=== PATIENT | female | born 1970 | race Caucasian/White ===

== ENCOUNTER 2019-12-24 12:27 | Emergency (ER) | payer MEDICARE, OTHER ==
[~2019-12-24] VITALS: Ht 157.5 cm; Wt 99.8 kg
--- OUTSIDE RECORDS SUMMARY | ~2019-12-24 | XMS | Encounter Summary ---
Demographics + + + | Address | [address] | | | [place] [address] | + + + | Home Phone | | + + + | Preferred Language | Unknown | + + + | Marital Status | | + + + | Evangelical Affiliation | 1013 | + + + | Race | Unknown | + + + | Ethnic Group | Unknown | + + + Author + + + | Author | [facility] | | | and [place] | + + + | Organization | [facility] | | | and [place] | + + + | Address | Unknown | + + + | Phone | Unavailable | + + + Support + + + + + | Name | Relationship | Address | Phone | + + + + + | Iwona L Head | ECON | [place], | | | | | [place] [address] | | + + + + + | Mahogany Navarro [place] | ECON | [address] | | | | | [place] [address] | | + + + + + Care Team Providers + +------+ + | Care Files Supervisor Name | Role | Phone | + +------+ + PCP | Unavailable | + +------+ + Encounter Details +--------+ + + + + | Date | Type | Department | Care Team | Description | +--------+ + + + + | 03/22/ | Abstract | [facility] | Larry Sandoval [place], | | | 2011 | | Conversion Location | MD [address] | | | | | [address] | [place] | | | | | [place], [place] | [address] | | | | | [address] | | | | | | [phone] | | | +--------+ + + + + Social History + +-------+ +--------+------+ | Tobacco Use | Types | Packs/Day | Years | Date | | | | | Used | | + +-------+ +--------+------+ | Never Assessed | | | | | + +-------+ +--------+------+ + + + | Sex Assigned at | Date Recorded | | | | + + + | Not on file | | + + + documented as of this encounter Plan of Treatment +--------+---------+ + + + | Date | Type | Specialty | Care Team | Description | +--------+---------+ + + + | 01/09/ | Office | Internal Medicine | Stef, | | | 2019 | Visit | | MD Quynh | | | | | | [facility] [address] | | | | | | [place] [address] | | | | | | [phone] | | | | | | | | +--------+---------+ + + + documented as of this encounter Visit Diagnoses Not on filedocumented in this encounter"
--- OUTSIDE RECORDS SUMMARY | ~2019-12-24 | XMS | Encounter Summary ---
Demographics + + + | Address | [address] | | | [place] [address] | + + + | Home Phone | | + + + | Preferred Language | Unknown | + + + | Marital Status | | + + + | Yazidi Affiliation | 1013 | + + + | Race | Unknown | + + + | Ethnic Group | Unknown | + + + Author + + + | Author | [facility] | | | and [place] | + + + | Organization | [facility] | | | and [place] | + + + | Address | Unknown | + + + | Phone | Unavailable | + + + Support + + + + + | Name | Relationship | Address | Phone | + + + + + | Iwona L Head | ECON | [place], | | | | | [place] [address] | | + + + + + | Mahogany Navarro [place] | ECON | [address] | | | | | [place] [address] | | + + + + + Care Team Providers + +------+ + | Care Papier Mache Molder Name | Role | Phone | + +------+ + | Quynh Finch | PCP | | | MD | | | + +------+ + Reason for Visit + +--------+ + | Reason | Onset | Comments | | | Date | | + +--------+ + | Results, Imaging | 09/29/ | | | | 2018 | | + +--------+ + Encounter Details +--------+ + + + + | Date | Type | Department | Care Team | Description | +--------+ + + + + | 09/29/ | Telephone | [facility] | Stef, | Results, Imaging | | 2018 | | MEDICINE [address] | MD Quynh | | | | | [place], | [address] [facility] | | | | | [place] [address] | [place] [address] | | | | | [phone] | [phone] | | | | | | | | +--------+ + + + + Social History + + + +--------+------+ | Tobacco Use | Types | Packs/Day | Years | Date | | | | | Used | | + + + +--------+------+ | Current Every Day | Cigarettes | 1.5 | 34 | | | Smoker | | | | | + + + +--------+------+ + +---+---+---+ | Smokeless Tobacco: | | | | | Never Used | | | | + +---+---+---+ + + +---------+ + | Alcohol Use | Drinks/Week | oz/Week | Comments | + + +---------+ + | Yes | | | | + + +---------+ + + + + | Sex Assigned at | Date Recorded | | | | + + + | Not on file | | + + + documented as of this encounter Miscellaneous Notes Telephone Encounter - Vera Solis LPN - 09/29/2018 4:09 PM PDTPatient notified of enoc hand with comments. Follow up appt scheduled on 10/07/18 to discuss in more detailElectr onically signed by Vera Solis LPN at 09/29/2018 4:10 PM PDTTelephone Encounter - Radha Solis LPN - 09/29/2018 4:09 PM PDT----- Message from Quynh Finch MD sent at 09/27/2018 19:54 PDT ----- U/S shows no alarming features. 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 We can discuss this more at next visit. elephone Encounter - Vera Solis LPN - 09/29/2018 4:08 PM PDT--- -- Message from Quynh Finch MD sent at 09/27/2018 19:54 PDT ----- U/S shows no alarming features. 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 We can discuss this more at next visit. 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
--- OUTSIDE RECORDS SUMMARY | ~2019-12-24 | XMS | Encounter Summary ---
Demographics + + + | Address | [address] | | | [place] [address] | + + + | Home Phone | | + + + | Preferred Language | Unknown | + + + | Marital Status | | + + + | Orthodoxy Affiliation | 1013 | + + + | Race | Unknown | + + + | Ethnic Group | Unknown | + + + Author + + + | Author | [facility] | | | and [place] | + + + | Organization | [facility] | | | and [place] | + + + | Address | Unknown | + + + | Phone | Unavailable | + + + Support + + + + + | Name | Relationship | Address | Phone | + + + + + | Iwona L Head | ECON | [place], | | | | | [place] [address] | | + + + + + | aMhogany Navarro [place] | ECON | [address] | | | | | [place] [address] | | + + + + + Care Team Providers + +------+ + | Care Outboard Motorboat Rigger Name | Role | Phone | + +------+ + | Quynh Finch | PCP | | | MD | | | + +------+ + Reason for Visit + +--------+ + | Reason | Onset | Comments | | | Date | | + +--------+ + | Medication Question | 02/01/ | | | | 2018 | | + +--------+ + Encounter Details +--------+ + + + + | Date | Type | Department | Care Team | Description | +--------+ + + + + | 02/01/ | Telephone | [facility] | Stef, | Medication Question | | 2018 | | MEDICINE [address] | MD Quynh | | | | | [place], | [address] [facility] [place] | | | | | [place] [address] | [place] [address] | | | | | [phone] | [phone] | | | | | | | [...] Telephone Encounter - Vera Solis LPN - 02/02/2019 2:13 PM PDTPharmacist Ant soto of MD approval for one time early refill, patient instructed to call our office before any increase in medication. Patient understands and accepts. elephone Encounter - Quynh Finch MD - 1:56 PM PDTOK to refill early this time, in the context of moving stress. Electron ically signed by Quynh Finch MD at 02/02/2019 1:56 PM PDTTelephone Encoungely r - Vera Solis LPN - 02/02/2019 10:16 AM PDTVerified with patient, states is in the proc ess of moving to town and had a couple of days with increased anxiety and needed to take eliana e additional doses. Please advise 10 :21 AM PDTTelephone Encounter - Quynh Finch MD - 02/02/2019 8:00 AM PDTPle ase check w/ pt what is going on. If needs more meds for anxiety, more xanax is not the answ er. We can try buspirone, hydroxyzine, or other agents. elephone Vera Finnegan LPN - 11/2018 4:56 PM PDTReceived [facility] patient was raphael goodman for refill,was told unable to refill until 02/05/19, received #30 on 01/06/19. Daughter then shows up at the pharmacy demanding they refill and it is due now. Directions say 1 tab shelly y as needed, daughter states she takes as needed for anxiety. Please confirm rx then will co ntact the pharmacy and or patient for instructions documented in this encounter Plan of Treatment +--------+---------+ + + + | Date | Type | Specialty | Care Team | Description | +--------+---------+ + + + | 01/09/ | Office | Internal Medicine | Stef, | | | 2019 | Visit | | MD Quynh | | | | | | [facility] [address] [facility] | | | | | | [place] [address] | | | | | | [phone] | | | | | | | [...]
--- OUTSIDE RECORDS SUMMARY | ~2019-12-24 | XMS | Encounter Summary ---
Demographics + + + | Address | [address] | | | [place] [address] | + + + | Home Phone | | + + + | Preferred Language | Unknown | + + + | Marital Status | | + + + | Oriental Orthodox Affiliation | 1013 | + + + | Race | Unknown | + + + | Ethnic Group | Unknown | + + + Author + + + | Author | [facility] | | | and [place] | + + + | Organization | [facility] | | | and [place] | + + + | Address | Unknown | + + + | Phone | Unavailable | + + + Support + + + + + | Name | Relationship | Address | Phone | + + + + + | Iwona L Head | ECON | [place], | | | | | [place] [address] | | + + + + + | Mahogany Farnsworth | ECON | [address] | | | | | [place] [address] | | + + + + + Care Team Providers + +------+ + | Care Hr Internship Name | Role | Phone | + +------+ + | Jason Pink | PCP | | | MD | | | + +------+ + Encounter Details +--------+ + + + + | Date | Type | Department | Care Team | Description | +--------+ + + + + | 10/27/ | Hospital | [facility] | Wali Vivar, | | | 2012 | Encounter | [facility] EM[facility] | [address] | | | | | CENTER [address] | [place] | | | | | [place] | [address] | | | | | [address] | | | | | | [phone] | | | +--------+ + + + [...] + + documented as of this encounter Medications at Time of Discharge + + + +---------+ + + | Medication | Sig | Dispensed | Refills | Start | End Date | | | | | | Date | | + + + +---------+ + + | promethazine | Take 1 tablet by | | 0 | 03/12/20 | | | (PHENERGAN) 25 mg | mouth every 4 to 6 | | | 12 | | | tablet | hours as needed | | | | | + + + +---------+ + + | acyclovir | Take 400 mg by mouth | | 0 | 03/12/20 | | | (ZOVIRAX) 400 MG | 3 times daily. | | | 12 | 7 | | tablet | | | | | | + + + +---------+ + + | | one tablet by mouth | | 0 | 03/22/20 | | | amoxicillin-clavulan | two times daily | | | 12 | 6 | | ate (AUGMENTIN) | | | | | | | 875-125 mg per | | | | | | | tablet | | | | | | + + + +---------+ + + | benztropine | Take 1 mg by mouth | | 0 | 03/22/20 | | | (COGENTIN) 1 mg | Daily. | | | 12 | 7 | | tablet | | | | | | + + + +---------+ + + | diclofenac | Take as directed | | 0 | 03/12/20 | | | (CATAFLAM) 50 MG | | | | 12 | 9 | | tablet | | | | | | + + + +---------+ + + | diphenhydrAMINE | Take 25 mg by mouth | | 0 | 03/12/20 | | | (BENADRYL ALLERGY) | every 6 hours as | | | 12 | 9 | | 25 MG capsule | needed. | | | | | + + + +---------+ + + | DiphenhydrAMINE | TABS; Take as | | 0 | 03/12/20 | | | HCl (DIPHENHIST PO) | directed | | | 12 | 7 | + + + +---------+ + + | DULoxetine | Take 60 mg by mouth | | 0 | 01/01/20 | | | (CYMBALTA) 60 MG | Daily. | | | 12 | 7 | | capsule | | | | | | + + + +---------+ + + | gabapentin | two daily | | 0 | 03/22/20 | | | (NEURONTIN) 300 mg | | | | 12 | 5 | | capsule | | | | | | + + + +---------+ + + | insulin NPH | 30 units below the | | 0 | 01/01/20 | | | (HUMULIN N) 100 | skin twice daily | | | 12 | 9 | | units/mL injection | | | | | | + + + +---------+ + + | insulin regular | 30 units inject | | 0 | 01/01/20 | | | (HUMULIN R) 100 | below the skin | | | 12 | 9 | | units/mL injection | before meals | | | | | + + + +---------+ + + | levothyroxine | Take 125 mcg by | | 0 | 01/01/20 | | | (SYNTHROID) 125 mcg | mouth Daily. | | | 12 | 5 | | tablet | | | | | | + + + +---------+ + + | methocarbamol | Take 500 mg by mouth | | 0 | 03/12/20 | | | (ROBAXIN) 500 mg | 3 times daily as | | | 12 | 7 | | tablet | needed. | | | | | + + + +---------+ + + | omeprazole | Take 20 mg by mouth | | 0 | 01/01/20 | | | (PRILOSEC) 20 mg | Daily. | | | 12 | 7 | | capsule | | | | | | + + + +---------+ + + | polyethylene | to be taken day | | 0 | 01/01/20 | | | glycol-electrolytes | prior to procedure, | | | 12 | 5 | | (NULYTELY WITH | drink 8 ounces every | | | | | | FLAVOR PACKS) 420 G | 10-20 minutes until | | | | | | solution | gone | | | | | + + + +---------+ + + | pramipexole | Take 1 mg by mouth | | 0 | 03/12/20 | | | (MIRAPEX) 1 MG | nightly. | | | 12 | 7 | | tablet | | | | | | + + + +---------+ + + | pravastatin | Take 20 mg by mouth | | 0 | 01/01/20 | | | (PRAVACHOL) 20 mg | Daily. | | | 12 | 8 | | tablet | | | | | | + + + +---------+ + + | rizatriptan | Take 1 tablet by | | 0 | 03/12/20 | | | (MAXALT) 10 mg | mouth, repeat in 2 | | | 12 | 7 | | tablet | hours if needed. | | | | | | | Maximum of 3 tablets | | | | | | | in 24 hours. | | | | | + + + +---------+ + + | traZODone | 1.5 tablet by mouth | | 0 | 01/01/20 | | | (DESYREL) 100 mg | at bedtime | | | 12 | 5 | | tablet | | | | | | + + + +---------+ + + documented as of this encounter ED Notes Wali Vivar MD - 10/27/2012 3:27 [place] [address] Patient Name: MARZENA CLINE Provider: Unit #: [id number] Location: : 1970 DATE: 10/27/2012 HISTORY OF PRESENT ILLNESS: This is a 42-year-old woman who presents here by ambulance from [facility]. She was discharged this morning at 6 a.m. for [facility] after a long stay there where she required a number of surgeries for a necrotizi ng soft tissue infection in the right leg. This included VRE and MRSA. She had been transfe rred here and was supposed to be getting oxycodone which she has been receiving in the hosp ital. She has also received fentanyl in the hospital , but her discharge medications were o xycodone. There had been a long duration between doses and the folks at the retirement y they did not have enough oxycodone to give her until her medications arrived, so sent her to the emergency department. She is not complaining of any fevers or worsening drainage or appearance of the leg. She is complaining of severe pain, 10/10. She has a history of diab etes and this recent necrotizing soft tissue infection of the leg. ALLERGIES 1. CODEINE. 2. SULFA. 3. HYDROCODONE. 4. MORPHINE. HOME MEDICATIONS 1. Acetaminophen. 2. Abilify. 3. Bacitracin. 4. Bisacodyl. 5. Calcium. 6. Cymbalta. 7. Neurontin. 8. Hydroxyzine. 9. Synthroid. 10. Lopressor. 11. Multivitamin. 12. Omeprazole. 13. Oxycodone 5-25 mg oral every 3 hours. 14. Pravachol. 15. Seroquel. 16. Senna. REVIEW OF SYSTEMS: Complete review of systems negative except as detailed in the HPI above. PHYSICAL EXAMINATION VITAL SIGNS: Blood pressure 134/69, heart rate 79, respirations 18. She is 94% on room air. GENERAL: She appears to be in no distress. HEENT: Pupils are equal and reactive to light and accommodation, extraocular movements are intact. Oral mucosa moist. NECK: Supple, nontender. CARDIAC: Normal S1, S2. LUNGS: Sounds are clear to auscultation bilaterally. ABDOMEN: Soft, nontender, nondistended. Normal bowel sounds. NEUROLOGIC: Cranial nerves 2 through 12 intact, able move all extremities with normal sensa tion and motor. SKIN: The patient has a clean, dry and intact wound in the right groin. She also has a harv est site for skin grafting over the right anterior thigh. There is a dressing in place that is not to be removed. The edges of the wound appear normal. There is a graft site to the r ight lateral calf that looks clean, dry and intact. There is no evidence of erythema or isc hemia to the graft. It looks healthy, no signs of infection. Capillary refill in both feet is normal, as is sensation. ASSESSMENT AND PLAN THIS IS A 42-YEAR-OLD WITH DIAGNOSIS OF RIGHT LEG PAIN POSTOPERATIVE. She was given 20 mg of oxycodone in the ER. She will be discharged back to the retirement . They receive her medications at 4 a.m. that they can administer to her and she can contin ue care there. She should return if any new concerning symptoms. DICTATED BY: Wali Vivar M.D. Emergency Medicine JOB #: [id number] EXT JOB #:[id number] <<Signature on File>> Wali Vivar MD0 10/30/12 1800 < documented in this encounter Plan of Treatment +--------+---------+ + + + | Date | Type | Specialty | Care Team | Description | +--------+---------+ + + + | 01/09/ | Office | Internal Medicine | Stef, | | | 2019 | Visit | | MD Quynh | | | | | | [address] | | | | | | [place] [address] | | | | | | [phone] | | | | | | | | +--------+---------+ + + + documented as of this encounter Visit Diagnoses Not on filedocumented in this encounter"
--- OUTSIDE RECORDS SUMMARY | ~2019-12-24 | XMS | Encounter Summary ---
Demographics + + + | Address | [address] | | | [place] [address] | + + + | Home Phone | | + + + | Preferred Language | Unknown | + + + | Marital Status | | + + + | Zoroastrianism Affiliation | 1013 | + + + | Race | Unknown | + + + | Ethnic Group | Unknown | + + + Author + + + | Author | [facility] | | | and [place] | + + + | Organization | [facility] | | | and [place] | + + + | Address | Unknown | + + + | Phone | Unavailable | + + + Support + + + + + | Name | Relationship | Address | Phone | + + + + + | Iwona L Head | ECON | [place], | | | | | [place] [address] | | + + + + + | Mahogany Navarro [place] | ECON | [address] | | | | | [place] [address] | | + + + + + Care Team Providers + +------+ + | Care Vascular Neurologist Name | Role | Phone | + +------+ + PCP | Unavailable | + +------+ + Encounter Details +--------+ + + + + | Date | Type | Department | Care Team | Description | +--------+ + + + + | 07/18/ | Hospital | [facility] | Driss Gaviria, | | | 2010 - | Encounter | MED CTR MED ONC | MD [address] | | | | | [address] | [place] | | | 07/20/ | | [place] [address] | [address] | | | 2010 | | [phone] | | | +--------+ + + + [...] Quynh | | | | | | [address] | | | | | | [place] [address] | | | | | | [phone] | | | | | | | | +--------+---------+ + + + documented as of this encounter Visit Diagnoses Not on filedocumented in this encounter"
--- OUTSIDE RECORDS SUMMARY | ~2019-12-24 | XMS | Encounter Summary ---
Demographics + + + | Address | [address] | | | [place] [address] | + + + | Home Phone | | + + + | Preferred Language | Unknown | + + + | Marital Status | | + + + | Caodaism Affiliation | 1013 | + + + | Race | Unknown | + + + | Ethnic Group | Unknown | + + + Author + + + | Author | [facility] | | | and [place] | + + + | Organization | [facility] | | | and [place] | + + + | Address | Unknown | + + + | Phone | Unavailable | + + + Support + + + + + | Name | Relationship | Address | Phone | + + + + + | Iwona L Head | ECON | [place], | | | | | [place] [address] | | + + + + + | Mahogany Farnsworth | ECON | [address] | | | | | [place] [address] | | + + + + + Care Team Providers + +------+ + | Care Certified Real Estate Appraiser Name | Role | Phone | + +------+ + | Quynh Finch | PCP | | | MD | | | + +------+ + Reason for Visit + + + | Reason | Comments | + + + | Medication Refill | | + + + Encounter Details +--------+--------+ + + + | Date | Type | Department | Care Team | Description | +--------+--------+ + + + | 04/24/ | Refill | [facility] | Stef, | Medication Refill | | 2017 | | MEDICINE [address] | MD Quynh | | | | | [place], | [address] [facility] | | | | | [place] [address] | [place] [address] | | | | | [phone] | [phone] | | | | | | | | +--------+--------+ + + + Social History + + [...] Quynh | | | | | | [address] [place] [address] | | | | | | [place] [address] | | | | | | [phone] | | | | | | | [...]
--- OUTSIDE RECORDS SUMMARY | ~2019-12-24 | XMS | Encounter Summary ---
Demographics + + + | Address | [address] | | | [place] [address] | + + + | Home Phone | | + + + | Preferred Language | Unknown | + + + | Marital Status | | + + + | Adventist Affiliation | 1013 | + + + | Race | Unknown | + + + | Ethnic Group | Unknown | + + + Author + + + | Author | [facility] | | | and [place] | + + + | Organization | [facility] | | | and [place] | + + + | Address | Unknown | + + + | Phone | Unavailable | + + + Support + + + + + | Name | Relationship | Address | Phone | + + + + + | Iwona L Head | ECON | [place], | | | | | [place] [address] | | + + + + + | Mahogany Navarro [place] | ECON | [address] | | | | | [place] [address] | | + + + + + Care Team Providers + +------+ + | Care Boiler Erector Name | Role | Phone | + +------+ + | Quynh Finch | PCP | | | MD | | | + +------+ + Reason for Visit + + + | Reason | Comments | + + + | Urinary Pain | | + + + | Hematuria | | + + + | Flank Pain | bilateral | + + + Encounter Details +--------+ + + + + | Date | Type | Department | Care Team | Description | +--------+ + + + + | 02/03/ | Emergency | [facility] | Dimitri De La Vega | Urinary tract | | 2019 | | [facility] | [facility] [address] | infection with | | | | CENTER [address] | [address] [place] | hematuria, site | | | | [place] | [place] [address] | unspecified (Primary | | | | [address] | [phone] | Dx); Flank pain | | | | [phone] | | | +--------+ + + + [...] + + documented as of this encounter Last Filed Vital Signs + + + + + | Vital Sign | Reading | Time Taken | Comments | + + + + + | Blood Pressure | 148/94 | 02/03/2019 8:44 PM | | | | | PDT | | + + + + + | Pulse | 76 | 02/03/2019 9:42 PM | | | | | PDT | | + + + + + | Temperature | 37 C (98.6 F) | 02/03/2019 8:44 PM | | | | | PDT | | + + + + + | Respiratory Rate | 18 | 02/03/2019 8:44 PM | | | | | PDT | | + + + + + | Oxygen Saturation | 96% | 02/03/2019 9:42 PM | | | | | PDT | | + + + + + | Inhaled Oxygen | - | - | | | Concentration | | | | + + + + + | Weight | 93 kg (205 lb) | 02/03/2019 8:44 PM | | | | | PDT | | + + + + + | Height | 157.5 cm (5' 2") | 02/03/2019 8:44 PM | | | | | PDT | | + + + + + | Body Mass Index | 37.49 | 02/03/2019 8:44 PM | | | | | PDT | | + + + + + documented in this encounter Discharge Instructions AttachmentsThe following attachments cannot be sent through Care Everywhere.Urinary Tract I nfections in Women (Persian)documented in this encounter Medications at Time of Discharge + + + +---------+ + + | Medication | Sig | Dispensed | Refills | Start | End Date | | | | | | Date | | + + + +---------+ + + | acetaminophen | Take 325 mg by mouth | | 0 | | | | (TYLENOL) 325 mg | every 4 hours as | | | | | | tablet | needed. | | | | | + + + +---------+ + + | ARIPiprazole | TAKE ONE TABLET BY | 30 | 5 | 01/27/20 | | | (ABILIFY) 5 mg | MOUTH AT BEDTIME | tablet | | 19 | | | tablet | | | | | | + + + +---------+ + + | atorvaSTATin | Take 1 tablet by | 90 | 1 | 01/14/20 | | | (LIPITOR) 40 mg | mouth nightly. | tablet | | 19 | | | tabletIndications: | | | | | | | Hypercholesterolemia | | | | | | + + + +---------+ + + | DULoxetine | TAKE ONE CAPSULE BY | 30 | 4 | 01/21/20 | | | (CYMBALTA) [address] | MOUTH ONE TIME DAILY | capsule | | 19 | | | capsule | | | | | | + + + +---------+ + + | ondansetron | Take 1 tablet by | | 0 | | | | (ZOFRAN) 4 mg TABS | mouth Daily as | | | | | | tablet (ED prepack) | needed. | | | | | + + + +---------+ + + | promethazine | Take 1 tablet by | | 0 | 03/12/20 | | | (PHENERGAN) 25 mg | mouth every 4 to 6 | | | 12 | | | tablet | hours as needed | | | | | + + + +---------+ + + | UNABLE TO | Alcohol swabs | 1 Box | 5 | 10/08/19 | | | FINDIndications: | | | | 19 | | | Uncontrolled type 2 | | | | | | | diabetes mellitus | | | | | | | with hyperglycemia | | | | | | | (HCC) | | | | | | + + + +---------+ + + | UNABLE TO | True Metrix Lancets. | 100 | 5 | 07/21/19 | | | FINDIndications: | Testing 3x/day. | each | | 19 | | | Type 2 diabetes | | | | | | | mellitus without | | | | | | | complication, with | | | | | | | long-term current | | | | | | | use of insulin (HCC) | | | | | | + + + +---------+ + + | ALPRAZolam (XANAX) | Take 1 tablet by | 30 | 3 | 01/07/20 | | | 0.5 mg | mouth Daily as | tablet | | 19 | 9 | | tabletIndications: | needed for Anxiety. | | | | | | Anxiety | | | | | | + + + +---------+ + + | amitriptyline | TAKE ONE TABLET BY | 30 | 1 | 01/21/20 | | | (ELAVIL) 25 mg | MOUTH AT BEDTIME | tablet | | 19 | 9 | | tablet | | | | | | + + + +---------+ + + | cephalexin | Take 1 capsule by | 14 | 0 | 02/04/20 | | | (KEFLEX) 500 mg | mouth 2 times daily | capsule | | 19 | 9 | | capsule | for 7 days. | | | | | + + + +---------+ + + | | TAKE ONE TABLET BY | 60 | 3 | 10/29/19 | | | diphenoxylate-atropi | MOUTH TWICE DAILY | tablet | | 19 | 9 | | ne (LOMOTIL) | | | | | | | 2.5-0.025 mg per | | | | | | | tablet | | | | | | + + + +---------+ + + | estradiol | Take 1 tablet by | 30 | 5 | 06/04/20 | | | (ESTRACE) 1 mg | mouth Daily. | tablet | | 17 | 0 | | tabletIndications: | | | | | | | Menopausal symptom | | | | | | + + + +---------+ + + | gabapentin | TAKE ONE CAPSULE BY | 120 | 5 | 01/18/20 | | | (NEURONTIN) 300 mg | MOUTH FOUR TIMES | capsule | | 19 | 0 | | capsule | DAILY | | | | | + + + +---------+ + + | insulin glargine | Inject 60 Units | 36 mL | 3 | 10/08/19 | | | (FRANCOISE SMITH) | under the skin | | | 19 | 0 | | 100 units/mL | nightly for 90 days. | | | | | | injection | Increase dose by 3 | | | | | | (pen)Indications: | units every week | | | | | | Uncontrolled type 2 | until fasting blood | | | | | | diabetes mellitus | sugars are between | | | | | | with hyperglycemia | 80-150. | | | | | | ([facility]) | | | | | | + + + +---------+ + + | Insulin Pen Needle | For insulin pen. | 100 | 5 | 07/21/19 | | | (PEN NEEDLES) 32G X | | each | | 19 | 0 | | 6 MM | | | | | | | MISCIndications: | | | | | | | Type 2 diabetes | | | | | | | mellitus without | | | | | | | complication, with | | | | | | | long-term current | | | | | | | use of insulin ([facility]) | | | | | | + + + +---------+ + + | Lactobacillus | Take 1 tablet by | | 0 | | | | (ACIDOPHILUS PO) | mouth Daily. | | | | 0 | + + + +---------+ + + | levothyroxine | TAKE ONE TABLET BY | 30 | 3 | 12/07/19 | | | (SYNTHROID) 150 mcg | MOUTH AT BEDTIME | tablet | | 19 | 9 | | tablet | | | | | | + + + +---------+ + + | omeprazole | Take 1 capsule by | 90 | 3 | 11/25/19 | | | (PRILOSEC) 20 mg | mouth every morning | capsule | | 19 | 0 | | capsule | (before breakfast). | | | | | + + + +---------+ + + | pramipexole | TAKE TWO TABLETS BY | 60 | 0 | 02/01/20 | | | (MIRAPEX) 1.5 MG | MOUTH DAILY AT | tablet | | 19 | 9 | | tablet | BEDTIME | | | | | + + + +---------+ + + | QUEtiapine | TAKE ONE TABLET BY | 30 | 0 | 02/01/20 | | | (SEROQUEL) 25 mg | MOUTH AT BEDTIME | tablet | | 19 | 9 | | tablet | | | | | | + + + +---------+ + + | UNABLE TO | True Metrix Testing | 100 | 5 | 07/21/19 | | | FINDIndications: | Strips. Testing | each | | 19 | 0 | | Type 2 diabetes | 3x/day. | | | | | | mellitus without | | | | | | | complication, with | | | | | | | long-term current | | | | | | | use of insulin (HCC) | | | | | | + + + +---------+ + + documented as of this encounter ED Notes Dimitri De La Vega DO - 03/06/2019 11:09 PM PDTFormatting of this note might be differ ent from the original. [facility] Marzena Pate [facility] [[email or web address] Emergency Department Encounter Note [address] [place] [address] PCP:Quynh Finch MD [phone] History ED Triage Notes, ED Triage Notes Stephanie Evans RN 02/03/2019 20:49 Two episodes of hematuria since 1800. Pt complains of bilateral flank pain, burning with ur ination and hx of UTIs. Denies fever, chills or nausea CC: Urinary Pain; Hematuria; and Flank Pain (bilateral) HPI: Marzena Duong is a 48 y.o. female who presents to the ED for evaluation of hemat uria and flank pain. Patient reports she has dysuria as well and a history of UTIs. Today both flanks are hurting and she has had 2 episodes of hematuria. No nausea, vomiting or donovan rrhea. PMH: Past Medical History: Diagnosis Date Anxiety Arthritis Asthma Cancer (HCC) Depression Depressive disorder Diabetes mellitus (HCC) Diabetic peripheral neuropathy (HCC) Drop foot gait Dysuria Encounter for blood transfusion Epidermal inclusion cyst Fibromyalgia GERD (gastroesophageal reflux disease) Hemangioma High blood pressure Hyperlipidemia Hypertension Hypothyroid Impaired mobility Knee pain Low back pain Moderate vulvar dysplasia Necrotizing fasciitis (HCC) Neuropathy of right foot Onychauxis Opiate dependence, continuous (HCC) Pain in right lower leg Paralysis of lower limb (HCC) Serum cholesterol elevated Thyroid disease Vaginal candidosis Vulvitis Weight loss Xanthelasma of eyelid PSH: Past Surgical History: Procedure Laterality Date CHOLECYSTECTOMY COLONOSCOPY Excision of Perianal Lesion 03/29/2014 Dr. 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 ALPRAZolam (XANAX) 0.5 mg tablet Take 1 tablet by mouth Daily as needed for Anxiety. amitriptyline (ELAVIL) 25 mg tablet TAKE ONE TABLET BY MOUTH AT BEDTIME ARIPiprazole (ABILIFY) 5 mg tablet TAKE ONE TABLET BY MOUTH AT BEDTIME atorvaSTATin (LIPITOR) 40 mg tablet Take 1 tablet by mouth nightly. diphenoxylate-atropine (LOMOTIL) 2.5-0.025 mg per tablet TAKE ONE TABLET BY MOUTH TWICE DAILY DULoxetine (CYMBALTA) [address] capsule TAKE ONE CAPSULE BY MOUTH ONE TIME DAILY estradiol (ESTRACE) 1 mg tablet Take 1 tablet by mouth Daily. gabapentin (NEURONTIN) 300 mg capsule TAKE ONE CAPSULE BY MOUTH FOUR TIMES DAILY insulin glargine (BASAGLAR KWIKPEN) 100 units/mL injection (pen) Inject 60 Units under the skin nightly for 90 days. Increase dose by 3 units every week until fasting blood sugars are between 80-150. Insulin Pen Needle (PEN NEEDLES) 32G X 6 MM MISC For insulin pen. Lactobacillus (ACIDOPHILUS PO) Take 1 tablet by mouth Daily. levothyroxine (SYNTHROID) 150 mcg tablet TAKE ONE TABLET BY MOUTH AT BEDTIME omeprazole (PRILOSEC) 20 mg capsule Take 1 capsule by mouth every morning (before break fast). ondansetron (ZOFRAN) 4 mg TABS tablet (ED prepack) Take 1 tablet by mouth Daily as need ed. promethazine (PHENERGAN) 25 mg tablet Take 1 tablet by mouth every 4 to 6 hours as need ed UNABLE TO FIND Alcohol swabs UNABLE TO FIND True Metrix Testing Strips. Testing 3x/day. UNABLE TO FIND True Metrix Lancets. Testing 3x/day. Allergies: She is allergic to hydrocodone; morphine; sulfa antibiotics; adhesive & tape; mi lk-related compounds; and codeine.. Social History: She reports that she has been smoking cigarettes. She has a 51.00 pack-ye ar smoking history. She has never used smokeless tobacco. She reports that she drinks alcoho l. She reports that she does not use drugs.. Review of Systems Constitutional: Negative for chills and fever. HENT: Negative for congestion. Eyes: Negative for visual disturbance. Respiratory: Negative for shortness of breath. Cardiovascular: Negative for chest pain and leg swelling. Gastrointestinal: Negative for abdominal pain, diarrhea, nausea and vomiting. Genitourinary: Positive for dysuria, flank pain and hematuria. Musculoskeletal: Negative for arthralgias and myalgias. Skin: Negative for rash. Neurological: Negative for weakness. Psychiatric/Behavioral: Negative for behavioral problems. Physical Exam Vital Signs: Temp: 37 C (98.6 F) Pulse: 89 Resp: 18 BP: (!) 148/94 SpO2: 95 % Physical Exam Constitutional: She is oriented to person, place, and time. She appears well-developed and well-nourished. No distress. HENT: Head: Normocephalic and atraumatic. Nose: Nose normal. Eyes: Pupils are equal, round, and reactive to light. EOM are normal. Neck: Normal range of motion. Neck supple. Cardiovascular: Normal rate, regular rhythm and intact distal pulses. No murmur heard. Pulmonary/Chest: Effort normal and breath sounds normal. No respiratory distress. Abdominal: Soft. She exhibits no distension. There is no tenderness. There is CVA tendernes s. There is no rebound and no guarding. Musculoskeletal: Normal range of motion. She exhibits no edema or deformity. Neurological: She is alert and oriented to person, place, and time. No cranial nerve defici t. Skin: Skin is warm and dry. No rash noted. Psychiatric: She has a normal mood and affect. Her behavior is normal. Nursing note and vitals reviewed. ED Course and Medical Decision Making Marzena Duong presented to the Emergency Department for evaluation, and she was triag ed to room ED09. I reviewed the nursing notes, and she was evaluated by me. IMPRESSION 1. Urinary tract infection with hematuria, site unspecified 2. Flank pain Medical Decision Making as of Mar 06 2309u Feb 03, [id number] Leukocyte esterase, UA: (!) Large 2122 WBC UA: (!) 50-100 212 BACTERIA UA: (!) 1+ Patient's urinalysis is consistent with UTI and likely associated with pyelonephritis. Uri ne culture was sent and patient was started on Keflex. She was discharged in stable conditi on will follow-up with her primary care as needed. Coding Dimitri De La Vega DO 03/06/19 2313 ietrich, Autumn Romero RN - 02/03/2019 8:46 PM PDTTwo episodes of hematuria since 1800. Pt complains of bila teral flank pain, burning with urination and hx of UTIs. Denies fever, chills or nauseaElect ronically signed by Stephanie Evans RN at 02/03/2019 8:49 PM PDTdocumented in this encou nter Plan of Treatment +--------+---------+ + + + | Date | Type | Specialty | Care Team | Description | +--------+---------+ + + + | 01/09/ | Office | Internal Medicine | Stef, | | | 2019 | Visit | | MD Quynh | | | | | | [address] [place] | | | | | | [place] [address] | | | | | | [phone] | | | | | | | | +--------+---------+ + + + documented as of this encounter Procedures + +--------+ + + + | Procedure Name | Priori | Date/Time | Associated Diagnosis | Comments | | | ty | | | | + +--------+ + + + | URINALYSIS WITH | Routin | 02/03/2019 | | Results for this | | MICROSCOPIC WITH | e | 8:53 PM | | procedure are in the | | CULTURE IF INDICATED | | PDT | | results section. | + +--------+ + + + | CULTURE, URINE | Routin | 02/03/2019 | | Results for this | | | e | 8:53 PM | | procedure are in the | | | | PDT | | results section. | + +--------+ + + + documented in this encounter Results Culture, Urine (02/03/2019 8:53 PM PDT) + + + + + + | Component | Value | Ref Range | Performed | Pathologist | | | | | At | Signature | + + + + + + | Culture | >100,000 CFU/ml | | [facility] | | | | Escherichia coli | | [facility] | | | | | | [facility] | | | | | | [facility] - | | | | | | LABORATORY | | + + + + + + + + | Specimen | + + | Urine - Urine | | specimen obtained by | | clean catch | | procedure (specimen) | + + + + +--------+ + | Organism | Antibiotic | Method | Susceptibility | + + +--------+ + | Escherichia coli | Cefazolin | | 16 ug/mL: | | | | | Intermediate | + + +--------+ + | Escherichia coli | Cefoxitin | | <=4 ug/mL: | | | | | Sensitive | + + +--------+ + | Escherichia coli | Ceftazidime | | <=1 ug/mL: | | | | | Sensitive | + + +--------+ + | Escherichia coli | Ceftriaxone | | <=1 ug/mL: | | | | | Sensitive | + + +--------+ + | Escherichia coli | Ciprofloxacin | | <=0.25 ug/mL: | | | | | Sensitive | + + +--------+ + | Escherichia coli | Ertapenem | | <=0.5 ug/mL: | | | | | Sensitive | + + +--------+ + | Escherichia coli | Gentamicin | | <=1 ug/mL: | | | | | Sensitive | + + +--------+ + | Escherichia coli | Meropenem | | <=0.25 ug/mL: | | | | | Sensitive | + + +--------+ + | Escherichia coli | Nitrofurantoin | | 32 ug/mL: | | | | | Sensitive | + + +--------+ + | Escherichia coli | Piperacillin + | | 64 ug/mL: | | | Tazobactam | | Intermediate | + + +--------+ + | Escherichia coli | Tobramycin | | <=1 ug/mL: | | | | | Sensitive | + + +--------+ + | Escherichia coli | Trimethoprim + | | <=20 ug/mL: | | | Sulfamethoxazole | | Sensitive | + + +--------+ + + + + + + | Performing | Address | City/State/Zipcode | Phone Number | | Organization | | | | + + + + + | [facility] | [address] | [place] | [phone] | | [facility] | | [address] | | | - LABORATORY | | | | + + + + + Urinalysis with Microscopic with Culture if Indicated (02/03/2019 8:53 PM PDT) + + + + + + | Component | Value | Ref Range | Performed | Pathologist | | | | | At | Signature | + + + + + + | Color, | Straw | Light Yellow, | [facility] | | | Urine | | Yellow, Straw | [facility] | | | | | | [facility] | | | | | | C[facility] - | | | | | | LABORATORY | | + + + + + + | Clarity | Golden (A) | Clear | [facility] | | | | | | [facility] | | | | | | [facility] | | | | | | C[facility] - | | | | | | LABORATORY | | + + + + + + | pH, Urine | 6.0 | 5.0 - 8.0 | [facility] | | | | | | [facility] | | | | | | MEDICAL | | | | | | C[facility] - | | | | | | LABORATORY | | + + + + + + | Specific | 1.022 | 1.001 - 1.030 | [facility] | | | [place], | | | [facility] | | | Urine | | | MEDICAL | | | | | | CENTER - | | | | | | LABORATORY | | + + + + + + | Protein, | Negative | Negative | [facility] | | | Urine | | | [facility] | | | | | | [facility] | | | | | | C[facility] - | | | | | | LABORATORY | | + + + + + + | Blood, | Large (A) | Negative | [facility] | | | Urine | | | [facility] | | | | | | [facility] | | | | | | CENTER - | | | | | | LABORATORY | | + + + + + + | Glucose, | >=500 mg/dL (A) | Negative | [facility] | | | Urine | | | [facility] | | | | | | MEDICAL | | | | | | CENTER - | | | | | | LABORATORY | | + + + + + + | Ketones, | Negative | Negative | [facility] | | | Urine | | | [facility] | | | | | | [facility] | | | | | | CENTER - | | | | | | LABORATORY | | + + + + + + | Bilirubin, | Negative | Negative | [facility] | | | Urine | | | [facility] | | | | | | MEDICAL | | | | | | CENTER - | | | | | | LABORATORY | | + + + + + + | Nitrite, | Negative | Negative | [facility] | | | Urine | | | [facility] | | | | | | MED[facility] | | | | | | CENTER - | | | | | | LABORATORY | | + + + + + + | Leukocyte | Large (A) | Negative | [facility] | | | Esterase, | | | [facility] | | | Urine | | | MEDICAL | | | | | | CENTER - | | | | | | LABORATORY | | + + + + + + | Urobilinoge | Negative | 0.2 mg/dL, 1.0 | [facility] | | | n, Urine | | mg/dL, Negative | [facility] | | | | | | MEDICAL | | | | | | CENTER - | | | | | | LABORATORY | | + + + + + + | White Blood | 50-100 (A) | 0 - 2 /HPF | [facility] | | | Cells, | | | [facility] | | | Urine | | | MEDICAL | | | | | | CENTER - | | | | | | LABORATORY | | + + + + + + | Red Blood | >100 (A) | 0 - 2 /HPF | [facility] | | | Cells, | | | [facility] | | | Urine | | | MEDICAL | | | | | | CENTER - | | | | | | LABORATORY | | + + + + + + | Squamous | 0-2 | 0 - 2 /LPF | [facility] | | | Epithelial | | | [facility] | | | Cells, | | | MEDICAL | | | Urine | | | CENTER - | | | | | | LABORATORY | | + + + + + + | Bacteria, | 1+ (A) | Negative /HPF | [facility] | | | Urine | | | [facility] | | | | | | MEDICAL | | | | | | CENTER - | | | | | | LABORATORY | | + + + + + + | Mucus, | Present (A) | Negative /LPF | [facility] | | | Urine | | | [facility] | | | | | | MEDICAL | | | | | | CENTER - | | | | | | LABORATORY | | + + + + + + | Urine | Urine Culture Set Up | | [facility] | | | Comment | | | [facility] | | | | | | MEDICAL | | | | | | CENTER - | | | | | | LABORATORY | | + + + + + + + + | Specimen | + + | Urine - Urine | | specimen obtained by | | clean catch | | procedure (specimen) | + + + + + + + | Performing | Address | City/State/Zipcode | Phone Number | | Organization | | | | + + + + + | [facility] | [address] | [place], [place] | [phone] | | [facility] | | [address] | | | - LABORATORY | | | | + + + + + documented in this encounter Visit Diagnoses + + | Diagnosis | + + | Urinary tract infection with hematuria, site unspecified - Primary | + + | Flank pain Abdominal pain, unspecified site | + + documented in this encounter Administered Medications + +--------+ +--------+------+------+ | Medication Order | MAR | Action | Dose | Rate | Site | | | Action | Date | | | | + +--------+ +--------+------+------+ | cephalexin (KEFLEX) capsule 500 | Given | 02/04/20 | 500 mg | | | | mg 500 mg, Oral, ONCE, Charity | | 19 9:40 | | | | | 02/03/19 at 2130, For 1 dose, | | PM PDT | | | | | Indications: NON-PURULENT SKIN | | | | | | | AND SOFT TISSUE INFECTION | | | | | | + +--------+ +--------+------+------+ +---+---+ | | | +---+---+ documented in this encounter Additional Health Concerns + + + + + | Infection | Onset Date | Last Indicated | Resolved Time | + + + + + | 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
--- OUTSIDE RECORDS SUMMARY | ~2019-12-24 | XMS | Encounter Summary ---
Demographics + + + | Address | [address] | | | [place] [address] | + + + | Home Phone | | + + + | Preferred Language | Unknown | + + + | Marital Status | | + + + | Buddhism Affiliation | 1013 | + + + | Race | Unknown | + + + | Ethnic Group | Unknown | + + + Author + + + | Author | [facility] | | | and [place] | + + + | Organization | [facility] | | | and [place] | + + + | Address | Unknown | + + + | Phone | Unavailable | + + + Support + + + + + | Name | Relationship | Address | Phone | + + + + + | Iwona L Head | ECON | [place], | | | | | [place] [address] | | + + + + + | Mahogany Navarro [place] | ECON | [address] | | | | | [place] [address] | | + + + + + Care Team Providers + +------+ + | Care Manager Special Events Name | Role | Phone | + +------+ + PCP | Unavailable | + +------+ + Encounter Details +--------+ + + + + | Date | Type | Department | Care Team | Description | +--------+ + + + + | 10/31/ | Hospital | [facility] | [place], | | | 2005 | Encounter | MED CTR XRAY [address] | | | | | [place] | [place], [place] | | | | | [place] [address] | [address] | | | | | [phone] | | | +--------+ + + + [...] | | | | | [place] [address] | | | | | | [phone] | | | | | | | | +--------+---------+ + + + documented as of this encounter Visit Diagnoses Not on filedocumented in this encounter"
--- OUTSIDE RECORDS SUMMARY | ~2019-12-24 | XMS | Encounter Summary ---
Demographics + + + | Address | [address] | | | [place] [address] | + + + | Home Phone | | + + + | Preferred Language | Unknown | + + + | Marital Status | | + + + | Roman Catholic Affiliation | 1013 | + + + | Race | Unknown | + + + | Ethnic Group | Unknown | + + + Author + + + | Author | [facility] | | | and [place] | + + + | Organization | [facility] | | | and [place] | + + + | Address | Unknown | + + + | Phone | Unavailable | + + + Support + + + + + | Name | Relationship | Address | Phone | + + + + + | Iwona L Head | ECON | [place], | | | | | [place] [address] | | + + + + + | Mahogany Navarro [place] | ECON | [address] | | | | | [place] [address] | | + + + + + Care Team Providers + +------+ + | Care Packer Fuser Name | Role | Phone | + +------+ + PCP | Unavailable | + +------+ + Encounter Details +--------+ + + + + | Date | Type | Department | Care Team | Description | +--------+ + + + + | 09/25/ | Hospital | [facility] | [place], | | | 2005 | Encounter | MED CTR LABORATORY | MD [address] | | | | | [address] [place] | [place], [place] | | | | | [place], [place] | [address] | | | | | [address] | | | | | | [phone] | | | +--------+ + + + [...] | | | | | [place] [address] | | | | | | [phone] | | | | | | | | +--------+---------+ + + + documented as of this encounter Visit Diagnoses Not on filedocumented in this encounter"
--- OUTSIDE RECORDS SUMMARY | ~2019-12-24 | XMS | Encounter Summary ---
Demographics + + + | Address | [address] | | | [place] [address] | + + + | Home Phone | | + + + | Preferred Language | Unknown | + + + | Marital Status | | + + + | Taoism Affiliation | 1013 | + + + | Race | Unknown | + + + | Ethnic Group | Unknown | + + + Author + + + | Author | [facility] | | | and [place] | + + + | Organization | [facility] | | [...] [place], | | | | | [place] [address] | | + + + + + | Mahogany Farnsworth | ECON | [address] | | | | | [place] [address] | | + + + + + Care Team Providers + +------+ + | Care Finisher Machine Name | Role | Phone | + [...] Description | +--------+--------+ + + + | 07/20/ | Refill | [facility] | Stef, | Medication Refill | | 2019 | | MEDICINE [address] | MD Quynh | | | | | [place], | [address] [facility] | | | | | [place] [address] | [place] [address] | | | | | [phone] | [phone] | | | | | | | [...] Telephone Encounter - Vera Solis LPN - 07/20/2018 3:43 PM PSTLast appt: 07/15/18 No upcoming appt docume nted in this encounter Plan of Treatment +--------+---------+ + + + | Date | Type | Specialty | Care Team | Description | +--------+---------+ + + + | 01/09/ | Office | Internal Medicine | Stef, | | | 2019 | Visit | | MD Quynh | | | | | | [address] | | | | | | [place] [address] | | | | | | [phone] | | | | | | | [...]
--- OUTSIDE RECORDS SUMMARY | ~2019-12-24 | XMS | Encounter Summary ---
Demographics + + + | Address | [address] | | | [place] [address] | + + + | Home Phone | | + + + | Preferred Language | Unknown | + + + | Marital Status | | + + + | Judaism Affiliation | 1013 | + + + | Race | Unknown | + + + | Ethnic Group | Unknown | + + + Author + + + | Author | [facility] | | | and [place] | + + + | Organization | [facility] | | [...] [place], | | | | | [place] [address] | | + + + + + | Mahogany Farnsworth | ECON | [address] | | | | | [place] [address] | | + + + + + Care Team Providers + +------+ + | Care Roller Repairer Name | Role | Phone | + +------+ + | Jason Pink | PCP | | | MD | | | + +------+ + Encounter Details +--------+ + + + + | Date | Type | Department | Care Team | Description | +--------+ + + + + | 11/03/ | Hospital | [facility] | Jason Pink | | | 2012 | Encounter | MED CTR OP INFUSION | MD Jeronimo | | | | | [address] | [address] [place] [address] | | | | | [place] | [place], | | | | | [address] | [place] [address] | | | | | [phone] | [phone] | | | | | | | [...] [place] | | | | | | [place] [address] | | | | | | [phone] | | | | | | | | +--------+---------+ + + + documented as of this encounter Procedures + +--------+ + + + | Procedure Name | Priori | Date/Time | Associated Diagnosis | Comments | | | ty | | | | + +--------+ + + + | XR CHEST PA OR AP | Routin | 11/04/2012 | | Results for this | | | e | 8:36 AM | | procedure are in the | | | | PDT | | results section. | + +--------+ + + + | XR CHEST PA OR AP | Routin | 11/04/2012 | | Results for this | | | e | 8:34 AM | | procedure are in the | | | | PDT | | results section. | + +--------+ + + + documented in this encounter Results XR Chest PA or AP (11/04/2012 8:36 AM PDT) + + | Specimen | + + | | + + + + + | Narrative | Performed At | + + + | [facility] | [place] | | Department [address] | [facility] | | [ rep [address]] [ rep [facility] | | [facility]] Signed | - IMAGING | | | | | Patient Name: MITRA CLINE Physician: | | | EVER : 1970 Age: 42 Sex: F Unit #: [id number] | | | Exam Date: 11/03/12 Location: INF.3W | | | Report #: [id number] Page: | | | %(RAD)RES..mtdd.print.filter("pg") of %(RAD) | | | RES..mtdd.print.filter("tpg") | | | | | | Accession Number: [id number] | | | [id number] CHEST X-RAY CLINICAL HISTORY: | | | PICC LINE PLACEMENT. COMPARISON: Chest x-ray dated | | | 11/03/2012 at 1831 hours. FINDINGS: AP view of the | | | chest was obtained. A right PICC line is present with tip | | | at the junction between the SVC and right atrium. Bilateral lungs | | | are clear with no evidence for right pneumothorax. Heart is at the | | | upper limits of normal in size. Mediastinum is normal. There are no | | | acute osseous abnormalities. IMPRESSION: 1. RIGHT | | | PICC LINE WITH TIP IN THE JUNCTION BETWEEN THE SVC AND RIGHT ATRIUM. | | | Dictated Date/Time: 11/04/2012 08:36 Transcribed | | | Date/Time: 11/04/2012 09:01 [employer]: | | | <<Signature on File>> | | | John | | | MD Vivek11/04/12 1433 <Electronically signed by John Doyle MD> | | | John oDyle MD 11/04/12 0836 [employer]: Felisa | | | Gbjxdufdrjlks10/09/13 0901 Jason Pink MD | | | | | + + + + + + + + | Performing | Address | City/State/Zipcode | Phone Number | | Organization | | | | + + + + + | [facility] | [address] | [place] | [phone] | | [facility] | | [address] | | | - IMAGING | | | | + + + + + XR Chest PA or AP (11/04/2012 8:34 AM PDT) + + | Specimen | + + | | + + + + + | Narrative | Performed At | + + + | [facility] | [place] | | Department [address] [facility] [place] | [facility] | | [ rep [address]] [ rep [facility] | | st zip] Signed | - IMAGING | | | | | Patient Name: MITRA CLINE Physician: | | | SHELLEYI. : 1970 Age: 42 Sex: F Unit #: [id number] | | | Exam Date: 11/03/12 Location: INF.3W | | | Report #: [id number] Page: | | | %(RAD)RES..mtdd.print.filter("pg") of %(RAD) | | | RES..mtdd.print.filter("tpg") | | | | | | Accession Number: [id number] | | | [id number] CHEST X-RAY CLINICAL HISTORY: | | | PICC LINE PLACEMENT. COMPARISON: Numerous previous | | | chest x-rays, most recently 05/05/2006. FINDINGS: AP | | | view of the chest was obtained. A right PICC line is | | | observed with tip in the right atrium. Bilateral lungs are clear. | | | Heart is at the upper limits of normal in size. Mediastinum is | | | normal. There are no acute osseous abnormalities. | | | IMPRESSION: 1. RIGHT PICC LINE WITH TIP IN THE RIGHT ATRIUM. | | | Dictated Date/Time: 11/04/2012 08:34 Transcribed | | | Date/Time: 11/04/2012 08:59 Performing Arts Technicians: | | | <<Signature on File>> | | | John | | | MD Vivek11/04/12 1433 <Electronically signed by John Doyle MD> | | | John Doyle MD 11/04/12 0834 [employer]forming Arts Technicians: Prepmaticreynaldo | | | Itpnidfogjisz14/09/13 0859 Jason Pink MD | | | | | + + + + + + + + | Performing | Address | City/State/Zipcode | Phone Number | | Organization | | | | + + + + + | [facility] | [address] | [place] | [phone] | | [facility] | | [address] | | | - IMAGING | | | | + + + + + documented in this encounter Visit Diagnoses Not on filedocumented in this encounter
--- OUTSIDE RECORDS SUMMARY | ~2019-12-24 | XMS | Encounter Summary ---
Demographics + + + | Address | [address] | | | [place] [address] | + + + | Home Phone | | + + + | Preferred Language | Unknown | + + + | Marital Status | | + + + | Church Affiliation | 1013 | + + + | Race | Unknown | + + + | Ethnic Group | Unknown | + + + Author + + + | Author | [facility] | | | and [place] | + + + | Organization | [facility] | | | and [place] | + + + | Address | Unknown | + + + | Phone | Unavailable | + + + Support + + + + + | Name | Relationship | Address | Phone | + + + + + | Iwona L Head | ECON | [place], | | | | | [place] [address] | | + + + + + | Mahogany Farnsworth | ECON | [address] | | | | | [place] [address] | | + + + + + Care Team Providers + +------+ + | Care Animal Nutrition Teacher Name | Role | Phone | + [...] Description | +--------+--------+ + + + | 01/15/ | Refill | [facility] | Stef, | Medication Refill | | 2018 | | MEDICINE [address] | MD Quynh | | | | | [place], | [address] [facility] | | | | | [place] [address] | [place] [address] | | | | | [phone] | [phone] | | | | | | | [...] Quynh | | | | | | [address] [place] [address] | | | | | | [place] [address] | | | | | | [phone] | | | | | | | [...]
--- OUTSIDE RECORDS SUMMARY | ~2019-12-24 | XMS | Encounter Summary ---
Demographics + + + | Address | [address] | | | [place] [address] | + + + | Home Phone | | + + + | Preferred Language | Unknown | + + + | Marital Status | | + + + | Restorationism Affiliation | 1013 | + + + | Race | Unknown | + + + | Ethnic Group | Unknown | + + + Author + + + | Author | [facility] | | | and [place] | + + + | Organization | [facility] | | | and [place] | + + + | Address | Unknown | + + + | Phone | Unavailable | + + + Support + + + + + | Name | Relationship | Address | Phone | + + + + + | Iwona L Head | ECON | [place], | | | | | [place] [address] | | + + + + + | Mahogany Navarro [place] | ECON | [address] | | | | | [place] [address] | | + + + + + Care Team Providers + +------+ + | Care Training And Development Head Name | Role | Phone | + +------+ + PCP | Unavailable | + +------+ + Encounter Details +--------+ + + + + | Date | Type | Department | Care Team | Description | +--------+ + + + + | 05/30/ | Hospital | [facility] | Nigel Lopez | | | 2009 | Encounter | MED CTR MP INTRA OP | DO [address] | | | | | [address] | [facility] | | | | | [place], [place] | [place] [address] | | | | | [address] | [phone] | | | | | [phone] | | | +--------+ + + + [...] | | | | | [address] [facility] | | | | | | [place] [address] | | | | | | [phone] | | | | | | | | +--------+---------+ + + + documented as of this encounter Visit Diagnoses Not on filedocumented in this encounter"
--- OUTSIDE RECORDS SUMMARY | ~2019-12-24 | XMS | Encounter Summary ---
Demographics + + + | Address | [address] | | | [place] [address] | + + + | Home Phone | | + + + | Preferred Language | Unknown | + + + | Marital Status | | + + + | Christianity Affiliation | 1013 | + + + | Race | Unknown | + + + | Ethnic Group | Unknown | + + + Author + + + | Author | [facility] | | | and [place] [...] [place], | | | | | [place] [address] | | + + + + + | Mahogany Navarro Ansley | ECON | [address] | | | | | [place] [address] | | + + + + + Care Team Providers + +------+ + | Care College [employer] Department Head Name | Role | Phone | + +------+ + | Quynh Finch | PCP | | | MD | | | + +------+ + Reason for Visit + +--------+ + | Reason | Onset | Comments | | | Date | | + +--------+ + | Medication Refill | 06/13/ | | | | 2018 | | + +--------+ + Encounter Details +--------+--------+ + + + | Date | Type | Department | Care Team | Description | +--------+--------+ + + + | 06/13/ | Refill | [facility] | Stef, | Medication Refill | | 2018 | | MEDICINE [address] | MD Quynh | | | | | [place], | [address] [facility] | | | | | [place] [address] | [place] [address] | | | | | [phone] | [phone] | | | | | | | [...] Telephone Encounter - Vera Solis LPN - 06/13/2019 5:08 PM PSTRx pended for MD approval Last appt: 01/06/19 No upcoming appt scheduled documented in this encounter Plan of Treatment +--------+---------+ + + + | Date | Type | Specialty | Care Team | Description | +--------+---------+ + + + | 01/09/ | Office | Internal Medicine | Stef, | | | 2019 | Visit | | MD Quynh | | | | | | [address] | | | | | | [place] [address] | | | | | | [phone] | | | | | | | [...]
--- OUTSIDE RECORDS SUMMARY | ~2019-12-24 | XMS | Encounter Summary ---
Demographics + + + | Address | [address] | | | [place] [address] | + + + | Home Phone | | + + + | Preferred Language | Unknown | + + + | Marital Status | | + + + | Taoism Affiliation | 1013 | + + + | Race | Unknown | + + + | Ethnic Group | Unknown | + + + Author + + + | Author | [facility] | | | and [place] | + + + | Organization | [facility] | | | [...] [place], | | | | | [place] [address] | | + + + + + | Mahogany Navarro [place] | ECON | [address] | | | | | [place] [address] | | + + + + + Care Team Providers + +------+ + | Care Medical Certification Specialist Name | Role | Phone | + +------+ + PCP | Unavailable | + +------+ + Encounter Details +--------+ + + + + | Date | Type | Department | Care Team | Description | +--------+ + + + + | 03/03/ | Hospital | [facility] | Larry Sandoval, | | | 2006 - | Encounter | MED CTR DIETARY | MD [address] | | | | | [address] [place] | [place], [place] | | | 04/02/ | | [place] [address] | [address] | | | 2005 | | [phone] | | | +--------+ + + + [...] | | | | | [place] [address] | | | | | | [phone] | | | | | | | | +--------+---------+ + + + documented as of this encounter Visit Diagnoses Not on filedocumented in this encounter"
--- OUTSIDE RECORDS SUMMARY | ~2019-12-24 | XMS | Encounter Summary ---
Demographics + + + | Address | [address] | | | [place] [address] | + + + | Home Phone | | + + + | Preferred Language | Unknown | + + + | Marital Status | | + + + | Druze Affiliation | 1013 | + + + | Race | Unknown | + + + | Ethnic Group | Unknown | + + + Author + + + | Author | [facility] | | | and [place] | + + + | Organization | [facility] | | | and [place] | + + + | Address | Unknown | + + + | Phone | Unavailable | + + + Support + + + + + | Name | Relationship | Address | Phone | + + + + + | Iwona L Head | ECON | [place], | | | | | [place] [address] | | + + + + + | Mahogany Farnsworth | ECON | [address] | | | | | [place] [address] | | + + + + + Care Team Providers + +------+ + | Care Fibrous Wallboard Inspector Name | Role | Phone | + [...] Description | +--------+--------+ + + + | 07/21/ | Refill | [facility] | Stef, | Medication Refill | | 2019 | | MEDICINE [address] | MD Quynh | | | | | [place], | [address] [facility] | | | | | [place] [address] | [place] [address] | | | | | [phone] | [phone] | | | | | | | [...] Telephone Encounter - Vera Solis LPN - 07/21/2018 12:57 PM PSTLast appt: 07/15/18 Next appt: 07/29/18 docu mented in this encounter Plan of Treatment +--------+---------+ + + + | Date | Type | Specialty | Care Team | Description | +--------+---------+ + + + | 01/09/ | Office | Internal Medicine | Stef, | | | 2019 | Visit | | MD Quynh | | | | | | [address] | | | | | | [place] [address] | | | | | | [phone] | | | | | | | [...]
--- OUTSIDE RECORDS SUMMARY | ~2019-12-24 | XMS | Encounter Summary ---
Demographics + + + | Address | [address] | | | [place] [address] | + + + | Home Phone | | + + + | Preferred Language | Unknown | + + + | Marital Status | | + + + | Confucianism Affiliation | 1013 | + + + | Race | Unknown | + + + | Ethnic Group | Unknown | + + + Author + + + | Author | [facility] | | | and [place] | + + + | Organization | [facility] | | [...] [place], | | | | | [place] [address] | | + + + + + | Mahogany Farnsworth | ECON | [address] | | | | | [place] [address] | | + + + + + Care Team Providers + +------+ + | Care Corporation Secretary Name | Role | Phone | + [...] Description | +--------+--------+ + + + | 06/20/ | Refill | [facility] | Stef, | Medication Refill | | 2017 | | MEDICINE [address] | MD Quynh | | | | | [place], | [address] [facility] | | | | | [place] [address] | [place] [address] | | | | | [phone] | [phone] | | | | | | | [...] Quynh | | | | | | [address] [place] [address] | | | | | | [place] [address] | | | | | | [phone] | | | | | | | [...]
--- OUTSIDE RECORDS SUMMARY | ~2019-12-24 | XMS | Encounter Summary ---
Demographics + + + | Address | [address] | | | [place] [address] | + + + | Home Phone | | + + + | Preferred Language | Unknown | + + + | Marital Status | | + + + | Religion Affiliation | 1013 | + + + | Race | Unknown | + + + | Ethnic Group | Unknown | + + + Author + + + | Author | [facility] | | | and [place] | + + + | Organization | [facility] | | | and [place] | + + + | Address | Unknown | + + + | Phone | Unavailable | + + + Support + + + + + | Name | Relationship | Address | Phone | + + + + + | Iwona L Head | ECON | [place], | | | | | [place] [address] | | + + + + + | Mahogany Farnsworth | ECON | [address] | | | | | [place] [address] | | + + + + + Care Team Providers + +------+ + | Care Valet Attendant Name | Role | Phone | + [...] Description | +--------+--------+ + + + | 08/24/ | Refill | [facility] | Stef, | Medication Refill | | 2019 | | MEDICINE [address] | MD Quynh | | | | | [place], | [address] [facility] | | | | | [place] [address] | [place] [address] | | | | | [phone] | | | | | | | [...] | | | | | | [address] [place] [address] | | | | | | [place] [address] | | | | | | [phone] | | | | | | | [...]
--- OUTSIDE RECORDS SUMMARY | ~2019-12-24 | XMS | Encounter Summary ---
Demographics + + + | Address | [address] | | | [place] [address] | + + + | Home Phone | | + + + | Preferred Language | Unknown | + + + | Marital Status | | + + + | Yazidism Affiliation | 1013 | + + + | Race | Unknown | + + + | Ethnic Group | Unknown | + + + Author + + + | Author | [facility] | | | and [place] | + + + | Organization | [facility] | | | and [place] | + + + | Address | Unknown | + + + | Phone | Unavailable | + + + Support + + + + + | Name | Relationship | Address | Phone | + + + + + | Iwona L Head | ECON | [place], | | | | | [place] [address] | | + + + + + | Mahogany Farnsworth | ECON | [address] | | | | | [place] [address] | | + + + + + Care Team Providers + +------+ + | Care Pan Devulcanizer Name | Role | Phone | + +------+ + | Quynh Finch | PCP | | | MD | | | + +------+ + Reason for Visit + + + | Reason | Comments | + + + | Pain Management | | + + + | Rash | tired cortisone | + + + | Headache | | + + + Encounter Details +--------+---------+ + + + | Date | Type | Department | Care Team | Description | +--------+---------+ + + + | 04/09/ | Office | [facility] | Stef, | Chronic bilateral | | 2017 | Visit | MEDICINE [address] | MD Quynh | low back pain | | | | [place], | [address] [place] | without sciatica; | | | | [place] [address] | [place] [address] | Chronic pain | | | | [phone] | [phone] | syndrome | | | | | | | +--------+---------+ + + + Social History + + [...] + + + | Blood Pressure | 136/76 | 04/09/2017 11:00 AM | | | | | PDT | | + + + + + | Pulse | 93 | 04/09/2017 11:00 AM | | | | | PDT | | + + + + + | Temperature | 36.1 C (97 F) | 04/09/2017 11:00 AM | | | | | PDT | | + + + + + | Respiratory Rate | 16 | 04/09/2017 11:00 AM | | | | | PDT | | + + + + + | Oxygen Saturation | 94% | 04/09/2017 11:00 AM | | | | | PDT | | + + + + + | Inhaled Oxygen | - | - | | | Concentration | | | | + + + + + | Weight | - | - | | + + + + + | Height | - | - | | + + + + + | Body Mass Index | - | - | | + + + + + documented in this encounter Progress Notes Quynh Finch MD - 04/09/2017 10:30 AM PDTFormatting of this note might be d ifferent from the original. CHIEF COMPLAINT Chief Complaint Patient presents with Pain Management Rash tired cortisone Headache HPI Marzena Duong is a 46 y.o. y/o female who presents today for medication refills. She takes oxycodone as below for chronic low back pain and right lower extremity pain, cough wh ich is a sequela from surgeries that were quite expensive and her right lower extremity a fe w years ago for neck by the fasciitis. She is wheelchair bound. She states current regimen works fine and she is not ready to reduce the dose. Denies any significant side effects. No requests for early refills. Drug screen done at last visit is compatible with the prescr iption I have been giving her. REVIEW OF SYSTEMS See HPI for further details. Review of systems otherwise negative. PAST MEDICAL HISTORY Past Medical History: Diagnosis Date Anxiety Arthritis Asthma Cancer (HCC) Depression Diabetic peripheral neuropathy (HCC) Drop foot gait Encounter for blood transfusion Epidermal inclusion cyst GERD (gastroesophageal reflux disease) Hemangioma Hyperlipidemia Hypertension Moderate vulvar dysplasia Onychauxis Paralysis of lower limb (HCC) Thyroid disease Vulvitis Xanthelasma of eyelid FAMILY HISTORY Family History Problem Relation Age of Onset Cancer Father Heart disease Father Hearing loss Father High blood pressure Father High cholesterol Father COPD Mother Arthritis Mother Asthma Mother Miscarriages / stillbirths Mother Depression Daughter Substance abuse Daughter Depression Sister Mental illness Sister Miscarriages / stillbirths Sister Substance abuse Sister Diabetes Brother Substance abuse Brother Miscarriages / stillbirths Sister Substance abuse Sister Miscarriages / stillbirths Daughter SOCIAL HISTORY Social History Social History Marital status: Spouse name: N/A Number of children: N/A Years of education: N/A Social History Main Topics Smoking status: Current Every Day Smoker Packs/day: 1.50 Years: 34.00 Types: Cigarettes Smokeless tobacco: Never Used Alcohol use Yes Drug use: No Sexual activity: Not Currently Partners: Male control/ protection: None Other Topics Concern None Social History Narrative None SURGICAL HISTORY Past Surgical History: Procedure Laterality Date CHOLECYSTECTOMY COLONOSCOPY Excision of Perianal Lesion 03/29/2014 Dr. Lopez FRACTURE SURGERY HYSTERECTOMY TONSILLECTOMY CURRENT MEDICATIONS Current Outpatient Prescriptions Medication Sig Dispense Refill acetaminophen (TYLENOL) 325 mg tablet Take 325 mg by mouth every 4 hours as needed. ALPRAZolam (XANAX) 0.5 mg tablet Take 0.5 mg by mouth Daily as needed for Anxiety. ARIPiprazole (ABILIFY) 5 mg tablet Take 1 tablet by mouth Daily. diclofenac (CATAFLAM) 50 MG tablet Take as directed diphenhydrAMINE (BENADRYL ALLERGY) 25 MG capsule Take 25 mg by mouth every 6 hours as n eeded. diphenoxylate-atropine (LOMOTIL) 2.5-0.025 mg per tablet Take 1 tablet by mouth Daily. DULoxetine (CYMBALTA) 60 MG capsule Take 60 mg by mouth Daily. gabapentin (NEURONTIN) 100 mg capsule Take 100 mg by mouth 2 times daily. insulin NPH (HUMULIN N) 100 units/mL injection 30 units below the skin twice daily insulin regular (HUMULIN R) 100 units/mL injection 30 units inject below the skin befor e meals Lactobacillus (ACIDOPHILUS PO) Take 1 tablet by mouth Daily. levothyroxine (SYNTHROID, LEVOTHROID) 150 mcg tablet Take 150 mcg by mouth nightly. omeprazole (PRILOSEC) 20 mg capsule TAKE ONE CAPSULE AT BEDTIME 30 capsule 5 ondansetron (ZOFRAN) 4 mg TABS tablet (ED prepack) Take 1 tablet by mouth Daily as need ed. oxyCODONE (OXYCONTIN) 80 mg ER abuse-deterrent tablet Take 1 tablet by mouth 2 times da charmaine. 60 tablet 0 oxyCODONE-acetaminophen (PERCOCET) 10-325 mg per tablet Take 1 tablet by mouth every 6 hours as needed. 120 tablet 0 pramipexole (MIRAPEX) 1.5 MG tablet Take 1 tablet by mouth Daily. pravastatin (PRAVACHOL) 20 mg tablet Take 20 mg by mouth Daily. promethazine (PHENERGAN) 25 mg tablet Take 1 tablet by mouth every 4 to 6 hours as need ed QUEtiapine (SEROQUEL) 25 mg tablet Take 25 mg by mouth nightly. No current facility-administered medications for this visit. ALLERGIES Allergies Allergen Reactions Hydrocodone Hives Hives and decreased respirations Morphine Other (See Comments) Light-headed, very emotional (cries constantly) Sulfa Antibiotics Rash and Other (See Comments) Severe respiratory distress, huge water blisters, rash Adhesive & Tape Other reaction(s): Rash Milk-Related Compounds Other reaction(s): Rash Codeine Rash Rash, slows breathing PHYSICAL EXAM VITAL SIGNS: BP 136/76 | Pulse 93 | Temp 36.1 C (97 F) (Temporal) | Resp 16 | SpO2 94% Constitutional: Well developed, Well nourished, No acute distress, Pleasant female. HENT: Normocephalic, Atraumatic, Bilateral external ears normal, Oropharynx with no erythma , No oral exudates, Nose normal. Eyes: PERRLA, EOMI, Conjunctiva normal, No discharge. Neck: Normal range of motion, No tenderness, Supple. Lymphatic: No lymphadenopathy noted. Cardiovascular: Regular rate & rhythm, No murmurs, No rubs, No gallops. No lower extremitie s edema. Thorax & Lungs: Normal breath sounds, No respiratory distress, No wheezing, No rubs. Abdomen: Bowel sounds normal, Soft, No tenderness, No masses, No HSM, no masses. Skin: Warm, Dry, No erythema, No rash. Musculoskeletal: Good range of motion in all major joints. No tenderness to palpation or ma marissa deformities noted. Neurologic: Alert & oriented x 3, Normal motor function, Normal sensory function, No focal deficits noted. CN II-XII intact. Psychiatric: Affect normal, Judgment normal, Mood normal. ASSESSMENT & PLAN 1. Chronic bilateral low back pain without sciatica - oxyCODONE (OXYCONTIN) 80 mg ER abuse-deterrent tablet; Take 1 tablet by mouth 2 times aysha ly. Dispense: 60 tablet; Refill: 0 - oxyCODONE-acetaminophen (PERCOCET) 10-325 mg per tablet; Take 1 tablet by mouth every 6 h ours as needed. Dispense: 120 tablet; Refill: 0 2. Chronic pain syndrome - oxyCODONE (OXYCONTIN) 80 mg ER abuse-deterrent tablet; Take 1 tablet by mouth 2 times aysha ly. Dispense: 60 tablet; Refill: 0 - oxyCODONE-acetaminophen (PERCOCET) 10-325 mg per tablet; Take 1 tablet by mouth every 6 h ours as needed. Dispense: 120 tablet; Refill: 0 FOLLOW-UP Return in about 1 month (around 05/10/2017). Note: Parts of this documentwere created using [employer] speech recognition software. As a r esult, there may be unintended word spelling errors. Every attempt was made to correct the dictation. documente brittany in this encounter Plan of Treatment +--------+---------+ + + + | Date | Type | Specialty | Care Team | Description | +--------+---------+ + + + | 01/09/ | Office | Internal Medicine | Stef, | | | 2019 | Visit | | MD Quynh | | | | | | [address] [place] | | | | | | [place] [address] | | | | | | [phone] | | | | | | | | +--------+---------+ + + + documented as of this encounter Visit Diagnoses + + | Diagnosis | + + | Chronic bilateral low back pain without sciatica | + + | Chronic pain syndrome | + + documented in this encounter Additional Health Concerns + + + + + | Infection | Onset Date | Last Indicated | Resolved Time | + + + + + | 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
--- OUTSIDE RECORDS SUMMARY | ~2019-12-24 | XMS | Encounter Summary ---
Demographics + + + | Address | [address] | | | [place] [address] | + + + | Home Phone | | + + + | Preferred Language | Unknown | + + + | Marital Status | | + + + | Presybeterian Affiliation | 1013 | + + + | Race | Unknown | + + + | Ethnic Group | Unknown | + + + Author + + + | Author | [facility] | | | and [place] | + + + | Organization | [facility] | | | and [place] | + + + | Address | Unknown | + + + | Phone | Unavailable | + + + Support + + + + + | Name | Relationship | Address | Phone | + + + + + | Iwona L Head | ECON | [place], | | | | | [place] [address] | | + + + + + | Mahogany Farnsworth | ECON | [address] | | | | | [place] [address] | | + + + + + Care Team Providers + +------+ + | Care Supervisor Cd Area Name | Role | Phone | + [...] Description | +--------+--------+ + + + | 12/05/ | Refill | [facility] | Stef, | Medication Refill | | 2019 | | MEDICINE [address] | MD Quynh | | | | | [place], | [address] [facility] | | | | | [place] [address] | [place] [address] | | | | | [phone] | [phone] | | | | | | | [...] Quynh | | | | | | [address] [place] [address] | | | | | | [place] [address] | | | | | | [phone] | | | | | | | [...]
--- OUTSIDE RECORDS SUMMARY | ~2019-12-24 | XMS | Encounter Summary ---
Demographics + + + | Address | [address] | | | [place] [address] | + + + | Home Phone | | + + + | Preferred Language | Unknown | + + + | Marital Status | | + + + | Latter-Day Affiliation | 1013 | + + + | Race | Unknown | + + + | Ethnic Group | Unknown | + + + Author + + + | Author | [facility] | | | and [place] | + + + | Organization | [facility] | | | [...] [place], | | | | | [place] [address] | | + + + + + | Mahogany Farnsworth | ECON | [address] | | | | | [place] [address] | | + + + + + Care Team Providers + +------+ + | Care Waste Duster Name | Role | Phone | + [...] Description | +--------+--------+ + + + | 03/28/ | Refill | [facility] | Stef, | Medication Refill | | 2019 | | MEDICINE [address] | MD Quynh | | | | | [place], | [address] [facility] [place] | | | | | [place] [address] | [place] [address] | | | | | [phone] | [phone] | | | | | | | [...] Quynh | | | | | | [address] [place] [address] | | | | | | [place] [address] | | | | | | [phone] | | | | | | | [...]
--- OUTSIDE RECORDS SUMMARY | ~2019-12-24 | XMS | Encounter Summary ---
Demographics + + + | Address | [address] | | | [place] [address] | + + + | Home Phone | | + + + | Preferred Language | Unknown | + + + | Marital Status | | + + + | Scientology Affiliation | 1013 | + + + | Race | Unknown | + + + | Ethnic Group | Unknown | + + + Author + + + | Author | [facility] | | | and [place] | + + + | Organization | [facility] | | | and [place] | + + + | Address | Unknown | + + + | Phone | Unavailable | + + + Support + + + + + | Name | Relationship | Address | Phone | + + + + + | Iwona L Head | ECON | [place], | | | | | [place] [address] | | + + + + + | Mahogany Navarro [place] | ECON | [address] | | | | | [place] [address] | | + + + + + Care Team Providers + +------+ + | Care Moving Consultant Name | Role | Phone | + +------+ + | Quynh Finch | PCP | | | MD | | | + +------+ + Reason for Visit + +--------+ + | Reason | Onset | Comments | | | Date | | + +--------+ + | Medication Refill | 12/13/ | | | | 2018 | | + +--------+ + Encounter Details +--------+--------+ + + + | Date | Type | Department | Care Team | Description | +--------+--------+ + + + | 12/13/ | Refill | [facility] | Stef, | Medication Refill | | 2018 | | MEDICINE [address] | MD Quynh | | | | | [place], | [address] [facility] | | | | | [place] [address] | [place] [address] | | | | | [phone] | [phone] | | | | | | | [...] this encounter Miscellaneous Notes Telephone Encounter - Venu Oropeza - 12/14/2018 9:29 AM PDTPatient's caregiver Nathaly Reed in to scrap picker prescription with [place] DL elephone Encounter - Natalya Decker - 12/14/2018 8:53 AM PDTPatient notified of prescription ready for scrap picker with photo ID. Talisha Duong (daughter) will be picking upElectronically signed by Natalya Decekr at 8:54 AM PDTTelephone Encounter - Gaviota Winkler LPN - 12/14/2018 8:30 AM PDTRout ed to front desk elep kassandra Encounter - Vera Solis LPN - 12/13/2018 4:01 PM PDTOn-call MD Patient states just ran out of Xanax, checked with [facility]'s pharmacy states last refill wa s in 2017 for #90 tabs with instructions 1 tab TID PRN. Patient states taking 1 tab daily as needed. Rx pended for MD approval Please advise elephone Encounter - Felecia Peters - 12/13/2018 2:34 PM PDTPatient is calling in would like to know if she can get a new script for Xanax has not taking it for awhile but stated she is needin g it. Please Advise documented in this encounte r Plan of Treatment +--------+---------+ + + + | Date | Type | Specialty | Care Team | Description | +--------+---------+ + + + | 01/09/ | Office | Internal Medicine | Stef, | | | 2019 | Visit | | MD Quynh | | | | | | [address] [facility] | | | | | | [place] [address] | | | | | | [phone] | | | | | | | [...]
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
--- OUTSIDE RECORDS SUMMARY | ~2019-12-24 | XMS | Encounter Summary ---
Demographics + + + | Address | [address] | | | [place] [address] | + + + | Home Phone | | + + + | Preferred Language | Unknown | + + + | Marital Status | | + + + | Hoahaoism Affiliation | 1013 | + + + | Race | Unknown | + + + | Ethnic Group | Unknown | + + + Author + + + | Author | [facility] | | | and [place] | + + + | Organization | [facility] | [...] [place], | | | | | [place] [address] | | + + + + + | Mahogany Navarro [place] | ECON | [address] | | | | | [place] [address] | | + + + + + Care Team Providers + +------+ + | Care It Generalist Name | Role | Phone | + +------+ + | Quynh Finch | PCP | | | MD | | | + +------+ + Reason for Visit + +--------+ + | Reason | Onset | Comments | | | Date | | + +--------+ + | Medication Refill | 03/01/ | | | | 2018 | | + +--------+ + Encounter Details +--------+--------+ + + + | Date | Type | Department | Care Team | Description | +--------+--------+ + + + | 03/01/ | Refill | [facility] | Stef, | Medication Refill | | 2018 | | MEDICINE [address] | MD Quynh | | | | | [place], | [address] [facility] | | | | | [place] [address] | [place] [address] | | | | | [phone] | [phone] | | | | | | | [...] this encounter Miscellaneous Notes Telephone Encounter - Uma Chapin RN - 03/01/2019 9:11 AM PDTReceived refill request from patient's pharmacy for Mirapex. Last refill 01/31/19 #60 R=0 Medication refilled do cumented in this encounter Plan of Treatment +--------+---------+ + + + | Date | Type | Specialty | Care Team | Description | +--------+---------+ + + + | 01/09/ | Office | Internal Medicine | Stef, | | | 2019 | Visit | | MD Quynh | | | | | | [facility] [address] | | | | | | [place] [address] | | | | | | [phone] | | | | | | | [...]
--- OUTSIDE RECORDS SUMMARY | ~2019-12-24 | XMS | Encounter Summary ---
Demographics + + + | Address | [address] | | | [place] [address] | + + + | Home Phone | | + + + | Preferred Language | Unknown | + + + | Marital Status | | + + + | Methodist Affiliation | 1013 | + + + | Race | Unknown | + + + | Ethnic Group | Unknown | + + + Author + + + | Author | [facility] | | | and [place] | + + + | Organization | [facility] | | | [...] [place], | | | | | [place] [address] | | + + + + + | Mahogany Farnsworth | ECON | [address] | | | | | [place] [address] | | + + + + + Care Team Providers + +------+ + | Care Hardwood Floor Layer Name | Role | Phone | + +------+ + | Chris Finch | PCP | | | MD | | | + +------+ + Reason for Visit + + + | Reason | Comments | + + + | Medication Follow-up | | + + + | Other | Diabetic foot exam, Eye exam, A1C, Tdap, Papsmear, FLU SHOT, | | | Microalbumin screening, Wellness visit. | + + + | Medication Refill | OXYCODONE | + + + Encounter Details +--------+---------+ + + + | Date | Type | Department | Care Team | Description | +--------+---------+ + + + | 07/15/ | Office | [facility] | Stef, | Type 2 diabetes | | 2019 | Visit | MEDICINE [address] | MD Chris | mellitus without | | | | [address] [place], | [address] [facility] | complication, with | | | | [place] [address] | [facility] [place] [address] | long-term current | | | | [phone] | [phone] | use of insulin (HCC) | | | | | | (Primary Dx); | | | | | | Hypercholesterolemia | | | | | | ; Acquired | | | | | | hypothyroidism; | | | | | | Thyroid nodule; | | | | | | Tobacco use | | | | | | disorder; Chronic | | | | | | pain syndrome; Needs | | | | | | flu shot | +--------+---------+ + + + Social History [...] + + + | Blood Pressure | 140/90 | 07/15/2018 9:27 AM | | | | | PST | | + + + + + | Pulse | 95 | 07/15/2018 9:27 AM | | | | | PST | | + + + + + | Temperature | 36.7 C (98.1 F) | 07/15/2018 9:27 AM | | | | | PST | | + + + + + | Respiratory Rate | 16 | 07/15/2018 9:27 AM | | | | | PST | | + + + + + | Oxygen Saturation | 94% | 07/15/2018 9:27 AM | | | | | PST | | + + + + + | Inhaled Oxygen | - | - | | | Concentration | | | | + + + + + | Weight | - | - | | + + + + + | Height | 157.5 cm (5' 2") | 07/15/2018 9:27 AM | | | | | PST | | + + + + + | Body Mass Index | - | - | | + + + + + documented in this encounter Progress Notes Chris Finch MD - 07/15/2018 9:15 AM PSTFormatting of this note might be d ifferent from the original. CHIEF COMPLAINT Chief Complaint Patient presents with Medication Follow-up Other Diabetic foot exam, Eye exam, A1C, Tdap, Papsmear, FLU SHOT, Microalbumin screening, Well ness visit. Medication Refill OXYCODONE [facility] Marzena Duong is a 48 y.o. y/o female who presents today for several issues: Has type II diabetes and hasn't been on insulin or other medications for a number of months . She doesn't know her blood sugars are. Also has history of hyperlipidemia, would like to have her lipids checked. She has been taking her levothyroxine but hasn't had TSH checked in the long time. Continues to smoke and is not ready to quit. Complains of chronic pain used to be on chronic narcotic pain medications but she is not ta hussain them anymore. She still taking the Cymbalta, amitriptyline, and gabapentin. She state s this is not sufficiently controlling her symptoms, she lives with pain over [address] out [address] of the time. She also gives a history of thyroid nodules and a sensation of fullness in her lower neck. Would like to have this tested. She is interested in a flu shot today. REVIEW OF SYSTEMS See HPI for further [...] candidosis Vulvitis Weight loss Xanthelasma of eyelid FAMILY HISTORY Family History Problem Relation Age of Onset Heart disease Father Hearing loss Father High blood pressure Father High cholesterol Father Alcohol abuse Father Mental illness Father Prostate cancer Father Stroke Father COPD Mother Arthritis Mother Asthma Mother Miscarriages / stillbirths Mother Allergies Mother Breast cancer Mother Lupus Mother Depression Daughter Substance abuse Daughter Depression [...] for Anxiety. amitriptyline (ELAVIL) 25 mg tablet Take 1 tablet by mouth nightly for 3 days. 30 table t 3 ARIPiprazole (ABILIFY) 5 mg tablet TAKE ONE TABLET BY MOUTH AT BEDTIME 30 tablet 1 diclofenac (CATAFLAM) 50 MG tablet Take as directed diphenhydrAMINE (BENADRYL ALLERGY) 25 MG capsule Take 25 mg by mouth every 6 hours as n eeded. diphenoxylate-atropine (LOMOTIL) 2.5-0.025 mg per tablet Take one tablet by mouth twice daily 60 tablet 4 DULoxetine (CYMBALTA) [address] capsule TAKE ONE CAPSULE BY MOUTH ONE TIME DAILY 30 caps ule 1 estradiol (ESTRACE) 1 mg tablet Take 1 tablet by mouth Daily. 30 tablet 5 gabapentin (NEURONTIN) 300 mg capsule TAKE ONE CAPSULE BY MOUTH FOUR TIMES DAILY 120 ca psule 0 Lactobacillus (ACIDOPHILUS PO) Take 1 tablet by mouth Daily. levothyroxine (SYNTHROID) 150 mcg tablet Take one tablet by mouth at bedtime 30 tablet 0 omeprazole (PRILOSEC) 20 mg capsule TAKE ONE CAPSULE BY MOUTH AT BEDTIME 30 capsule 0 ondansetron (ZOFRAN) 4 mg TABS tablet (ED prepack) Take 1 tablet by mouth Daily as need ed. pramipexole (MIRAPEX) 1.5 MG tablet TAKE TWO TABLETS BY MOUTH DAILY AT BEDTIME 60 tabl et 1 pravastatin (PRAVACHOL) 20 mg tablet Take one tablet by mouth one time daily 30 tablet 10 promethazine (PHENERGAN) 25 mg tablet Take 1 tablet by mouth every 4 to 6 hours as need ed QUEtiapine (SEROQUEL) 25 mg tablet TAKE ONE TABLET BY MOUTH AT BEDTIME 30 tablet 0 No current facility-administered medications for this visit. ALLERGIES Allergies Allergen Reactions Hydrocodone Hives Hives and decreased respirations Morphine Other (See Comments) Light-headed, very emotional (cries constantly) Sulfa Antibiotics Rash and Other (See Comments) Severe respiratory distress, huge water blisters, rash Adhesive & Tape Other reaction(s): Rash Milk-Related Compounds Other reaction(s): Rash Codeine Rash Rash, slows breathing PHYSICAL EXAM VITAL SIGNS: BP 140/90 | Pulse 95 | Temp 36.7 C (98.1 F) (Temporal) | Resp 16 | Ht 1.575 m (5' 2") | LMP (LMP Unknown) | SpO2 94% | ? No | BMI 36.21 kg/m Constitutional: Well developed, Well nourished, No acute distress, Pleasant female. HENT: Normocephalic, Atraumatic, Bilateral external ears normal, Oropharynx with no erythma , No oral exudates, Nose normal. Eyes: PERRLA, EOMI, Conjunctiva normal, No discharge. Neck: Normal range of motion, No tenderness, Supple. ? Thyromegaly, no obvious thyroid nod ules palpated. Lymphatic: No lymphadenopathy noted. Cardiovascular: Regular rate & rhythm, No murmurs, No rubs, No gallops. No lower extremitie s edema. Thorax & Lungs: Normal breath sounds, No respiratory distress, No wheezing, No rubs. Skin: Warm, Dry, No erythema, No rash. Musculoskeletal: In wheelchair. Neurologic: Alert & oriented x 3. Psychiatric: Affect normal, Judgment normal, Mood normal. ASSESSMENT & PLAN 1. Type 2 diabetes mellitus without complication, with long-term current use of insulin (HC C) - CBC with Differential; Future - Comprehensive Metabolic Panel; Future - Hemoglobin A1C; Future - Microalbumin, Urine, Random; Future 2. Hypercholesterolemia - Lipid Panel; Future 3. Acquired hypothyroidism - TSH; Future - US Head Neck Soft Tissue; Future 4. Thyroid nodule - US Head Neck Soft Tissue; Future 5. Tobacco use disorder - Counseled on quitting, she is in contemplation. 6. Chronic pain syndrome - Increase amitriptyline (ELAVIL) 25 mg tablet; Take 1 tablet by mouth nightly for 3 days. Dispense: 30 tablet; Refill: 3 7. Needs flu shot - Influenza *PF 3 yr or >, Quadrivalent PSKT or Vial FOLLOW-UP Return in about 2 weeks (around 07/29/2018). Note: Parts of this documentwere created using [employer] speech recognition software. As a r esult, there may be unintended word spelling errors. Every attempt was made to correct the dictation. documente d in this encounter Miscellaneous Notes Addendum Note - Chris Finch MD - 07/15/2018 9:15 AM PST Addended by: CHRIS QUINTEROS on: 07/21/2018 16:01 Modules accepted: Orders ddendu vivi Palma - Chris Finch MD - 07/15/2018 9:15 AM PST Addended by: CHRIS FOY on: 07/21/2018 15:49 Modules accepted: Orders docuthaddeus langley in this encounter Plan of Treatment +--------+---------+ + + + | Date | Type | Specialty | Care Team | Description | +--------+---------+ + + + | 01/09/ | Office | Internal Medicine | Stef, | | | 2019 | Visit | | MD Chris | | | | | | [address] [place] | | | | | | [place] [address] | | | | | | [phone] | | | | | | | | +--------+---------+ + + + documented as of this encounter Results Head Neck Soft Tissue (09/21/2018 10:08 AM PDT) + + | Specimen | + + | | + + + + + | Narrative | Performed At | + + + | EXAM:US HEAD NECK SOFT TISSUE dated 09/21/2018 9:56 AM. | [facility] | | HISTORY:Thyroid enlargement.. Hypothyroidism. Comparison: None. | | | TECHNIQUE: Ultrasound imaging of the thyroid was performed. | | | FINDINGS: Right: 3.7 x 1.4 x 1.1 cm. No mass or significant | | | hypervascularity. The gland is heterogeneous. Left: 3.1 x 1.5 x | | | 1.1 cm. No mass or significant hypervascularity. The gland is | | | diffusely heterogeneous. Isthmus: 2 mm and unremarkable. | | | IMPRESSION - Heterogeneous thyroid tissue suggestive of prior | | | thyroiditis. Dictated and Signed by: Nigel Beck MD | | | Electronically signed: 09/21/2018 2:40 PM | | + + + + + | Procedure Note | + + | Zain, Rad Results In - 09/21/2018 2:43 PM PDT EXAM:US HEAD NECK SOFT TISSUE dated | | 09/21/2018 9:56 AM.HISTORY:Thyroid enlargement.. Hypothyroidism.Comparison: | | None.TECHNIQUE: Ultrasound imaging of the thyroid was performed.FINDINGS:Right: 3.7 x | | 1.4 x 1.1 cm. No mass or significant hypervascularity. The glandis heterogeneous.Left: | | 3.1 x 1.5 x 1.1 cm. No mass or significant hypervascularity. The glandis diffusely | | heterogeneous.Isthmus: 2 mm and unremarkable. IMPRESSION -Heterogeneous thyroid tissue | | suggestive of prior thyroiditis.Dictated and Signed by: Nigel Beck MD | | Electronically signed: 09/21/2018 2:40 PM | |FINDINGS: | | | |Right: 3.7 x 1.4 x 1.1 cm. No mass or significant hypervascularity. The gland | |is heterogeneous. | | | |Left: 3.1 x 1.5 x 1.1 cm. No mass or significant hypervascularity. The gland | |is diffusely heterogeneous. | | | |Isthmus: 2 mm and unremarkable. | | | |IMPRESSION - | | | |Heterogeneous thyroid tissue suggestive of prior thyroiditis. | | | |Dictated and Signed by: Nigel Beck MD | | Electronically signed: 09/21/2018 2:40 PM | + + + +---------+ + + | Performing | Address | City/State/Zipcode | Phone Number | | Organization | | | | + +---------+ + + | [facility] | | | | + +---------+ + + Microalbumin, Urine, Random (07/29/2018 1:19 PM PST) + +---------+ + + + | Component | Value | Ref Range | Performed | Pathologist | | | | | At | Signature | + +---------+ + + + | Microalbumi | 4.7 (H) | <1.8 mg/dL | [facility] | | | n, Urine, | | | [facility] | | | Random | | | MEDICAL | | | | | | CENTER - | | | | | | LABORATORY | | + +---------+ + + + + + | Specimen | + + | Urine | + + + + + + + | Performing | Address | City/State/Zipcode | Phone Number | | Organization | | | | + + + + + | [facility] | [address] | [place] | [phone] | | [facility] | | [address] | | | - LABORATORY | | | | + + + + + Lipid Panel (07/21/2018 9:07 AM PST) + + + + + + | Component | Value | Ref Range | Performed | Pathologist | | | | | At | Signature | + + + + + + | Triglycerid | 431 (H) | 35 - 160 mg/dL | [facility] | | | es | | | [facility] | | | | | | MEDICAL | | | | | | CENTER - | | | | | | LABORATORY | | + + + + + + | Cholesterol | 234 (H) | 150 - 200 mg/dL | [facility] | | | | | | [facility] | | | | | | MEDICAL | | | | | | CENTER - | | | | | | LABORATORY | | + + + + + + | HDL | 34Comment: New HDL | 28 - 83 mg/dL | [facility] | | | | Reference Range as of | | [facility] | | | | March 08, 2015 | | MEDICAL | | | | Values may be 10-20% | | CENTER - | | | | lower with new, | | LABORATORY | | | | standardized method. | | | | + + + + + + | Chol/HDL | 6.9 | | [facility] | | | Ratio | | | [facility] | | | | | | MEDICAL | | | | | | CENTER - | | | | | | LABORATORY | | + + + + + + | LDL, | Comment: LDL unable to | <=130 mg/dL | [facility] | | | Calculated | calculate due to high | | [facility] | | | | triglyceride value | | MEDICAL | | | | | | CENTER - | | | | | | LABORATORY | | + + + + + + + + | Specimen | + + | Blood | + + + + + + + | Performing | Address | City/State/Zipcode | Phone Number | | Organization | | | | + + + + + | [facility] | [address] | [place] | [phone] | | [facility] | | [address] | | | - LABORATORY | | | | + + + + + TSH (07/21/2018 9:07 AM PST) + + + + + + | Component | Value | Ref Range | Performed | Pathologist | | | | | At | Signature | + + + + + + | TSH | 3.85Comment: This is a | 0.45 - 5.33 | [facility] | | | | third generation TSH | uIU/mL | [facility] | | | | test. | | MEDICAL | | | | | | CENTER - | | | | | | LABORATORY | | + + + + + + + + | Specimen | + + | Blood | + + + + + + + | Performing | Address | City/State/Zipcode | Phone Number | | Organization | | | | + + + + + | [facility] | [address] | [place] | [phone] | | [facility] | | [address] | | | - LABORATORY | | | | + + + + + Hemoglobin A1C (07/21/2018 9:07 AM PST) + + + + + + | Component | Value | Ref Range | Performed | Pathologist | | | | | At | Signature | + + + + + + | Hemoglobin | 13.6 (H) | 4.3 - 6.0 % | [facility] | | | A1c | | | [facility] | | | | | | MEDICAL | | | | | | CENTER - | | | | | | LABORATORY | | + + + + + + | Estimated | 344 | mg/dL | [facility] | | | Average | | | [facility] | | | Glucose | | | MEDICAL | | | | | | CENTER - | | | | | | LABORATORY | | + + + + + + + + | Specimen | + + | Blood | + + + + + + + | Performing | Address | City/State/Zipcode | Phone Number | | Organization | | | | + + + + + | [facility] | [address] | [place] | [phone] | | [facility] | | [address] | | | - LABORATORY | | | | + + + + + Comprehensive Metabolic Panel (07/21/2018 9:07 AM PST) + + + + + + | Component | Value | Ref Range | Performed | Pathologist | | | | | At | Signature | + + + + + + | Na | 134 (L) | 136 - 149 | [facility] | | | | | mmol/L | [facility] | | | | | | MEDICAL | | | | | | CENTER - | | | | | | LABORATORY | | + + + + + + | K | 3.6 | 3.5 - 5.1 | [facility] | | | | | mmol/L | [facility] | | | | | | MEDICAL | | | | | | CENTER - | | | | | | LABORATORY | | + + + + + + | Cl | 98 | 98 - 109 mmol/L | [facility] | | | | | | [facility] | | | | | | MEDICAL | | | | | | CENTER - | | | | | | LABORATORY | | + + + + + + | CO2 | 26 | 24 - 31 mmol/L | [facility] | | | | | | [facility] | | | | | | MEDICAL | | | | | | CENTER - | | | | | | LABORATORY | | + + + + + + | Anion Gap | 10 | 3 - 16 mmol/L | [facility] | | | | | | [facility] | | | | | | MEDICAL | | | | | | CENTER - | | | | | | LABORATORY | | + + + + + + | Glucose | 304 (H) | 70 - 109 mg/dL | [facility] | | | | | | [facility] | | | | | | MEDICAL | | | | | | CENTER - | | | | | | LABORATORY | | + + + + + + | BUN | 6 (L) | 7 - 18 mg/dL | [facility] | | | | | | [facility] | | | | | | MEDICAL | | | | | | CENTER - | | | | | | LABORATORY | | + + + + + + | Creatinine | 0.49 (L) | 0.60 - 1.30 | [facility] | | | | | mg/dL | [facility] | | | | | | MEDICAL | | | | | | CENTER - | | | | | | LABORATORY | | + + + + + + | eGFR if not | >60Comment: GLOMERULAR | >=60 | [facility] | | | | FILTRATION | mL/min/1.73m2 | [facility] | | | NIUEAN | RATE,ESTIMATED | | MEDICAL | | | | mL/min/1.55i5Httj than | | CENTER - | | | | 60 Chronic kidney | | LABORATORY | | | | disease,if found over a | | | | | | 3-month period.Less than | | | | | | 15 Kidney failureFor | | | | | | | | | | | | Americans,multiply the | | | | | | calculated GFR by 1.21. | | | | | | | | | | + + + + + + | Calcium | 8.4 | 8.3 - 10.5 | [facility] | | | | | mg/dL | [facility] | | | | | | MEDICAL | | | | | | CENTER - | | | | | | LABORATORY | | + + + + + + | Albumin | 3.5 | 3.2 - 5.0 g/dL | [facility] | | | | | | [facility] | | | | | | MEDICAL | | | | | | CENTER - | | | | | | LABORATORY | | + + + + + + | Bilirubin | 1.4 | 0.1 - 1.5 mg/dL | [facility] | | | Total | | | [facility] | | | | | | MEDICAL | | | | | | CENTER - | | | | | | LABORATORY | | + + + + + + | Total | 6.6 | 6.0 - 7.8 g/dL | [facility] | | | Protein | | | [facility] | | | | | | MEDICAL | | | | | | CENTER - | | | | | | LABORATORY | | + + + + + + | AST | 31 | 10 - 42 U/L | [facility] | | | | | | [facility] | | | | | | MEDICAL | | | | | | CENTER - | | | | | | LABORATORY | | + + + + + + | ALT | 22 | 6 - 45 U/L | [facility] | | | | | | [facility] | | | | | | MEDICAL | | | | | | CENTER - | | | | | | LABORATORY | | + + + + + + | Alkaline | 92 | 40 - 110 U/L | [facility] | | | Phosphatase | | | [facility] | | | | | | MEDICAL | | | | | | CENTER - | | | | | | LABORATORY | | + + + + + + | Globulin | 3.1 | 2.1 - 3.8 g/dL | [facility] | | | | | | [facility] | | | | | | MEDICAL | | | | | | CENTER - | | | | | | LABORATORY | | + + + + + + | Albumin/Mayra | 1.1 | 0.8 - 2.0 | [facility] | | | bulin Ratio | | | [facility] | | | | | | MEDICAL | | | | | | CENTER - | | | | | | LABORATORY | | + + + + + + | BUN/Creatin | 12.2 | | [facility] | | | ine Ratio | | | [facility] | | | | | | MEDICAL | | | | | | CENTER - | | | | | | LABORATORY | | + + + + + + + + | Specimen | + + | Blood | + + + + + + + | Performing | Address | City/State/Zipcode | Phone Number | | Organization | | | | + + + + + | [facility] | [address] | [place] | [phone] | | [facility] | | [address] | | | - LABORATORY | | | | + + + + + CBC with Differential (07/21/2018 9:07 AM PST) + + + + + + | Component | Value | Ref Range | Performed | Pathologist | | | | | At | Signature | + + + + + + | WBC | 8.6 | 4.0 - 11.0 K/uL | [facility] | | | | | | [facility] | | | | | | MEDICAL | | | | | | CENTER - | | | | | | LABORATORY | | + + + + + + | RBC | 5.72 (H) | 3.70 - 5.20 | [facility] | | | | | M/uL | [facility] | | | | | | MEDICAL | | | | | | CENTER - | | | | | | LABORATORY | | + + + + + + | Hemoglobin | 16.6 (H) | 11.5 - 16.0 | [facility] | | | | | g/dL | [facility] | | | | | | MEDICAL | | | | | | CENTER - | | | | | | LABORATORY | | + + + + + + | Hematocrit | 50.1 (H) | 34.0 - 47.0 % | [facility] | | | | | | [facility] | | | | | | MEDICAL | | | | | | CENTER - | | | | | | LABORATORY | | + + + + + + | MCV | 87.6 | 83.0 - 101.0 fL | [facility] | | | | | | [facility] | | | | | | MEDICAL | | | | | | CENTER - | | | | | | LABORATORY | | + + + + + + | MCH | 29.0 | 28.0 - 35.0 pg | [facility] | | | | | | [facility] | | | | | | MEDICAL | | | | | | CENTER - | | | | | | LABORATORY | | + + + + + + | MCHC | 33.1 | 32.0 - 36.0 | [facility] | | | | | g/dL | [facility] | | | | | | MEDICAL | | | | | | CENTER - | | | | | | LABORATORY | | + + + + + + | RDW-CV | 13.6 | <15.0 % | [facility] | | | | | | [facility] | | | | | | MEDICAL | | | | | | CENTER - | | | | | | LABORATORY | | + + + + + + | RDW-SD | 43.6 | 35.1 - 46.3 fL | [facility] | | | | | | [facility] | | | | | | MEDICAL | | | | | | CENTER - | | | | | | LABORATORY | | + + + + + + | Platelet | 178 | 140 - 440 K/uL | [facility] | | | Count | | | [facility] | | | | | | MEDICAL | | | | | | CENTER - | | | | | | LABORATORY | | + + + + + + | MPV | 10.7 | 6.5 - 12.4 fL | [facility] | | | | | | [facility] | | | | | | MEDICAL | | | | | | CENTER - | | | | | | LABORATORY | | + + + + + + | % | 52.0 | 45.0 - 82.0 % | [facility] | | | Neutrophils | | | [facility] | | | | | | MEDICAL | | | | | | CENTER - | | | | | | LABORATORY | | + + + + + + | % | 39.1 | 20.0 - 45.0 % | [facility] | | | Lymphocytes | | | [facility] | | | | | | MEDICAL | | | | | | CENTER - | | | | | | LABORATORY | | + + + + + + | % Monocytes | 5.1 | 4.0 - 12.0 % | [facility] | | | | | | [facility] | | | | | | MEDICAL | | | | | | CENTER - | | | | | | LABORATORY | | + + + + + + | % | 3.0 | 0.0 - 5.0 % | [facility] | | | Eosinophils | | | [facility] | | | | | | MEDICAL | | | | | | CENTER - | | | | | | LABORATORY | | + + + + + + | % Basophils | 0.6 | 0.0 - 1.0 % | [facility] | | | | | | [facility] | | | | | | MEDICAL | | | | | | CENTER - | | | | | | LABORATORY | | + + + + + + | % Immature | 0.2 | 0.0 - 0.4 % | [facility] | | | Granulocyte | | | [facility] | | | s | | | MEDICAL | | | | | | CENTER - | | | | | | LABORATORY | | + + + + + + | Absolute | 4.45 | 1.80 - 8.50 | [facility] | | | Neutrophils | | K/uL | [facility] | | | | | | MEDICAL | | | | | | CENTER - | | | | | | LABORATORY | | + + + + + + | Absolute | 3.35 (H) | 0.60 - 3.20 | [facility] | | | Lymphocytes | | K/uL | [facility] | | | | | | MEDICAL | | | | | | CENTER - | | | | | | LABORATORY | | + + + + + + | Absolute | 0.44 | 0.00 - 1.00 | [facility] | | | Monocytes | | K/uL | [facility] | | | | | | MEDICAL | | | | | | CENTER - | | | | | | LABORATORY | | + + + + + + | Absolute | 0.26 | 0.00 - 0.40 | [facility] | | | Eosinophils | | K/uL | [facility] | | | | | | MEDICAL | | | | | | CENTER - | | | | | | LABORATORY | | + + + + + + | Absolute | 0.05 | 0.00 - 0.10 | [facility] | | | Basophils | | K/uL | [facility] | | | | | | MEDICAL | | | | | | CENTER - | | | | | | LABORATORY | | + + + + + + | Absolute | 0.02 | 0.00 - 0.03 | [facility] | | | Immature | | K/uL | [facility] | | | Granulocyte | | | MEDICAL | | | s | | | CENTER - | | | | | | LABORATORY | | + + + + + + | % nRBC | 0 | 0 - 2 per 100 | [facility] | | | | | WBC's | [facility] | | | | | | MEDICAL | | | | | | CENTER - | | | | | | LABORATORY | | + + + + + + | Absolute | 0.00 | 0.00 - 0.01 | [facility] | | | nRBC | | K/uL | [facility] | | | | | | MEDICAL | | | | | | CENTER - | | | | | | LABORATORY | | + + + + + + + + | Specimen | + + | Blood | + + + + + + + | Performing | Address | City/State/Zipcode | Phone Number | | Organization | | | | + + + + + | [facility] | [address] | [place] | [phone] | | [facility] | | [address] | | | - LABORATORY | | | | + + + + + documented in this encounter Visit Diagnoses + + | Diagnosis | + + | Type 2 diabetes mellitus without complication, with long-term current use of insulin | | (HCC) - Primary | + + | Hypercholesterolemia Pure hypercholesterolemia | + + | Acquired hypothyroidism Unspecified hypothyroidism | + + | Thyroid nodule Nontoxic uninodular goiter | + + | Tobacco use disorder | + + | Chronic pain syndrome | + + | Needs flu shot Need for prophylactic vaccination and inoculation against influenza | + + documented in this encounter Additional Health Concerns + + + + + | Infection | Onset Date | Last Indicated | Resolved Time | + + + + + | 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
--- OUTSIDE RECORDS SUMMARY | ~2019-12-24 | XMS | Encounter Summary ---
Demographics + + + | Address | [address] | | | [place] [address] | + + + | Home Phone | | + + + | Preferred Language | Unknown | + + + | Marital Status | | + + + | Uatsdin Affiliation | 1013 | + + + | Race | Unknown | + + + | Ethnic Group | Unknown | + + + Author + + + | Author | [facility] | | [...] [place], | | | | | [place] [address] | | + + + + + | Mahogany Navarro [place] | ECON | [address] | | | | | [place] [address] | | + + + + + Care Team Providers + +------+ + | Care Pan Shaker Name | Role | Phone | + +------+ + PCP | Unavailable | + +------+ + Encounter Details +--------+ + + + + | Date | Type | Department | Care Team | Description | +--------+ + + + + | 06/25/ | Hospital | [facility] | Nigel Nina, | | | 2007 | Encounter | MED CTR LABORATORY | MD [address] | | | | | [address] [place] | [place], [place] | | | | | [place], [place] | [address] | | | | | [address] | | | | | | [phone] | | | +--------+ + + + [...] | | | | | [place] [address] | | | | | | [phone] | | | | | | | | +--------+---------+ + + + documented as of this encounter Visit Diagnoses Not on filedocumented in this encounter"
--- OUTSIDE RECORDS SUMMARY | ~2019-12-24 | XMS | Encounter Summary ---
Demographics + + + | Address | [address] | | | [place] [address] | + + + | Home Phone | | + + + | Preferred Language | Unknown | + + + | Marital Status | | + + + | Jainism Affiliation | 1013 | + + + | Race | Unknown | + + + | Ethnic Group | Unknown | + + + Author + + + | Author | [facility] | | | and [...] [place], | | | | | [place] [address] | | + + + + + | Mahogany Navarro [place] | ECON | [address] | | | | | [place] [address] | | + + + + + Care Team Providers + +------+ + | Care Production Lead Name | Role | Phone | + +------+ + | Quynh Finch | PCP | | | MD | | | + +------+ + Reason for Visit + +--------+ + | Reason | Onset | Comments | | | Date | | + +--------+ + | Lab Results | 07/23/ | | | | 2018 | | + +--------+ + Encounter Details +--------+ + + + + | Date | Type | Department | Care Team | Description | +--------+ + + + + | 07/23/ | Telephone | [facility] | Stef, | Lab Results | | 2018 | | MEDICINE [address] | MD uQynh | | | | | [place], | [address] [facility] | | | | | [place] [address] | [place] [address] | | | | | [phone] | [phone] | | | | | | | [...] Telephone Encounter - Vera Solis LPN - 07/29/2018 10:35 AM PSTLabs reviewed at today's office visit with MD recommendations elephone Encounter - Vera Solis LPN - 07/23/2018 5:18 PM PSTNot able to r each patient by phone, disconnected. appt scheduled for follow up on 07/29/18 elephone Encounter - Vera Solis L PN - 07/23/2018 5:18 PM PST----- Message from Quynh Finch MD sent at 019 15:51 PST ----- Labs show very uncontrolled diabetes with an A1c of 13.6. I have sent a prescription for Lantus insulin, which is a long acting insulin, for her to s tart taking 25 units at night. After one week she can start increasing Lantus dose by 3 uni ts every week, until your fasting blood sugars drop below 150 but no lower than 80, then con tinue on that dose of Lantus long-term. Return in one month with blood sugar logs. Should check your blood sugars as below: - every day in AM, fasting. - two more times during the day, choosing from these options - 15 min before a meal - 2 hr after a meal - before sleep. doyvette langley in this encounter Plan of Treatment +--------+---------+ + + + | Date | Type | Specialty | Care Team | Description | +--------+---------+ + + + | 01/09/ | Office | Internal Medicine | Stef, | | | 2019 | Visit | | MD Quynh | | | | | | [address] [place] | | | | | | [place] [address] | | | | | | [phone] | | | | | | | [...]
--- OUTSIDE RECORDS SUMMARY | ~2019-12-24 | XMS | Encounter Summary ---
Demographics + + + | Address | [address] | | | [place] [address] | + + + | Home Phone | | + + + | Preferred Language | Unknown | + + + | Marital Status | | + + + | Taoist Affiliation | 1013 | + + + | Race | Unknown | + + + | Ethnic Group | Unknown | + + + Author + + + | Author | [facility] | | | and [place] | + + + | Organization | [facility] | | [...] [place], | | | | | [place] [address] | | + + + + + | Mahogany Navarro [place] | ECON | [address] | | | | | [place] [address] | | + + + + + Care Team Providers + +------+ + | Care Administrative Assistant Data Entry Name | Role | Phone | + +------+ + PCP | Unavailable | + +------+ + Encounter Details +--------+ + + + + | Date | Type | Department | Care Team | Description | +--------+ + + + + | 02/17/ | Hospital | [facility] | Oscar Luna | | | 2011 | Encounter | MED CTR SLEEP | [place] [address] | | | | | [place] [address] | [place] | | | | | [place], [place] | [place] [address] | | | | | [address] | [phone] | | | | | [phone] | | | +--------+ + + + [...] | | | | | | [place] [address] | | | | | | [phone] | | | | | | | | +--------+---------+ + + + documented as of this encounter Visit Diagnoses Not on filedocumented in this encounter"
--- OUTSIDE RECORDS SUMMARY | ~2019-12-24 | XMS | Encounter Summary ---
Demographics + + + | Address | [address] | | | [place] [address] | + + + | Home Phone | | + + + | Preferred Language | Unknown | + + + | Marital Status | | + + + | Christian Affiliation | 1013 | + + + | Race | Unknown | + + + | Ethnic Group | Unknown | + + + Author + + + | Author | [facility] | | | and [place] | + + + | Organization | [facility] | | | and [place] | + + + | Address | Unknown | + + + | Phone | Unavailable | + + + Support + + + + + | Name | Relationship | Address | Phone | + + + + + | Iwona L Head | ECON | [place], | | | | | [place] [address] | | + + + + + | Mahogany Navarro [place] | ECON | [address] | | | | | [place] [address] | | + + + + + Care Team Providers + +------+ + | Care Water Pipe Installer Name | Role | Phone | + +------+ + PCP | Unavailable | + +------+ + Encounter Details +--------+ + + + + | Date | Type | Department | Care Team | Description | +--------+ + + + + | 12/22/ | Hospital | [facility] | KenaDamian, | | | 2005 | Encounter | MED CTR XRAY [address] | [address] | | | | | [place] | [place], [place] | | | | | [place] [address] | [address] | | | | | [phone] | | | +--------+ + + + [...] Quynh | | | | | | [facility] [address] | | | | | | [place] [address] | | | | | | [phone] | | | | | | | | +--------+---------+ + + + documented as of this encounter Visit Diagnoses Not on filedocumented in this encounter"
--- OUTSIDE RECORDS SUMMARY | ~2019-12-24 | XMS | Encounter Summary ---
Demographics + + + | Address | [address] | | | [place] [address] | + + + | Home Phone | | + + + | Preferred Language | Unknown | + + + | Marital Status | | + + + | Congregation Affiliation | 1013 | + + + | Race | Unknown | + + + | Ethnic Group | Unknown | + + + Author + + + | Author | [facility] | | | and [place] | + + + | Organization | [facility] | | | and [place] | + + + | Address | Unknown | + + + | Phone | Unavailable | + + + Support + + + + + | Name | Relationship | Address | Phone | + + + + + | Iwona L Head | ECON | [place], | | | | | [place] [address] | | + + + + + | Mahogany Farnsworth | ECON | [address] | | | | | [place] [address] | | + + + + + Care Team Providers + +------+ + | Care Welding Machine Operator Friction Name | Role | Phone | + [...] + + | Closed | Specialty | Podiatry | Diagnoses | | Klein, | | | Services | | Toenail | [place] | PAIGE Awad | | | Required | | deformity | i, | [address] | | | | | | Quynh | [address] | | | | | | , [address] | [place] | | | | | | [place] | [address] | | | | | | [place], | Phone: | | | | | | [place] | [phone] | | | | | | [address] | Fax: | | | | | | Phone: | [phone] | | | | | | [phone] | | | | | | | Fax: | | | | | | | [phone] | | +--------+ + + + + + Reason for Visit + + + | Reason | Comments | + + + | Medication | | | Management | | + + + Encounter Details +--------+---------+ + + + | Date | Type | Department | Care Team | Description | +--------+---------+ + + + | 03/12/ | Office | [facility] | Stef, | Chronic bilateral | | 2017 | Visit | MEDICINE [address] | MD Quynh | low back pain | | | | [address] [place], | [address] [place] | without sciatica | | | | [place] [address] | [place] [address] | (Primary Dx); Hot | | | | [phone] | [phone] | flash, menopausal; | | | | | | Chronic pain | | | | | | syndrome; | | | | | | Hypothyroidism due | | | | | | to Rasheed's | | | | | | thyroiditis; Toenail | | | | | | deformity | +--------+---------+ + + + Social History [...] | | | + +---+---+---+ + + | Tobacco Cessation: Ready to Quit: No | + + + + +---------+ + | Alcohol Use [...] + + + | Blood Pressure | 122/88 | 03/12/2017 8:59 AM | | | | | PDT | | + + + + + | Pulse | 113 | 03/12/2017 8:59 AM | | | | | PDT | | + + + + + | Temperature | 36.2 C (97.1 F) | 03/12/2017 8:59 AM | | | | | PDT | | + + + + + | Respiratory Rate | 16 | 03/12/2017 8:59 AM | | | | | PDT | | + + + + + | Oxygen Saturation | 95% | 03/12/2017 8:59 AM | | | | | PDT | | + + + + + | Inhaled Oxygen | - | - | | | Concentration | | | | + + + + + | Weight | 93 kg (205 lb) | 03/12/2017 8:59 AM | | | | | PDT | | + + + + + | Height | 162.6 cm (5' 4") | 03/12/2017 8:59 AM | | | | | PDT | | + + + + + | Body Mass Index | 35.19 | 03/12/2017 8:59 AM | | | | | PDT | | + + + + + documented in this encounter Progress Notes Quynh Finch MD - 03/12/2017 9:00 AM PDTFormatting of this note might be d ifferent from the original. CHIEF COMPLAINT Chief Complaint Patient presents with Medication Management HPI Marzena Duong is a 46 y.o. y/o female who presents today for several issues: She has history of chronic pain related to degenerative disc disease in her lower back and arthritis in her lower limbs which was aggravated after an episode of necrotizing fasciitis requiring mutilating surgery in her right lower extremity a few years ago. For some time claus jang has been with a local pain clinic but she couldn't afford to continue to go there because of insurance coverage issues. She is also seen a specialist in [place] last year. She is c urrently taking a combination of long and short-acting opiates with reasonable control of sy mptoms. She states she took last dose last night. Denies drowsiness confusion or falls. No alcohol or illicit drugs. No requests for early refill. She also complains of hot flashes, which have intensified over the last several weeks. She sweats a lot. She is status post hysterectomy and had one ovary left. She also takes levothyroxine for hypothyroidism and needs to have her labs checked for that . She has a toenail deformity that she wants to see Dr. Mayer for. REVIEW OF SYSTEMS See HPI for further details. Review of systems otherwise negative. PAST MEDICAL HISTORY Past Medical History: Diagnosis Date Anxiety Depression Diabetic peripheral neuropathy (HCC) Drop foot gait Epidermal inclusion cyst GERD (gastroesophageal reflux disease) Hemangioma Hyperlipidemia Hypertension Moderate vulvar dysplasia Onychauxis Paralysis of lower limb (HCC) Thyroid disease Vulvitis Xanthelasma of eyelid FAMILY HISTORY Family History Problem Relation Age of Onset Cancer Father Heart disease Father COPD Mother Arthritis Mother SOCIAL HISTORY Social History Social History Marital status: Spouse name: N/A Number of children: N/A Years of education: N/A Social History Main Topics Smoking status: Current Every Day Smoker Packs/day: 1.50 Years: 34.00 Types: Cigarettes Smokeless tobacco: Never Used Alcohol use Yes Drug use: No Sexual activity: No Other Topics Concern None Social History Narrative None SURGICAL HISTORY Past Surgical History: Procedure Laterality Date CHOLECYSTECTOMY Excision of Perianal Lesion 03/29/2014 Dr. Lopez FRACTURE SURGERY HYSTERECTOMY TONSILLECTOMY CURRENT MEDICATIONS Current Outpatient Prescriptions Medication Sig Dispense Refill ABILIFY 2 MG tablet Take 1 tablet by mouth Daily. acetaminophen (TYLENOL) 325 mg tablet Take 325 mg by mouth every 4 hours as needed. acyclovir (ZOVIRAX) 400 MG tablet Take 400 mg by mouth 3 times daily. ALPRAZolam (XANAX) 0.5 mg tablet Take 0.5 mg by mouth Daily as needed for Anxiety. diclofenac (CATAFLAM) 50 MG tablet Take as directed diphenhydrAMINE (BENADRYL ALLERGY) 25 MG capsule Take 25 mg by mouth every 6 hours as n eeded. diphenoxylate-atropine (LOMOTIL) 2.5-0.025 mg per tablet Take 1 tablet by mouth Daily. DULoxetine (CYMBALTA) 60 MG capsule Take 60 mg by mouth Daily. Fesoterodine Fumarate (TOVIAZ) 4 MG TB24 Take one 4 mg tablet orally once daily to redu ce bladder leak; if ineffective may use one 8 mg tablet daily. 14 tablet 0 gabapentin (NEURONTIN) 100 mg capsule Take 100 mg by mouth 2 times daily. hydrOXYzine (ATARAX) 50 MG tablet Take 50 mg by mouth. insulin NPH (HUMULIN N) 100 units/mL injection 30 units below the skin twice daily insulin regular (HUMULIN R) 100 units/mL injection 30 units inject below the skin befor e meals Lactobacillus (ACIDOPHILUS PO) Take 1 tablet by mouth Daily. levothyroxine (SYNTHROID, LEVOTHROID) 150 mcg tablet Take 150 mcg by mouth nightly. omeprazole (PRILOSEC) 20 mg capsule Take 20 mg by mouth Daily. oxyCODONE (OXYCONTIN) 80 mg ER abuse-deterrent tablet Take 1 tablet by mouth 2 times da charmaine. oxyCODONE-acetaminophen (PERCOCET) 10-325 mg per tablet Take 1 tablet by mouth every 4 hours as needed. pramipexole (MIRAPEX) 1 MG tablet Take 1 mg by mouth nightly. pravastatin (PRAVACHOL) 20 mg tablet Take 20 mg by mouth Daily. pregabalin (LYRICA) 150 MG capsule Take 150 mg by mouth. promethazine (PHENERGAN) 25 mg tablet Take 1 [...] slows breathing PHYSICAL EXAM VITAL SIGNS: BP 122/88 | Pulse 113 | Temp 36.2 C (97.1 F) (Temporal) | Resp 16 | Ht 1.626 m (5' 4") | Wt 93 kg (205 lb) | SpO2 95% | BMI 35.19 kg/m Constitutional: Well developed, Well nourished, No acute distress, Pleasant female. HENT: Normocephalic, Atraumatic, Bilateral external ears normal, Oropharynx with no erythma , No oral exudates, Nose normal. Cardiovascular: Regular rate & rhythm, No murmurs, No rubs, No gallops. No peripheral edema . Thorax & Lungs: Normal breath sounds, No respiratory distress, No wheezing, No rubs. Skin: Warm, Dry, No erythema, No rash. Musculoskeletal: Decreased range of motion in her lower back, in wheelchair, lack of muscle mass in the right lower leg secondary to previous surgery Neurologic: Alert & oriented x 3, Normal motor function, Normal sensory function, No focal deficits noted. CN II-XII intact. Psychiatric: Affect normal, Judgment normal, Mood normal. ASSESSMENT & PLAN 1. Hot flash, menopausal We'll do blood work as below. - FSH - Estradiol 2. Chronic pain syndrome Check drug screen. - Drugs of Abuse, 7 Drug Panel, Reflex, Urine; Future 3. Chronic bilateral low back pain without sciatica Refilled pain medication as below. Side effects discussed. - Drugs of Abuse, 7 Drug Panel, Reflex, Urine; Future - oxyCODONE (OXYCONTIN) 80 mg ER abuse-deterrent tablet; Take 1 tablet by mouth 2 times aysha ly. Dispense: 60 tablet; Refill: 0 - oxyCODONE-acetaminophen (PERCOCET) 10-325 mg per tablet; Take 1 tablet by mouth every 6 h ours as needed. Dispense: 120 tablet; Refill: 0 4. 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 - TSH 5. Toenail deformity Referral to podiatry. - [facility] - AMB Referral FOLLOW-UP Return in about 1 month (around 04/11/2017). Yonathan soto in this encounter Plan of Treatment +--------+---------+ + + + | Date | Type | Specialty | Care Team | Description | +--------+---------+ + + + | 01/09/ | Office | Internal Medicine | Stef, | | | 2019 | Visit | | MD Quynh | | | | | | [address] [place] | | | | | | [place] [address] | | | | | | [phone] | | | | | | | | +--------+---------+ + + + + + +--------+ + + | Name | Type | Priori | Associated Diagnoses | Order Schedule | | | | ty | | | + + +--------+ + + | [facility] | Outpatient | Routin | Toenail deformity | Ordered: 03/12/2017 | | Clinic Podiatry - | Referral | e | | | | AMB Referral | | | | | + + +--------+ + + documented as of this encounter Procedures + +--------+ + + + | Procedure Name | Priori | Date/Time | Associated Diagnosis | Comments | | | ty | | | | + +--------+ + + + | ESTRADIOL | Routin | 03/18/2017 | Hot flash, | Results for this | | | e | 2:21 PM | menopausal | procedure are in the | | | | PDT | | results section. | + +--------+ + + + | TSH | Routin | 03/18/2017 | Hypothyroidism due | Results for this | | | e | 2:21 PM | to Rasheed's | procedure are in the | | | | PDT | thyroiditis | results section. | + +--------+ + + + | FSH | Routin | 03/18/2017 | Hot flash, | Results for this | | | e | 2:21 PM | menopausal | procedure are in the | | | | PDT | | results section. | + +--------+ + + + documented in this encounter Results TSH (03/18/2017 2:21 PM PDT) + + + + + + | Component | Value | Ref Range | Performed | Pathologist | | | | | At | Signature | + + + + + + | TSH | 1.57Comment: All TSH | 0.34 - 5.60 | [facility] | | | | samples are screened | uIU/mL | [facility] | | | | using a 2nd Generation | | MEDICAL | | | | test, and are reflexed | | CENTER - | | | | to a 3rd Generation test | | LABORATORY | | | | if indicated. | | | | + + + + + + + + | Specimen | + + | Blood | + + + + + + + | Performing | Address | City/State/Zipcode | Phone Number | | Organization | | | | + + + + + | [facility] | [address] | [place] | [phone] | | [facility] | | [address] | | | - LABORATORY | | | | + + + + + Estradiol (03/18/2017 2:21 PM PDT) + + + + + + | Component | Value | Ref Range | Performed | Pathologist | | | | | At | Signature | + + + + + + | ESTRADIOL | 41.0Comment: Female | 0.0 - 47.0 | [facility] | | | | Reference | pg/mL | [facility] | | | | Ranges:Mid-follicular = | | MEDICAL | | | | 27-122 pg/mLMid-luteal = | | CENTER - | | | | 49-291 | | LABORATORY | | | | pg/mLPeriovulatory = | | | | | | 95-433 | | | | | | pg/mLPost-menopausal = | | | | | | <20-40 pg/mL | | | | + + + + + + + + | Specimen | + + | Blood | + + + + + + + | Performing | Address | City/State/Zipcode | Phone Number | | Organization | | | | + + + + + | [facility] | [address] | [place] | [phone] | | [facility] | | [address] | | | - LABORATORY | | | | + + + + + FSH (03/18/2017 2:21 PM PDT) + + + + + + | Component | Value | Ref Range | Performed | Pathologist | | | | | At | Signature | + + + + + + | Follicle | 21.7Comment: | mIU/mL | [facility] | | | Stimulating | MID-FOLLICULAR: | | [facility] | | | Hormone | 3.85-8.78 | | MEDICAL | | | | mIU/mLMID-CYCLE: | | CENTER - | | | | 4.54-22.51 | | LABORATORY | | | | mIU/mLMID-LUTEAL: | | | | | | 1.79-5.12 | | | | | | mIU/mLPOST-MENOPAUSAL: | | | | | | 16.74-113.59 mIU/mL | | | | + + + + + + + + | Specimen | + + | Blood | + + + + + + + | Performing | Address | City/State/Zipcode | Phone Number | | Organization | | | | + + + + + | [facility] | 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
--- OUTSIDE RECORDS SUMMARY | ~2019-12-24 | XMS | Encounter Summary ---
Demographics + + + | Address | [address] | | | [place] [address] | + + + | Home Phone | | + + + | Preferred Language | Unknown | + + + | Marital Status | | + + + | Jehovah'S Witness Affiliation | 1013 | + + + | Race | Unknown | + + + | Ethnic Group | Unknown | + + + Author + + + | Author | [facility] | | | and [place] | + + + | Organization | [facility] | | | and [place] | + + + | Address | Unknown | + + + | Phone | Unavailable | + + + Support + + + + + | Name | Relationship | Address | Phone | + + + + + | Iwona L Head | ECON | [place], | | | | | [place] [address] | | + + + + + | Mahogany Navarro [employer] | ECON | [address] | | | | | [place] [address] | | + + + + + Care Team Providers + +------+ + | Care Cardiopulmonary Technologist Name | Role | Phone | + +------+ + PCP | Unavailable | + +------+ + Encounter Details +--------+ + + + + | Date | Type | Department | Care Team | Description | +--------+ + + + + | 11/09/ | Hospital | [facility] | Carolee Mclaughlin | | | 2010 | Encounter | MED CTR EMERGENCY | MD Sima [address] | | | | | [place] [address] | [facility], | | | | | [place] | [place] [address] | | | | | [address] | [phone] | | | | | [phone] | | | +--------+ + + + [...] documented as of this encounter ED Notes Carolee Mclaughlin MD - 11/09/2010 1:39 PM PDTDATE: 11/09/2010 PRIMARY CARE: Dr. Rodriguez. CHIEF COMPLAINT: Ongoing headache, ongoing high blood sugar. HISTORY OF PRESENT ILLNESS: This is a 40-year-old female, who returns to the Emergency Dep artment. T he patient has a history of being seen here on 11/06/2010 for the above complain ts, headache and elev ated blood glucose. She indicates she has had a headache for about 1 week which she terms a migraine. She has a history of chronic headaches. She took a Maxalt this morning at about 9. She took ibuprofe n twice today. She has not been able to get any relief. She was seen here on the and treated wit h Toradol, Benadryl, and Compazine or Phenergan. She indicates that she was not better at the time of discharge. She went out to her car and "got sick." I believe she said she threw up. She indicates claus jang has had high g lucose problems since being diagnosed in June. Last night at 10 p.m. her glucose w as 47 5. This afternoon at 1 p.m. her glucose was 375. She is currently taking Lantus 50 units a.m . an d p.m. Novolog 15 units twice a day. She uses the NovoLog 4 times a day on a sliding s maxine, and 15 un its is a dose for 350 to 400. She indicates that she sees the new early childhood educator aide at [facility]. She has not seen her recently regarding the elevated gluc oses. However, it does not sound like there has been any change made in her dosing over the last 2 weeks. She is supposed to be increasing her Lantus by 5 units for every week her gl ucose is out of control. She was given some IV fluids and had lab workup on the . It wa s all pretty unremarkable. She did not have any serum ketones. She indicates she does not h ave an appointment coming up with her primary care physician which seems unus ual as it is fairly routine after being seen in the Emergency Department to be referred back there. T he patient indicates that with her headache she gets some speech difficulty and sometimes righ t arm w eakness. The patient was contacted by an RN from this facility doing our 3-day call backs when it abimael me obvious that the patient was not doing well, had ongoing headaches an d ongoing high blood sugar. S he was encouraged to return here. Apparently there was a wong sportation difficulty for her and she wa s provided taxi voucher. PAST MEDICAL HISTORY: Diabetes as above, asthma. She has had a previous cholecystectomy, h ysterectom y, depression. MEDICATIONS 1. Venlafaxine. 2. Maxalt. 3. Phenergan. 4. Pravastatin. 5. Mirapex. 6. Omeprazole. 7. Robaxin. 8. Lisinopril. 9. Levothyroxine. 10. Novolog. 11. Lantus. 12. Atarax. 13. Folate. 14. Fluconazole. 15. Ergocalciferol. 16. Benadryl. ALLERGIES: HYDROCODONE LISTED ASSOCIATED WITH "ANAPHYLAXIS" IS MORPHINE AND SULFA. REVIEW OF SYSTEMS: She indicates that her glucoses has been very difficult to control sinc e her diag nosis and she is not sure what might be driving it up persistently. PHYSICAL EXAM VITAL SIGNS: Temp 98.3, respirations 18, heart rate 86, blood pressure 158/103, O2 saturat ion 96% ro om air. GENERAL: An overweight female who is lying supine on the ED gurney. SKIN: Warm, dry, well perfused. HEAD: Normocephalic, atraumatic. Pupils equal, round, reactive to light. No nystagmus. No nuchal rig idity. She indicates her area of maximal pain, bifrontal and right occipital. NEUROLOGIC: The patient is alert, oriented, fully able to give her history. She does not h ave any cr anial nerve deficit. She is moving all extremities strongly. She does have an al l-over appearance of being somewhat psychomotor slowed. EMERGENCY DEPARTMENT COURSE: The patient had random glucose checked here. It was 270. I pino ggested th at we do a urine dip to look for ketones and she was given Inapsine 2.5 mg IM he re. Nursing staff had attempted an IV but were unsuccessful. If the Inapsine is effective, we may be able to avert that. H er glucose is actually fairly controlled at this time. Her urinalysis returned with no evidence of in fection, a small amount of ketones, positive glu cosuria and I think this is as expected. Following e Inapsine, the patient was up to the bathroom. I checked with her to see if it had been effective an d she indicated it had not . I went back to talk to her about further options for care and she had gregory ped from the Em ergency Department. We did discuss while she was here increasing her Lantus insulin to 55 u nits a.m. and p.m., continuing her NovoLog at its current sliding scale. She is on the sever e sl iding scale, according to the patient. She needs to limit sugary food, she needs to me et with the donovan lewis educator. All of this was written out for her in a discharge paper. S sabiha she left the Emergenc y Department by karina, she was called back and a message left at her home that she should return or have her discharge paperwork mailed to her. IMPRESSION 1. HEADACHE. 2. DIABETES WITH HYPERGLYCEMIA. DICTATED BY: Carolee Mclaughlin MD Emergency Medicine JOB #: [id number] EXT JOB #:[id number] <Electronicall y Signed by Carolee Mclaughlin MD> 12/20/10 1041 documented in this encounter Plan of Treatment [...] | | | | | [place] [address] | | | | | | [phone] | | | | | | | | +--------+---------+ + + + documented as of this encounter Visit Diagnoses Not on filedocumented in this encounter
--- OUTSIDE RECORDS SUMMARY | ~2019-12-24 | XMS | Encounter Summary ---
Demographics + + + | Address | [address] | | | [place] [address] | + + + | Home Phone | | + + + | Preferred Language | Unknown | + + + | Marital Status | | + + + | Church Affiliation | 1013 | + + + | Race | Unknown | + + + | Ethnic Group | Unknown | + + + Author + + + | Author | [facility] | | | and [place] | + + + | Organization | [facility] | | [...] [place], | | | | | [place] [address] | | + + + + + | Mahogany Navarro [place] | ECON | [address] | | | | | [place] [address] | | + + + + + Care Team Providers + +------+ + | Care Hot Air Furnace Installer Repairer Name | Role | Phone | + +------+ + PCP | Unavailable | + +------+ + Encounter Details +--------+ + + + + | Date | Type | Department | Care Team | Description | +--------+ + + + + | 06/28/ | Hospital | [facility] | Maryellen, | | | 2006 | Encounter | MED CTR EMERGENCY | David Romero MD [address] | | | | [place] [address] | [facility] | | | | | [place], [place] | [place] [address] | | | | | [address] | [phone] | | | | | [phone] | | | +--------+ + + + [...] Quynh | | | | | | [facility] [address] | | | | | | [place] [address] | | | | | | [phone] | | | | | | | | +--------+---------+ + + + documented as of this encounter Visit Diagnoses Not on filedocumented in this encounter"
--- OUTSIDE RECORDS SUMMARY | ~2019-12-24 | XMS | Encounter Summary ---
Demographics + + + | Address | [address] | | | [place] [address] | + + + | Home Phone | | + + + | Preferred Language | Unknown | + + + | Marital Status | | + + + | Buddhist Affiliation | 1013 | + + + | Race | Unknown | + + + | Ethnic Group | Unknown | + + + Author + + + | Author | [facility] | | | and [place] | + + + | Organization | [facility] | | | and [place] | + + + | Address | Unknown | + + + | Phone | Unavailable | + + + Support + + + + + | Name | Relationship | Address | Phone | + + + + + | Iwona L Head | ECON | [place], | | | | | [place] [address] | | + + + + + | Mahogany Navarro [place] | ECON | [address] | | | | | [place] [address] | | + + + + + Care Team Providers + +------+ + | Care Clinical Resource Director Name | Role | Phone | + +------+ + | Quynh Finch | PCP | | | MD | | | + +------+ + Reason for Visit + +--------+ + | Reason | Onset | Comments | | | Date | | + +--------+ + | Appointment | 04/11/ | | | | 2014 | | + +--------+ + Encounter Details +--------+ + + + + | Date | Type | Department | Care Team | Description | +--------+ + + + + | 04/11/ | Telephone | [facility] | Damian Escudero, | Appointment | | 2014 | | [address] | MD [address] | | | | | [place] | [place] | | | | | [address] | [id number] | | | | | [phone] | | | +--------+ + + + + Social History + + + +--------+------+ | Tobacco Use | Types | Packs/Day | Years | Date | | | | | Used | | + + + +--------+------+ | Current Every Day | Cigarettes | 0.25 | | | | Smoker | | | | | + + + +--------+------+ + +---+---+---+ | Smokeless Tobacco: | | | | | Never Used | | | | + +---+---+---+ + + +---------+ + | Alcohol Use | Drinks/Week | oz/Week | Comments | + + +---------+ + | Not Asked | | | | + + +---------+ + + + + | Sex Assigned at | Date Recorded | | | | + + + | Not on file | | + + + documented as of this encounter Miscellaneous Notes Telephone Encounter - Yumi Ch RN - 04/11/2015 9:[address] [facility] been [facility] since referred to him on 12/22/14. Kristen said th at messages were left for patient to call them back to schedule an appointment and a letter was sent as well but patient never contacted them to schedule appointment. Electronically si gned by Yumi Ch RN at 04/11/2015 9:55 AM PDTdocumented in this encounter Plan of Treatment +--------+---------+ + + + | Date | Type | Specialty | Care Team | Description | +--------+---------+ + + + | 01/09/ | Office | Internal Medicine | Stef, | | | 2019 | Visit | | MD Quynh | | | | | | [address] | | | | | | [place] [address] | | | | | | [phone] | | | | | | | [...]
--- OUTSIDE RECORDS SUMMARY | ~2019-12-24 | XMS | Encounter Summary ---
Demographics + + + | Address | [address] | | | [place] [address] | + + + | Home Phone | | + + + | Preferred Language | Unknown | + + + | Marital Status | | + + + | Mormonism Affiliation | 1013 | + + + | Race | Unknown | + + + | Ethnic Group | Unknown | + + + Author + + + | Author | [facility] | | | and [place] | + + + | Organization | [facility] | | | [...] [place], | | | | | [place] [address] | | + + + + + | Mahogany Navarro [place] | ECON | [address] | | | | | [place] [address] | | + + + + + Care Team Providers + +------+ + | Care Cyber Engineer Name | Role | Phone | + +------+ + PCP | Unavailable | + +------+ + Encounter Details +--------+ + + + + | Date | Type | Department | Care Team | Description | +--------+ + + + + | 03/31/ | Hospital | [facility] | Larry [place]oval, | | | 2006 | Encounter | MED CTR LABORATORY | MD [address] | | | | | [address] [place] | [place], [place] | | | | | [place], [place] | [address] | | | | | [address] | | | | | | [phone] | | | +--------+ + + + [...] | | | | | [place] [address] | | | | | | [phone] | | | | | | | | +--------+---------+ + + + documented as of this encounter Visit Diagnoses Not on filedocumented in this encounter"
--- OUTSIDE RECORDS SUMMARY | ~2019-12-24 | XMS | Encounter Summary ---
Demographics + + + | Address | [address] | | | [place] [address] | + + + | Home Phone | | + + + | Preferred Language | Unknown | + + + | Marital Status | | + + + | Latter Day Affiliation | 1013 | + + + | Race | Unknown | + + + | Ethnic Group | Unknown | + + + Author + + + | Author | [facility] | | | [...] [place], | | | | | [place] [address] | | + + + + + | Mahogany Navarro [place] | ECON | [address] | | | | | [place] [address] | | + + + + + Care Team Providers + +------+ + | Care Counting Machine Operator Name | Role | Phone | + +------+ + PCP | Unavailable | + +------+ + Encounter Details +--------+ + + + + | Date | Type | Department | Care Team | Description | +--------+ + + + + | 07/27/ | Hospital | [facility] | | | | 2008 | Encounter | MED CTR EMERGENCY | | | | | | CENTER [address] | | | | | | [place] | | | | | | [address] | | | | | | [phone] | | | +--------+ + + + [...] Quynh | | | | | | [facility] [address] | | | | | | [place] [address] | | | | | | [phone] | | | | | | | | +--------+---------+ + + + documented as of this encounter Visit Diagnoses Not on filedocumented in this encounter"
--- OUTSIDE RECORDS SUMMARY | ~2019-12-24 | XMS | Encounter Summary ---
Demographics + + + | Address | [address] | | | [place] [address] | + + + | Home Phone | | + + + | Preferred Language | Unknown | + + + | Marital Status | | + + + | Bahai Affiliation | 1013 | + + + | Race | Unknown | + + + | Ethnic Group | Unknown | + + + Author + + + | Author | [facility] | | | and [place] | + + + | Organization | [facility] | | | and [place] | + + + | Address | Unknown | + + + | Phone | Unavailable | + + + Support + + + + + | Name | Relationship | Address | Phone | + + + + + | Iwona L Head | ECON | [place], | | | | | [place] [address] | | + + + + + | Mahogany Navarro [place] | ECON | [address] | | | | | [place] [address] | | + + + + + Care Team Providers + +------+ + | Care Sample Paster Name | Role | Phone | + +------+ + PCP | Unavailable | + +------+ + Encounter Details +--------+ + + + + | Date | Type | Department | Care Team | Description | +--------+ + + + + | 10/14/ | Hospital | [facility] | | | | 2004 | Encounter | MED CTR LABORATORY | | | | | | [address] [place] | | | | | | [place] | | | | | | [address] | | | | | | [phone] | | | +--------+ + + + [...] Quynh | | | | | | [facility] [address] | | | | | | [place] [address] | | | | | | [phone] | | | | | | | | +--------+---------+ + + + documented as of this encounter Visit Diagnoses Not on filedocumented in this encounter"
--- OUTSIDE RECORDS SUMMARY | ~2019-12-24 | XMS | Encounter Summary ---
Demographics + + + | Address | [address] | | | [place] [address] | + + + | Home Phone | | + + + | Preferred Language | Unknown | + + + | Marital Status | | + + + | Muslim Affiliation | 1013 | + + + | Race | Unknown | + + + | Ethnic Group | Unknown | + + + Author + + + | Author | [facility] | | | and [place] | + + + | Organization | [facility] | | | [...] [place], | | | | | [place] [address] | | + + + + + | Mahogany Navarro [place] | ECON | [address] | | | | | [place] [address] | | + + + + + Care Team Providers + +------+ + | Care Nursing Admin Name | Role | Phone | + +------+ + PCP | Unavailable | + +------+ + Encounter Details +--------+ + + + + | Date | Type | Department | Care Team | Description | +--------+ + + + + | 05/07/ | Hospital | [facility] | Larry [place], | | | 2006 - | Encounter | MED CTR DIETARY | MD [address] | | | | | [address] [place] | [place], [place] | | | 06/06/ | | [place] [address] | [address] | | | 2005 | | [phone] | | | +--------+ + + + [...] | | | | | [place] [address] | | | | | | [phone] | | | | | | | | +--------+---------+ + + + documented as of this encounter Visit Diagnoses Not on filedocumented in this encounter"
--- OUTSIDE RECORDS SUMMARY | ~2019-12-24 | XMS | Encounter Summary ---
Demographics + + + | Address | [address] | | | [place] [address] | + + + | Home Phone | | + + + | Preferred Language | Unknown | + + + | Marital Status | | + + + | Congregational Affiliation | 1013 | + + + | Race | Unknown | + + + | Ethnic Group | Unknown | + + + Author + + + | Author | [facility] | | | and [place] | + + + | Organization | [facility] | | [...] [place], | | | | | [place] [address] | | + + + + + | Mahogany Farnsworth | ECON | [address] | | | | | [place] [address] | | + + + + + Care Team Providers + +------+ + | Care Mixing Machine Tender Cork Gasket Name | Role | Phone | + [...] Description | +--------+--------+ + + + | 05/23/ | Refill | [facility] | Stef, | Medication Refill | | 2017 | | MEDICINE [address] | MD Quynh | | | | | [place], | [address] [facility] | | | | | [place] [address] | [place] [address] | | | | | [phone] | [phone] | | | | | | | [...] Quynh | | | | | | [address] [place] [address] | | | | | | [place] [address] | | | | | | [phone] | | | | | | | [...]
--- OUTSIDE RECORDS SUMMARY | ~2019-12-24 | XMS | Encounter Summary ---
Demographics + + + | Address | [address] | | | [place] [address] | + + + | Home Phone | | + + + | Preferred Language | Unknown | + + + | Marital Status | | + + + | Baptist Affiliation | 1013 | + + + | Race | Unknown | + + + | Ethnic Group | Unknown | + + + Author + + + | Author | [facility] | | | and [place] | + + + | Organization | [facility] | [...] [place], | | | | | [place] [address] | | + + + + + | Mahogany Farnsworth | ECON | [address] | | | | | [place] [address] | | + + + + + Care Team Providers + +------+ + | Care Making Line Worker Name | Role | Phone | + [...] Description | +--------+--------+ + + + | 08/02/ | Refill | [facility] | Stef, | Medication Refill | | 2019 | | MEDICINE [address] | MD Quynh | | | | | [place], | [address] [facility] | | | | | [place] [address] | [place] [address] | | | | | [phone] | [phone] | | | | | | | [...] Quynh | | | | | | [address] [place] [address] | | | | | | [place] [address] | | | | | | [phone] | | | | | | | [...]
--- OUTSIDE RECORDS SUMMARY | ~2019-12-24 | XMS | Encounter Summary ---
Demographics + + + | Address | [address] | | | [place] [address] | + + + | Home Phone | | + + + | Preferred Language | Unknown | + + + | Marital Status | | + + + | Latter-Day Affiliation | 1013 | + + + | Race | Unknown | + + + | Ethnic Group | Unknown | + + + Author + + + | Author | [facility] | | | and [place] | + + + | Organization | [facility] | | | and [place] | + + + | Address | Unknown | + + + | Phone | Unavailable | + + + Support + + + + + | Name | Relationship | Address | Phone | + + + + + | Iwona L Head | ECON | [place], | | | | | [place] [address] | | + + + + + | Mahogany Navarro [place] | ECON | [address] | | | | | [place] [address] | | + + + + + Care Team Providers + +------+ + | Care Quality Control Operator Name | Role | Phone | + +------+ + PCP | Unavailable | + +------+ + Encounter Details +--------+ + + + + | Date | Type | Department | Care Team | Description | +--------+ + + + + | 06/28/ | Hospital | [facility] | [place], | | | 2006 | Encounter | MED CTR LABORATORY | MD [address] | | | | | [address] [place] | [place], [place] | | | | | [place], [place] | [address] | | | | | [address] | | | | | | [phone] | | | +--------+ + + + [...] | | | | | [place] [address] | | | | | | [phone] | | | | | | | | +--------+---------+ + + + documented as of this encounter Visit Diagnoses Not on filedocumented in this encounter"
--- OUTSIDE RECORDS SUMMARY | ~2019-12-24 | XMS | Encounter Summary ---
Demographics + + + | Address | [address] | | | [place] [address] | + + + | Home Phone | | + + + | Preferred Language | Unknown | + + + | Marital Status | | + + + | Advent Affiliation | 1013 | + + + | Race | Unknown | + + + | Ethnic Group | Unknown | + + + Author + + + | Author | [facility] | | | and [place] | + + + | Organization | [facility] | | | and [place] | + + + | Address | Unknown | + + + | Phone | Unavailable | + + + Support + + + + + | Name | Relationship | Address | Phone | + + + + + | Iwona L Head | ECON | [place], | | | | | [place] [address] | | + + + + + | Mahogany Navarro [place] | ECON | [address] | | | | | [place] [address] | | + + + + + Care Team Providers + +------+ + | Care Wrapper Off Name | Role | Phone | + +------+ + PCP | Unavailable | + +------+ + Encounter Details +--------+ + + + + | Date | Type | Department | Care Team | Description | +--------+ + + + + | 02/09/ | Hospital | [facility] | JaimeLarry, | | | 2006 | Encounter | MED CTR XRAY [address] | [address] | | | | | [place] | [place], [place] | | | | | [place] [address] | [address] | | | | | [phone] | | | +--------+ + + + [...] | | | | | [place] [address] | | | | | | [phone] | | | | | | | | +--------+---------+ + + + documented as of this encounter Visit Diagnoses Not on filedocumented in this encounter"
--- OUTSIDE RECORDS SUMMARY | ~2019-12-24 | XMS | Encounter Summary ---
Demographics + + + | Address | [address] | | | [place] [address] | + + + | Home Phone [...] + | Author | [facility] | | | and [...] [place], | | | | | [place] [address] | | + + + + + | Mahogany Navarro [place] | ECON | [address] | | | | | [place] [address] | | + + + + + Care Team Providers + +------+ + | Care Wood Model Maker Name | Role | Phone | + +------+ + PCP | Unavailable | + +------+ + Encounter Details +--------+ + + + + | Date | Type | Department | Care Team | Description | +--------+ + + + + | 11/24/ | Hospital | [facility] | | | | 2005 | Encounter | MED CTR EMERGENCY | | | | | | CENTER [address] | | | | | | [place] | | | | | | [address] | | | | | | [phone] | | | +--------+ + + + [...] Quynh | | | | | | [facility] [address] | | | | | | [place] [address] | | | | | | [phone] | | | | | | | | +--------+---------+ + + + documented as of this encounter Visit Diagnoses Not on filedocumented in this encounter"
--- OUTSIDE RECORDS SUMMARY | ~2019-12-24 | XMS | Encounter Summary ---
Demographics + + + | Address | [address] | | | [place] [address] | + + + | Home Phone | | + + + | Preferred Language | Unknown | + + + | Marital Status | | + + + | Mandaen Affiliation | 1013 | + + + | Race | Unknown | + + + | Ethnic Group | Unknown | + + + Author + + + | Author | [facility] | | | and [place] | + + + | Organization | [facility] | | | and [place] | + + + | Address | Unknown | + + + | Phone | Unavailable | + + + Support + + + + + | Name | Relationship | Address | Phone | + + + + + | Iwona L Head | ECON | [place], | | | | | [place] [address] | | + + + + + | Mahogany Navarro Hallock | ECON | [address] | | | | | [place] [address] | | + + + + + Care Team Providers + +------+ + | Care Rn Case Management Name | Role | Phone | + +------+ + PCP | Unavailable | + +------+ + Encounter Details +--------+ + + + + | Date | Type | Department | Care Team | Description | +--------+ + + + + | 06/23/ | Hospital | [facility] | Bruno Herrera MD | | | 2006 - | Encounter | MED CTR MED ONC | [address] | | | | | [address] [place] | [address] [place] | | | 06/25/ | | [place] [address] | [place] [address] | | | 2005 | | [phone] | [phone] | | | | | | | [...] | | | | | [address] [facility] | | | | | | [place] [address] | | | | | | [phone] | | | | | | | | +--------+---------+ + + + documented as of this encounter Visit Diagnoses Not on filedocumented in this encounter"
--- OUTSIDE RECORDS SUMMARY | ~2019-12-24 | XMS | Encounter Summary ---
Demographics + + + | Address | [address] | | | [place] [address] | + + + | Home Phone [...] + | Author | [facility] | | | and [place] [...] [place], | | | | | [place] [address] | | + + + + + | Mahogany Navarro [place] | ECON | [address] | | | | | [place] [address] | | + + + + + Care Team Providers + +------+ + | Care Health Advocate Name | Role | Phone | + +------+ + | Quynh Finch | PCP | | | MD | | | + +------+ + Reason for Visit + + + | Reason | Comments | + + + | Eye Pain | | + + + | Eye Redness | | + + + Encounter Details +--------+ + + + + | Date | Type | Department | Care Team | Description | +--------+ + + + + | 01/08/ | Emergency | [facility] | George Williamson, | right Ermelinda | | 2015 | | MED CTR EMERGENCY | MD [address] | (Primary Dx) | | | | CENTER [address] | [facility] | | | | | [place] | [place] [address] | | | | | [address] | [phone] | | | | | [phone] | | | +--------+ + + + [...] + + + | Blood Pressure | 158/82 | 01/09/2016 9:13 PM | | | | | PDT | | + + + + + | Pulse | 87 | 01/09/2016 9:13 PM | | | | | PDT | | + + + + + | Temperature | 37.1 C (98.7 F) | 01/09/2016 9:13 PM | | | | | PDT | | + + + + + | Respiratory Rate | 18 | 01/09/2016 9:13 PM | | | | | PDT | | + + + + + | Oxygen Saturation | 94% | 01/09/2016 9:13 PM | | | | | PDT | | + + + + + | Inhaled Oxygen | - | - | | | Concentration | | | | + + + + + | Weight | 107 kg (236 lb) | 01/09/2016 9:13 PM | | | | | PDT | | + + + + + | Height | 162.6 cm (5' 4") | 01/09/2016 9:13 PM | | | | | PDT | | + + + + + | Body Mass Index | 40.51 | 01/09/2016 9:13 PM | | | | | PDT | | + + + + + documented in this encounter Discharge Instructions Instructions George Williamson MD - 01/09/2016Warm compresses to the right eye every 4 caleb rs for the next 3 days Take the medicine as prescribed Follow-up with ophthalmology/optometry Return if worse AttachmentsThe following attachments cannot be sent through Care Everywhere.TYRESE (BELARUSIAN)do cumented in this encounter Medications at Time of [...] + + + +---------+ + + | ABILIFY 2 MG | Take 1 tablet by | | 0 | 07/26/19 | | | tablet | mouth Daily. | | | 15 | 7 | + + + +---------+ + + | acyclovir | Take 400 mg by mouth | | 0 | 03/12/20 | | | (ZOVIRAX) 400 MG | 3 times daily. | | | 12 | 7 | | tablet | | | | | | + + + +---------+ + + | ALPRAZolam (XANAX) | Take 0.5 mg by mouth | | 0 | | | | 0.5 mg tablet | Daily as needed for | | | | 9 | | | Anxiety. | | | | | + + + +---------+ + + | | Take 1 tablet by | 14 | 0 | 01/09/20 | | | amoxicillin-clavulan | mouth 2 times daily | tablet | | 16 | 6 | | ate (AUGMENTIN) | for 7 days. | | | | | | 875-125 [...] + + +---------+ + + | | Take 1 tablet by | | 0 | | 09/14/201 | | Lfqqdxb-Puhybptep-Wd | mouth Daily. | | | | 7 | | tamin D (CALCIUM 500 | | | | | | | PO) | | | | | | + [...] + + +---------+ + + | | Take 1 tablet by | | 0 | | | | diphenoxylate-atropi | mouth Daily. | | | | 8 | | ne (LOMOTIL) | | | [...] + + + +---------+ + + | Fesoterodine | Take one 4 mg tablet | 14 | 0 | 08/30/19 | | | Fumarate (TOVIAZ) 4 | orally once daily | tablet | | 15 | 7 | | MG TB24 | to reduce bladder | | | | | | | leak; if ineffective | | | | | | | may use one 8 mg | | | | | | | tablet daily. | | | | | + + + +---------+ + + | fesoterodine | Take one 4 mg tablet | 7 | 0 | 08/30/19 | | | fumarate (TOVIAZ) 8 | orally once daily | tablet | | 15 | 7 | | MG TB24 ER tablet | to reduce bladder | | | | | | | leak; if ineffective | | | | | | | may use one 8 mg | | | | | | | tablet daily. | | | | | + + + +---------+ + + | gabapentin | Take 100 mg by mouth | | 0 | | | | (NEURONTIN) 100 mg | 2 times daily. | | | | 7 | | capsule | | | | | | + + + +---------+ + + | hydrOXYzine | Take 50 mg by mouth. | | 0 | | | | (ATARAX) 50 MG | | | | | 7 | | tablet | | [...] +---------+ + + | levothyroxine | Take 150 mcg by | | 0 | | | | (SYNTHROID, | mouth nightly. | | | | 7 | | LEVOTHROID) 150 mcg | | | | | | | [...] + + + +---------+ + + | metoprolol | Take 100 mg by mouth | | 0 | | | | (LOPRESSOR) 100 MG | Daily. | | | | 7 | | tablet | | | | | | + + + +---------+ + + | omeprazole | Take 20 mg by mouth | | 0 | 01/01/20 | | | (PRILOSEC) 20 mg | Daily. | | | 12 | 7 | | capsule | | | | | | + + + +---------+ + + | oxyCODONE | Take 1 tablet by | | 0 | 08/10/19 | | | (OXYCONTIN) 80 mg ER | mouth 2 times daily. | | | 15 | 7 | | abuse-deterrent | | | | | | | tablet | | | | | | + + + +---------+ + + | | Take 1 tablet by | | 0 | | | | oxyCODONE-acetaminop | mouth every 4 hours | | | | 7 | | hen (PERCOCET) | as needed. | | | | | | 10-325 mg per tablet | | | | | | [...] + + + +---------+ + + | pregabalin | Take 150 mg by | | 0 | | | | (LYRICA) 150 MG | mouth. | | | | 7 | | capsule | | | | | | + + + +---------+ + + | QUEtiapine | Take 25 mg by mouth | | 0 | | | | (SEROQUEL) 25 mg | nightly. | | | | 8 | | tablet | | [...] + + + +---------+ + + | VITAMIN D, | Take 5 tablets by | | 0 | | | | CHOLECALCIFEROL, PO | mouth Daily. | | | | 7 | + + + +---------+ + + documented as of this encounter ED Notes George Williamson MD - 01/09/2016 9:33 PM PDTFormatting of this note might be different f rom the original. [facility] Marzena Duong Emergency Department Encounter Note [address] [place] [address] PCP:Quynh Finch MD [phone] CHIEF COMPLAINT Chief Complaint Patient presents with Eye Pain Eye Redness HPI Marzena Duong is a 45 y.o. female who presents to the emergency department with numbn ess and swelling and pain. This patient has developed right eye redness swelling and pain o lexy the past couple of days. Starting last night she was applying warm compresses. Despite that the symptoms have worsened causing her to seek medical attention. No fever. She is p roviding her own history. She does not wear contacts, she wears glasses. She has not notic ed any change in her visual acuity. No headache. No prior similar episodes. PAST MEDICAL HISTORY Past Medical History Diagnosis Date Diabetic peripheral neuropathy (HCC) Paralysis of lower limb (HCC) Moderate vulvar dysplasia Vulvitis Onychauxis Xanthelasma of eyelid Hemangioma Drop foot gait Epidermal inclusion cyst Anxiety SURGICAL HISTORY Past Surgical History Procedure Laterality Date Excision of perianal lesion 03/29/2014 Dr. Lopez CURRENT MEDICATIONS Discharge Medication List as of 01/09/2016 21:43 CONTINUE these medications which have NOT CHANGED Details ABILIFY 2 MG tablet Take 1 tablet by mouth Daily.Historical Med acetaminophen (TYLENOL) 325 mg tablet Take 325 mg by mouth every 4 hours as needed.Historic al Med acyclovir (ZOVIRAX) 400 MG tablet Take 400 mg by mouth 3 times daily. ALPRAZolam (XANAX) 0.5 mg tablet Take 0.5 mg by mouth Daily as needed for Anxiety.Historica l Med benztropine (COGENTIN) 1 mg tablet Take 1 mg by mouth Daily. Xpncoke-Fiatemleb-Bpkssux D (CALCIUM 500 PO) Take 1 tablet by mouth Daily.Historical Med diclofenac (CATAFLAM) 50 MG tablet Take as directed !! diphenhydrAMINE (BENADRYL ALLERGY) 25 MG capsule Take 25 mg by mouth every 6 hours as ne eded. !! DiphenhydrAMINE HCl (DIPHENHIST PO) TABS; Take as directed diphenoxylate-atropine (LOMOTIL) 2.5-0.025 mg per tablet Take 1 tablet by mouth Daily.Histo rical Med DULoxetine (CYMBALTA) 60 MG capsule Take 60 mg by mouth Daily. !! Fesoterodine Fumarate (TOVIAZ) 4 MG TB24 Take one 4 mg tablet orally once daily to reduc e bladder leak; if ineffective may use one 8 mg tablet daily.Disp-14 tablet, R-0, Sample !! fesoterodine fumarate (TOVIAZ) 8 MG TB24 ER tablet Take one 4 mg tablet orally once shelly y to reduce bladder leak; if ineffective may use one 8 mg tablet daily.Disp-7 tablet, R-0, S ample gabapentin (NEURONTIN) 100 mg capsule Take 100 mg by mouth 2 times daily.Historical Med hydrOXYzine (ATARAX) 50 MG tablet Take 50 mg by mouth.Historical Med insulin NPH (HUMULIN N) 100 units/mL injection 30 units below the skin twice daily insulin regular (HUMULIN R) 100 units/mL injection 30 units inject below the skin before me als Lactobacillus (ACIDOPHILUS PO) Take 1 tablet by mouth Daily.Historical Med levothyroxine (SYNTHROID, LEVOTHROID) 150 mcg tablet Take 150 mcg by mouth nightly.Historic al Med methocarbamol (ROBAXIN) 500 mg tablet Take 500 mg by mouth 3 times daily as needed. metoprolol (LOPRESSOR) 100 MG tablet Take 100 mg by mouth Daily.Historical Med omeprazole (PRILOSEC) 20 mg capsule Take 20 mg by mouth Daily. oxyCODONE (OXYCONTIN) 80 mg ER abuse-deterrent tablet Take 1 tablet by mouth 2 times daily. Historical Med oxyCODONE-acetaminophen (PERCOCET) 10-325 mg per tablet Take 1 tablet by mouth every 4 hour s as needed.Historical Med pramipexole (MIRAPEX) 1 MG tablet Take 1 mg by mouth nightly. pravastatin (PRAVACHOL) 20 mg tablet Take 20 mg by mouth Daily. pregabalin (LYRICA) 150 MG capsule Take 150 mg by mouth.Historical Med promethazine (PHENERGAN) 25 mg tablet Take 1 tablet by mouth every 4 to 6 hours as needed QUEtiapine (SEROQUEL) 25 mg tablet Take 25 mg by mouth nightly.Historical Med rizatriptan (MAXALT) 10 mg tablet Take 1 tablet by mouth, repeat in 2 hours if needed. Maxi mum of 3 tablets in 24 hours. VITAMIN D, CHOLECALCIFEROL, PO Take 5 tablets by mouth Daily.Historical Med !! - Potential duplicate medications found. Please discuss with provider. ALLERGIES Allergies Allergen Reactions Hydrocodone Hives Hives and decreased respirations Morphine Other (See Comments) Light-headed, very emotional (cries constantly) Sulfa Antibiotics Rash and Other (See Comments) Severe respiratory distress, huge water blisters, rash Adhesive & Tape Other reaction(s): Rash Milk-Related Compounds Other reaction(s): Rash Codeine Rash Rash, slows breathing FAMILY HISTORY Family History Problem Relation Age of Onset Cancer Father SOCIAL HISTORY History Social History Marital Status: Spouse Name: N/A Number of Children: N/A Years of Education: N/A Social History Main Topics Smoking status: Current Every Day Smoker -- 0.25 packs/day Types: Cigarettes Smokeless tobacco: Never Used Alcohol Use: Not on file Drug Use: Not on file Sexual Activity: Not on file Other Topics Concern None Social History Narrative REVIEW OF SYSTEMS All systems reviewed and found negative except what is in the HPI PHYSICAL EXAM VITAL SIGNS: BP 158/82 mmHg | Pulse 87 | Temp(Src) 37.1 C (98.7 F) (Oral) | Resp 18 | Ht 1.626 m (5' 4") | Wt 107.049 kg (236 lb) | BMI 40.49 kg/m2 | SpO2 94% Constitutional: Well developed, Well nourished, No acute distress, Non-toxic appearance. HENT: Normocephalic, Atraumatic, Bilateral external ears normal, Tympanic membranes normal , Mucous membranes are moist, Nasal mucosa is normal. Eyes: PERRL, EOMI, Conjunctiva normal, No discharge. Palpebral conjunctiva are pink. Righ t lower eyelid has a hordeolum present, she has erythema of the lower lid extending down ont o the skin over the maxilla. No fluctuance. Neck: Normal range of motion, No tenderness, Supple, No stridor. Respiratory: No respiratory distress, No wheezing Cardiovascular: Normal heart rate, Normal rhythm Extremities: Warm and well perfused, no edema, no joint swelling or deformity. Good ROM. Skin: Warm, Dry, erythema and induration of the right lower eyelid, no fluctuance Neurologic: Alert & oriented x 3, No focal motor or sensory deficits. Speech is clear. G ait is normal. ED COURSE & MEDICAL DECISION MAKING Pertinent Labs & Imaging studies reviewed. (See chart for details) The patient was seen and examined shortly after arriving in the emergency department. Hist ory and physical were obtained, vital signs were noted. This patient has a hordeolum. Visu al acuity was checked. Outpatient treatment is indicated. FINAL IMPRESSION 1. Hordeolum, right PLAN Follow-up Information Schedule an appointment as soon as possible for a visit with Sima Garcia Specialty: Internal Medicine Contact information: [address] [place] [id number] Discharge Medication List as of 01/09/2016 21:43 START taking these medications Details amoxicillin-clavulanate (AUGMENTIN) 875-125 mg per tablet Take 1 tablet by mouth 2 times da charmaine for 7 days.Disp-14 tablet, R-0, Print George Williamson MD 01/10/16 0628 docume nted in this encounter Miscellaneous Notes ED Triage Notes - Natalya Alejandre RN - 01/09/2016 9:12 PM PDTStates for a few days, patient has had redness, watering, and swelling of right eye. Small ulceration noted to low er eyelid document ed in this encounter Plan of Treatment +--------+---------+ [...] | | | | | [place] [address] | | | | | | [phone] | | | | | | | | +--------+---------+ + + + + +------+--------+ + + | Name | Type | Priori | Associated Diagnoses | Date/Time | | | | ty | | | + +------+--------+ + + | ED INFORMATION | OSMAR | Routin | | 01/09/2016 9:12 PM | | EXCHANGE | | e | | PDT | + +------+--------+ + + documented as of this encounter Procedures + +--------+ + + + | Procedure Name | Priori | Date/Time | Associated Diagnosis | Comments | | | ty | | | | + +--------+ + + + | ED INFORMATION | Routin | 01/09/2016 | | | | EXCHANGE | e | 9:12 PM | | | | | | PDT | | | + +--------+ + + + documented in this encounter Visit Diagnoses + + | Diagnosis | + + | Hordeolum, right - Primary | + + documented in this encounter Administered Medications + + + + +------+------+ | Medication Order | MAR | Action | Dose | Rate | Site | | | Action | Date | | | | + + + + +------+------+ | amoxicillin-clavulanate | Dispense | 01/09/20 | 1 tablet | | | | (AUGMENTIN) 875-125 mg per tablet | to Home | 16 9:50 | | | | | (ED prepack) 1 tablet 1 tablet, | | PM PDT | | | | | Oral, ONCE, Thu01/09/16 at 2145, | | | | | | | For 1 dose, Take 1 tablet by | | | | | | | mouth every 12 hours with food. | | | | | | | Dispense as homepack., | | | | | | | Indications: Hordeolum | | | | | | + + + + +------+------+ +---+---+ | | | +---+---+ + +-------+ +--------+---+---+ | ciprofloxacin (CILOXAN) 0.3% | Given | 01/09/20 | 1 drop | | | | ophthalmic solution 1 drop 1 | | 16 9:51 | | | | | drop, Right Eye, ONCE, Wed | | PM PDT | | | | | 01/09/16 at 2145, For 1 dose | | | | | | + +-------+ +--------+---+---+ +---+---+ | | | +---+---+ + +-------+ +--------+---+---+ | diclofenac (VOLTAREN) 0.1 % | Given | 01/09/20 | 1 drop | | | | ophthalmic solution 1 drop 1 | | 16 9:53 | | | | | drop, Right Eye, 4 TIMES DAILY, | | PM PDT | | | | | First dose on Thu01/09/16 at 2145 | | | | | | + +-------+ +--------+---+---+ +---+---+ | | | +---+---+ documented in [...]
--- OUTSIDE RECORDS SUMMARY | ~2019-12-24 | XMS | Encounter Summary ---
Demographics + + + | Address | [address] | | | [place] [address] | + + + | Home Phone | | + + + | Preferred Language | Unknown | + + + | Marital Status | | + + + | Methodist Affiliation | 1013 | + + + | Race | Unknown | + + + | Ethnic Group | Unknown | + + + Author + + + | Author | [facility] | | | and [place] | + + + | Organization | [facility] | | | and [place] | + + + | Address | Unknown | + + + | Phone | Unavailable | + + + Support + + + + + | Name | Relationship | Address | Phone | + + + + + | Iwona L Head | ECON | [place], | | | | | [place] [address] | | + + + + + | Mahogany Farnsworth | ECON | [address] | | | | | [place] [address] | | + + + + + Care Team Providers + +------+ + | Care Cut In Worker Name | Role | Phone | [...] Description | +--------+---------+ + + + | 01/06/ | Office | [facility] | Stef, | Anxiety (Primary Dx) | | 2019 | Visit | MEDICINE [address] | MD Quynh | | | | | [place], | [address] [facility] | | | | | [place] [address] | [place] [address] | | | | | [phone] | [phone] | | | | | | | [...] + + + | Blood Pressure | 126/74 | 01/06/2019 12:40 PM | | | | | PDT | | + + + + + | Pulse | 92 | 01/06/2019 12:40 PM | | | | | PDT | | + + + + + | Temperature | 36.6 C (97.8 F) | 01/06/2019 12:40 PM | | | | | PDT | | + + + + + | Respiratory Rate | 18 | 01/06/2019 12:40 PM | | | | | PDT | | + + + + + | Oxygen Saturation | 95% | 01/06/2019 12:40 PM | | | | | PDT | | + + + + + | Inhaled Oxygen | - | - | | | Concentration | | | | + + + + + | Weight | 93.5 kg (206 lb 2.1 | 01/06/2019 12:40 PM | | | | oz) | PDT | | + + + + + | Height | - | - | | + + + + + | Body Mass Index | 37.7 | 10/07/2018 9:31 AM | | | | | PDT | | + + + + + documented in this encounter Progress Notes Quynh Finch MD - 01/06/2019 12:45 PM PDTFormatting of this note might be d ifferent from the original. CHIEF COMPLAINT Chief Complaint Patient presents with Medication Refill HPI Marzena Duong is a 48 y.o. y/o female who presents today for several issues: Has history of anxiety and would like a refill of alprazolam which she has been using on an as-needed basis with good results. She also takes quetiapine at night as well as amitripty line at night, both low dose, and she states they were can help with her sleep. She states she does not think she could get by with discontinuing any of these medications. No grogginess or drowsiness or fatigue or falls. Denies alcohol use REVIEW OF SYSTEMS Review of Systems Constitutional: Negative. HENT: Negative. Respiratory: Negative. Cardiovascular: Negative. Musculoskeletal: Negative. Skin: Negative. Neurological: Negative. Psychiatric/Behavioral: Negative. PAST MEDICAL HISTORY Past Medical History: Diagnosis [...] / stillbirths Daughter SOCIAL HISTORY Social History Socioeconomic History Marital status: Spouse name: Not on file Number of children: Not on file Years of education: Not on file Highest education level: Not on file Tobacco Use Smoking status: Current Every Day Smoker Packs/day: 1.50 Years: 34.00 Pack years: 51.00 Types: Cigarettes Smokeless tobacco: Never Used Substance and Sexual Activity Alcohol use: Yes Drug use: No Sexual activity: Not Currently Partners: Male control/protection: None SURGICAL HISTORY Past Surgical History: Procedure Laterality Date CHOLECYSTECTOMY COLONOSCOPY Excision of Perianal Lesion 03/29/2014 Dr. Lopez FRACTURE SURGERY HYSTERECTOMY TONSILLECTOMY CURRENT MEDICATIONS Current Outpatient Medications Medication Sig Dispense Refill acetaminophen (TYLENOL) 325 mg tablet Take 325 mg by mouth every 4 hours as needed. ALPRAZolam (XANAX) 0.5 mg tablet Take 1 tablet by mouth Daily as needed for Anxiety. 30 tablet 3 amitriptyline (ELAVIL) 25 mg tablet TAKE ONE TABLET BY MOUTH AT BEDTIME 30 tablet 2 ARIPiprazole (ABILIFY) 5 mg tablet TAKE ONE TABLET BY MOUTH AT BEDTIME 30 tablet 5 atorvaSTATin (LIPITOR) 40 mg tablet Take 1 tablet by mouth nightly. 30 tablet 11 diphenoxylate-atropine (LOMOTIL) 2.5-0.025 mg per tablet TAKE ONE TABLET BY MOUTH TWICE DAILY 60 tablet 3 DULoxetine (CYMBALTA) [address] capsule TAKE ONE CAPSULE BY MOUTH ONE TIME DAILY 30 cap aliyah 5 estradiol (ESTRACE) 1 mg tablet Take 1 tablet by mouth Daily. 30 tablet 5 gabapentin (NEURONTIN) 300 mg capsule TAKE ONE CAPSULE BY MOUTH FOUR TIMES DAILY 120 ca psule 4 insulin glargine (BASAGLAR KWIKPEN) 100 units/mL injection (pen) Inject 60 Units under the skin nightly for 90 days. Increase dose by 3 units every week until fasting blood sugars are between 80-150. 36 mL 3 Insulin Pen Needle (PEN NEEDLES) 32G X 6 MM MISC For insulin pen. 100 each 5 Lactobacillus (ACIDOPHILUS PO) Take 1 tablet by mouth Daily. levothyroxine (SYNTHROID) 150 mcg tablet TAKE ONE TABLET BY MOUTH AT BEDTIME 30 tablet 3 omeprazole (PRILOSEC) 20 mg capsule Take 1 capsule by mouth every morning (before break fast). 90 capsule 3 ondansetron (ZOFRAN) 4 mg TABS tablet (ED prepack) Take 1 tablet by mouth Daily as need ed. pramipexole (MIRAPEX) 1.5 MG tablet TAKE TWO TABLETS BY MOUTH DAILY AT BEDTIME 60 table t 0 promethazine (PHENERGAN) 25 mg tablet Take 1 tablet by mouth every 4 to 6 hours as need ed QUEtiapine (SEROQUEL) 25 mg tablet TAKE ONE TABLET BY MOUTH AT BEDTIME 30 tablet 0 UNABLE TO FIND Alcohol swabs 1 Box 5 UNABLE TO FIND True Metrix Testing Strips. Testing 3x/day. 100 each 5 UNABLE TO FIND True Metrix Lancets. Testing 3x/day. 100 each 5 No current facility-administered medications for this visit. ALLERGIES Allergies Allergen Reactions Hydrocodone Hives Hives and decreased respirations Morphine Other (See Comments) Light-headed, very emotional (cries constantly) Sulfa Antibiotics Rash and Other (See Comments) Severe respiratory distress, huge water blisters, rash Adhesive & Tape Other reaction(s): Rash Milk-Related Compounds Other reaction(s): Rash Codeine Rash Rash, slows breathing PHYSICAL EXAM VITAL SIGNS: BP 126/74 | Pulse 92 | Temp 36.6 C (97.8 F) (Temporal) | Resp 18 | Wt 93.5 kg (206 lb 2.1 oz) | LMP (LMP Unknown) | SpO2 95% | BMI 37.70 kg/m Constitutional: Well developed, Well nourished, No acute distress, Pleasant female. Cardiovascular: Regular rate & rhythm, No murmurs, No rubs, No gallops. No lower extremitie s edema. Thorax & Lungs: Normal chest, No respiratory distress, No crackles, wheezing, or rubs. Skin: Warm, Dry, No erythema, No rash. Musculoskeletal: Good range of motion in all major joints. In wheelchair. Neurologic: Alert & oriented x 3, Normal motor function, Normal sensory function, No focal deficits noted. Psychiatric: Affect normal, Judgment normal, Mood normal. ASSESSMENT & PLAN 1. Anxiety - ALPRAZolam (XANAX) 0.5 mg tablet; Take 1 tablet by mouth Daily as needed for Anxiety. Patricia henriquez: 30 tablet; Refill: 3 -Side effects and potential for addiction discussed. She understands the risks per FOLLOW-UP No follow-ups on file. Note: Parts of this documentwere created using [employer] speech recognition software. As a r esult, there may be unintended word spelling errors. Every attempt was made to correct the dictation. documente d in this encounter Plan of Treatment +--------+---------+ + + + | Date | Type | Specialty | Care Team | Description | +--------+---------+ + + + | 01/09/ | Office | Internal Medicine | Stef, | | | 2019 | Visit | | MD Quynh | | | | | | [address] [place] [address] [place] | | | | | | [place] [address] | | | | | | [phone] | | | | | | | | +--------+---------+ + + + documented as of this encounter Visit Diagnoses + + | Diagnosis | + + | Anxiety - Primary Anxiety state, unspecified | + + documented in this encounter Additional Health Concerns + + + + + | Infection | Onset Date | Last Indicated | Resolved Time | + + + + + | 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
--- OUTSIDE RECORDS SUMMARY | ~2019-12-24 | XMS | Encounter Summary ---
Demographics + + + | Address | [address] | | | [place] [address] | + + + | Home Phone | | + + + | Preferred Language | Unknown | + + + | Marital Status | | + + + | Faith Affiliation | 1013 | + + + | Race | Unknown | + + + | Ethnic Group | Unknown | + + + Author + + + | Author | [facility] | | | and [place] | + + + | Organization | [facility] | | | [...] [place], | | | | | [place] [address] | | + + + + + | Mahogany Navarro [place] | ECON | [address] | | | | | [place] [address] | | + + + + + Care Team Providers + +------+ + | Care Accounting Methods Analyst Name | Role | Phone | + +------+ + PCP | Unavailable | + +------+ + Encounter Details +--------+ + + + + | Date | Type | Department | Care Team | Description | +--------+ + + + + | 11/10/ | Hospital | [facility] | Larry Sandoval, | | | 2007 | Encounter | MED CTR LABORATORY | MD [address] | | | | | [address] [place] | [place], [place] | | | | | [place], [place] | [address] | | | | | [address] | | | | | | [phone] | | | +--------+ + + + [...] | | | | | [place] [address] | | | | | | [phone] | | | | | | | | +--------+---------+ + + + documented as of this encounter Visit Diagnoses Not on filedocumented in this encounter"
--- OUTSIDE RECORDS SUMMARY | ~2019-12-24 | XMS | Encounter Summary ---
Demographics + + + | Address | [address] | | | [place] [address] | + + + | Home Phone | | + + + | Preferred Language | Unknown | + + + | Marital Status | | + + + | Congregation Affiliation | 1013 | + + + | Race | Unknown | + + + | Ethnic Group | Unknown | + + + Author + + + | Author | [facility] | | | and [place] | + + + | Organization | [facility] | | | and [place] | + + + | Address | Unknown | + + + | Phone | Unavailable | + + + Support + + + + + | Name | Relationship | Address | Phone | + + + + + | Iwona L Head | ECON | [place], | | | | | [place] [address] | | + + + + + | Mahogany Navarro [place] | ECON | [address] | | | | | [place] [address] | | + + + + + Care Team Providers + +------+ + | Care Splitting Machine Operator Helper Name | Role | Phone | + +------+ + | Quynh Finch | PCP | | | MD | | | + +------+ + Reason for Visit + +--------+ + | Reason | Onset | Comments | | | Date | | + +--------+ + | Medication Refill | 07/21/ | | | | 2018 | | + +--------+ + Encounter Details +--------+ + + + + | Date | Type | Department | Care Team | Description | +--------+ + + + + | 07/21/ | Telephone | [facility] | Stef, | Medication Refill | | 2018 | | MEDICINE [address] | MD Quynh | | | | | [place], | [address] [facility] | | | | | [place] [address] | [place] [address] | | | | | [phone] | [phone] | | | | | | | [...] Telephone Encounter - Vera Solis LPN - 09/02/2018 4:52 PM PSTrx sent to pharmacyElectr onically signed by Vera Solis LPN at 09/02/2018 4:56 PM PSTTelephone Encounter - Radha Solis LPN - 07/21/2018 9:21 AM PSTPatient presents to clinic requesting refill of True Me trix Testing Strips. This is not on medication list. Please advise how many times daily for testing. documented in t his encounter Plan of Treatment +--------+---------+ + + + | Date | Type | Specialty | Care Team | Description | +--------+---------+ + + + | 01/09/ | Office | Internal Medicine | Stef, | | | 2019 | Visit | | MD Quynh | | | | | | [facility] [address] | | | | | | [place] [address] | | | | | | [phone] | | | | | | | [...]
--- OUTSIDE RECORDS SUMMARY | ~2019-12-24 | XMS | Encounter Summary ---
Demographics + + + | Address | [address] | | | [place] [address] | + + + | Home Phone | | + + + | Preferred Language | Unknown | + + + | Marital Status | | + + + | Bahai Affiliation | 1013 | + + + | Race | Unknown | + + + | Ethnic Group | Unknown | + + + Author + + + | Author | [facility] | | | and [place] | + + + | Organization | [facility] | | [...] [place], | | | | | [place] [address] | | + + + + + | Mahogany Farnsworth | ECON | [address] | | | | | [place] [address] | | + + + + + Care Team Providers + +------+ + | Care Private Pilot Name | Role | Phone | + +------+ + | Quynh Finch | PCP | | | MD | | | + +------+ + Encounter Details +--------+ + + + + | Date | Type | Department | Care Team | Description | +--------+ + + + + | 08/18/ | Imaging | [facility] | Provider, | | | 2018 | Exam | [facility] EXTER[facility] | MD [address] | | | | | IMAGING [address] | [address] | | | | | [address] [place] | [place] [address] | | | | | [place] [address] | | | | | | [phone] | | | +--------+ + + + [...] | | | | | | [place] [address] | | | | | | [phone] | | | | | | | | +--------+---------+ + + + documented as of this encounter Procedures + +--------+ + + + | Procedure Name | Priori | Date/Time | Associated Diagnosis | Comments | | | ty | | | | + +--------+ + + + | US BREAST LIMITED | Routin | 05/13/2016 | | Results for this | | RIGHT | e | 1:50 PM | | procedure are in the | | | | PST | | results section. | + +--------+ + + + documented in this encounter Results US Breast Limited Right (05/13/2016 1:50 PM PST) + + | Specimen | + + | | + + + + + | Narrative | Performed At | + + + | External films for comparison only - no result from Jack. | [facility] | + + + + +---------+ + + | Performing | Address | City/State/Zipcode | Phone Number | | Organization | | | | + +---------+ + + | [facility] | | | | + +---------+ + + documented in this encounter Visit [...]
--- OUTSIDE RECORDS SUMMARY | ~2019-12-24 | XMS | Encounter Summary ---
Demographics + + + | Address | [address] | | | [place] [address] | + + + | Home Phone | | + + + | Preferred Language | Unknown | + + + | Marital Status | | + + + | Yarsani Affiliation | 1013 | + + + | Race | Unknown | + + + | Ethnic Group | Unknown | + + + Author + + + | Author | [facility] | | | and [place] | + + + | Organization | [facility] | | | [...] [place], | | | | | [place] [address] | | + + + + + | Mahogany Navarro [place] | ECON | [address] | | | | | [place] [address] | | + + + + + Care Team Providers + +------+ + | Care Cellophane Worker Name | Role | Phone | + +------+ + PCP | Unavailable | + +------+ + Encounter Details +--------+ + + + + | Date | Type | Department | Care Team | Description | +--------+ + + + + | 04/27/ | Hospital | [facility] | | | | 2005 | Encounter | MED CTR EMERGENCY | | | | | | CENTER [address] | | | | | | [place] | | | | | | [address] | | | | | | [phone] | | | +--------+ + + + [...] Quynh | | | | | | [facility] [address] | | | | | | [place] [address] | | | | | | [phone] | | | | | | | | +--------+---------+ + + + documented as of this encounter Visit Diagnoses Not on filedocumented in this encounter"
--- OUTSIDE RECORDS SUMMARY | ~2019-12-24 | XMS | Encounter Summary ---
Demographics + + + | Address | [address] | | | [place] [address] | + + + | Home Phone | | + + + | Preferred Language | Unknown | + + + | Marital Status | | + + + | Gnosticist Affiliation | 1013 | + + + | Race | Unknown | + + + | Ethnic Group | Unknown | + + + Author + + + | Author | [facility] | | | and [place] | + + + | Organization | [facility] | | | and [place] | + + + | Address | Unknown | + + + | Phone | Unavailable | + + + Support + + + + + | Name | Relationship | Address | Phone | + + + + + | Iwona L Head | ECON | [place], | | | | | [place] [address] | | + + + + + | Mahogany Navarro [place] | ECON | [address] | | | | | [place] [address] | | + + + + + Care Team Providers + +------+ + | Care Space Controller Name | Role | Phone | + +------+ + PCP | Unavailable | + +------+ + Encounter Details +--------+ + + + + | Date | Type | Department | Care Team | Description | +--------+ + + + + | 04/17/ | Hospital | [facility] | | | | 2006 - | Encounter | MED CTR EMERGENCY | | | | | | CENTER [address] | | | | 04/18/ | | [place] | | | | 2006 | | [address] | | | | | | [phone] | | | +--------+ + + + [...] Quynh | | | | | | [facility] [address] | | | | | | [place] [address] | | | | | | [phone] | | | | | | | | +--------+---------+ + + + documented as of this encounter Visit Diagnoses Not on filedocumented in this encounter"
--- OUTSIDE RECORDS SUMMARY | ~2019-12-24 | XMS | Encounter Summary ---
Demographics + + + | Address | [address] | | | [place] [address] | + + + | Home Phone | | + + + | Preferred Language | Unknown | + + + | Marital Status | | + + + | Methodist Affiliation | 1013 | + + + | Race | Unknown | + + + | Ethnic Group | Unknown | + + + Author + + + | Author | [facility] | | | and [place] | + + + | Organization | [facility] | | | and [place] | + + + | Address | Unknown | + + + | Phone | Unavailable | + + + Support + + + + + | Name | Relationship | Address | Phone | + + + + + | Iwona L Head | ECON | [place], | | | | | [place] [address] | | + + + + + | Mahogany Navarro [place] | ECON | [address] | | | | | [place] [address] | | + + + + + Care Team Providers + +------+ + | Care Date Night Sitter Name | Role | Phone | + +------+ + | Quynh Finch | PCP | | | MD | | | + +------+ + Reason for Visit +---------+--------+ + | Reason | Onset | Comments | | | Date | | +---------+--------+ + | Results | 07/19/ | | | | 2014 | | +---------+--------+ + Encounter Details +--------+ + + + + | Date | Type | Department | Care Team | Description | +--------+ + + + + | 07/19/ | Telephone | [facility] | Damian Escudero, | Results | | 2014 | | [address] | MD [address] | | | | | [place] | [place] | | | | | [address] | [address] | | | | | [phone] | | | +--------+ + + + + Social History + +-------+ +--------+------+ | Tobacco Use | Types | Packs/Day | Years | Date | | | | | Used | | + +-------+ +--------+------+ | Current Every Day | | | | | | Smoker | | | | | + +-------+ +--------+------+ + +---+---+---+ | Smokeless Tobacco: | [...] Telephone Encounter - Yumi Ch RN - 07/20/2014 9:18 AM PSTPrescription called [facility], they will deliver it to her. elephone Encounter - Yumi Ch RN - 07/19/2014 6:01 PM PS TPatient notified and prescription will be called to [facility] per her request. (Printed pr escription shredded). elephone Encounter - Damian Escudero MD - 07/19/2014 5:15 PM PSTPlease call Marzena toro brittany notify her that she appears to have a UTI. Please see Rx for antibiotic (Keflex). documented in this en counter Plan of Treatment +--------+---------+ + + + | Date | Type | Specialty | Care Team | Description | +--------+---------+ + + + | 01/09/ | Office | Internal Medicine | Stef, | | | 2019 | Visit | | MD Quynh | | | | | | [address] | | | | | | [place] [address] | | | | | | [phone] | | | | | | | [...]
--- OUTSIDE RECORDS SUMMARY | ~2019-12-24 | XMS | Encounter Summary ---
Demographics + + + | Address | [address] | | | [place] [address] | + + + | Home Phone [...] | Author | [facility] [...] [place], | | | | | [place] [address] | | + + + + + | Mahogany Farnsworth | ECON | [address] | | | | | [place] [address] | | + + + + + Care Team Providers + +------+ + | Care Plan Consultant Name | Role | Phone | + +------+ + | Quynh Finch | PCP | | | MD | | | + +------+ + Reason for Visit + + + | Reason | Comments | + + + | Pain Management | | + + + | Medication Refill | | + + + Encounter Details +--------+---------+ + + + | Date | Type | Department | Care Team | Description | +--------+---------+ + + + | 07/28/ | Office | [facility] | Stef, | Chronic pain | | 2018 | Visit | MEDICINE [address] | MD Quynh | syndrome; Chronic | | | | [place], | [address] [facility] | bilateral low back | | | | [place] [address] | [place] [address] | pain without | | | | [phone] | [phone] | sciatica | | | | | | | [...] + + + | Blood Pressure | 100/70 | 07/28/2017 1:13 PM | | | | | PST | | + + + + + | Pulse | 102 | 07/28/2017 1:13 PM | | | | | PST | | + + + + + | Temperature | 36.8 C (98.3 F) | 07/28/2017 1:13 PM | | | | | PST | | + + + + + | Respiratory Rate | 16 | 07/28/2017 1:13 PM | | | | | PST | | + + + + + | Oxygen Saturation | 97% | 07/28/2017 1:13 PM | | | | | PST | | + + + + + | Inhaled Oxygen | - | - | | | Concentration | | | | + + + + + | Weight | 93.4 kg (205 lb 14.6 | 07/28/2017 1:13 PM | | | | oz) | PST | | + + + + + | Height | - | - | | + + + + + | Body Mass Index | 37.66 | 05/22/2017 8:50 PM | | | | | PST | | + + + + + documented in this encounter Patient Instructions Patient Instructions Quynh Finch MD - 07/28/2017 1:23 PM PST Back Care Tips Caring for your back These are things you can do to prevent a recurrence of acute back pain and to reduce sympto ms from chronic back pain: Maintain a healthy weight. If you are overweight, losing weight will help most types of back pain. Exercise is an important part of recovery from most types of back pain. The muscles behi nd and in front of the spine support the back. This means strengthening both the back muscle s and the abdominal muscles will provide better support for your spine. Swimming and brisk walking are good overall exercises to improve your fitness level. Practice safe lifting methods (below). Practice good posture when sitting, standing and walking. Avoid prolonged sitting. This puts more stress on the lower back than standing or walking. Wear quality shoes with sufficient arch support. Foot and ankle alignment can affect osbaldo k symptoms. Women should avoid wearing high heels. Therapeutic massage can help relax the back muscles without stretching them. During the first 24 to 72 hours after an acute injury or flare-up of chronic back pain, apply an ice pack to the painful area for 20 minutes and then remove it for 20 minutes, over a period of 60 to 90 minutes, or several times a day. As a safety precaution, do not use a heating pad at bedtime. Sleeping on a heating pad can lead to skin dumont or tissue damage. You can alternate ice and heat therapies. Medications Talk to your healthcare provider before using medicines, especially if you have other medic al problems or are taking other medicines. You may use acetaminophen or ibuprofen to control pain, unless your healthcare provider prescribed other pain medicine. If you have chronic conditions like diabetes, liver or kidne y disease, stomach ulcers, or gastrointestinal bleeding, or are taking blood thinners, talk with your healthcare provider before taking any medicines. Be careful if you are given prescription pain medicines, narcotics, or medicine for musc le spasm. They can cause drowsiness, affect your coordination, reflexes, and judgment. Do no t drive or operate heavy machinery while taking these types of medicines. Take prescription pain medicine only as prescribed by your healthcare provider. Lumbar stretch Here is a simple stretching exercise that will help relax muscle spasm and keep your back m ore limber. If exercise makes your back pain worse, don t do it. Lie on your back with your knees bent and both feet on the ground. Slowly raise your left knee to your chest as you flatten your lower back against the jes or. Hold for 5 seconds. Relax and repeat the exercise with your right knee. Do 10 of these exercises for each leg. Safe lifting method Don t bend over at the waist to lift an object off the floor. Instead, bend your kne es and hips in a squat. Keep your back and head upright Hold the object close to your body, directly in front of you. Straighten your legs to lift the object. Lower the object to the floor in the reverse fashion. If you must slide something across the floor, push it. Posture tips Sitting Sit in chairs with straight backs or low-back support. Keep your knees lower than your hips , with your feet flat on the floor. When driving, sit up straight. Adjust the seat forward so you are not leaning toward the [place] wheel. A small pillow or rolled towel behind your lower back may help if you are dr iving long distances. Standing When standing for long periods, shift most of your weight to one leg at a time. Alternate l egs every few minutes. Sleeping The best way to sleep is on your side with your knees bent. Put a low pillow under your hea d to support your neck in a neutral spine position. Avoid thick pillows that bend your neck to one side. Put a pillow between your legs to further relax your lower back. If you sleep o n your back, put pillows under your knees to support your legs in a slightly flexed position . Use a firm mattress. If your mattress sags, replace it, or use a 1/2-inch plywood board un charli the mattress to add support. Follow-up care Follow up with yourhealthcare provider, or as advised. If X-rays, a CT scan or an MRI scan were taken, they will be reviewed by a radiologist. You will be notified of any new findings that may affect your care. Call 911 Seek emergency medical care if any of the following occur: Trouble breathing Confusion Very drowsy Fainting or loss of consciousness Rapid or very slow heart rate Loss of bowel or bladder control When to seek medical care Call your healthcare provider if any of the following occur: Pain becomes worse or spreads to your arms or legs Weakness or numbness in one or both arms or legs Numbness in the groin area Date Last Reviewed: 11/28/201519992790-8095 [employer]. [address] [place] [address]. All righ ts reserved. This information is not intended as a substitute for professional medical care. Always follow your healthcare professional's instructions. documented in this encounter Progress Notes Quynh Finch MD - 07/28/2017 1:00 PM PSTFormatting of this note might be d ifferent from the original. CHIEF COMPLAINT Chief Complaint Patient presents with Pain Management Medication Refill HPI Marzena Cline is a 47 y.o. y/o female who presents today for medication refill. She takes oxycodone both long and short-acting for chronic pain secondary to degenerative disc d isease in her back as well as sequela from necrotizing fasciitis with mutilating surgery in her right lower extremity. She is doing fine on this regimen. Denies falls, confusion, vaibhav sea or vomiting. No constipation. No requests for early refills. Recent urine drug screen is compatible with what she is taking. REVIEW OF SYSTEMS See HPI for further [...] tablet by mouth Daily. 30 tablet 5 diclofenac (CATAFLAM) 50 MG tablet Take as directed diphenhydrAMINE (BENADRYL ALLERGY) 25 MG capsule Take 25 mg by mouth every 6 hours as n eeded. diphenoxylate-atropine (LOMOTIL) 2.5-0.025 mg per tablet Take 1 tablet by mouth 2 times daily. 60 tablet 5 DULoxetine (CYMBALTA) [address] capsule Take 1 capsule by mouth Daily. 30 capsule 5 estradiol (ESTRACE) 1 mg tablet Take 1 tablet by mouth Daily. 30 tablet 5 gabapentin (NEURONTIN) 100 mg capsule TAKE ONE CAPSULE FOUR TIMES DAILY 120 capsule 5 insulin NPH (HUMULIN N) 100 units/mL injection 30 units below the skin twice daily insulin regular (HUMULIN R) 100 units/mL injection 30 units inject below the skin befor e meals Lactobacillus (ACIDOPHILUS PO) Take 1 tablet by mouth Daily. levothyroxine (SYNTHROID) 150 mcg tablet Take 1 tablet by mouth nightly. 30 tablet 10 omeprazole (PRILOSEC) 20 mg capsule TAKE ONE CAPSULE AT BEDTIME 30 capsule 5 ondansetron (ZOFRAN) 4 mg TABS tablet (ED prepack) Take 1 tablet by mouth Daily as need ed. oxyCODONE (OXYCONTIN) 80 mg ER abuse-deterrent tablet Take 1 tablet by mouth every 12 h ours. 60 tablet 0 oxyCODONE-acetaminophen (PERCOCET) 10-325 mg per tablet Take 1 tablet by mouth every 6 hours as needed. 120 tablet 0 pramipexole (MIRAPEX) 1.5 MG tablet Take 2 tablets by mouth nightly. 60 tablet 5 pravastatin (PRAVACHOL) 20 mg tablet Take 20 mg by mouth Daily. promethazine (PHENERGAN) 25 mg tablet Take 1 tablet by mouth every 4 to 6 hours as need ed QUEtiapine (SEROQUEL) 25 mg tablet Take 1 tablet by mouth nightly. 30 tablet 3 No current facility-administered medications for this visit. ALLERGIES Allergies Allergen Reactions Hydrocodone Hives Hives and decreased respirations Morphine Other (See Comments) Light-headed, very emotional (cries constantly) Sulfa Antibiotics Rash and Other (See Comments) Severe respiratory distress, huge water blisters, rash Adhesive & Tape Other reaction(s): Rash Milk-Related Compounds Other reaction(s): Rash Codeine Rash Rash, slows breathing PHYSICAL EXAM VITAL SIGNS: BP 100/70 | Pulse 102 | Temp 36.8 C (98.3 F) (Temporal) | Resp 16 | Wt 93.4 kg (205 lb 14.6 oz) | SpO2 97% | BMI 37.66 kg/m Constitutional: Well developed, Well nourished, No acute distress, Pleasant female. Cardiovascular: Regular rate & rhythm, No murmurs, No rubs, No gallops. No lower extremitie s edema. Thorax & Lungs: Normal breath sounds, No respiratory distress, No wheezing, No rubs. Skin: Warm, Dry, No erythema, No rash. Musculoskeletal: In wheelchair, decreased range of motion in her lower back and right lower extremity in major joints which is not new. Missing muscle mass in the distal right lower leg from surgery after necrotizing fasciitis. Neurologic: Alert & oriented x 3, chronically decreased motor strength in the distal right lower extremity due to partially excised muscle. Psychiatric: Affect normal, Judgment normal, Mood normal. Results for MARZENA CLINE ( ) as of 07/28/2017 13:24 Ref. Range 03/18/2017 14:25 Amphetamine Screen, Urine Latest Ref Range: Negative Negative Barbiturates Screen, Urine Latest Ref Range: Negative Negative Benzodiazepines, Urine, Screen Latest Ref Range: Negative Positive (A) Cannabinoids Screen, Urine Latest Ref Range: Negative Negative Cocaine Screen, Urine Latest Ref Range: Negative Negative Methadone Screen, Urine Latest Ref Range: Negative Negative Opiates Screen, Urine Latest Ref Range: Negative Positive (A) ASSESSMENT & PLAN 1. Chronic pain syndrome Refill pain medications as below. Side effects discussed. - oxyCODONE (OXYCONTIN) 80 mg ER abuse-deterrent tablet; Take 1 tablet by mouth every 12 ho urs. Dispense: 60 tablet; Refill: 0 - oxyCODONE-acetaminophen (PERCOCET) 10-325 mg per tablet; Take 1 tablet by mouth every 6 h ours as needed. Dispense: 120 tablet; Refill: 0 2. Chronic bilateral low back pain without sciatica - oxyCODONE (OXYCONTIN) 80 mg ER abuse-deterrent tablet; Take 1 tablet by mouth every 12 ho urs. Dispense: 60 tablet; Refill: 0 - oxyCODONE-acetaminophen (PERCOCET) 10-325 mg per tablet; Take 1 tablet by mouth every 6 h ours as needed. Dispense: 120 tablet; Refill: 0 FOLLOW-UP Return in about 1 month (around 08/26/2017). Note: Parts of this documentwere created using [employer] speech recognition software. As a r esult, there may be unintended word spelling errors. Every attempt was made to correct the dictation. Shelia soto in this encounter Plan of Treatment +--------+---------+ + + + | Date | Type | Specialty | Care Team | Description | +--------+---------+ + + + | 01/09/ | Office | Internal Medicine | Stef, | | | 2019 | Visit | | MD Quynh | | | | | | [address] | | | | | | [place] [address] | | | | | | [phone] | | | | | | | | +--------+---------+ + + + documented as of this encounter Visit Diagnoses + + | Diagnosis | + + | Chronic pain syndrome | + + | Chronic bilateral low back pain without sciatica | + + documented in this encounter Additional Health Concerns + + + + + | Infection | Onset Date | Last Indicated | Resolved Time | + + + + + | 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
--- OUTSIDE RECORDS SUMMARY | ~2019-12-24 | XMS | Encounter Summary ---
Demographics + + + | Address | [address] | | | [place] [address] | + + + | Home Phone | | + + + | Preferred Language | Unknown | + + + | Marital Status | | + + + | Latter Day Affiliation | 1013 | + + + | Race | Unknown | + + + | Ethnic Group | Unknown | + + + Author + + + | Author | [facility] | | | and [place] | + + + | Organization | [facility] | | [...] [place], | | | | | [place] [address] | | + + + + + | Mahogany Farnsworth | ECON | [address] | | | | | [place] [address] | | + + + + + Care Team Providers + +------+ + | Care Beading Machine Operator Name | Role | Phone | + +------+ + | Quynh Finch | PCP | | | MD | | | + +------+ + Reason for Visit + + + | Reason | Comments | + + + | Fall | | + + + | Foot Pain | | + + + | Knee Pain | | + + + Encounter Details +--------+ + + + + | Date | Type | Department | Care Team | Description | +--------+ + + + + | 05/22/ | Emergency | [facility] | Michael Noriega, | Strain of right | | 2017 | | [facility] | MD [address] | foot, initial | | | | CENTER [address] | [place] | encounter (Primary | | | | [place] | [id number] | Dx) | | | | [address] | | | | | | [phone] | | | +--------+ + + + [...] + + + | Blood Pressure | 137/77 | 05/22/2017 10:15 PM | | | | | PST | | + + + + + | Pulse | 86 | 05/22/2017 10:15 PM | | | | | PST | | + + + + + | Temperature | 36 C (96.8 F) | 05/22/2017 8:50 PM | | | | | PST | | + + + + + | Respiratory Rate | 18 | 05/22/2017 10:15 PM | | | | | PST | | + + + + + | Oxygen Saturation | 94% | 05/22/2017 10:15 PM | | | | | PST | | + + + + + | Inhaled Oxygen | - | - | | | Concentration | | | | + + + + + | Weight | 93 kg (205 lb) | 05/22/2017 8:50 PM | | | | | PST | | + + + + + | Height | 157.5 cm (5' 2") | 05/22/2017 8:50 PM | | | | | PST | | + + + + + | Body Mass Index | 37.49 | 05/22/2017 8:50 PM | | | | | PST | | + + + + + documented in this encounter Discharge Instructions AttachmentsThe following attachments cannot be sent through Care Everywhere.Og Heath (Ecuadorean)documented in this encounter Medications at Time of [...] + +---------+ + + | ARIPiprazole | Take 1 tablet by | 30 | 5 | 05/18/20 | | | (ABILIFY) 5 mg | mouth Daily. | tablet | | 17 | 8 | | tablet | | [...] +---------+ + + | DULoxetine | Take 1 capsule by | 30 | 5 | 05/18/20 | | | (CYMBALTA) [address] | mouth Daily. | capsule | | 17 | 8 | | capsule | | | | | | + + + +---------+ + + | gabapentin | TAKE ONE CAPSULE | 120 | 5 | 05/18/20 | | | (NEURONTIN) 100 mg | FOUR TIMES DAILY | capsule | | 17 | 8 | | capsule | | | | | | + + + +---------+ + + | | Take 1 tablet by | 10 | 0 | 05/22/20 | | | HYDROcodone-acetamin | mouth every 6 hours | tablet | | 17 | 7 | | ophen (NORCO) 5-325 | as needed for Pain. | | | | | | mg per tablet | | | | [...] +---------+ + + | levothyroxine | Take 1 tablet by | 30 | 10 | 05/18/20 | | | (SYNTHROID) 150 mcg | mouth nightly. | tablet | | 17 | 8 | | tablet | | | | | | + + + +---------+ + + | omeprazole | TAKE ONE CAPSULE AT | 30 | 5 | 03/18/20 | | | (PRILOSEC) 20 mg | BEDTIME | capsule | | 17 | 8 | | capsule | | | | | | + + + +---------+ + + | oxyCODONE | Take 1-2 tablets by | 15 | 0 | 05/22/20 | | | (ROXICODONE) 5 mg | mouth every 4 hours | tablet | | 17 | 7 | | tablet | as needed for Pain. | | | | | + + + +---------+ + + | | Take 1 tablet by | 120 | 0 | 05/07/20 | | | oxyCODONE-acetaminop | mouth every 6 hours | tablet | | 17 | 7 | | hen (PERCOCET) | as needed. | | | | | | 10-325 mg per | | | | | | | tabletIndications: | | | | | | | Chronic pain | | | | | | | syndrome, Chronic | | | | | | | bilateral low back | | | | | | | pain without | | | | | | | sciatica | | | | | | + + + +---------+ + + | pramipexole | Take 2 tablets by | 60 | 0 | 05/19/20 | | | (MIRAPEX) 1.5 MG | mouth Daily. | tablet | | 17 | 7 | | tablet | | [...] documented as of this encounter ED Notes Michael Noriega MD - 05/22/2017 9:35 PM PSTFormatting of this note might be different fro m the original. eMERGENCY dEPARTMENT eNCOUnter CHIEF COMPLAINT Chief Complaint Patient presents with Fall Foot Pain Knee Pain HPI Marzena Duong is a 46 y.o. female who presents with right foot pain. She states she tripped and fell. She did not hit her head or lose consciousness. She twisted her right fo ot and it's been hurting since then so she came to the ER for further evaluation. PAST MEDICAL HISTORY Past Medical History: Diagnosis Date Anxiety Arthritis Asthma Cancer (HCC) Depression Diabetic peripheral neuropathy (HCC) Drop foot gait Encounter for blood transfusion Epidermal inclusion cyst GERD (gastroesophageal reflux disease) Hemangioma Hyperlipidemia Hypertension Moderate vulvar dysplasia Onychauxis Paralysis of lower limb (HCC) Thyroid disease Vulvitis Xanthelasma of eyelid SURGICAL HISTORY Past Surgical History: Procedure Laterality Date CHOLECYSTECTOMY COLONOSCOPY Excision of Perianal Lesion 03/29/2014 Dr. Lopez FRACTURE SURGERY HYSTERECTOMY TONSILLECTOMY CURRENT MEDICATIONS Previous Medications ACETAMINOPHEN (TYLENOL) 325 MG TABLET Take 325 mg by mouth every 4 hours as needed. ALPRAZOLAM (XANAX) 0.5 MG TABLET Take 0.5 mg by mouth Daily as needed for Anxiety. ARIPIPRAZOLE (ABILIFY) 5 MG TABLET Take 1 tablet by mouth Daily. DICLOFENAC (CATAFLAM) 50 MG TABLET Take as directed DIPHENHYDRAMINE (BENADRYL ALLERGY) 25 MG CAPSULE Take 25 mg by mouth every 6 hours as n eeded. DIPHENOXYLATE-ATROPINE (LOMOTIL) 2.5-0.025 MG PER TABLET Take 1 tablet by mouth Daily. DULOXETINE (CYMBALTA) [address] CAPSULE Take 1 capsule by mouth Daily. GABAPENTIN (NEURONTIN) 100 MG CAPSULE TAKE ONE CAPSULE FOUR TIMES DAILY INSULIN NPH (HUMULIN N) 100 UNITS/ML INJECTION 30 units below the skin twice daily INSULIN REGULAR (HUMULIN R) 100 UNITS/ML INJECTION 30 units inject below the skin befor e meals LACTOBACILLUS (ACIDOPHILUS PO) Take 1 tablet by mouth Daily. LEVOTHYROXINE (SYNTHROID) 150 MCG TABLET Take 1 tablet by mouth nightly. OMEPRAZOLE (PRILOSEC) 20 MG CAPSULE TAKE ONE CAPSULE AT BEDTIME ONDANSETRON (ZOFRAN) 4 MG TABS TABLET (ED PREPACK) Take 1 tablet by mouth Daily as need ed. OXYCODONE (OXYCONTIN) 80 MG ER ABUSE-DETERRENT TABLET Take 1 tablet by mouth 2 times da charmaine. OXYCODONE-ACETAMINOPHEN (PERCOCET) 10-325 MG PER TABLET Take 1 tablet by mouth every 6 hours as needed. PRAMIPEXOLE (MIRAPEX) 1.5 MG TABLET Take 2 tablets by mouth Daily. PRAVASTATIN (PRAVACHOL) 20 MG TABLET Take 20 mg by mouth Daily. PROMETHAZINE (PHENERGAN) 25 MG TABLET Take 1 tablet by mouth every 4 to 6 hours as need ed QUETIAPINE (SEROQUEL) 25 MG TABLET Take 25 mg by mouth nightly. ALLERGIES Allergies Allergen Reactions Hydrocodone Hives Hives [...] Topics Concern None Social History Narrative None REVIEW OF SYSTEMS All systems reviewed and negative except as noted on HPI and/or limited by patient conditio n PHYSICAL EXAM VITAL SIGNS: Temp: 36 C (96.8 F) Pulse: 100 Resp: 16 SpO2: 95 % BP: 157/88 Constitutional: Well developed, Well nourished, No acute distress, Non-toxic appearance. HENT: Normocephalic, Atraumatic, Oropharynx moist, No oral exudates, Nose normal. Neck- No rmal range of motion, No tenderness, Supple, No stridor. Eyes: PERRL, EOMI, Conjunctiva normal, No discharge. Musculoskeletal: Intact distal pulses, No edema, , 1+ tenderness over the dorsal aspect of the right foot ,Integument: Warm, Dry, No erythema, No rash. EKG Not done RADIOLOGY Right foot x-ray negative for fracture ED COURSE & MEDICAL DECISION MAKING Last Set of Vital Signs: Temp: 36 C (96.8 F) Pulse: 100 Resp: 16 SpO2: 95 % BP: 157/88 Pertinent Labs, Nurses Note, & Imaging studies reviewed. (See chart for details) 46 -year-old female with a right foot contusion. X-rays are negative. She is discharged h ome to follow-up with her regular doctor and told to come back if worse. FINAL IMPRESSION Right foot strain LABS FROM THIS VISIT OR MOST RECENT ER VISIT: Results for orders placed or performed in visit on 03/18/17 Drugs of Abuse, Screen, Urine Result Value Ref Range Amphetamine Screen, Urine Negative Negative Barbiturates Screen, Urine Negative Negative Benzodiazepines, Urine, Screen Positive (A) Negative Cannabinoids Screen, Urine Negative Negative Cocaine Screen, Urine Negative Negative Methadone Screen, Urine Negative Negative Opiates Screen, Urine Positive (A) Negative Michael Noriega MD 05/22/178 Paty Rucker RN - 05/22/2017 8:49 PM PSTC/o left knee pain and right great toe pain after fall at approx 17 00 tonight. Pt states that she tripped and landed on carpet. documented in this encounter Plan of Treatment [...] | | | | | [place] [address] | | | | | | [phone] | | | | | | | | +--------+---------+ + + + documented as of this encounter Procedures + +--------+ + + + | Procedure Name | Priori | Date/Time | Associated Diagnosis | Comments | | | ty | | | | + +--------+ + + + | XR FOOT RIGHT 3 + VW | STAT | 05/22/2017 | | Results for this | | | | 9:33 PM | | procedure are in the | | | | PST | | results section. | + +--------+ + + + documented in this encounter Results XR Foot Right 3 + Vw (05/22/2017 9:33 PM PST) + + | Specimen | + + | | + + + + + | Narrative | Performed At | + + + | EXAM:XR FOOT RIGHT 3 + VW CLINICAL HISTORY: Fall. Foot pain. | [facility] | | COMPARISON: None. FINDINGS: 3 nonweightbearing views of the | | | right foot. Diffuse demineralization. No acute fracture. No | | | current dislocation. Diameter deformities. Plantar calcaneal | | | spurring. Mild Achilles insertional enthesopathy. No bone erosion | | | or destruction. The soft tissues are unremarkable. There are no | | | radiopaque foreign bodies. IMPRESSION - No acute fracture or | | | current dislocation. Dictated and Signed by: Nigel Beck MD | | | Electronically signed: 05/23/2017 11:48 AM | | + + + + + | Procedure Note | + + | Zain, Rad Results In - 05/23/2017 11:51 AM PST EXAM:XR FOOT RIGHT 3 + VW | | | | CLINICAL HISTORY: Fall. Foot pain. | | | | COMPARISON: None. | | | | FINDINGS: 3 nonweightbearing views of the right foot. | | | | Diffuse demineralization. No acute fracture. No current dislocation. Diameter | | deformities. Plantar calcaneal spurring. Mild Achilles insertional | | enthesopathy. No bone erosion or destruction. The soft tissues are | | unremarkable. There are no radiopaque foreign bodies. | | | | IMPRESSION - | | | | No acute fracture or current dislocation. | | | | Dictated and Signed by: Nigel Beck MD | | Electronically signed: 05/23/2017 11:48 AM | + + + +---------+ + + | Performing | Address | City/State/Zipcode | Phone Number | | Organization | | | | + +---------+ + + | [facility] | | | | + +---------+ + + documented in this encounter Visit Diagnoses + + | Diagnosis | + + | Strain of right foot, initial encounter - Primary | + + documented in this encounter Administered Medications + +--------+ +-------+------+------+ | Medication Order | MAR | Action | Dose | Rate | Site | | | Action | Date | | | | + +--------+ +-------+------+------+ | diphenhydrAMINE (BENADRYL) | Given | 05/22/20 | 25 mg | | | | tablet 25 mg 25 mg, Oral, ONCE, | | 17 10:13 | | | | | 05/22/17 at 2210, For 1 dose | | PM PST | | | | + +--------+ +-------+------+------+ +---+---+ | | | +---+---+ + +-------+ +---------+---+---+ | HYDROcodone-acetaminophen | Given | 05/22/20 | 2 | | | | (NORCO) 5-325 mg per tablet 2 | | 17 9:29 | tablets | | | | tablet 2 tablet, Oral, ONCE, Fri | | PM PST | | | | | 05/22/17 at 2120, For 1 dose | | | | | | + +-------+ +---------+---+---+ +---+---+ | | | +---+---+ + + + + +---+---+ | oxyCODONE-acetaminophen | Dispense | 05/22/20 | 1 tablet | | | | (PERCOCET) 5-325 mg per tablet | to Home | 17 10:13 | | | | | (ED prepack) 1-2 tablet 1-2 | | PM PST | | | | | tablet, Oral, ONCE, 05/22/17 | | | | | | | at 2205, For 1 dose, 2 tablet(s) | | | | | | | every 8 hours prn pain Dispense | | | | | | | for home use., | | | | | | + + + + +---+---+ +---+---+ | | | +---+---+ documented in [...]
--- OUTSIDE RECORDS SUMMARY | ~2019-12-24 | XMS | Encounter Summary ---
Demographics + + + | Address | [address] | | | [place] [address] | + + + | Home Phone | | + + + | Preferred Language | Unknown | + + + | Marital Status | | + + + | Gnosticism Affiliation | 1013 | + + + | Race | Unknown | + + + | Ethnic Group | Unknown | + + + Author + + + | Author | [facility] | | | and [place] | + + + | Organization | [facility] | | | and [place] | + + + | Address | Unknown | + + + | Phone | Unavailable | + + + Support + + + + + | Name | Relationship | Address | Phone | + + + + + | Iwona L Head | ECON | [place], | | | | | [place] [address] | | + + + + + | Mahogany Farnsworth | ECON | [address] | | | | | [place] [address] | | + + + + + Care Team Providers + +------+ + | Care Paper Stacker Name | Role | Phone | + +------+ + | Jason Pink | PCP | | | MD | | | + +------+ + Encounter Details +--------+ + + + + | Date | Type | Department | Care Team | Description | +--------+ + + + + | 11/02/ | Hospital | [facility] | Joesph Jason | | | 2012 | Encounter | [facility] | MD Jeron[place] | | | | | [address] [place] | [id number] [place] [address] | | | | | [place] | [place], | | | | | [address] | [place] [address] | | | | | [phone] | [phone] | | | | | | | [...] 1 tablet by | | 0 | 03/12/ | | | (PHENERGAN) 25 mg | [...] | | | | | [place] [address] | | | | | | [phone] | | | | | | | | +--------+---------+ + + + documented as of this encounter Visit Diagnoses Not on filedocumented in this encounter"
--- OUTSIDE RECORDS SUMMARY | ~2019-12-24 | XMS | Encounter Summary ---
Demographics + + + | Address | [address] | | | [place] [address] | + + + | Home Phone | | + + + | Preferred Language | Unknown | + + + | Marital Status | | + + + | Spiritism Affiliation | 1013 | + + + | Race | Unknown | + + + | Ethnic Group | Unknown | + + + Author + + + | Author | [facility] | | | and [place] | + + + | Organization | [facility] | | | [...] [place], | | | | | [place] [address] | | + + + + + | Mahogany Navarro [place] | ECON | [address] | | | | | [place] [address] | | + + + + + Care Team Providers + +------+ + | Care Last Putter Away Name | Role | Phone | + +------+ + PCP | Unavailable | + +------+ + Encounter Details +--------+ + + + + | Date | Type | Department | Care Team | Description | +--------+ + + + + | 10/09/ | Hospital | [facility] | | | | 2009 | Encounter | [facility] EM[facility] | | | | | | CENTER [address] | | | | | | [place] | | | | | | [address] | | | | | | [phone] | | | +--------+ + + + [...] Quynh | | | | | | [facility] [address] [place] | | | | | | [place] [address] | | | | | | [phone] | | | | | | | | +--------+---------+ + + + documented as of this encounter Visit Diagnoses Not on filedocumented in this encounter"
--- OUTSIDE RECORDS SUMMARY | ~2019-12-24 | XMS | Encounter Summary ---
Demographics + + + | Address | [address] | | | [place] [address] | + + + | Home Phone | | + + + | Preferred Language | Unknown | + + + | Marital Status | | + + + | Yazdanism Affiliation | 1013 | + + + | Race | Unknown | + + + | Ethnic Group | Unknown | + + + Author + + + | Author | [facility] | | | and [place] | + + + | Organization | [facility] | | | [...] [place], | | | | | [place] [address] | | + + + + + | Mahogany Farnsworth | ECON | [address] | | | | | [place] [address] | | + + + + + Care Team Providers + +------+ + | Care Ecological Technical Officer Name | Role | Phone | + [...] + + | Closed | Specialty | Neurology | Diagnoses | Kena, | | | | Services | | Urinary | Georgiana Romero MD | | | | Required | | incontinence | [address] | | | | | | in female | [place] | | | | | | Procedures | [place] | | | | | | PEND | [address] | | | | | | DIFFERENT | Phone: | | | | | | PROVIDER. | [phone] | | | | | | | Fax: | | | | | | | [phone] | | +--------+ + + + + + Reason for Visit + + + | Reason | Comments | + + + | Enuresis | | + + + Encounter Details +--------+---------+ + + + | Date | Type | Department | Care Team | Description | +--------+---------+ + + + | 08/29/ | Office | [facility] | Georgiana Zamora, | Urinary incontinence | | 2015 | Visit | [address] | MD [address] | in female (Primary | | | | [place] | [place] | Dx) | | | | [address] | [address] | | | | | [phone] | | | +--------+---------+ + + + [...] + + + | Blood Pressure | 148/86 | 08/29/2014 2:15 PM | | | | | PST | | + + + + + | Pulse | 92 | 08/29/2014 2:15 PM | | | | | PST | | + + + + + | Temperature | - | - | | + + + + + | Respiratory Rate | 24 | 08/29/2014 2:15 PM | | | | | PST | | + + + + + | Oxygen Saturation | - | - | | + + + + + | Inhaled Oxygen | - | - | | | Concentration | | | | + + + + + | Weight | 107.5 kg (237 lb) | 08/29/2014 2:15 PM | | | | | PST | | + + + + + | Height | 160 cm (5' 3") | 08/29/2014 2:15 PM | | | | | PST | | + + + + + | Body Mass Index | 41.98 | 08/29/2014 2:15 PM | | | | | PST | | + + + + + documented in this encounter Patient Instructions Patient Instructions Georgiana Zamora MD - 08/29/2014 4:[address] Pascual on for neurological evaluation. 4: 10 PM PST documented in this encounter Progress Notes Georgiana Zamora MD - 08/29/2014 4:10 PM PSTFormatting of this note might be different fro m the original. Mitra is a 44 y.o. female patient of [facility] being seen today for urin damian incontinence. Mitra has a complex past medical history. She has history of pelvic pain and dysmenorrhe a and menometrorrhagia. She underwent a laparoscopic assisted vaginal hysterectomy and Gamaliel RC sling procedure on 05/05/[address] Lopez. She had difficulties with pain with intercourse, and she was subsequently noted to have ero cadence of Mon[place] sling material into the vaginal vault, so she underwent excision of graft mat erial and perineal biopsy by Dr. Lopez on 01/14/2010. This biopsy demonstrated the pre sence of vulvar dysplasia, and so she underwent colposcopy and wide local excision of vulvar dysplasia on 05/30/2010. Mitra reports that her sling procedure worked very well for her, and she did not have sig nificant urinary incontinence problems until approximately 2 years ago when symptoms began t o worsen. In 2012, she reports that she developed right lower extremity necrotizing fasciitis. She w as first transferred to [facility], and then to [facility]. She reports that she had "26 surger ies" for her necrotizing fasciitis and associated complications. She reports she was cathet erized for about 7 months. Since that time, she has noticed urinary incontinence. She also states that she has sciati ca and "nerve injuries" which have caused numbness in the vagina. She states that she has no sensation of bladder filling. She states that she will have uri nary leakage at random times. She denies any urge incontinence. She is not certain if Vals chowdhury maneuvers produce incontinence or not, but believes that they probably do. Past Medical History She has a past medical history of Diabetic peripheral neuropathy (HCC); Paralysis of lower limb (HCC); Moderate vulvar dysplasia; Vulvitis; Onychauxis; Xanthelasma of eyelid; Hemangio ma; Drop foot gait; Epidermal inclusion cyst; and Anxiety. Past Surgical History She has past surgical history that includes Excision of Perianal Lesion (03/29/2014). Family History: Her family history includes Cancer in her father. Social History: She reports that she has been smoking Cigarettes. She has been smoking about 0.25 packs pe r day. She has never used smokeless tobacco. Allergies Allergen Reactions Hydrocodone Hives Hives and decreased respirations Morphine Other (See Comments) Light-headed, very emotional (cries constantly) Sulfa Antibiotics Rash and Other (See Comments) Severe respiratory distress, huge water blisters, rash Adhesive & Tape Other reaction(s): Rash Milk-Related Compounds Other reaction(s): Rash Codeine Rash Rash, slows breathing Medications: Outpatient Encounter Prescriptions as of 08/29/2014 Medication Sig Dispense Refill ABILIFY 2 MG tablet Take 1 tablet by mouth Daily. acetaminophen (TYLENOL) 325 mg tablet Take 325 mg by mouth every 4 hours as needed. acyclovir (ZOVIRAX) 400 MG tablet Take 400 mg by mouth 3 times daily. ALPRAZolam (XANAX) 0.5 mg tablet Take 0.5 mg by mouth Daily as needed for Anxiety. amoxicillin-clavulanate (AUGMENTIN) 875-125 mg per tablet one tablet by mouth two times daily benztropine (COGENTIN) 1 mg tablet Take 1 mg by mouth Daily. Rtocrua-Boaxkdeqv-Tfanpac D (CALCIUM 500 PO) Take 1 tablet by mouth Daily. diclofenac (CATAFLAM) 50 MG tablet Take as directed (Patient not taking: Reported on 08/29/2014) diphenhydrAMINE (BENADRYL ALLERGY) 25 MG capsule Take 25 mg by mouth every 6 hours as n eeded. DiphenhydrAMINE HCl (DIPHENHIST PO) TABS; Take as directed diphenoxylate-atropine (LOMOTIL) 2.5-0.025 mg per tablet Take 1 tablet by mouth Daily. DULoxetine (CYMBALTA) 60 MG capsule Take 60 mg by mouth Daily. gabapentin (NEURONTIN) 100 mg capsule Take 100 mg by mouth 2 times daily. [DISCONTINUED] gabapentin (NEURONTIN) 300 mg capsule two daily hydrOXYzine (ATARAX) 50 MG tablet Take 50 mg by mouth. insulin NPH (HUMULIN N) 100 units/mL injection 30 units below the skin twice daily insulin regular (HUMULIN R) 100 units/mL injection 30 units inject below the skin befor e meals Lactobacillus (ACIDOPHILUS PO) Take 1 tablet by mouth Daily. [DISCONTINUED] levothyroxine (SYNTHROID) 125 mcg tablet Take 125 mcg by mouth Daily. levothyroxine (SYNTHROID, LEVOTHROID) 150 mcg tablet Take 150 mcg by mouth nightly. methocarbamol (ROBAXIN) 500 mg tablet Take 500 mg by mouth 3 times daily as needed. metoprolol (LOPRESSOR) 100 MG tablet Take 100 mg by mouth Daily. omeprazole (PRILOSEC) 20 mg capsule Take 20 mg by mouth Daily. [DISCONTINUED] ondansetron (ZOFRAN) 4 mg tablet Take 4 mg by mouth every 4 hours as nee ded. oxyCODONE (OXYCONTIN) 80 mg ER abuse-deterrent tablet Take 1 tablet by mouth 2 times da charmaine. oxyCODONE-acetaminophen (PERCOCET) 10-325 mg per tablet Take 1 tablet by mouth every 4 hours as needed. [DISCONTINUED] polyethylene glycol-electrolytes (NULYTELY WITH FLAVOR PACKS) 420 G solu tion to be taken day prior to procedure, drink 8 ounces every 10-20 minutes until gone pramipexole (MIRAPEX) 1 MG tablet Take 1 mg by mouth nightly. pravastatin (PRAVACHOL) 20 mg tablet Take 20 mg by mouth Daily. pregabalin (LYRICA) 150 MG capsule Take 150 mg by mouth. promethazine (PHENERGAN) 25 mg tablet Take 1 tablet by mouth every 4 to 6 hours as need ed QUEtiapine (SEROQUEL) 25 mg tablet Take 25 mg by mouth nightly. rizatriptan (MAXALT) 10 mg tablet Take 1 tablet by mouth, repeat in 2 hours if needed. Maximum of 3 tablets in 24 hours. [DISCONTINUED] traZODone (DESYREL) 100 mg tablet 1.5 tablet by mouth at bedtime VITAMIN D, CHOLECALCIFEROL, PO Take 5 tablets by mouth Daily. No facility-administered encounter medications on file as of 08/29/2014. Physical Exam: BP 148/86 | Pulse 92 | Resp 24 | Ht 1.6 m (5' 3") | Wt 107.502 kg (237 lb) | BMI 41.99 kg/m2 | ? No General: Awake, alert, oriented x3, in no acute distress. Essentially wheelchair bound Back: No CVA tenderness. Abdomen: soft, nondistended, nontender, benign. Procedure: Urodynamics The initial study performed was a complex uroflow. Peak flow rate was 13.3 cc/second. Voided volume was 178 mL. Flow curve appeared flat with rising and following of flow curve. The next study performed was a filling CMG with pressure/flow. Mitra was then prepped in a sterile fashion. The bladder was drained with a catheter. 10 0 cc were drained from the bladder. A 7F dual lumen urodynamic catheter was inserted into t he bladder and secured. A second catheter was inserted into the rectum and the balloon was g ently inflated. I then began filling the bladder at a medium fill rate with saline and intravesical and int raabdominal pressures were recorded simultaneously. First sensation occurred at 46 mL. First urge occurred at 70 mL. Sensation of capacity was at 174 mL. After infusing 174 cc into the bladder, the pump was paused and valsalva maneuvers were per formed. Leakage was not elicited despite intravesical pressures of >115 mmHg. the infusion was resumed until approximately 250 cc when the bladder, and Valsalva maneuvers were repeat ed once again. Finally, on the third Valsalva, there is a small drop of urine leakage, with intra-vesical leak point pressure of approximately 120+ mm Hg pressure. The infusion was resumed, and continued until bladder capacity, which occurred at approxima tely 400 cc. At this time, she had significant increase in detrusor pressure, and was final ly able to postpone voiding after leakage of approximately 4 cc, but detrusor pressure remai joe sustained. She was then instructed to void. Flow curve appeared well shaped. Peak jes w rate was 18 cc/s. Voided volume was 391 cc. Peak detrusor pressure was approximately 57 m H 12 pressure. During filling, she had a phasic increase in pressure at 174 cc, approximately 200 cc, and at 251 cc, immediately after Valsalva maneuvers Uninhibited bladder contractions were present. Significant increase in detrusor pressure during filling was present. The catheters were then removed. Mitra tolerated the procedure well and there were no com plications. To summarize, her urodynamic study demonstrates no evidence of intrinsic sphincter deficien cy, however, she has detrusor hyperactivity with uninhibited bladder contractions and urinar y incontinence related to uninhibited bladder contractions. IMPRESSION: 1. Urinary incontinence. The Shelton be secondary to uninhibited detrusor contractions. T his would suggest either an overactive bladder or idiopathic detrusor instability or an uppe r motor neuron lesion. 2. History of mid urethral sling 05/05/2005, with revision of erosion on 01/14/2010. 3. Diabetic neuropathy. 4. History of necrotizing fasciitis, 2013. PLAN: I again had a lengthy discussion with Mitra today regarding her urinary incontinence. We discussed the inappropriate detrusor contractility which occurred during filling. I told h er that this could be related to detrusor instability or an overactive bladder, but could al so be due to an upper tract motor neuron lesion (neurogenic bladder). Therefore, I advised Mitra that she should undergo neurology consultation to rule out any upper tract pathology producing her urinary symptoms. She will also undergo a trial of therapy with Toviaz 4 mg by mouth daily. If this is ineff ective after 2 weeks, she will increase her dose to 8 mg by mouth daily. She is given sampl es of Toviaz to last for 3 weeks. We discussed potential side effects of this medication as listed in the epocrates. She may also benefit from bladder neuromodulation. We discussed InterStim versus percutane ous tibial nerve stimulation. If anticholinergic therapy is ineffective, she indicates that she might consider bladder neuromodulation. I asked her to call the office in 3 weeks to let know how she is progressing with her medic ation so we can determine appropriate follow-up. She'll be referred to Dr. Craig for neurological evaluation. Mitra is instructed to resume her usual and customary care with Dr. Davis. I asked her to notify me if she has any difficulties with voiding, or UTI symptoms, or flan k pain, or for any questions or concerns or problems whatsoever. This document was generated in part using voice recognition software. Although I have atte mpted to edit the content, acoustical tile carpenters supervisor errors may occur. CC: Dr Lopez CC: Dr Davis documented in this en counter Consult Notes Georgiana Zamora MD - 08/29/2014 4:32 PM PST [facility] [address] [facility] [address] OFFICE CONSULTATION GEORGIANA ZAMORA MD Patient: MITRA DUONG Admitting: MR #: [id number] LOC: PT TYPE: Adm Date: 08/29/2014 : 1970 August 29, 2014 Jordin Craig MD [address] [place] [address] RE: Mitra Duong DATE OF : 1970 Dear Doctor Rafa, This letter is to introduce Mitra Duong for a consultation regarding a possible neurogen ic bladder. Mitra has undergone a previous bladder suspension procedure by Dr. Lopez in 2009. Approximately 2 years ago, she began having difficulty with recurrence of urinary incontin ence. Urodynamic studies today demonstrate uninhibited bladder contractions. She had a s ignificant increase in detrusor pressure during bladder filling. This could suggest either idiopathic detrusor [id number] or overactive bladder or an upper motor neuron lesion. Because of the possibility of an upper motor neuron lesion, I have asked Mitra to follow up in your office for further evaluation. Thanks in advance for seeing Mitra and providing your expertise. Best regards, GEORGIANA ZAMORA MD Dictated by GEORGIANA ZAMORA MD 08/29/2014 16:32:31 Transcribed on 08/29/2014 16:40:06 by ms job# [id number] Confirmation #: [id number] signed by Georgiana Zamora MD at 08/29/2014 8:42 PM [address]documented in this encounter Plan of Treatment +--------+---------+ + + + | Date | Type | Specialty | Care Team | Description | +--------+---------+ + + + | 01/09/ | Office | Internal Medicine | RyanKayToneygiovanny, | | | 2019 | Visit | | MD Quynh | | | | | | [address] | | | | | | [place] [address] | | | | | | [phone] | | | | | | | | +--------+---------+ + + + + + +--------+ + + | Name | Type | Priori | Associated Diagnoses | Order Schedule | | | | ty | | | + + +--------+ + + | * [facility] | Outpatient | Routin | Urinary | Expected: | | Neurology - AMB | Referral | e | incontinence in | 08/29/2014, Expires: | | Referral | | | female | 08/30/2015 | + + +--------+ + + documented as of this encounter Procedures + +--------+ + + + | Procedure Name | Priori | Date/Time | Associated Diagnosis | Comments | | | ty | | | | + +--------+ + + + | DIAGNOSTIC REPORT - | | 08/29/2014 | | | | EXTERNAL SCAN | | 12:00 AM | | | | | | PST | | | + +--------+ + + + documented in this encounter Visit Diagnoses + + | Diagnosis | + + | Urinary incontinence in female - Primary | + + documented in [...]
--- OUTSIDE RECORDS SUMMARY | ~2019-12-24 | XMS | Encounter Summary ---
Demographics + + + | Address | [address] | | | [place] [address] | + + + | Home Phone | | + + + | Preferred Language | Unknown | + + + | Marital Status | | + + + | Church Affiliation | 1013 | + + + | Race | Unknown | + + + | Ethnic Group | Unknown | + + + Author + + + | Author | [facility] | | | and [place] | + + + | Organization | [facility] | | | [...] [place], | | | | | [place] [address] | | + + + + + | Mahogany Farnsworth | ECON | [address] | | | | | [place] [address] | | + + + + + Care Team Providers + +------+ + | Care Diesel Power Shovel Operator Name | Role | Phone | + +------+ + | Quynh Finch | PCP | | | MD | | | + +------+ + Encounter Details +--------+ + + + + | Date | Type | Department | Care Team | Description | +--------+ + + + + | 07/25/ | Patient | [facility] | Ryan-Lloyd, | | | 2019 | Outreach | MEDICINE [address] | MD Quynh | | | | | [place], | [address] [facility] | | | | | [place] [address] | [place] [address] | | | | | [phone] | [phone] | | | | | | | [...] this encounter Miscellaneous Notes Telephone Encounter - INOCENCIO BONY D - 07/25/2019 3:03 PM PST 07/25/19 Marzena Rio Duong has been identified as having one or more care gaps listed in the table below (red box): Last Office Visit: 01/06/2019 Next Office Visit: No appointment scheduled Health Topic Patient Goal Patient Most Recent Data Recommended Patient Action Step Blood Pressure Below 140/90 126/74 01/06/2019 Cholesterol Take a cholesterol lowering medication Taking Microalbumin Test at least once a year. 07/29/2018 Tobacco Don't smoke. Current smoker as of 07/23/2019 HbA1c Below 7 is good 13.6 07/21/2018 Weight To manage your weight 211 lbs 07/23/2019 Eye Exam Check as directed by eye doctor Not in our Medical Record Foot Exam Check once a year Not in our Medical Record Immunizations Get Immunized Due for: - Influenza - Tdap Breast Cancer Screening Get tested Screening Complete Cervical Cancer Screening Get tested Last Updated: Not in our Medical Record To Primary Care Provider: Quynh Finch MD: Please review the above care gaps and: ? Sign any pended orders(s) if appropriate. Orders Placed This Encounter Pending Hemoglobin A1C Ordered On: 07/25/2019 ? Document exclusions from outreach or other instructions in the Documentation sectio n of the encounter to share relevant information and alternative Next Outreach Date if neces kevin. ? Enable or prevent outreach by clicking YES/NO in the Approve Deny section of the en counter under Ready for Outreach Communication . Thank you, Population Health Support Team documented in this encount er Plan of Treatment +--------+---------+ + + + | Date | Type | Specialty | Care Team | Description | +--------+---------+ + + + | 01/09/ | Office | Internal Medicine | Stef, | | | 2019 | Visit | | MD Quynh | | | | | | [address] [place] | | | | | | [place] [address] | | | | | | [phone] | | | | | | | | +--------+---------+ + + + documented as of this encounter Visit Diagnoses + + | Diagnosis | + + | Uncontrolled type 2 diabetes mellitus with hyperglycemia (HCC) - Primary | + + documented in [...]
--- OUTSIDE RECORDS SUMMARY | ~2019-12-24 | XMS | Encounter Summary ---
Demographics + + + | Address | [address] | | | [place] [address] | + + + | Home Phone | | + + + | Preferred Language | Unknown | + + + | Marital Status | | + + + | Gnosticist Affiliation | 1013 | + + + | Race | Unknown | + + + | Ethnic Group | Unknown | + + + Author + + + | Author | [facility] | | | and [place] | + + + | Organization | [facility] | | | [...] [place], | | | | | [place] [address] | | + + + + + | Mahogany Farnsworth | ECON | [address] | | | | | [place] [address] | | + + + + + Care Team Providers + +------+ + | Care Preschool Teacher Assistant Name | Role | Phone | + [...] Description | +--------+--------+ + + + | 07/24/ | Refill | [facility] | Stef, | Medication Refill | | 2019 | | MEDICINE [address] | MD Quynh | | | | | [place], | [address] [facility] | | | | | [place] [address] | [place] [address] | | | | | [phone] | [phone] | | | | | | | [...] this encounter Miscellaneous Notes Telephone Encounter - Melani Sandoval RN - 07/25/2019 10:25 AM PSTMedication Alprazolam 0.5 mg Quantity #30 Last refill date 05/24/19 Pharmacy [facility] Last appointment 01/06/19 Next appointment no future appointments scheduled documented in this e ncounter Plan of Treatment +--------+---------+ + + + | Date | Type | Specialty | Care Team | Description | +--------+---------+ + + + | 01/09/ | Office | Internal Medicine | Stef, | | | 2019 | Visit | | MD Quynh | | | | | | [address] | | | | | | [place] [address] | | | | | | [phone] | | | | | | | [...]
--- OUTSIDE RECORDS SUMMARY | ~2019-12-24 | XMS | Encounter Summary ---
Demographics + + + | Address | [address] | | | [place] [address] | + + + | Home Phone | | + + + | Preferred Language | Unknown | + + + | Marital Status | | + + + | Scientologist Affiliation | 1013 | + + + | Race | Unknown | + + + | Ethnic Group | Unknown | + + + Author + + + | Author | [facility] | | | and [place] | + + + | Organization | [facility] | | | and [place] | + + + | Address | Unknown | + + + | Phone | Unavailable | + + + Support + + + + + | Name | Relationship | Address | Phone | + + + + + | Iwona L Head | ECON | [place], | | | | | [place] [address] | | + + + + + | Mahogany Farnsworth | ECON | [address] | | | | | [place] [address] | | + + + + + Care Team Providers + +------+ + | Care Topographical Engineer Name | Role | Phone | [...] Description | +--------+--------+ + + + | 01/23/ | Refill | [facility] | Stef, | Medication Refill | | 2017 | | MEDICINE [address] | MD Quynh | | | | | [place], | [address] [facility] | | | | | [place] [address] | [place] [address] | | | | | [phone] | [phone] | | | | | | | [...] Quynh | | | | | | [address] [place] [address] | | | | | | [place] [address] | | | | | | [phone] | | | | | | | [...]
--- OUTSIDE RECORDS SUMMARY | ~2019-12-24 | XMS | Encounter Summary ---
Demographics + + + | Address | [address] | | | [place] [address] | + + + | Home Phone | | + + + | Preferred Language | Unknown | + + + | Marital Status | | + + + | Jew Affiliation | 1013 | + + + | Race | Unknown | + + + | Ethnic Group | Unknown | + + + Author + + + | Author | [facility] [...] [place], | | | | | [place] [address] | | + + + + + | Mahogany Navarro Winside | ECON | [address] | | | | | [place] [address] | | + + + + + Care Team Providers + +------+ + | Care Manufacturing Mechanic Name | Role | Phone | + +------+ + PCP | Unavailable | + +------+ + Encounter Details +--------+ + + + + | Date | Type | Department | Care Team | Description | +--------+ + + + + | 05/18/ | Hospital | [facility] | | | | 2007 | Encounter | [facility] | | | | | [facility] [address] | | | | | | [place] | | | | | | [address] | | | | | | [phone] | | | +--------+ + + + [...] Quynh | | | | | | [facility] [address] | | | | | | [place] [address] | | | | | | [phone] | | | | | | | | +--------+---------+ + + + documented as of this encounter Visit Diagnoses Not on filedocumented in this encounter"
--- OUTSIDE RECORDS SUMMARY | ~2019-12-24 | XMS | Encounter Summary ---
Demographics + + + | Address | [address] | | | [place] [address] | + + + | Home Phone | | + + + | Preferred Language | Unknown | + + + | Marital Status | | + + + | Sabianism Affiliation | 1013 | + + + | Race | Unknown | + + + | Ethnic Group | Unknown | + + + Author + + + | Author | [facility] | | | and [place] [...] [place], | | | | | [place] [address] | | + + + + + | Mahogany Navarro [place] | ECON | [address] | | | | | [place] [address] | | + + + + + Care Team Providers + +------+ + | Care Lace Sewer Name | Role | Phone | + +------+ + PCP | Unavailable | + +------+ + Encounter Details +--------+ + + + + | Date | Type | Department | Care Team | Description | +--------+ + + + + | 01/28/ | Hospital | [facility] | | | | 2007 | Encounter | MED CTR EM[facility] | | | | | | CENTER [address] | | | | | | [place] | | | | | | [address] | | | | | | [phone] | | | +--------+ + + + [...] Quynh | | | | | | [facility] [address] | | | | | | [place] [address] | | | | | | [phone] | | | | | | | | +--------+---------+ + + + documented as of this encounter Visit Diagnoses Not on filedocumented in this encounter"
--- OUTSIDE RECORDS SUMMARY | ~2019-12-24 | XMS | Encounter Summary ---
Demographics + + + | Address | [address] | | | [place] [address] | + + + | Home Phone [...] | [facility] | | | [...] [place], | | | | | [place] [address] | | + + + + + | Mahogany Farnsworth | ECON | [address] | | | | | [place] [address] | | + + + + + Care Team Providers + +------+ + | Care Watch Hairspring Assembler Name | Role | Phone | + [...] + + | Closed | Specialty | Rehabilitatio | Diagnoses | | Diede, | | | Services | n | | Ryan-Tajt | Magda S, | | | Required | | Oropharyngea | i, | Speech | | | | | l dysphagia | Quynh | Pathologist | | | | | Procedures | , MD [address] | [address] | | | | | BOARD CERTIFIED BEHAVIORAL ANALYST | [address] | [address] [place] | | | | | | [place], | [place], [place] | | | | | | [place] | [address] Phone: | | | | | | [address] | [phone] | | | | | | Phone: | Fax: | | | | | | [phone] | [phone] | | | | | | Fax: | | | | | | | [phone] | | +--------+ + + + + + Reason for Visit + + + | Reason | Comments | + + + | Thyroid Problem | Due Diabetic foot exam, Tdap, Anual Exam | + + + | Otalgia | 3 days with a sore ear | + + + Encounter Details +--------+---------+ + + + | Date | Type | Department | Care Team | Description | +--------+---------+ + + + | 10/07/ | Office | [facility] | Stef, | Uncontrolled type 2 | | 2019 | Visit | MEDICINE [address] | MD Quynh | diabetes mellitus | | | | [place], | [address] [facility] | with hyperglycemia | | | | [place] [address] | [place] [address] | ([facility]) (Primary Dx); | | | | [phone] | [phone] | Oropharyngeal | | | | | | dysphagia; Cigarette | | | | | | nicotine dependence | | | | | | without | | | | | | complication | +--------+---------+ + + + Social History [...] + + + | Blood Pressure | 102/68 | 10/07/2018 9:31 AM | | | | | PDT | | + + + + + | Pulse | 108 | 10/07/2018 9:31 AM | | | | | PDT | | + + + + + | Temperature | 36.6 C (97.9 F) | 10/07/2018 9:31 AM | | | | | PDT | | + + + + + | Respiratory Rate | 16 | 10/07/2018 9:31 AM | | | | | PDT | | + + + + + | Oxygen Saturation | 92% | 10/07/2018 9:31 AM | | | | | PDT | | + + + + + | Inhaled Oxygen | - | - | | | Concentration | | | | + + + + + | Weight | - | - | | + + + + + | Height | 157.5 cm (5' 2") | 10/07/2018 9:31 AM | | | | | PDT | | + + + + + | Body Mass Index | - | - | | + + + + + documented in this encounter Patient Instructions Patient Instructions Quynh Finch MD - 10/07/2018 9:30 AM PDTIncrease Basa glar insulin dose by 5 units every week, until your fasting blood sugars drop below 150 but no lower than 80, then continue on that dose of Basaglar long-term. Return in one month with blood sugar logs. Check your blood sugars as below: - every day in AM, fasting. - 2 hr after a meal. The goal is to be below 180 at this time. If your 2 hr after a meal blood sugars re over 180, you may increase the short-acting insul in by 3-5 units every 3 days until you bring them below 180. documented in this encounter Progress Notes Quynh Finch MD - 10/07/2018 9:30 AM PDTFormatting of this note might be d ifferent from the original. CHIEF COMPLAINT Chief Complaint Patient presents with Thyroid Problem Due Diabetic foot exam, Tdap, Anual Exam Otalgia 3 days with a sore ear HPI Marzena Duong is a 48 y.o. y/o female who presents today for several issues: Has history of uncontrolled diabetes with hyperglycemia. At last visit I instructed her to titrate the insulin dose up but she states she has not been able to do a very good job at i t as she received some other instructions from diabetes education. She states her fasting s ugars are often times above 250 and daytime sugar readings are also elevated. She will have an A1c later this month. No chest pain palpitations or shortness of breath. She is inject ing both long and short-acting insulin as below. She also has history of difficulty swallowing, she states she has a hard time especially wi th liquids. No recent choking but she has to work on it before she can swallow. She is janeen ing a PPI and she does not have any heartburn or other symptoms of esophagitis. Continues to smoke cigarettes. She states she has cut down the number of cigarettes she sm okes in the day. REVIEW OF SYSTEMS See HPI for further [...] History Socioeconomic History Marital status: Spouse name: None Number of children: None Years of education: None Highest education level: None Social Needs Financial resource strain: None Food insecurity - worry: None Food insecurity - inability: None Transportation needs - medical: None Transportation needs - non-medical: None Occupational History None Tobacco Use Smoking status: Current Every Day Smoker Packs/day: 1.50 Years: 34.00 Pack years: 51.00 Types: Cigarettes Smokeless tobacco: Never Used Substance and Sexual Activity Alcohol use: Yes Drug use: No Sexual activity: Not Currently Partners: Male control/protection: None Other Topics Concern None Social History [...] for Anxiety. ARIPiprazole (ABILIFY) 5 mg tablet TAKE ONE TABLET BY MOUTH AT BEDTIME 30 tablet 5 atorvaSTATin (LIPITOR) 40 mg tablet Take 1 tablet by mouth nightly. 30 tablet 11 diphenoxylate-atropine (LOMOTIL) 2.5-0.025 mg per tablet Take [...] TIMES DAILY 120 ca psule 4 insulin aspart (NOVOLOG FLEXPEN) 100 units/mL injection pen Inject 10 Units under the s kin 3 times daily (before meals) for 90 days. Max 30 units / day. 27 mL 3 insulin glargine (BASAGLAR KWIKPEN) 100 units/mL injection [...] tablet by mouth at bedtime 30 tablet 4 omeprazole (PRILOSEC) 20 mg capsule TAKE ONE CAPSULE BY MOUTH AT BEDTIME 30 capsule 11 ondansetron (ZOFRAN) 4 mg TABS tablet (ED prepack) Take 1 tablet by mouth Daily as need ed. pramipexole (MIRAPEX) 1.5 MG tablet TAKE TWO TABLETS BY MOUTH DAILY AT BEDTIME 60 table t 2 promethazine (PHENERGAN) 25 mg tablet Take 1 tablet by mouth every 4 to 6 hours as need ed QUEtiapine (SEROQUEL) 25 mg tablet TAKE ONE TABLET BY MOUTH AT BEDTIME 30 tablet 2 UNABLE TO FIND True Metrix Testing Strips. Testing 3x/day. 100 each 5 UNABLE TO FIND True Metrix Lancets. Testing 3x/day. 100 each 5 UNABLE TO FIND Alcohol swabs 1 Box 5 No current facility-administered medications for this visit. ALLERGIES Allergies Allergen Reactions Hydrocodone Hives Hives and decreased respirations Morphine Other (See Comments) Light-headed, very emotional (cries constantly) Sulfa Antibiotics Rash and Other (See Comments) Severe respiratory distress, huge water blisters, rash Adhesive & Tape Other reaction(s): Rash Milk-Related Compounds Other reaction(s): Rash Codeine Rash Rash, slows breathing PHYSICAL EXAM VITAL SIGNS: BP 102/68 | Pulse 108 | Temp 36.6 C (97.9 F) (Temporal) | Resp 16 | Ht 1.575 m (5' 2") | LMP (LMP Unknown) | SpO2 92% | ? No | BMI 40.20 kg/m Constitutional: Well developed, Well nourished, No acute distress, Pleasant female. Cardiovascular: Regular rate & rhythm, No murmurs, No rubs, No gallops. No lower extremitie s edema. Thorax & Lungs: Normal breath sounds, No respiratory distress, No wheezing, No rubs. Skin: Warm, Dry, No erythema, No rash. Musculoskeletal: Decreased range of motion in all major joints. In wheelchair. Neurologic: Alert & oriented x 3. No new focal neurological deficits. Psychiatric: Affect normal, Judgment normal, Mood normal. ASSESSMENT & PLAN 1. Uncontrolled type 2 diabetes mellitus with hyperglycemia (HCC) -Gave written instructions on how to gradually titrate insulin both long and short acting d oses up based on blood sugar readings to achieve goals of fasting sugar below 150 but no low er than 80 and postprandial blood sugars at 2 hours after a meal of about 180. - insulin glargine (BASAGLAR KWIKPEN) 100 units/mL injection (pen); Inject 60 Units under t he skin nightly for 90 days. Increase dose by 3 units every week until fasting blood sugars are between 80-150. Dispense: 36 mL; Refill: 3 - UNABLE TO FIND; Alcohol swabs Dispense: 1 Box; Refill: 5 2. Oropharyngeal dysphagia -This could be secondary to diabetes, will send for a swallow eval as below. - * [facility] - AMB Referral - FL Video Swallow w Speech; Future 3. Cigarette nicotine dependence without complication - She is about 4 out of 10 motivated to quit but is not ready to use nicotine supplements a t this point or set a quit date. FOLLOW-UP Return in about 3 weeks (around 10/27/2018). Note: Parts of this documentwere created using Recorrido speech recognition software. As a r esult, there may be unintended word spelling errors. Every attempt was made to correct the dictation. documente d in this encounter Plan of Treatment +--------+---------+ + + + | Date | Type | Specialty | Care Team | Description | +--------+---------+ + + + | 01/09/ | Office | Internal Medicine | RyanShad, | | | 2019 | Visit | | MD Quynh | | | | | | [place] [place] | | | | | | [place] [address] | | | | | | [phone] | | | | | | | | +--------+---------+ + + + + +---------+--------+ + + | Name | Type | Priori | Associated Diagnoses | Order Schedule | | | | ty | | | + +---------+--------+ + + | FL Video Swallow w | Imaging | Routin | Oropharyngeal | Expected: | | Speech | | e | dysphagia | 10/07/2018, Expires: | | | | | | 10/08/2019 | + +---------+--------+ + + + + +--------+ + + | Name | Type | Priori | Associated Diagnoses | Order Schedule | | | | ty | | | + + +--------+ + + | * [facility] [place] | Outpatient | Routin | Oropharyngeal | Ordered: 10/07/2018 | | [facility] Speech | Referral | e | dysphagia | | | Therapy - AMB | | | | | | Referral | | | | | + + +--------+ + + documented as of this encounter Visit Diagnoses + + | Diagnosis | + + | Uncontrolled type 2 diabetes mellitus with hyperglycemia (HCC) - Primary | + + | Oropharyngeal dysphagia Dysphagia, oropharyngeal phase | + + | Cigarette nicotine dependence without complication Tobacco use disorder | + + documented in this encounter Additional Health Concerns + + + + + | Infection | Onset Date | Last Indicated | Resolved Time | + + + + + | 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
--- OUTSIDE RECORDS SUMMARY | ~2019-12-24 | XMS | Encounter Summary ---
Demographics + + + | Address | [address] | | | [place] [address] | + + + | Home Phone [...] + + + | Author | [facility] | | | and [place] | + + + | Organization | [facility] | | | and [place] | + + + | Address | Unknown | + + + | Phone | Unavailable | + + + Support + + + + + | Name | Relationship | Address | Phone | + + + + + | Iwona L Head | ECON | [place], | | | | | [place] [address] | | + + + + + | Mahogany Navarro [place] | ECON | [address] | | | | | [place] [address] | | + + + + + Care Team Providers + +------+ + | Care Assistant Professor Of Anthropology Name | Role | Phone | + +------+ + PCP | Unavailable | + +------+ + Encounter Details +--------+ + + + + | Date | Type | Department | Care Team | Description | +--------+ + + + + | 07/14/ | Hospital | [facility] | Maryellen, | | | 2008 | Encounter | MED CTR EMERGENCY | David Romero MD [address] | | | | | [address] | [facility] | | | | | [place], [place] | [place] [address] | | | | | [address] | [phone] | | | | | [phone] | | | +--------+ + + + [...] | | | | | | [facility] [address] | | | | | | [place] [address] | | | | | | [phone] | | | | | | | | +--------+---------+ + + + documented as of this encounter Visit Diagnoses Not on filedocumented in this encounter"
--- OUTSIDE RECORDS SUMMARY | ~2019-12-24 | XMS | Encounter Summary ---
Demographics + + + | Address | [address] | | | [place] [address] | + + + | Home Phone | | + + + | Preferred Language | Unknown | + + + | Marital Status | | + + + | Uatsdin Affiliation | 1013 | + + + | Race | Unknown | + + + | Ethnic Group | Unknown | + + + Author + + + | Author | [facility] | | | and [place] | + + + | Organization | [facility] | | | [...] [place], | | | | | [place] [address] | | + + + + + | Mahogany Navarro [place] | ECON | [address] | | | | | [place] [address] | | + + + + + Care Team Providers + +------+ + | Care Security System Installer Name | Role | Phone | + +------+ + | Quynh Finch | PCP | | | MD | | | + +------+ + Reason for Visit + +--------+ + | Reason | Onset | Comments | | | Date | | + +--------+ + | Medication Refill | 01/13/ | | | | 2018 | | + +--------+ + Encounter Details +--------+--------+ + + + | Date | Type | Department | Care Team | Description | +--------+--------+ + + + | 01/13/ | Refill | [facility] | Stef, | Medication Refill | | 2018 | | MEDICINE [address] | MD Quynh | | | | | [place], | [address] [facility] | | | | | [place] [address] | [place] [address] | | | | | [phone] | [phone] | | | | | | | [...] | | | | | | [address] [facility] | | | | | | [place] [address] | | | | | | [phone] | | | | | | | | +--------+---------+ + + + documented as of this encounter Visit Diagnoses + + | Diagnosis | + + | Hypercholesterolemia Pure hypercholesterolemia | + + documented in this encounter Additional Health Concerns + + + + + | Infection | Onset Date | Last Indicated | Resolved Time | + + + + + | 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
--- OUTSIDE RECORDS SUMMARY | ~2019-12-24 | XMS | Encounter Summary ---
Demographics + + + | Address | [address] | | | [place] [address] | + + + | Home Phone [...] | Author | [facility] | | | and [...] [place], | | | | | [place] [address] | | + + + + + | Mahogany Navarro [place] | ECON | [address] | | | | | [place] [address] | | + + + + + Care Team Providers + +------+ + | Care Telephone Appointment Clerk Name | Role | Phone | + +------+ + PCP | Unavailable | + +------+ + Encounter Details +--------+ + + + + | Date | Type | Department | Care Team | Description | +--------+ + + + + | 03/20/ | Hospital | [facility] | Carolee Mclaughlin | | | 2009 | Encounter | MED CTR EMERGENCY | MD Sima [address] | | | | | [place] [address] | [facility], | | | | | [place] | [place] [address] | | | | | [address] | [phone] | | | | | [phone] | | | +--------+ + + + [...] | | | | | [place] [address] | | | | | | [phone] | | | | | | | | +--------+---------+ + + + documented as of this encounter Visit Diagnoses Not on filedocumented in this encounter"
--- OUTSIDE RECORDS SUMMARY | ~2019-12-24 | XMS | Encounter Summary ---
Demographics + + + | Address | [address] | | | [place] [address] | + + + | Home Phone | | + + + | Preferred Language | Unknown | + + + | Marital Status | | + + + | Hinduism Affiliation | 1013 | + + + | Race | Unknown | + + + | Ethnic Group | Unknown | + + + Author + + + | Author | [facility] | | | and [place] | + + + | Organization | [facility] | | [...] [place], | | | | | [place] [address] | | + + + + + | Mahogany Navarro [place] | ECON | [address] | | | | | [place] [address] | | + + + + + Care Team Providers + +------+ + | Care Machine Operator Cane Cutter Name | Role | Phone | + +------+ + | Quynh Finch | PCP | | | MD | | | + +------+ + Reason for Visit + +--------+ + | Reason | Onset | Comments | | | Date | | + +--------+ + | Medication Refill | 07/22/ | | | | 2018 | | + +--------+ + Encounter Details +--------+--------+ + + + | Date | Type | Department | Care Team | Description | +--------+--------+ + + + | 07/22/ | Refill | [facility] | Stef, | Medication Refill | | 2018 | | MEDICINE [address] | MD Quynh | | | | | [place], | [address] [facility] | | | | | [place] [address] | [place] [address] | | | | | [phone] | [phone] | | | | | | | [...] | | | | | | [address] [facility] | | | | | | [place] [address] | | | | | | [phone] | | | | | | | [...]
--- OUTSIDE RECORDS SUMMARY | ~2019-12-24 | XMS | Encounter Summary ---
Demographics + + + | Address | [address] | | | [place] [address] | + + + | Home Phone | | + + + | Preferred Language | Unknown | + + + | Marital Status | | + + + | Anabaptism Affiliation | 1013 | + + + | Race | Unknown | + + + | Ethnic Group | Unknown | + + + Author + + + | Author | [facility] | | | and [place] | + + + | Organization | [facility] | | | [...] [place], | | | | | [place] [address] | | + + + + + | Mahogany Navarro [place] | ECON | [address] | | | | | [place] [address] | | + + + + + Care Team Providers + +------+ + | Care Dry Goods Inspector Name | Role | Phone | + +------+ + PCP | Unavailable | + +------+ + Encounter Details +--------+ + + + + | Date | Type | Department | Care Team | Description | +--------+ + + + + | 03/11/ | Abstract | [place] [facility] | DATA MIGRATION [facility] | | | 2011 | | Conversion Location | SR | | | | | [address] | | | | | | [place], [place] | | | | | | [address] | | | | | | [phone] | | | +--------+ + + + [...] + + + | Blood Pressure | 142/92 | 03/10/2012 12:00 AM | | | | | PDT | | + + + + + | Pulse | - | - | | + + + + + | Temperature | - | - | | + + + + + | Respiratory Rate | - | - | | + + + + + | Oxygen Saturation | - | - | | + + + + + | Inhaled Oxygen | - | - | | | Concentration | | | | + + + + + | Weight | 109.9 kg (242 lb 3.2 | 03/10/2012 12:00 AM | | | | oz) | PDT | | + + + + + | Height | 160 cm (5' 3") | 01/15/2012 12:00 AM | | | | | PDT | | + + + + + | Body Mass Index | 42.9 | 01/15/2012 12:00 AM | | | | | PDT | | + + + + + documented in this encounter Plan of Treatment +--------+---------+ + + + | Date | Type | Specialty | Care Team | Description | +--------+---------+ + + + | 01/09/ | Office | Internal Medicine | Stef, | | | 2019 | Visit | | MD Quynh | | | | | | [place] | | | | | | [place] [address] | | | | | | [phone] | | | | | | | | +--------+---------+ + + + documented as of this encounter Procedures + +--------+ + + + | Procedure Name | Priori | Date/Time | Associated Diagnosis | Comments | | | ty | | | | + +--------+ + + + | ENDOSCOPY, COLON, | Routin | 01/13/2012 | | Results for this | | DIAGNOSTIC | e | 12:00 AM | | procedure are in the | | | | PDT | | results section. | + +--------+ + + + documented in this encounter Results ENDOSCOPY, COLON, DIAGNOSTIC (01/13/2012 12:00 AM PDT) + + | Specimen | + + | | + + + + + | Narrative | Performed At | + + + | | | + + + documented in this encounter Visit Diagnoses Not on filedocumented in this encounter
--- OUTSIDE RECORDS SUMMARY | ~2019-12-24 | XMS | Encounter Summary ---
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 wit h this patient's condition. Metabolic testing showed patient to be a also and DKA which may be an exacerbation of her diabetes do to a serious soft tissue infection. Patient denies a bdominal discomfort patient is no history of previous soft tissue infection. She denies IV drug use. She does carry an inhaler for chronic obstructive pulmonary disease but does not use it on a regular basis. She continues to smoke one pack of cigarettes per day. No known history of hepatitis. REVIEW OF SYSTEMS Review of Systems Constitutional: Positive for chills and fatigue. HENT: Negative. Eyes: Negative. Respiratory: Negative. Cardiovascular: Negative. Gastrointestinal: Negative. Negative for rectal pain. Genitourinary: Negative. Musculoskeletal: Positive for myalgias and gait problem. Neurological: Negative. Hematological: Negative. Psychiatric/Behavioral: Negative. No past medical history on file. The patient is history of previous hysterectomy History of cholecystectomy Allergies not on file Patient uses insulin daily No family history on file. History Social History Marital Status: Spouse Name: N/A Number of Children: N/A Years of Education: N/A Occupational History Not on file. Social History Main Topics Smoking status: Not on file Smokeless tobacco: Not on file Alcohol Use: Not on file Drug Use: Not on file Sexually Active: Not on file Other Topics Concern Not on file Social History Narrative No narrative on file PHYSICAL EXAM Vital Signs: BP 125/69 | Pulse 113 | Temp(Src) 98.1 F (36.7 C) (Oral) | Resp 18 | Ht 1.575 m (5' 2") | Wt 112 kg (246 lb 14.6 oz) | BMI 45.16 kg/m2 | SpO2 90% Patient Vitals for the past 24 hrs: BP Temp Temp src Pulse Resp SpO2 Height Weight 09/02/12 1630 125/69 mmHg - - 113 - 90 % - - 09/02/12 1615 123/72 mmHg 98.1 F (36.7 C) Oral 109 18 92 % 1.575 m (5' 2") 112 kg (24 6 lb 14.6 oz) Physical Exam Nursing note and vitals reviewed. Constitutional: She is oriented to person, place, and time. She appears well-developed and well-nourished. No distress. HENT: Head: Normocephalic and atraumatic. Eyes: Conjunctivae and EOM are normal. Pupils are equal, round, and reactive to light. Neck: Normal range of motion. Neck supple. No tracheal deviation present. Cardiovascular: Normal rate, regular rhythm and normal heart sounds. Exam reveals no nath p and no friction rub. No murmur heard. Pulmonary/Chest: Effort normal and breath sounds normal. No stridor. No respiratory distres s. She has no wheezes. She has no rales. Abdominal: Soft. Bowel sounds are normal. She exhibits no mass. There is no tenderness. The re is no rebound and no guarding. Musculoskeletal: She exhibits no edema. Right lower leg: She exhibits tenderness and swelling. She exhibits no edema. Legs: Lymphadenopathy: She has no cervical adenopathy. Neurological: She is alert and oriented to person, place, and time. No cranial nerve defici t. Skin: Skin is warm and dry. She is not diaphoretic. Psychiatric: She has a normal mood and affect. Her speech is normal and behavior is normal. She is not actively hallucinating. Cognition and memory are normal. She is attentive. DATA CBC: Lab Results Component Value Date WBC 6.4 09/02/2012 RBC 4.63 09/02/2012 HGB 13.4 09/02/2012 HCT 41.0 09/02/2012 MCV 88.4 09/02/2012 MCH 28.8 09/02/2012 MCHC 32.6 09/02/2012 RDW 39.8 09/02/2012 PLT 139* 09/02/2012 MPV 9.6 09/02/2012 DIFFTYPE PENDING 09/02/2012 CMP: Lab Results Component Value Date NA 134* 09/02/2012 K 3.0* 09/02/2012 CL 96* 09/02/2012 CO2 22* 09/02/2012 ANIONGAP 18 09/02/2012 GLUF 336* 09/02/2012 BUN 11 09/02/2012 CREATININE 0.89 09/02/2012 BCR 13 09/02/2012 CA 9.8 09/02/2012 PROT 6.3 09/02/2012 ALB 2.1* 09/02/2012 BILITOT 0.8 09/02/2012 ALP 83 09/02/2012 AST 81* 09/02/2012 ALT 44 09/02/2012 EGFR >60 09/02/2012 PT/INR: No results found for this basename: PROTIME, INR HgBA1c: No results found for this basename: HGBA1C, LABGLYC At the time of this dictation we are waiting a CT scan from mid abdomen through the lower e xtremities to map out the location of the suspicious soft tissue gas. It is anticipated the patient will be taken to the operating room for exploration of the fascia with probable VAC placement and returned to the Intensive Care Unit for ongoing management. PROBLEM LIST Active Problems: Necrotizing fasciitis (Right Lower extremity to right buttocks) DM (diabetes mellitus) DKA (diabetic ketoacidoses) HLD (hyperlipidemia) Hypothyroid SONIA (obstructive sleep apnea) ASSESSMENT & PLAN Life-threatening soft tissue infection -possible necrotizing fasciitis- in a diabetic femal e. Suspect gram-negative organisms. Condition complicated by diabetic ketoacidosis Plan: Review CT scan. Exploration through large incision exposing fascia and draining the subcutaneous space with debridement as needed. Infectious disease has also been consulted t o manage IV antibiotics. Cultures will be obtained in the operating room. Blood sugar cont rol by nursing program coordinator. Code Status: Full Code Primary Care Physician: No primary provider on file. PALLAVI CONDON MD 09/02/2012 *CORE MEASURES REMINDER: If the patient has a known or suspected infection prior to surger y, please add diagnosis to the problem list (consider: Infection 136.9). documented in this enc ounter Procedure Notes Dirk Bueno MD - 09/03/2012 12:59 AM PSTFormatting of this note might be different fr om the original. Procedures by Dirk Bueno MD at 09/03/1258 Author: Dirk Bueno MD Service: Aluminum Polisher Author Type: Physician Filed: 09/03/12 0105 Date of Service: 09/03/1258 Status: Signed Guest Specialist: Dirk Bueno MD (Physician) ORAL TRACHEAL INTUBATION PROCEDURE INDICATION: This patient is experiencing respiratory failure and needs to be intubated to secure the air way and provide adequate ventilation. ABG showed severe acidosis and pt was m inimally responsive. CONSENT: Pt is full code; done on emergent basis. TIME OUT: Was called ANESTHESIA: Succinylcholine 80 mg iv once; versed 2 mg iv once. PROCEDURE: The patient was positioned by the head end of the bed. The air way was evaluated and the m outh opened widely admitting 3 fingers between the mandible and maxilla. There was also thr ee fingers breath between the thyroid cartilage and the mental aspect of the mandible. Bagg ing was accomplished with ease prior to administering the sedatives and paralytics. The oral cavity was visualized with a #4 Arriaga blade attached to the laryngoscope. The la rynx, epiglottis and vocal cords were seen well. A number 7.85 ET tube was passed into the trachea without difficulty under direct vision and secured at the lip at 24 cm. Good C02 re turn occurred with the End tidal C02 detector and good bilateral breath sounds were heard on exam. Oxygen saturation decreased transiently to 78 % early in the procedure and remained less than 90 % for <30 sec. CXR is pending. This is a separately billable procedure. Andrea Davison MD - 09/02/2012 8:34 PM PSTFormatting of this note might be different from the origin al. Procedures by Andrea Rich MD at 09/02/122033 Author: Andrea Rich MD Service: Aluminum Polisher Author Type: Aluminum Polisher Filed: 09/02/122034 Date of Service: 09/02/122033 Status: Signed Guest Specialist: Andrea Rich MD (Aluminum Polisher) [facility] Service: Aluminum Polisher Procedure Note Andrea Rich MD, [facility] ICU Right Internal Jugular Vein Dialysis Catheter Procedure Mitra [id number] Time out was called: Indication: This line is placed in order to provide access for hemodialysis in view of the patients renal failure and need for dialysis. Consent: Risks benefits and alternatives were discussed with the patient and or the family regarding this procedure. Major risks include bleeding, infection, vascular injury, and pn eumothorax. The patient and or family was given opportunity to ask questions. They elected to proceed. Procedure: The patient was prepped and draped in a sterile fashion using 2% chlorhexidine to cleans the skin of the right neck. In the supine position the insertion site was found u sing ultrasound guidance. The point selected was several cm above the clavicle. The skin w as anesthetized with 1% lidocaine 1-2 cc's, and the needle passed into the IJ vein. Venous blood returned and the guide wire was passed with out difficulty. A 14-[address] was passed after several dilators were used to prepare the site. The catheter was sutur ed in place and a bio patch was applied. A follow up chest xray was ordered to confirm posi tion of the line and exclude the possibility of a pneumothorax. EBL: <1cc Complications: None ANDREA RICH MD 09/02/20128:35 PM Andrea Davison MD - 09/02/2012 8:34 PM PSTFormatting of this note might be different from the origin al. Procedures by Andrea Rich MD at 09/02/122033 Author: Andrea Rich MD Service: Aluminum Polisher Author Type: Aluminum Polisher Filed: 09/02/122033 Date of Service: 09/02/122033 Status: Signed Guest Specialist: Andrea Rich MD (Aluminum Polisher) [facility] Service: Aluminum Polisher Procedure Note Andrea Rich MD, [facility] Right Femoral Arterial Line Procedure Mitra Pagan [id number] Indication: To provide closer and more intense monitoring of the patients blood pressure due to the patients critical illness and need for more timely and accurate assessment of the patients blood pressure. This line will also provide access for blood draws for assorted l abs and specifically ABG draws. Consent: Risks benefits and alternatives were discussed with the patient and or the family and they were given an opportunity to ask questions. The specific risks discussed included bleeding, infection and vascular injury. The patient and or family agreed to proceed. Procedure: The patients right groin was prepped and draped in a sterile fashion using 2% c hlorhexidine. The skin over the femoral artery at the level just under the inguinal ligamen t was anesthestized with 1% lidocaine 1-2 cc's and a needle was passed into the femoral mac ry without difficulty. A guide wire was passed and a 12 cm 20 gauge arterial line was passe d into the artery and secured in place with a suture. Complications: The patient tolerated the procedure well there were no complications. EBL: <1cc ANDREA RICH MD 09/02/20128:34 PM documente d in this encounter Consult Notes Ernestine Madrigal MD - 09/02/2012 7:01 PM PSTFormatting of this note might be different f rom the original. Consult* by Ernestine Madrigal MD at 09/02/121900 Author: Ernestine Madrigal MD Service: (none) Author Type: Physician Filed: 09/02/121928 Date of Service: 09/02/121900 Status: Signed Guest Specialist: Ernestine Madrigal MD (Physician) [facility] Service: Infectious Disease Initial Consult Note Date of Admission: 09/02/2012 Reason for Consultation: Necrotizing fasciitis Requesting Physician: Dr. Rich, Aluminum Polisher History Obtained From: patient, family member - sister , daughter, chart review, CHIEF COMPLAINT: Pain in right leg and difficulty walking HISTORY OF PRESENT ILLNESS The patient is a 42 y.o. female with significant past medical history of Insulin-dependen t diabetes mellitus who presents with 5 day history of worsening right leg pain beginning w ith buttock pain Thursday. Symptoms developed after her previous night some very rough sex, both vaginal and anal. Primary pain was in the buttock. She was seen by primary care phys bret and sciatic pain with suspected. Pain was treated with usual anti-inflammatories but symptoms progressed. She was seen in the emergency department yesterday and the clinical im pression was that of a musculoskeletal strain. Today she was seen by her primary care physi laci however the patient fell in the parking lot while making her way to the car. For this injury she was sent back to the emergency department where a further workup raised significa nt concern revealing gas in the right calf soft tissues. X-rays were obtained for the traum a but clearly this showed light as to patient's pre-existing right buttock and progressive r ight leg pain. No skin injuries are seen but there is faint redness tenderness and suggesti ve of some deep crepitance consistent with gas in the soft tissues at the level of the fasci a. Has per sister, there has been previous history of use of foreign objects for insertion wit h both vaginal and anal sex. Patient gives history of unintentional weight loss of 60 pounds in the last 6 months Apparently patient has also suffered from oral thrush and vaginitis. There is no long-term use of antibiotics, although sister states that patient uses a big li st of medications. There is also history of her almost chronic diarrhea. REVIEW OF SYSTEMS Review of Systems Constitutional: Positive for chills, diaphoresis, activity change, appetite change, fatigue and unexpected weight change. HENT: Negative. Negative for congestion. Previous history of thrush at least twice Eyes: Negative. Respiratory: Negative. Cardiovascular: Negative. Leg swelling present especially on the right side in the last few days only Gastrointestinal: Positive for diarrhea. Negative for nausea, vomiting and abdominal pain. Genitourinary: Positive for vaginal pain and pelvic pain. History of vaginitis Musculoskeletal: Positive for gait problem. Neurological: Negative. Hematological: Negative. Psychiatric/Behavioral: Negative. No past medical history on file. No past surgical history on file. Allergies Allergen Reactions Codeine Rash Hydrocodone Rash Milk-Related Compounds Rash Morphine Rash Sulfa Drugs Cross Reactors Rash Tape (Adhesive Tape) Rash Prescriptions prior to admission Medication Sig Dispense Refill acyclovir (ZOVIRAX) 400 MG tablet Take 400 mg by mouth every 8 (eight) hours. amoxicillin-clavulanate (AUGMENTIN) 875-125 MG per tablet Take 1 tablet by mouth 2 (two ) times daily. benztropine (COGENTIN) 1 MG tablet Take 1 mg by mouth 2 (two) times daily. cyclobenzaprine (FLEXERIL) 10 MG tablet Take 10 mg by mouth 3 (three) times daily as ne eded. diclofenac (CATAFLAM) 50 MG tablet Take 50 mg by mouth 2 (two) times daily. DULoxetine (CYMBALTA) [address] capsule Take 60 mg by mouth daily. esomeprazole (NEXIUM) 20 MG capsule Take 20 mg by mouth every morning before breakfast. gabapentin (NEURONTIN) 300 MG capsule Take 300 mg by mouth 3 (three) times daily. hydrOXYzine (ATARAX) 25 MG tablet Take 25 mg by mouth every 6 (six) hours as needed. insulin NPH (HUMULIN N,NOVOLIN N) 100 UNIT/ML injection Inject 30 Units into the skin 2 (two) times daily before meals. levothyroxine (SYNTHROID, LEVOTHROID) 125 MCG tablet Take 125 mcg by mouth daily. oxycodone-acetaminophen (PERCOCET) 10-325 MG per tablet Take 1 tablet by mouth every 4 (four) hours as needed. pramipexole (MIRAPEX) 1.5 MG tablet Take 3 mg by mouth nightly. pravastatin (PRAVACHOL) 20 MG tablet Take 20 mg by mouth daily. trazodone (DESYREL) 100 MG tablet Take 100 mg by mouth nightly. Scheduled Medications chlorhexidine gluconate 15 mL Mouth/Throat Q12H clindamycin 600 mg Intravenous Q8H fentaNYL heparin (porcine) 5,000 Units Subcutaneous Q8H insulin regular 1 unit/mL 1-50 Units Intravenous Bolus from Bag omeprazole 20 mg Oral QAM AC Or pantoprazole 40 mg Intravenous QAM AC piperacillin-tazobactam 4.5 g Intravenous Q6H sodium chloride vancomycin 18 mg/kg Intravenous Q12H Continuous Infusions insulin regular 1 unit/mL 18 Units/hr (09/02/12 1838) sodium chloride 110 mL/hr at 09/02/12 1749 sodium chloride 30 mL/hr at 09/02/12 1837 PRN Medications acetaminophen, acetaminophen, dextrose, iopamidol, lip moisturizer, magnesium sulfate, magn esium sulfate, magnesium sulfate, nystatin, nystatin, ondansetron, ondansetron, potassium ch loride, potassium chloride, potassium chloride, sodium phosphate IVPB 20 mmol, sodium phosph ate IVPB 45 mmol, white petrolatum No family history on file. History Social History Marital Status: Spouse Name: N/A Number of Children: N/A Years of Education: N/A Occupational History Not on file. Social History Main Topics Smoking status: Current Everyday Smoker -- 1.0 packs/day for 5 years Smokeless tobacco: Not on file Alcohol Use: No Drug Use: Sexually Active: Yes Other Topics Concern Not on file Social History Narrative No narrative on file PHYSICAL EXAM Vital Signs: BP 154/72 | Pulse 109 | Temp(Src) 98.1 F (36.7 C) (Oral) | Resp 18 | Ht 1.575 m (5' 2") | Wt 112 kg (246 lb 14.6 oz) | BMI 45.16 kg/m2 | SpO2 95% | ? No Temp: [98.1 F (36.7 C)] 98.1 F (36.7 C) (09/02 1614) BP: (123-166)/(57-108) 154/72 mmHg (09/02 1844) Heart Rate: [109-119] 109 (09/02 1844) Resp: [18] 18 (09/02 1614) SpO2: [90 %-97 %] 95 % (09/02 1844) Height: [157.5 cm (5' 2")] 157.5 cm (5' 2") (09/02 1614) Weight: [112 kg (246 lb 14.6 oz)] 112 kg (246 lb 14.6 oz) (03/07 1615) BMI (Calculated): [45.3] 45.3 (09/02 1615) Physical Exam Vitals reviewed. Constitutional: She is oriented to person, place, and time. She appears well-developed and well-nourished. HENT: Right Ear: External ear normal. Left Ear: External ear normal. Mouth/Throat: Oropharynx is clear and moist. Tongue dry Eyes: Conjunctivae are normal. No scleral icterus. Neck: Neck supple. Cardiovascular: Normal heart sounds. No murmur heard. Pulmonary/Chest: Breath sounds normal. She has no wheezes. She has no rales. Abdominal: Soft. Bowel sounds are normal. There is no tenderness. There is no rebound. Genitourinary: Vagina normal. No vaginal discharge found. Musculoskeletal: She exhibits edema and tenderness. Erythema present over the right lower extremity. Intensity of the erythema not signifi cant. Crepitus felt. Significant tenderness out of proportion to the erythema. Induration pr esent in certain areas. Findings extend from ankle up to hip. No ankle joint swelling or knee joint swelling but there is pain on passive movement of the joints. Neurological: She is alert and oriented to person, place, and time. Skin: Skin is warm. No rash noted. There is erythema. Psychiatric: She has a normal mood and affect. DATA CBC: Lab Results Component Value Date WBC 6.4 09/02/2012 RBC 4.63 09/02/2012 HGB 13.4 09/02/2012 HCT 41.0 09/02/2012 MCV 88.4 09/02/2012 MCH 28.8 09/02/2012 MCHC 32.6 09/02/2012 RDW 39.8 09/02/2012 PLT 139* 09/02/2012 MPV 9.6 09/02/2012 DIFFTYPE MANUAL 09/02/2012 Value Flag Range SODIUM 134 L 135 - 143 mmol/L Comments: [place] [facility] [place] [address] POTASSIUM 3.0 L 3.5 - 4.9 mmol/L Comments: [place] [facility] [place] [address] CHLORIDE 96 L 99 - 109 mmol/L Comments: [place] [facility] [place] [address] CO2 22 L 23 - 32 mmol/L Comments: [place] [facility] [place] [address];[place] [address] ANION GAP AGAP 18 5 - 20 mmol/L Comments: [place] [facility] [place] [address] GLUCOSE 336 H 65 - 99 mg/dL Comments: [place] [facility] [place] [address];[place] [address] BUN 11 8 - 25 mg/dL Comments: [place] [facility] [place] [id number] CREATININE 0.89 0.50 - 1.00 mg/dL Comments: [place] [facility] [place] [address];[place] [address] BUN/CREAT 13 Comments: [place] [facility] [place] [address] CALCIUM 9.8 8.5 - 10.2 mg/dL Comments: [place] [facility] [place] [address];[place] [address] EGFR >60 >60 mL/min/1.73m2 Comments: Radiology Review: IMPRESSION: 1. Severe necrotizing fasciitis extending from the right ankle to the right iliac crest. The air is seen circumferentially and below the knee involving the deep subcutaneous fascia. Above the knee the air is noted in all 3 compartments but predominantly the posterior comp artment. Findings were reviewed with Dr. Rich in person at 09/02/2012 5:57 PM. 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 Plan for debridement soon. Or cultures to be sent With recent insertion of foreign objects into anal /vaginal area -Need to look for portal o f entry from pelvis. I suggest computed tomography scan of the pelvis to be completed Patient will need a colonoscopy After acute issues have resolved,as possibility of maligna ncy associated with secondary seeding with clostridial species hematogenously. Usually this would be Clostridium septicum. Her significant weight loss in the last few months also seems to suggest possibility of an underlying malignancy or chronic debilitating condition And also workup for immune compromised status including human immunodeficiency virus due to previous history of thrush vaginitis without use of long-term antibiotics. Also she seems to have risk factors for this. DKA Defer to primary team for management Important and resolution of infection Case discussed with Dr.hoekema Dr. Clements will be on ID hospital service from tomorrow. Code Status: Full Code Primary Care Physician: No primary provider on file. Thank you for allowing me to participate in the care of this patient. I will continue to follow with you. Ernestine Madrigal MD 09/02/2012 doculeena soto in this encounter Miscellaneous Notes Op Note - Pallavi Condon MD - 09/03/2012 6:01 PM PSTFormatting of this note might be diffe rent from the original. Op Note by Pallavi Condon MD at 09/03/12 1801 Author: Pallavi Condon MD Service: General Surgery Author Type: Physician Filed: 09/17/12 0947 Date of Service: 09/03/12 180 Status: Addendum Guest Specialist: Pallavi Condon MD (Physician) Related Notes: Original Note by Pallavi Condon MD (Physician) filed at 09/10/12 4599 [facility] Service: General Surgery Operative Note Date of Surgery: 09/02/2012 Pre-operative Diagnosis: Necrotizing fasciitis of the right leg Post-operative Diagnosis: Same Procedure(s): Incision, debridement irrigation and placement of a VAC-15 cm x 3cm, 28 cm x 6 cm and 20 cm x 6 cm. Surgeon: PALLAVI CONDON MD Whiskey Filterer(s): none Anesthesiologist: Carolee Kumar MD Anesthesia: General endotrachial anesthesia Estimated Blood Loss: 150 mL Drains: VAC dressings x3 Indications: Sepsis, cellulitis, extensive air at the level of the fascia to the entire le ngth of the right leg, right perineum and ischiorectal space. Findings: Necrotizing fascia investing the hamstring muscles and the investing fascia of t he calf gastrocnemius and soleus Complications: None Description of Procedure: This patient had a central line and left femoral A-line placed b y the intensivists prior to her arrival in the operating room. She was awake and appropriat e able to answer questions prior to rolling back to the operating room. Condition was known to be life threatening although patient was hemodynamically stable and not on pressors. Th e general endotracheal tube anesthesia was established without difficulty. Time out was per formed the patient was positioned first in the lithotomy. The CT scan was interrogated clos camryn. There was a pocket of gas within the soft tissue in the right ischial rectal space. T his was suspected as being the source. Patient's perineum was prepped and draped in the usua l fashion. There was no obvious erythema or induration in the right perineum that there was slight swelling in the right buttock slightly cephalad of the anus. A curvilinear incision was made just to the lateral aspect of the right labia majora. This was carried down to de ep subcutaneous tissue. No gross abnormalities were encountered. Issue rectal space was en tered well inside the ischial and posterior to the pubic ramus. No necrosis, no pus no foul smell was encountered in this area. No obvious injury to the rectum. This area was latera l stability the base of the bladder and there before lateral to the Ruiz catheter balloon. This area was irrigated with pulse lavage x3 L of normal saline. Hemostasis was achieved w ith electrocautery and a few selected stick ties of 2-0 Vicryl. A VAC foam was placed in th is area and a good seal achieved. Patient was then repositioned to the prone position by fl ipping her to a second operating table for access to the posterior right leg and right lower leg. Once again the CT was examined the plan the approach to this area. Primary area of involvement appeared to be the hamstring muscle group which had air through out the muscle group both; surrounding and in between the individual muscles. A midline luisa hammond was taken opening a 20 cm incision sparing the knee and popliteal fossa. This was car ried down to subcutaneous tissue with electrocautery. Once the investing fascia of the musc le group was encountered there was a foul-smelling and turbid, and dishwater-colored drainag e was encountered. No gross pus. This fascia appeared necrotic. Bilateral subcutaneous ti ssue flaps were raised at the level of the fascia and the fascia was excised (25cm x 12cm). This exposed healthy appearing muscle. Individual muscle bundles were were blunt ly with minimal trauma. The sciatic nerve and deep vessels were not fully exposed at this t arsenio. Once all grossly necrotic tissue had been removed attention was turned to the lower le g. On the lower leg the primary area of suspicion based on the CT was lateral. A long 28 cm lateral incision was made on the calf. This too was carried down through subc utaneous tissue encountering foul-smelling fasciitis of the lower leg. Once again the chris sly involved fascia was excised (32cm x 12cm) exposing the viable appearing muscle. There w as no residual pus to follow however I am sure that the gas extended beyond the area of diss ection. Once adequate hemostasis had been achieved both wounds were irrigated with sterile normal saline totaling 6 L. VAC sponges were then placed in both wounds partially undermini ng the area of skin so that the maximal deep wound drainage was achieved during the early st ages of this patient's Intensive Care Unit stay. The 3 areas of VAC drainage were connected to a single VAC machine by bridging the right leg wounds together and then aligning the per ineum was right leg wounds so that full vacuuming could be achieved with 2 track pad sets. Good seal was achieved. Total area of the wound VAC was 15 cm x 3 cm in the perineum, 28 cm x 6 cm in the right lower leg, and 20 cm x 6 cm on the posterior thigh down. Muscle was no t removed during this dissection nor was any skin excised. Patient remained hemodynamically stable during her procedure. Pressures were not required and she was extubated prior to tr ansfer back to the intensive care unit. Condition: Stable to PACU PALLAVI CONDON MD 09/03/2012 6:01 PM p Note - Benoit Condon MD - 09/03/2012 12:30 AM PST Brief Op Note by Pallavi Condon MD at 09/03/12 0030 Author: Pallavi Condon MD Service: General Surgery Author Type: Physician Filed: 09/03/12 0034 Date of Service: 09/03/1229 Status: Signed Guest Specialist: Pallavi Condon MD (Physician) [facility] Service: General Surgery Operative Note Date of Surgery: 09/02/2012 Pre-operative Diagnosis: Necrotizing fasciitis of the right leg Post-operative Diagnosis: Same Procedure(s): Incision, debridement irrigation and placement of a VAC-15 cm, 28 cm and 20 cm Surgeon: PALLAVI CONDON MD Whiskey Filterer(s): none Anesthesiologist: Carolee Kumar MD Anesthesia: General endotrachial anesthesia Estimated Blood Loss: 150 mL Drains: VAC dressings x3 Indications: Sepsis, cellulitis, extensive air at the level of the fascia to the entire le ngth of the right leg, right perineum and ischiorectal space. Findings: Necrotizing fascia investing the hamstring muscles and the investing fascia of t he calf gastrocnemius and soleus Complications: None Condition: Stable to PACU PALLAVI CONDON MD 09/03/2012 12:30 AM documented in this enc ounter Plan of Treatment +--------+---------+ + + + | Date | Type | Specialty | Care Team | Description | +--------+---------+ + + + | 01/09/ | Office | Internal Medicine | Stef, | | | 2019 | Visit | | MD Quynh | | | | | | [address] [facility] | | | | | | [place] [address] | | | | | | [phone] | | | | | | | | +--------+---------+ + + + documented as of this encounter Procedures + +--------+ + + + | Procedure Name | Priori | Date/Time | Associated Diagnosis | Comments | | | ty | | | | + +--------+ + + + | XR CHEST 1 VIEW | Routin | 09/03/2012 | | Results for this | | | e | 7:25 AM | | procedure are in the | | | | PST | | results section. | + +--------+ + + + | CULTURE, BLOOD | Timed | 09/03/2012 | | Results for this | | | | 1:33 AM | | procedure are in the | | | | PST | | results section. | + +--------+ + + + | XR CHEST 1 VIEW | Routin | 09/03/2012 | | Results for this | | | e | 12:48 AM | | procedure are in the | | | | PST | | results section. | + +--------+ + + + | GRAM STAIN, REFLEX | Timed | 09/03/2012 | | Results for this | | SPUTUM CULTURE | | 12:30 AM | | procedure are in the | | | | PST | | results section. | + +--------+ + + + | CULTURE, ANAEROBIC | Routin | 09/02/2012 | | Results for this | | | e | 9:55 PM | | procedure are in the | | | | PST | | results section. | + +--------+ + + + | CULTURE, BLOOD, 2ND | Timed | 09/02/2012 | | Results for this | | SPECIMEN (NON-ORD) | | 6:36 PM | | procedure are in the | | | | PST | | results section. | + +--------+ + + + | CT LOWER EXTREMITY | Routin | 09/02/2012 | | Results for this | | RIGHT W CONTRAST | e | 5:38 PM | | procedure are in the | | | | PST | | results section. | + +--------+ + + + | XR CHEST 1 VIEW | Routin | 09/02/2012 | | Results for this | | | e | 5:26 PM | | procedure are in the | | | | PST | | results section. | + +--------+ + + + | CULTURE, BLOOD | Timed | 09/02/2012 | | Results for this | | | | 5:05 PM | | procedure are in the | | | | PST | | results section. | + +--------+ + + + | MRSA NAAT | Timed | 09/02/2012 | | Results for this | | | | 4:50 PM | | procedure are in the | | | | PST | | results section. | + +--------+ + + + documented in this encounter Results XR Chest 1 Vw (09/03/2012 7:25 AM PST) + + | Specimen | + + | | + + + + + | Narrative | Performed At | + + + | HISTORY: Evaluate tubes and lines. 09/03/12 A single frontal | | | view of the chest. COMPARISON: None FINDINGS: . Portable | | | AP semierect film the chest at 0720 hrs again demonstrates a normal | | | cardiac silhouette. The ET tube, NG tube, right IJ central line | | | remain in place. Right IJ central line tip is inside the right | | | atrium, and should be retracted approximately 5 cm. Persistent | | | bilateral perihilar infiltrates, improved. No effusions. No | | | pneumothorax. IMPRESSION: 1. Persistent bilateral perihilar | | | infiltrates, improving. 2. Stable tubes and lines. 3. Right IJ | | | central line tip is inside the right atrium. This should be | | | retracted approximately 5 cm. Above 20's were called to the ICU and | | | discussed with patient's nurse Bennett at 8:25 a.m. date of study. | | | | | + + + + + | Procedure Note | + + | Zain, Rad Conversion - 02/18/2019 5:35 PM PDT HISTORY:Evaluate tubes and lines. | | 09/03/12 A single frontal view of the chest. COMPARISON:None FINDINGS:. Portable AP | | semierect film the chest at 0720 hrs again demonstrates a normal cardiac silhouette. | | The ET tube, NG tube, right IJ central line remain in place. Right IJ central line tip | | is inside the right atrium, and should be retracted approximately 5 cm. Persistent | | bilateral perihilar infiltrates, improved. No effusions. No pneumothorax. | | IMPRESSION:1. Persistent bilateral perihilar infiltrates, improving.2. Stable tubes | | and lines.3. Right IJ central line tip is inside the right atrium. This should be | | retracted approximately 5 cm. Above 20's were called to the ICU and discussed with | | patient's nurse Bennett at 8:25 a.m. date of study. | | 5 cm. Persistent bilateral perihilar infiltrates, improved. No effusions. No pneumothora x. | | | |IMPRESSION: | |1. Persistent bilateral perihilar infiltrates, improving. | |2. Stable tubes and lines. | |3. Right IJ central line tip is inside the right atrium. This should be retracted approxi mately 5 cm. Above 20's were called to the ICU and discussed with patient's nurse Bennett castillo 8:25 a.m. date of study. | | | | | + + Culture, Blood (09/03/2012 1:33 AM PST) + + | Specimen | + + | Blood specimen | | (specimen) | + + + + + | Narrative | Performed At | + + + | Specimen Description BLOOD | EXTERNAL LAB | | Testing performed at [facility] | | [facility];[place] [address] CULTURE | | | NO GROWTH IN 5 DAYS. | | | Testing performed at [facility] [facility];[place] [address] | | | REPORT STATUS 09/08/2012 FINAL | | + + + + +---------+ + + | Performing | Address | City/State/Zipcode | Phone Number | | Organization | | | | + +---------+ + + | EXTERNAL LAB | | | | + +---------+ + + XR Chest 1 Vw (09/03/2012 12:48 AM PST) + + | Specimen | + + | | + + + + + | Narrative | Performed At | + + + | [facility] DUONG XR CHEST 1 VIEW 09/03/2012 12:48 AM HISTORY: | | | Intubation. TECHNIQUE: One view of the chest. FINDINGS: | | | Compared with September 02, 2012. The endotracheal tube tip is 1 -- 2 cm | | | above the victorino. The tip of the central line is in the right | | | atrium. No evidence of a pneumothorax. Lung volumes are low this | | | accentuates the cardiac silhouette. There is increasing infiltrate | | | or atelectasis in the left perihilar region. IMPRESSION: 1. | | | Tubes and lines, as above. No evidence of pneumothorax. 2. | | | Increasing left perihilar infiltrate or atelectasis. | | | | | + + + + + | Procedure Note | + + | Sergio Pittman Conversion - 02/18/2019 5:35 PM PDT MITRA S GRASSXR CHEST 1 VIEW09/03/2012 | | 12:48 AM HISTORY:Intubation. TECHNIQUE:One view of the chest. FINDINGS:Compared with | | September 02, 2012. The endotracheal tube tip is 1 -- 2 cm above the victoirno. The tip of the | | central line is in the right atrium. No evidence of a pneumothorax. Lung volumes are | | low this accentuates the cardiac silhouette. There is increasing infiltrate or | | atelectasis in the left perihilar region. IMPRESSION:1. Tubes and lines, as above. No | | evidence of pneumothorax.2. Increasing left perihilar infiltrate or atelectasis. | | | |One view of the chest. | | | |FINDINGS: | |Compared with September 02, 2012. The endotracheal tube tip is 1 -- 2 cm above the victorino. The tip of the central line is in the right atrium. No evidence of a pneumothorax. Lung volum es are low this accentuates the cardiac silhouette. There is | |increasing infiltrate or atelectasis in the left perihilar region. | | | |IMPRESSION: | |1. Tubes and lines, as above. No evidence of pneumothorax. | |2. Increasing left perihilar infiltrate or atelectasis. | | | | | + + Gram Stain, reflex Sputum Culture (09/03/2012 12:30 AM PST) + + | Specimen | + + | Body fluid sample | | (specimen) | + + + + + | Narrative | Performed At | + + + | Specimen Description TRACHEAL ASPIRATE | EXTERNAL LAB | | Testing performed at | | | [facility] [facility];[place] [address] GRAM STAIN | | | GREATER THAN 10 WBCS/LPF | | | LESS THAN 10 SEC/LPF | | | 1+ GRAM POSITIVE COCCI | | | Testing performed at [facility], [address] | | [facility], [place] [address] CULTURE | | | NO GROWTH 2 DAYS | | | Testing performed at [facility], [address] [facility], | | | [place] [address] REPORT STATUS | | | 09/05/2012 FINAL | | + + + + +---------+ + + | Performing | Address | City/State/Zipcode | Phone Number | | Organization | | | | + +---------+ + + | EXTERNAL LAB | | | | + +---------+ + + Culture, Anaerobic (09/02/2012 9:55 PM PST) + + | Specimen | + + | | + + + + + | Narrative | Performed At | + + + | Specimen Description WOUND | EXTERNAL LAB | | Testing performed at [facility] | | [facility];[place] [address] SPECIAL REQUESTS | | | R HAMSTRING | | | Testing performed at [facility] [facility];[place] [address] GRAM STAIN | | | 2+ WBC'S SEEN | | | NO EPITHELIAL CELLS | | | 4+ GRAM POSITIVE COCCI | | | 2+ GRAM NEGATIVE RODS | | | 1+ GRAM POSITIVE RODS | | | Testing performed | | | at [facility], [address] [place] [id number] CULTURE | | | 2+ MIXED GRAM POSITIVE SKIN SHASHANK | | | 2+ MIXED ANAEROBIC | | | SHASHANK NO | | | SUSCEPTIBILITY TO FOLLOW | | | Testing performed at [facility], [address] [place] [address], | | | [place] [address] REPORT STATUS 09/07/2012 | | | FINAL | | + + + + +---------+ + + | Performing | Address | City/State/Zipcode | Phone Number | | Organization | | | | + +---------+ + + | EXTERNAL LAB | | | | + +---------+ + + Culture, Blood, 2nd Specimen (09/02/2012 6:36 PM PST) + + | Specimen | + + | Blood specimen | | (specimen) | + + + + + | Narrative | Performed At | + + + | Specimen Description BLOOD, LINE DRAW | EXTERNAL LAB | | Testing performed at | | | [address];[place] [address] SPECIAL REQUESTS | | | CENTR | | | Testing performed at [facility];[address] [place] [address];[place] [address] | | | CULTURE NO GROWTH IN 5 DAYS. | | | Testing performed | | | at [facility] [place] [address];[place] [address] REPORT STATUS | | | 09/08/2012 FINAL | | + + + + +---------+ + + | Performing | Address | City/State/Zipcode | Phone Number | | Organization | | | | + +---------+ + + | EXTERNAL LAB | | | | + +---------+ + + CT Lower Extremity Right w Contrast (09/02/2012 5:38 PM PST) + + | Specimen | + + | | + + + + + | Narrative | Performed At | + + + | MITRA DUONG CT LOWER EXTREMITY RIGHT W CONTRAST 09/02/2012 5:22 | | | PM HISTORY: 42 years. Female. Rule-out necrotizing fasciitis | | | in the right lower extremity. TECHNIQUE: 5-mm axial contrast | | | enhanced images of the right lower extremity were acquired following | | | the intravenous demonstration of 100 mL of Isovue 300 contrast. | | | COMPARISON: None. FINDINGS: An extensive amount of subcutaneous | | | air highly suggestive of necrotizing fasciitis is seen extending from | | | the right ankle ankle circumferentially along the deep subcutaneous | | | fascia up the leg. Above the level of the knee the air tracks | | | predominately along the fascial planes of the posterior compartment | | | of the thigh involving the biceps femoris, semimembranosus and | | | semitendinosus muscles but to a lesser extent also involves the medial | | | compartment and the anterior compartment of the thigh. The air | | | then extends upward into the hip area involving all of the gluteal | | | muscles but predominantly the gluteus medius muscle. A small amount | | | of air is also tracking along the lateral margin of the anterior | | | compartment of the right thigh at the lateral margin of the vastus | | | lateralis muscle. A few droplets of air are also seen adjacent to | | | the right sartorius muscle in the anterior compartment. The air is | | | tracking into the subcutaneous fat of the medial right buttocks and | | | then up into the pelvis involving the right obturator muscles and | | | right piriformis muscle. A small amount of air is also seen tracking | | | posterior to the right psoas muscle in the pelvis. The air stops at | | | the level of the superior right iliac crest. IMPRESSION: 1. | | | Severe necrotizing fasciitis extending from the right ankle to the | | | right iliac crest. The air is seen circumferentially and below the | | | knee involving the deep subcutaneous fascia. Above the knee the air | | | is noted in all 3 compartments but predominantly the posterior | | | compartment. Findings were reviewed with Dr. Rich in person at | | | 09/02/2012 5:57 PM. Electronically signed by Wojciech hWite DO on | | | 09/02/2012 6:16 PM | | + + + + + | Procedure Note | + + | Zain, Rad Conversion - 02/18/2019 5:35 PM PDT MITRA DUONGCT LOWER EXTREMITY RIGHT | | W CONTRAST09/02/2012 5:22 PM HISTORY:42 years. Female. Rule-out necrotizing fasciitis | | in the right lower extremity. TECHNIQUE:5-mm axial contrast enhanced images of the right | | lower extremity were acquired following the intravenous demonstration of 100 mL of | | Isovue 300 contrast. COMPARISON:None. FINDINGS:An extensive amount of subcutaneous air | | highly suggestive of necrotizing fasciitis is seen extending from the right ankle ankle | | circumferentially along the deep subcutaneous fascia up the leg. Above the level of the | | knee the air tracks predominately along the fascial planes of the posterior compartment | | of the thigh involving the biceps femoris, semimembranosus and semitendinosus muscles | | but to a lesser extent also involves the medial compartment and the anterior compartment | | of the thigh. The air then extends upward into the hip area involving all of the | | gluteal muscles but predominantly the gluteus medius muscle. A small amount of air is | | also tracking along the lateral margin of the anterior compartment of the right thigh at | | the lateral margin of the vastus lateralis muscle. A few droplets of air are also seen | | adjacent to the right sartorius muscle in the anterior compartment. The air is tracking | | into the subcutaneous fat of the medial right buttocks and then up into the pelvis | | involving the right obturator muscles and right piriformis muscle. A small amount of | | air is also seen tracking posterior to the right psoas muscle in the pelvis. The air | | stops at the level of the superior right iliac crest. IMPRESSION:1. Severe necrotizing | | fasciitis extending from the right ankle to the right iliac crest. The air is seen | | circumferentially and below the knee involving the deep subcutaneous fascia. Above the | | knee the air is noted in all 3 compartments but predominantly the posterior compartment. | | Findings were reviewed with Dr. Rich in person at 09/02/2012 5:57 PM. Electronically | | signed by Wojciech White DO on 09/02/2012 6:16 PM | |predominantly the posterior compartment. | | | |Findings were reviewed with Dr. Rich in person at 09/02/2012 5:57 PM. | | | | | + + XR Chest 1 Vw (09/02/2012 5:26 PM PST) + + | Specimen | + + | | + + + + + | Narrative | Performed At | + + + | MITRA DUONG XR CHEST 1 VIEW 09/02/2012 5:04 PM HISTORY: 42 | | | years. Female. Assess line and tube position. TECHNIQUE: 1 | | | view of the chest obtained at 1713 hours. COMPARISON: None. | | | FINDINGS: A right-sided central line has been placed. The tip is in | | | the superior vena cava at the level of the victorino. Overlying EKG | | | leads are noted. The heart is normal in size. The lungs are normally | | | expanded. The pulmonary vascular pattern is normal. No acute | | | airspace disease, parenchymal nodule, mass, pleural effusion or | | | pneumothorax is noted. No hilar adenopathy is seen. The osseous | | | structures are intact. IMPRESSION: 1. Right-sided central line | | | in satisfactory position. No right-sided pneumothorax noted. | | | | | + + + + + | Procedure Note | + + | Sergio Pittman Conversion - 02/18/2019 5:35 PM PDT MITRA Ej DUONGXR CHEST 1 VIEW09/02/2012 | | 5:04 PM HISTORY:42 years. Female. Assess line and tube position. TECHNIQUE:1 view of | | the chest obtained at 1713 hours. COMPARISON:None. FINDINGS:A right-sided central line | | has been placed. The tip is in the superior vena cava at the level of the victorino. | | Overlying EKG leads are noted. The heart is normal in size. The lungs are normally | | expanded. The pulmonary vascular pattern is normal. No acute airspace disease, | | parenchymal nodule, mass, pleural effusion or pneumothorax is noted. No hilar | | adenopathy is seen. The osseous structures are intact. IMPRESSION:1. Right-sided | | central line in satisfactory position. No right-sided pneumothorax noted. | | | |COMPARISON: | |None. | | | |FINDINGS: | |A right-sided central line has been placed. The tip is in the superior vena cava at the le moncho of the victorino. Overlying EKG leads are noted. The heart is normal in size. The lungs a re normally expanded. The pulmonary vascular pattern is normal. No | |acute airspace disease, parenchymal nodule, mass, pleural effusion or pneumothorax is noted . No hilar adenopathy is seen. The osseous structures are intact. | | | |IMPRESSION: | |1. Right-sided central line in satisfactory position. No right-sided pneumothorax noted. | | | | | + + Culture, Blood (09/02/2012 5:05 PM PST) + + | Specimen | + + | Blood specimen | | (specimen) | + + + + + | Narrative | Performed At | + + + | Specimen Description BLOOD, LINE DRAW | EXTERNAL LAB | | Testing performed at | | | [address] [address] SPECIAL REQUESTS | | | CENTR | | | Testing performed at [facility];[address] [place] [address];[place] [address] | | | CULTURE NO GROWTH IN 5 DAYS. | | | Testing performed | | | at [facility] [place] [address];[place] [address] REPORT STATUS | | | 09/08/2012 FINAL | | + + + + +---------+ + + | Performing | Address | City/State/Zipcode | Phone Number | | Organization | | | | + +---------+ + + | EXTERNAL LAB | | | | + +---------+ + + MRSA NAAT (09/02/2012 4:50 PM PST) + + | Specimen | + + | | + + + + + | Narrative | Performed At | + + + | SOURCE NARES(NOSE) | EXTERNAL LAB | | Testing performed at [facility];[address] [facility];[place] [address] MRSA PCR | | | NEGATIVE Testing performed at | | | [facility];[address] [facility];[place] [address] | | + + + + +---------+ + + | Performing | Address | City/State/Zipcode | Phone Number | | Organization | | | | + +---------+ + + | EXTERNAL LAB | | | | + +---------+ + + documented in this encounter Visit Diagnoses + + | Diagnosis | + + | Necrotizing fasciitis (HCC) Necrotizing fasciitis | + + | SONIA (obstructive sleep apnea) Obstructive sleep apnea (adult) (pediatric) | + + | Poorly controlled type 2 diabetes mellitus with hyperosmolarity (HCC) Type II or | | unspecified type diabetes mellitus with hyperosmolarity, uncontrolled | + + | Septic shock (HCC) | + + | Transaminitis Nonspecific elevation of levels of transaminase or lactic acid | | dehydrogenase (LDH) | + + | Current smoker Tobacco use disorder | + + | DKA (diabetic ketoacidoses) ([facility]) Type II or unspecified type diabetes mellitus with | | ketoacidosis, not stated as uncontrolled | + + | DM (diabetes mellitus) ([facility]) Type II or unspecified type diabetes mellitus without | | mention of complication, not stated as uncontrolled | + + | HLD (hyperlipidemia) Other and unspecified hyperlipidemia | + + | Hypotension Hypotension, unspecified | + + | Leukocytosis Leukocytosis, unspecified | + + | Abnormal coagulation profile | + + | Hypothyroid Unspecified hypothyroidism | + + documented in this encounter
--- OUTSIDE RECORDS SUMMARY | ~2019-12-24 | XMS | Encounter Summary ---
Demographics + + + | Address | [address] | | | [place] [address] | + + + | Home Phone [...] | Author | [facility] | | | and [...] [place], | | | | | [place] [address] | | + + + + + | Mahogany Farnsworth | ECON | [address] | | | | | [place] [address] | | + + + + + Care Team Providers + +------+ + | Care Printed Circuit Boards Router Name | Role | Phone | + [...] Description | +--------+--------+ + + + | 03/14/ | Refill | [facility] | Stef, | Medication Refill | | 2019 | | MEDICINE [address] | MD Quynh | | | | | [place], | [address] [facility] | | | | | [place] [address] | [place] [address] | | | | | [phone] | [phone] | | | | | | | [...] Quynh | | | | | | [address] [place] [address] | | | | | | [place] [address] | | | | | | [phone] | | | | | | | [...]
--- OUTSIDE RECORDS SUMMARY | ~2019-12-24 | XMS | Encounter Summary ---
Demographics + + + | Address | [address] | | | [place] [address] | + + + | Home Phone | | + + + | Preferred Language | Unknown | + + + | Marital Status | | + + + | Confucianism Affiliation | 1013 | + + + | Race | Unknown | + + + | Ethnic Group | Unknown | + + + Author + + + | Author | [facility] | | | and [place] | + + + | Organization | [facility] | | | [...] [place], | | | | | [place] [address] | | + + + + + | Mahogany Farnsworth | ECON | [address] | | | | | [place] [address] | | + + + + + Care Team Providers + +------+ + | Care Sweatband Shaper Name | Role | Phone | + +------+ + | Jason Pink | PCP | | | MD | | | + +------+ + Encounter Details +--------+ + + + + | Date | Type | Department | Care Team | Description | +--------+ + + + + | 10/28/ | Hospital | [facility] | Joesph Jason | | | 2012 | Encounter | MED CTR LABORATORY | MD Jeronimo | | | | | [address] | [address] [place] [address] | | | | | [place] | [place], | | | | | [address] | [place] [address] | | | | | [phone] | [phone] | | | | | | | [...] | | | | | [place] [address] | | | | | | [phone] | | | | | | | | +--------+---------+ + + + documented as of this encounter Procedures + +--------+ + + + | Procedure Name | Priori | Date/Time | Associated Diagnosis | Comments | | | ty | | | | + +--------+ + + + | JOE FAJARDO, | Routin | 10/28/2012 | | Results for this | | SMEAR | e | 7:37 PM | | procedure are in the | | | | PDT | | results section. | + +--------+ + + + | CULTUREJOE, | Routin | 10/28/2012 | | Results for this | | SMEAR | e | 7:36 PM | | procedure are in the | | | | PDT | | results section. | + +--------+ + + + | CULTUREJOE, | Routin | 10/28/2012 | | Results for this | | SMEAR | e | 7:35 PM | | procedure are in the | | | | PDT | | results section. | + +--------+ + + + | CULTURE, WOUND, | Routin | 10/28/2012 | | Results for this | | SMEAR | e | 7:27 PM | | procedure are in the | | | | PDT | | results section. | + +--------+ + + + documented in this encounter Results Culture, Wound, Smear (10/28/2012 7:37 PM PDT) + + + + + + | Component | Value | Ref Range | Performed | Pathologist | | | | | At | Signature | + + + + + + | Culture | NO WBC's SEEN | | [facility] | | | Result | RARE GRAM POS COCCI | | [facility] | | | | RARE GRAM NEG BACILLI | | MEDICAL | | | | | | CENTER - | | | | | | LABORATORY | | + + + + + + | CULTURE | ENTEROCOCCUS | | [facility] | | | BACTERIA | FAECIUM.INFECTION | | [facility] | | | WOUND | PREVENTION ALERT - | | MEDICAL | | | | VREVancomycin | | CENTER - | | | | resistant enterococci | | LABORATORY | | | | are bacteriaCONTACT | | | | | | PRECAUTIONS are required | | | | | | forEnterococcus faecium | | | | | | and | | | | | | Enterococcusfaecalis | | | | | | resistant to | | | | | | Vancomycin.that can be | | | | | | colonizers in the human | | | | | | intestinesand in the | | | | | | female genital tract and | | | | | | are oftenfound in the | | | | | | environment. Most VRE | | | | | | infectionsoccur in | | | | | | hospitals and cause | | | | | | infections of theurinary | | | | | | tract, the bloodstream, | | | | | | or of woundsassociated | | | | | | with catheters or | | | | | | surgicalprocedures. | | | | | | Laboratory testing of | | | | | | the VRE willdetermine | | | | | | which antibiotics are | | | | | | effective.Comment: | | | | | | SYN-S: Susceptible | | | | | | result indicates synergy | | | | | | is likely with a | | | | | | susceptible penicillin | | | | | | or a susceptible | | | | | | glycopeptide SYN-R: | | | | | | Resistant result | | | | | | indicates synergy is not | | | | | | likely PHONED | | | | | | REPORT TO SHANT | | | | | | 11/02/12 @ 9766 by | | | | | | WESSMA | | | | + + + + + + + + | Specimen | + + | | + + + + + + + | Performing | Address | City/State[facility] | Phone Number | | Organization | | | | + + + + + | [facility] | [address] | [place] | [phone] | | [facility] | | [address] | | | - LABORATORY | | | | + + + + + | [facility] | [address] | [place], [place] | | | [facility] | | [address] | | | - LABORATORY | | | | + + + + + Culture, Wound, Smear (10/28/2012 7:36 PM PDT) + + + + + + | Component | Value | Ref Range | Performed | Pathologist | | | | | At | Signature | + + + + + + | Culture | RARE EPITHELIAL | | [facility] | | | Result | CELLS/HPFNO WBC's | | [facility] | | | | SEENRARE GRAM NEG | | MEDICAL | | | | BACILLIComment: SEE | | CENTER - | | | | [id number] CULTURE #1 FOR | | LABORATORY | | | | WORK UP OF ORGANISM | | | | + + + + + + + + | Specimen | + + | | + + + + + + + | Performing | Address | City/State/Zipcode | Phone Number | | Organization | | | | + + + + + | [facility] | [address] | [place], [place] | [phone] | | [facility] | | [address] | | | - LABORATORY | | | | + + + + + | [facility] | [address] | [place], [place] | | | [facility] | | [address], [facility] | | | - LABORATORY | | | | + + + + + Culture, Wound, Smear (10/28/2012 7:35 PM PDT) + + + + + + | Component | Value | Ref Range | Performed | Pathologist | | | | | At | Signature | + + + + + + | Culture | NO WBC's SEENNO | | [facility] | | | Result | ORGANISMS SEENComment: | | [facility] | | | | SEE [id number] CULTURE #1 FOR | | MEDICAL | | | | WORK UP OF ORGANISM | | CENTER - | | | | | | LABORATORY | | + + + + + + + + | Specimen | + + | | + + + + + + + | Performing | Address | City/State/Zipcode | Phone Number | | Organization | | | | + + + + + | [facility] | [address] | [place], [place] | [phone] | | [facility] | | [address] | | | - LABORATORY | | | | + + + + + | [facility] | [address] | [place], [place] | | | [facility] | | [address], [facility] | | | - LABORATORY | | | | + + + + + Culture, Wound, Smear (10/28/2012 7:27 PM PDT) + + + + + + | Component | Value | Ref Range | Performed | Pathologist | | | | | At | Signature | + + + + + + | Culture | RARE WBC/HPF | | [facility] | | | Result | NO ORGANISMS SEEN | | [facility] | | | | | | MEDICAL [...] + | [facility] | [address] | [place], [place] | [phone] | | [facility] | | [address] | | | - LABORATORY | | | | + + + + + | [facility] | [address] | [place], [place] | | | [facility] | | [address], [facility] | | | - LABORATORY | | | | + + + + + documented in this encounter Visit Diagnoses Not on filedocumented in this encounter"
--- OUTSIDE RECORDS SUMMARY | ~2019-12-24 | XMS | Encounter Summary ---
Demographics + + + | Address | [address] | | | [place] [address] | + + + | Home Phone | | + + + | Preferred Language | Unknown | + + + | Marital Status | | + + + | Episcopalian Affiliation | 1013 | + + + | Race | Unknown | + + + | Ethnic Group | Unknown | + + + Author + + + | Author | [facility] | | | and [place] | + + + | Organization | [facility] | | | and [place] | + + + | Address | Unknown | + + + | Phone | Unavailable | + + + Support + + + + + | Name | Relationship | Address | Phone | + + + + + | Iwona L Head | ECON | [place], | | | | | [place] [address] | | + + + + + | Mahogany Farnsworth | ECON | [address] | | | | | [place] [address] | | + + + + + Care Team Providers + +------+ + | Care Microsoft Bi Architect Name | Role | Phone | + [...] Description | +--------+--------+ + + + | 11/19/ | Refill | [facility] | Stef, | Medication Refill | | 2017 | | MEDICINE [address] | MD Quynh | | | | | [place], | [address] [facility] | | | | | [place] [address] | [place] [address] | | | | | [phone] | | | | | | | [...] 01/09/ | Office | Internal Medicine | St[place], | | | 2019 | Visit | | MD Quynh | | | | | | [address] [place] [address] | | | | | | [place] [address] | | | | | | [phone] | | | | | | | [...]
--- OUTSIDE RECORDS SUMMARY | ~2019-12-24 | XMS | Encounter Summary ---
Demographics + + + | Address | [address] | | | [place] [address] | + + + | Home Phone [...] | Author | [facility] | | | and [place] [...] [place], | | | | | [place] [address] | | + + + + + | Mahogany Navarro [place] | ECON | [address] | | | | | [place] [address] | | + + + + + Care Team Providers + +------+ + | Care Olive Brine Tester Name | Role | Phone | + +------+ + | Quynh Finch | PCP | | | MD | | | + +------+ + Reason for Visit + +--------+ + | Reason | Onset | Comments | | | Date | | + +--------+ + | Lab Results | 07/30/ | | | | 2018 | | + +--------+ + Encounter Details +--------+ + + + + | Date | Type | Department | Care Team | Description | +--------+ + + + + | 07/30/ | Telephone | [facility] | Stef, | Lab Results | | 2018 | | MEDICINE [address] | MD Quynh | | | | | [place], | [address] [facility] | | | | | [place] [address] | [place] [address] | | | | | [phone] | | | | | | | [...] Telephone Encounter - Vera Solis LPN - 07/30/2018 5:05 PM PSTLabs reviewed at office v isianna yesterday elephone Encounter - FreeVera LPN - 07/30/2018 5:05 PM PST----- Message from Quynh Kulkarni MD sent at 07/21/2018 15:51 PST ----- Labs show very uncontrolled [...] | | | | | | [place] [address] | | | | | | [phone] | | | | | | | [...]
--- OUTSIDE RECORDS SUMMARY | ~2019-12-24 | XMS | Encounter Summary ---
Demographics + + + | Address | [address] | | | [place] [address] | + + + | Home Phone [...] | Author | [facility] | | | and [...] [place], | | | | | [place] [address] | | + + + + + | Mahogany Farnsworth | ECON | [address] | | | | | [place] [address] | | + + + + + Care Team Providers + +------+ + | Care Chemical Processing Supervisor Name | Role | Phone | + +------+ + | Quynh Finch | PCP | | | MD | | | + +------+ + Encounter Details +--------+ + + + + | Date | Type | Department | Care Team | Description | +--------+ + + + + | 09/21/ | Hospital | [facility] | Ryan-Tajti, | Acquired | | 2018 | Encounter | MED CTR ULTRASOUND | MD Quynh | hypothyroidism; | | | | [address] [place] | [address] [place] | Thyroid nodule | | | | [place], [place] | [place] [address] | | | | | [address] | [phone] | | | | | [phone] | | | +--------+ + + + [...] 1 tablet by | | 0 | /14/20 | | | (PHENERGAN) 25 mg | [...] + +---------+ + + | amitriptyline | Take 1 tablet by | 30 | 3 | 07/15/19 | | | (ELAVIL) 25 mg | mouth nightly for 3 | tablet | | 19 | 9 | | tabletIndications: | days. | | | | | | Chronic pain | | | | | | | syndrome | | | | | | + + + +---------+ + + | ARIPiprazole | TAKE ONE TABLET BY | 30 | 5 | 08/11/19 | | | (ABILIFY) 5 mg | MOUTH AT BEDTIME | tablet | | 19 | 9 | | tablet | | | | | | + + + +---------+ + + | atorvaSTATin | Take 1 tablet by | 30 | 11 | 07/29/19 | | | (LIPITOR) 40 mg | mouth nightly. | tablet | | 19 | 9 | | tabletIndications: | | | | [...] + +---------+ + + | | Take one tablet by | 60 | 4 | 02/19/20 | | | diphenoxylate-atropi | mouth twice daily | tablet | | 18 | 9 | | ne (LOMOTIL) | | | | | | | 2.5-0.025 mg per | | | | | | | tablet | | | | | | + + + +---------+ + + | DULoxetine | TAKE ONE CAPSULE BY | 30 | 5 | 08/11/19 | | | (CYMBALTA) [address] | MOUTH ONE TIME DAILY | capsule | | 19 | 9 | | capsule | | | | [...] TAKE ONE CAPSULE BY | 120 | 4 | 08/24/19 | | | (NEURONTIN) 300 mg | MOUTH FOUR TIMES | capsule | | 19 | 9 | | capsule | DAILY | | | | | + + + +---------+ + + | insulin aspart | Inject 10 Units | 27 mL | 3 | 08/26/19 | | | (NOVOLOG FLEXPEN) | under the skin 3 | | | 19 | 9 | | 100 units/mL | times daily (before | | | | | | injection | meals) for 90 days. | | | | | | penIndications: | Max 30 units / day. 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 | | | | | | (HCC) [...] +---------+ + + | levothyroxine | Take one tablet by | 30 | 4 | 07/21/19 | | | (SYNTHROID) 150 mcg | mouth at bedtime | tablet | | 19 | 9 | | tablet | | | | | | + + + +---------+ + + | omeprazole | TAKE ONE CAPSULE BY | 30 | 11 | 08/11/19 | | | (PRILOSEC) 20 mg | MOUTH AT BEDTIME | capsule | | 19 | 9 | | capsule | | | | | | + + + +---------+ + + | pramipexole | TAKE TWO TABLETS BY | 60 | 2 | 07/20/19 | | | (MIRAPEX) 1.5 MG | MOUTH DAILY AT | tablet | | 19 | 9 | | tablet | BEDTIME | | | | | + + + +---------+ + + | QUEtiapine | TAKE ONE TABLET BY | 30 | 2 | 07/20/19 | | | (SEROQUEL) 25 mg | [...] 01/09/ | Office | Internal Medicine | [place], | | | 2019 | Visit | | MD Quynh | | | | | | [address] [place] | | | | | | [place] [address] | | | | | | [phone] | | | | | | | | +--------+---------+ + + + documented as of this encounter Procedures + +--------+ + + + | Procedure Name | Priori | Date/Time | Associated Diagnosis | Comments | | | ty | | | | + +--------+ + + + | US HEAD NECK SOFT | Routin | 09/21/2018 | Acquired | Results for this | | TISSUE | e | 10:08 AM | hypothyroidism | procedure are in the | | | | PDT | Thyroid nodule | results section. | + +--------+ + + + | IMAGING REPORT - | | 09/08/2018 | | Results for this | | EXTERNAL SCAN | | 12:00 AM | | procedure are in the | | | | PDT | | results section. | + +--------+ + + + documented in this encounter Results US Head Neck Soft Tissue (09/21/2018 10:08 AM [...] | | | + +---------+ + + IMAGING REPORT - EXTERNAL SCAN (09/08/2018 12:00 AM PDT) + + + | Narrative | Performed At | + + + | Ordered by an | | | unspecified provider. 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
--- OUTSIDE RECORDS SUMMARY | ~2019-12-24 | XMS | Encounter Summary ---
Demographics + + + | Address | [address] | | | [place] [address] | + + + | Home Phone [...] | Author | [facility] | | | and [...] [place], | | | | | [place] [address] | | + + + + + | Mahogany Navarro [place] | ECON | [address] | | | | | [place] [address] | | + + + + + Care Team Providers + +------+ + | Care Excelsior Picker Name | Role | Phone | + +------+ + PCP | Unavailable | + +------+ + Encounter Details +--------+ + + + + | Date | Type | Department | Care Team | Description | +--------+ + + + + | 01/14/ | Hospital | [facility] | Carolee Mclaughlin | | | 2006 | Encounter | MED CTR EMERGENCY | MD Sima [address] | | | | | [facility] [address] | [facility], | | | | | [place], [place] | [place] [address] | | | | | [address] | [phone] | | | | | [phone] | | | +--------+ + + + [...] | | | | | [place] [address] | | | | | | [phone] | | | | | | | | +--------+---------+ + + + documented as of this encounter Visit Diagnoses Not on filedocumented in this encounter"
--- OUTSIDE RECORDS SUMMARY | ~2019-12-24 | XMS | Encounter Summary ---
Demographics + + + | Address | [address] | | | [place] [address] | + + + | Home Phone | | + + + | Preferred Language | Unknown | + + + | Marital Status | | + + + | Taoism Affiliation | 1013 | + + + | Race | Unknown | + + + | Ethnic Group | Unknown | + + + Author + + + | Author | [facility] | | | and [place] | + + + | Organization | [facility] | | [...] [place], | | | | | [place] [address] | | + + + + + | Mahogany Navarro [place] | ECON | [address] | | | | | [place] [address] | | + + + + + Care Team Providers + +------+ + | Care Lead Security Officer Name | Role | Phone | + +------+ + | Quynh Finch | PCP | | | MD | | | + +------+ + Reason for Visit + +--------+ + | Reason | Onset | Comments | | | Date | | + +--------+ + | Medication Refill | 09/08/ | | | | 2019 | | + +--------+ + Encounter Details +--------+--------+ + + + | Date | Type | Department | Care Team | Description | +--------+--------+ + + + | 09/08/ | Refill | [facility] | Stef, | Medication Refill | | 2019 | | MEDICINE [address] | MD Quynh | | | | | [place], | [address] [facility] | | | | | [place] [address] | [place] [address] | | | | | [phone] | [phone] | | | | | | | [...] Telephone Encounter - Melani Sandoval RN - 09/09/2019 12:25 PM PDTMedication Alprazolam 0.5 mg Quantity #10 Last refill date 08/26/19 Pharmacy [facility] Last appointment 01/06/19 Next appointment no future [...] | | | | | [place] [address] | | | | | | [phone] | | | | | | | [...]
--- OUTSIDE RECORDS SUMMARY | ~2019-12-24 | XMS | Encounter Summary ---
Demographics + + + | Address | [address] | | | [place] [address] | + + + | Home Phone | | + + + | Preferred Language | Unknown | + + + | Marital Status | | + + + | Anabaptist Affiliation | 1013 | + + + | Race | Unknown | + + + | Ethnic Group | Unknown | + + + Author + + + | Author | [facility] | | | and [place] | + + + | Organization | [facility] | | | [...] [place], | | | | | [place] [address] | | + + + + + | Mahogany Farnsworth | ECON | [address] | | | | | [place] [address] | | + + + + + Care Team Providers + +------+ + | Care Mobility Scooter Repairer Name | Role | Phone | [...] Description | +--------+--------+ + + + | 03/18/ | Refill | [facility] | Stef, | Medication Refill | | 2016 | | MEDICINE [address] | MD Quynh | | | | | [place], | [address] [facility] | | | | | [place] [address] | [place] [address] | | | | | [phone] | [phone] | | | | | | | [...] Quynh | | | | | | [address] [place] [address] | | | | | | [place] [address] | | | | | | [phone] | | | | | | | [...]
--- OUTSIDE RECORDS SUMMARY | ~2019-12-24 | XMS | Encounter Summary ---
Demographics + + + | Address | [address] | | | [place] [address] | + + + | Home Phone | | + + + | Preferred Language | Unknown | + + + | Marital Status | | + + + | Sikhism Affiliation | 1013 | + + + | Race | Unknown | + + + | Ethnic Group | Unknown | + + + Author + + + | Author | [facility] | | | and [place] | + + + | Organization | [facility] | | [...] [place], | | | | | [place] [address] | | + + + + + | Mahogany Farnsworth | ECON | [address] | | | | | [place] [address] | | + + + + + Care Team Providers + +------+ + | Care Water Conservation Specialist Name | Role | Phone | [...] Description | +--------+--------+ + + + | 01/20/ | Refill | [facility] | Stef, | Medication Refill | | 2018 | | MEDICINE [address] | MD Quynh | | | | | [place], | [address] [facility] | | | | | [place] [address] | [place] [address] | | | | | [phone] | [phone] | | | | | | | [...] | | | | | | [address] [place] [address] | | | | | | [place] [address] | | | | | | [phone] | | | | | | | [...]
--- OUTSIDE RECORDS SUMMARY | ~2019-12-24 | XMS | Encounter Summary ---
Demographics + + + | Address | [address] | | | [place] [address] | + + + | Home Phone [...] Author | [facility] | | | and [place] [...] [place], | | | | | [place] [address] | | + + + + + | Mahogany Farnsworth | ECON | [address] | | | | | [place] [address] | | + + + + + Care Team Providers + +------+ + | Care Cinder Crew Worker Name | Role | Phone | [...] + + | 07/20/ | Refill | [facility] | Stef, | Medication Refill | | 2017 | | MEDICINE [address] | MD Qyunh | | | | | [place], | [address] [facility] | | | | | [place] [address] | [place] [address] | | | | | [phone] | [phone] | | | | | | | [...] Quynh | | | | | | [address] [place] [address] | | | | | | [place] [address] | | | | | | [phone] | | | | | | | [...]
--- OUTSIDE RECORDS SUMMARY | ~2019-12-24 | XMS | Encounter Summary ---
Demographics + + + | Address | [address] | | | [place] [address] | + + + | Home Phone [...] + + | Author | [facility] | | [...] [place], | | | | | [place] [address] | | + + + + + | Mahogany Farnsworth | ECON | [address] | | | | | [place] [address] | | + + + + + Care Team Providers + +------+ + | Care Watch Manufacturing Supervisor Name | Role | Phone | [...] Description | +--------+--------+ + + + | 10/05/ | Refill | [facility] | Stef, | Medication Refill | | 2019 | | MEDICINE [address] | MD Quynh | | | | | [place], | [address] [facility] | | | | | [place] [address] | [place] [address] | | | | | [phone] | [phone] | | | | | | | [...] encounter Miscellaneous Notes Telephone Encounter - Melani Sandoval, JASMEET - 10/10/2019 3:12 PM PDTMedication Alprazolam 0.5 mg Quantity #30 Last refill date 09/09/19 Pharmacy [facility] Last appointment 01/07/20 Next appointment 10/11/19 elephone Encounter - Sadie Aguillon - 10/10/2019 2:23 PM PDTPatient scheduled for 10/11/19 telephonic visi t. elephone Encounter - Sadie Aguillon - 10/07/2019 4:14 PM PDTCalled and left voicemail asking patient to c all back she needs to set up an appointment for refills. Offer telephonic or virtual visit. If she accepts a virtual please let us know so we can send her a link for her appointment.El ectronically signed by Sadie Aguillon at 10/07/2019 4:16 PM PDTTelephone Encounter - Sherita Langston, JASMEET - 10/06/2019 2:03 PM PDTReceived a refill request for alprazolam. Last refill #30 09/09/19 Last appointment 01/06/19 No future appointment scheduled. Post dated scripts pended on medication list. OK to fill 10/09/19 d ocumented in this encounter Plan of Treatment +--------+---------+ + + + | Date | Type | Specialty | Care Team | Description | +--------+---------+ + + + | 01/09/ | Office | Internal Medicine | Stef, | | | 2019 | Visit | | MD Quynh | | | | | | [address] [facility] | | | | | | [place] [address] | | | | | | [phone] | | | | | | | [...]
--- OUTSIDE RECORDS SUMMARY | ~2019-12-24 | XMS | Encounter Summary ---
Demographics + + + | Address | [address] | | | [place] [address] | + + + | Home Phone [...] + | Author | [facility] | | | and [place] | + + + | Organization | [facility] | | | and [place] | + + + | Address | Unknown | + + + | Phone | Unavailable | + + + Support + + + + + | Name | Relationship | Address | Phone | + + + + + | Iwona L Head | ECON | [place], | | | | | [place] [address] | | + + + + + | Mahogany Farnsworth | ECON | [address] | | | | | [place] [address] | | + + + + + Care Team Providers + +------+ + | Care Behavior Support Specialist Name | Role | Phone | + +------+ + | Quynh Finch | PCP | | | MD | | | + +------+ + Reason for Visit + + + | Reason | Comments | + + + | Lab Results | | + + + | Other | Diabetic foot exam, Eye exam, A1C, Tdap, Papsmear, FLU SHOT, | | | Microalbumin screening, Wellness visit. | + + + | Paperwork | [place] [employer] Disability Permit | + + + Encounter Details +--------+---------+ + + + | Date | Type | Department | Care Team | Description | +--------+---------+ + + + | 07/29/ | Office | [facility] | Stef, | Uncontrolled type 2 | | 2019 | Visit | MEDICINE [address] | MD Quynh | diabetes mellitus | | | | [address] [place], | [address] [facility] | with hyperglycemia | | | | [place] [address] | [place] [address] | ([facility]) (Primary Dx); | | | | [phone] | [phone] | Hypercholesterolemia | | | | | | ; Impaired mobility; | | | | | | Medical certificate | | | | | | issuance | +--------+---------+ + + + Social History [...] + + + | Blood Pressure | 130/72 | 07/29/2018 9:48 AM | | | | | PST | | + + + + + | Pulse | 93 | 07/29/2018 9:48 AM | | | | | PST | | + + + + + | Temperature | 36.7 C (98.1 F) | 07/29/2018 9:48 AM | | | | | PST | | + + + + + | Respiratory Rate | 16 | 07/29/2018 9:48 AM | | | | | PST | | + + + + + | Oxygen Saturation | 94% | 07/29/2018 9:48 AM | | | | | PST | | + + + + + | Inhaled Oxygen | - | - | | | Concentration | | | | + + + + + | Weight | 99.7 kg (219 lb 12.8 | 07/29/2018 9:48 AM | | | | oz) | PST | | + + + + + | Height | 157.5 cm (5' 2") | 07/29/2018 9:48 AM | | | | | PST | | + + + + + | Body Mass Index | 40.2 | 07/29/2018 9:48 AM | | | | | PST | | + + + + + documented in this encounter Patient Instructions Patient Instructions Quynh Finch MD - 07/29/2018 9:45 AM PSTIncrease Basa glar insulin dose by 5 units every 3 days, until your fasting blood sugars drop below 150 bu t no lower than 80, then continue on that dose of Basaglar long-term. Return in one month with blood sugar logs. Check your blood sugars as below: - every day in AM, fasting. - two more times during the day, choosing from these options - 15 min before a meal - 2 hr after a meal - before sleep. 10:0 5 AM PST documented in this encounter Progress Notes Quynh Finch MD - 07/29/2018 9:45 AM PSTFormatting of this note might be d ifferent from the original. CHIEF COMPLAINT Chief Complaint Patient presents with Lab Results Other Diabetic foot exam, Eye exam, A1C, Tdap, Papsmear, FLU SHOT, Microalbumin screening, Well ness visit. Paperwork [facility] Disability Permit [facility] Marzena Cline is a 48 y.o. y/o female who presents today for follow-up after recent l abs show very uncontrolled diabetes with an A1c of 13.6. Since the night place her back on long-acting insulin and she is injecting 25 units of basilar at night. Blood sugars are sti ll in the 300 range. She is willing to gradually increase the dose and go on short-acting p re-meal insulin which she has used in the past. She also has elevated total cholesterol and triglycerides. She is taking pravastatin 20 mg daily and she states she has been compliant with that. No chest pain palpitations or shortness of breath. Has history of necrotizing fasciitis with impaired mobility in her lower extremities, uses a wheelchair for ambulation. She is asking for a disabled parking permit for the [facility] where she relocated. REVIEW OF SYSTEMS See HPI for further [...] BY MOUTH AT BEDTIME 30 tablet 1 atorvaSTATin (LIPITOR) 40 mg tablet Take 1 tablet by mouth nightly. 30 tablet 11 diclofenac (CATAFLAM) 50 MG tablet Take as [...] CAPSULE BY MOUTH FOUR TIMES DAILY 120 c apsule 0 insulin aspart (NOVOLOG FLEXPEN) 100 units/mL injection pen Inject 5 Units under the sk in 3 times daily (before meals). Injecting about 15 units / day. 5 pen 3 insulin glargine (BASAGLAR KWIKPEN) 100 units/mL injection (pen) Inject 25 Units under the skin nightly. Increase dose by 3 units every week until fasting blood sugars are between 80-150. 15 mL 11 Insulin Pen Needle (PEN NEEDLES) 32G X [...] slows breathing PHYSICAL EXAM VITAL SIGNS: BP 130/72 | Pulse 93 | Temp 36.7 C (98.1 F) (Temporal) | Resp 16 | Ht 1.575 m (5' 2") | Wt 99.7 kg (219 lb 12.8 oz) | LMP (LMP Unknown) | SpO2 94% | Breastfe eding? No | BMI 40.20 kg/m Constitutional: Well [...] Warm, Dry, No erythema, No rash. Musculoskeletal: Reasonable range of motion in all major joints. In wheelchair. Neurologic: Alert & oriented x 3, decreased strength in lower extremities. Psychiatric: Affect normal, Judgment normal, Mood normal. Results for MARZENA CLINE ( ) as of 07/29/2018 10:19 Ref. Range 07/21/2018 09:07 WBC Latest Ref Range: 4.0 - 11.0 K/uL 8.6 RBC COUNT Latest Ref Range: 3.70 - 5.20 M/uL 5.72 (H) Hemoglobin Latest Ref Range: 11.5 - 16.0 g/dL 16.6 (H) Hct, Final Latest Ref Range: 34.0 - 47.0 % 50.1 (H) MCV Latest Ref Range: 83.0 - 101.0 fL 87.6 MCH Latest Ref Range: 28.0 - 35.0 pg 29.0 MCHC Latest Ref Range: 32.0 - 36.0 g/dL 33.1 RDW-SD Latest Ref Range: 35.1 - 46.3 fL 43.6 RDW-CV Latest Ref Range: <15.0 % 13.6 Platelet Count Latest Ref Range: 140 - 440 K/uL 178 MPV Latest Ref Range: 6.5 - 12.4 fL 10.7 % nRBC Latest Ref Range: 0 - 2 per 100 WBC's 0 Absolute nRBC Latest Ref Range: 0.00 - 0.01 K/uL 0.00 Absolute Neutrophils Latest Ref Range: 1.80 - 8.50 K/uL 4.45 Absolute Lymphocytes Latest Ref Range: 0.60 - 3.20 K/uL 3.35 (H) Absolute Monocytes Latest Ref Range: 0.00 - 1.00 K/uL 0.44 Absolute Eosinophils Latest Ref Range: 0.00 - 0.40 K/uL 0.26 Absolute Basophils Latest Ref Range: 0.00 - 0.10 K/uL 0.05 Absolute Immature Granulocytes Latest Ref Range: 0.00 - 0.03 K/uL 0.02 % Neutrophils Latest Ref Range: 45.0 - 82.0 % 52.0 % Lymphocytes Latest Ref Range: 20.0 - 45.0 % 39.1 % Monocytes Latest Ref Range: 4.0 - 12.0 % 5.1 % Eosinophils Latest Ref Range: 0.0 - 5.0 % 3.0 % Basophils Latest Ref Range: 0.0 - 1.0 % 0.6 % Immature Granulocytes Latest Ref Range: 0.0 - 0.4 % 0.2 Na Latest Ref Range: 136 - 149 mmol/L 134 (L) K Latest Ref Range: 3.5 - 5.1 mmol/L 3.6 Chloride Latest Ref Range: 98 - 109 mmol/L 98 Carbon dioxide Latest Ref Range: 24 - 31 mmol/L 26 Anion Gap Latest Ref Range: 3 - 16 mmol/L 10 Glucose Latest Ref Range: 70 - 109 mg/dL 304 (H) BUN Latest Ref Range: 7 - 18 mg/dL 6 (L) Creatinine Latest Ref Range: 0.60 - 1.30 mg/dL 0.49 (L) BUN/Creatinine Ratio Unknown 12.2 Albumin Latest Ref Range: 3.2 - 5.0 g/dL 3.5 Albumin/Globulin Ratio Latest Ref Range: 0.8 - 2.0 1.1 Total Protein Latest Ref Range: 6.0 - 7.8 g/dL 6.6 EGFR IF NOT Latest Ref Range: >=60 mL/min/1.73m2 >60 Calcium Latest Ref Range: 8.3 - 10.5 mg/dL 8.4 ALK PHOS Latest Ref Range: 40 - 110 U/L 92 ALT (SGPT) (REF) Latest Ref Range: 6 - 45 U/L 22 AST (SGOT) (REF) Latest Ref Range: 10 - 42 U/L 31 Bilirubin Total (Calculated) Latest Ref Range: 0.1 - 1.5 mg/dL 1.4 Globulin Latest Ref Range: 2.1 - 3.8 g/dL 3.1 Hemoglobin A1c Latest Ref Range: 4.3 - 6.0 % 13.6 (H) Estimated Average Glucose Latest Units: mg/dL 344 Chol/HDL Ratio Unknown 6.9 Cholesterol Latest Ref Range: 150 - 200 mg/dL 234 (H) HDL Cholesterol Latest Ref Range: 28 - 83 mg/dL 34 LDL, Calculated Latest Ref Range: <=130 mg/dL See Report Triglycerides Latest Ref Range: 35 - 160 mg/dL 431 (H) TSH Latest Ref Range: 0.45 - 5.33 uIU/mL 3.85 ASSESSMENT & PLAN 1. Uncontrolled type 2 diabetes mellitus with hyperglycemia (HCC) - insulin aspart (NOVOLOG FLEXPEN) 100 units/mL injection pen; Inject 5 Units under the ski n 3 times daily (before meals). Injecting about 15 units / day. Dispense: 5 pen; Refill: 3 - CBC with Differential; Standing - Comprehensive Metabolic Panel; Standing - Lipid Panel; Standing - Hemoglobin A1C; Standing - Microalbumin, Urine, Random; Standing 2. Hypercholesterolemia - atorvaSTATin (LIPITOR) 40 mg tablet; Take 1 tablet by mouth nightly. Dispense: 30 tablet ; Refill: 11 - CK Total; Standing - Lipid Panel; Standing 3. Impaired mobility 4. Medical certificate issuance - Disabled parking permit paperwork for the [facility] completed today. FOLLOW-UP Return in about 1 month (around 08/26/2018) for Medicare [place] Exam. Note: Parts of this documentwere created using [employer] speech recognition software. As a r esult, [...] | | | | | | [place] [address] | | | | | | [phone] | | | | | | | | +--------+---------+ + + + + +------+--------+ + + | Name | Type | Priori | Associated Diagnoses | Order Schedule | | | | ty | | | + +------+--------+ + + | CBC with | Lab | Routin | Uncontrolled type | 90 days for 8 | | Differential | | e | 2 diabetes mellitus | Occurrences starting | | | | | with hyperglycemia | 07/29/2018 until | | | | | (HCC) | 07/29/2020 | + +------+--------+ + + documented as of this encounter Visit Diagnoses + + | Diagnosis | + + | Uncontrolled type 2 diabetes mellitus with hyperglycemia (HCC) - Primary | + + | Hypercholesterolemia Pure hypercholesterolemia | + + | Impaired mobility Other ill-defined conditions | + + | Medical certificate issuance Other issue of medical certificates | + + documented in this encounter Additional Health Concerns + + + + + | Infection | Onset Date | Last Indicated | Resolved Time | + + + + + | 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
--- OUTSIDE RECORDS SUMMARY | ~2019-12-24 | XMS | Encounter Summary ---
Demographics + + + | Address | [address] | | | [place] [address] | + + + | Home Phone | | + + + | Preferred Language | Unknown | + + + | Marital Status | | + + + | Confucianism Affiliation | 1013 | + + + | Race | Unknown | + + + | Ethnic Group | Unknown | + + + Author + + + | Author | [facility] | | | and [place] | + + + | Organization | [facility] | | | [...] [place], | | | | | [place] [address] | | + + + + + | Mahogany Farnsworth | ECON | [address] | | | | | [place] [address] | | + + + + + Care Team Providers + +------+ + | Care Director Of Patient Care Name | Role | Phone | + +------+ + | Quynh Finch | PCP | | | MD | | | + +------+ + Encounter Details +--------+ + + + + | Date | Type | Department | Care Team | Description | +--------+ + + + + | 06/09/ | Documentati | [facility] | Magda Fischer S, | | | 2019 | on | [facility] | Speech Pathologist | | | | | [address] | [address] | | | | | [place] | [place] | | | | | [address] | [address] | | | | | [phone] | | | +--------+ + + + [...] Quynh | | | | | | [address] [place] [address] | | | | | | [place] [address] | | | | | | [phone] | | | | | | | | +--------+---------+ + + + documented as of this encounter Visit Diagnoses + + | Diagnosis | + + | Oropharyngeal dysphagia Dysphagia, oropharyngeal phase | + + documented in this encounter Additional Health Concerns + + + + + | Infection | Onset Date | Last Indicated | Resolved Time | + + + + + | 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
--- OUTSIDE RECORDS SUMMARY | ~2019-12-24 | XMS | Encounter Summary ---
Demographics + + + | Address | [address] | | | [place] [address] | + + + | Home Phone | | + + + | Preferred Language | Unknown | + + + | Marital Status | | + + + | Samaritan Affiliation | 1013 | + + + | Race | Unknown | + + + | Ethnic Group | Unknown | + + + Author + + + | Author | [facility] | | | and [place] | + + + | Organization | [facility] | [...] [place], | | | | | [place] [address] | | + + + + + | Mahogany Navarro [place] | ECON | [address] | | | | | [place] [address] | | + + + + + Care Team Providers + +------+ + | Care Globe Mounter Name | Role | Phone | + +------+ + PCP | Unavailable | + +------+ + Encounter Details +--------+ + + + + | Date | Type | Department | Care Team | Description | +--------+ + + + + | 05/25/ | Hospital | [facility] | | | | 2006 | Encounter | [facility] | | | | | | CENTER [address] | | | | | | [place] | | | | | | [address] | | | | | | [phone] | | | +--------+ + + + [...] Quynh | | | | | | [facility] [address] | | | | | | [place] [address] | | | | | | [phone] | | | | | | | | +--------+---------+ + + + documented as of this encounter Visit Diagnoses Not on filedocumented in this encounter"
--- OUTSIDE RECORDS SUMMARY | ~2019-12-24 | XMS | Encounter Summary ---
Demographics + + + | Address | [address] | | | [place] [address] | + + + | Home Phone [...] Author | [facility] | | | and [...] [place], | | | | | [place] [address] | | + + + + + | Mahogany Farnsworth | ECON | [address] | | | | | [place] [address] | | + + + + + Care Team Providers + +------+ + | Care Offender Employment Specialist Name | Role | Phone | [...] Description | +--------+--------+ + + + | 12/04/ | Refill | [facility] | Stef, | Medication Refill | | 2019 | | MEDICINE [address] | MD Quynh | | | | | [place], | [address] [facility] | | | | | [place] [address] | [place] [address] | | | | | [phone] | [phone] | | | | | | | [...] Quynh | | | | | | [address] [place] [address] | | | | | | [place] [address] | | | | | | [phone] | | | | | | | [...]
--- OUTSIDE RECORDS SUMMARY | ~2019-12-24 | XMS | Encounter Summary ---
Demographics + + + | Address | [address] | | | [place] [address] | + + + | Home Phone | | + + + | Preferred Language | Unknown | + + + | Marital Status | | + + + | Samaritan Affiliation | 1013 | + + + | Race | Unknown | + + + | Ethnic Group | Unknown | + + + Author + + + | Author | [facility] | | | and [place] | + + + | Organization | [facility] | | [...] [place], | | | | | [place] [address] | | + + + + + | Mahogany Navarro [place] | ECON | [address] | | | | | [place] [address] | | + + + + + Care Team Providers + +------+ + | Care Faculty Dean Name | Role | Phone | + +------+ + PCP | Unavailable | + +------+ + Encounter Details +--------+ + + + + | Date | Type | Department | Care Team | Description | +--------+ + + + + | 08/24/ | Hospital | [facility] | | | | 2005 - | Encounter | [facility] | | | | | | CENTER [address] | | | | 08/25/ | | [place] | | | | 2005 | | [address] | | | | | | [phone] | | | +--------+ + + + [...] | | | | | [place] [address] | | | | | | [phone] | | | | | | | | +--------+---------+ + + + documented as of this encounter Visit Diagnoses Not on filedocumented in this encounter"
--- OUTSIDE RECORDS SUMMARY | ~2019-12-24 | XMS | Encounter Summary ---
Demographics + + + | Address | [address] | | | [place] [address] | + + + | Home Phone | | + + + | Preferred Language | Unknown | + + + | Marital Status | | + + + | Jehovah'S Witness Affiliation | 1013 | + + + | Race | Unknown | + + + | Ethnic Group | Unknown | + + + Author + + + | Author | [facility] | | | and [place] | + + + | Organization | [facility] | | [...] [place], | | | | | [place] [address] | | + + + + + | Mahogany Farnsworth | ECON | [address] | | | | | [place] [address] | | + + + + + Care Team Providers + +------+ + | Care Feather Shaper Name | Role | Phone | + +------+ + | Quynh Finch | PCP | | | MD | | | + +------+ + Encounter Details +--------+ + + + + | Date | Type | Department | Care Team | Description | +--------+ + + + + | 10/20/ | Patient | [facility] | [place]Lloyd, | | | 2017 | Outreach | MEDICINE [address] | MD Quynh | | | | | [place], | [address] [facility] | | | | | [place] [address] | [place] [address] | | | | | [phone] | [phone] | | | | | | | [...] Telephone Encounter - INOCENCIO BONY D - 10/20/2017 3:18 PM PDT 10/20/17 Marzena Gutierrezmarybel Duong has been identified as having one or more care gaps listed in the table below (red box): Last Office Visit: 09/15/2017 Next Office Visit: No appointment scheduled Health Topic Patient Goal Patient Most Recent Data Recommended Patient Action Step Blood Pressure Below 140/90 124/80 09/15/2017 Cholesterol Take a cholesterol lowering medication Taking Microalbumin Test at least once a year Not in our Medical Record Tobacco Don't smoke. Current smoker as of 09/15/2017 HbA1c Below 7 is good Not in our Medical Record Weight To manage your weight 197.97 lbs 09/15/2017 Eye Exam Check as directed by eye doctor Not in our Medical Record Foot Exam Check once a year Not in our Medical Record Immunizations Get Immunized Due for: - Tdap Cervical Cancer Screening Get tested Last Updated: Not in our Medical Record To Primary Care Provider: Quynh Finch MD: Note if you agree with the services due: Office Visit for: - PAP Sign or remove pended order(s) as per your assessment - (see Aerospace Mechanic): Orders Placed This Encounter Pending Hemoglobin A1C Ordered On: 10/20/2017 Microalbumin/Creatinine Ratio, Urine Ordered On: 10/20/2017 Approve/Deny Ready for Outreach Communication? Select Yes. Thank you, Population Health Support Team documented [...] | | | | | | [place] [address] | | | | | | [phone] | | | | | | | [...]
--- OUTSIDE RECORDS SUMMARY | ~2019-12-24 | XMS | Encounter Summary ---
Demographics + + + | Address | [address] | | | [place] [address] | + + + | Home Phone | | + + + | Preferred Language | Unknown | + + + | Marital Status | | + + + | Mu-Ism Affiliation | 1013 | + + + | Race | Unknown | + + + | Ethnic Group | Unknown | + + + Author + + + | Author | [facility] [...] [place], | | | | | [place] [address] | | + + + + + | Mahogany Navarro [place] | ECON | [address] | | | | | [place] [address] | | + + + + + Care Team Providers + +------+ + | Care Silver Miner Name | Role | Phone | + +------+ + PCP | Unavailable | + +------+ + Encounter Details +--------+ + + + + | Date | Type | Department | Care Team | Description | +--------+ + + + + | 05/24/ | Hospital | [facility] | | | | 2006 | Encounter | MED CTR EMERGENCY | | | | | | CENTER [address] | | | | | | [place] | | | | | | [address] | | | | | | [phone] | | | +--------+ + + + [...] Quynh | | | | | | [facility] [address] | | | | | | [place] [address] | | | | | | [phone] | | | | | | | | +--------+---------+ + + + documented as of this encounter Visit Diagnoses Not on filedocumented in this encounter"
--- OUTSIDE RECORDS SUMMARY | ~2019-12-24 | XMS | Encounter Summary ---
Demographics + + + | Address | [address] | | | [place] [address] | + + + | Home Phone | | + + + | Preferred Language | Unknown | + + + | Marital Status | | + + + | Mormon Affiliation | 1013 | + + + | Race | Unknown | + + + | Ethnic Group | Unknown | + + + Author + + + | Author | [facility] | | | and [...] [place], | | | | | [place] [address] | | + + + + + | Mahogany Navarro [place] | ECON | [address] | | | | | [place] [address] | | + + + + + Care Team Providers + +------+ + | Care Scarfing Machine Operator Name | Role | Phone | + +------+ + | Quynh Finch | PCP | | | MD | | | + +------+ + Reason for Visit + +--------+ + | Reason | Onset | Comments | | | Date | | + +--------+ + | Medication Refill | 12/25/ | | | | 2017 | | + +--------+ + Encounter Details +--------+--------+ + + + | Date | Type | Department | Care Team | Description | +--------+--------+ + + + | 12/25/ | Refill | [facility] | Stef, | Medication Refill | | 2017 | | MEDICINE [address] | MD Quynh | | | | | [place], | [address] [facility] | | | | | [place] [address] | [place] [address] | | | | | [phone] | [phone] | | | | | | | [...] | | | | | | [address] [facility] | | | | | | [place] [address] | | | | | | [phone] | | | | | | | [...]
--- OUTSIDE RECORDS SUMMARY | ~2019-12-24 | XMS | Encounter Summary ---
Demographics + + + | Address | [address] | | | [place] [address] | + + + | Home Phone | | + + + | Preferred Language | Unknown | + + + | Marital Status | | + + + | Hoahaoism Affiliation | 1013 | + + + | Race | Unknown | + + + | Ethnic Group | Unknown | + + + Author + + + | Author | [facility] | | | and [place] | + + + | Organization | [facility] | | | [...] [place], | | | | | [place] [address] | | + + + + + | Mahogany Navarro [place] | ECON | [address] | | | | | [place] [address] | | + + + + + Care Team Providers + +------+ + | Care Naturopathic Physician Name | Role | Phone | + +------+ + PCP | Unavailable | + +------+ + Encounter Details +--------+ + + + + | Date | Type | Department | Care Team | Description | +--------+ + + + + | 11/22/ | Hospital | [facility] | | | | 2005 | Encounter | [facility] | | | | | | CENTER [address] | | | | | | [place] | | | | | | [address] | | | | | | [phone] | | | +--------+ + + + [...] Quynh | | | | | | [facility] [address] | | | | | | [place] [address] | | | | | | [phone] | | | | | | | | +--------+---------+ + + + documented as of this encounter Visit Diagnoses Not on filedocumented in this encounter"
--- OUTSIDE RECORDS SUMMARY | ~2019-12-24 | XMS | Encounter Summary ---
Demographics + + + | Address | [address] | | | [place] [address] | + + + | Home Phone [...] Author | [facility] | | | and [place] [...] [place], | | | | | [place] [address] | | + + + + + | Mahogany Navarro [place] | ECON | [address] | | | | | [place] [address] | | + + + + + Care Team Providers + +------+ + | Care Quality Control Associate Name | Role | Phone | + +------+ + PCP | Unavailable | + +------+ + Encounter Details +--------+ + + + + | Date | Type | Department | Care Team | Description | +--------+ + + + + | 07/16/ | Hospital | [facility] | [place], | | | 2008 | Encounter | MED CTR EMERGENCY | David Romero MD [address] | | | | | IDEAL [address] | [facility] | | | | | [place], [place] | [place] [address] | | | | | [address] | [phone] | | | | | [phone] | | | +--------+ + + + [...] | | | | | | [facility] [address] | | | | | | [place] [address] | | | | | | [phone] | | | | | | | | +--------+---------+ + + + documented as of this encounter Visit Diagnoses Not on filedocumented in this encounter"
--- OUTSIDE RECORDS SUMMARY | ~2019-12-24 | XMS | Encounter Summary ---
Demographics + + + | Address | [address] | | | [place] [address] | + + + | Home Phone | | + + + | Preferred Language | Unknown | + + + | Marital Status | | + + + | Adventism Affiliation | 1013 | + + + | Race | Unknown | + + + | Ethnic Group | Unknown | + + + Author + + + | Author | [facility] | | | and [place] | + + + | Organization | [facility] | | | [...] [place], | | | | | [place] [address] | | + + + + + | Mahogany Navarro [place] | ECON | [address] | | | | | [place] [address] | | + + + + + Care Team Providers + +------+ + | Care Web Database Developer Name | Role | Phone | + +------+ + PCP | Unavailable | + +------+ + Encounter Details +--------+ + + + + | Date | Type | Department | Care Team | Description | +--------+ + + + + | 04/27/ | Hospital | [facility] | [place], | | | 2006 | Encounter | MED CTR EMERGENCY | David Romero MD [address] | | | | | [place] [address] | [facility] | | | | | [place], [place] | [place] [address] | | | | | [address] | [phone] | | | | | [phone] | | | +--------+ + + + [...] | | | | | [place] [address] | | | | | | [phone] | | | | | | | | +--------+---------+ + + + documented as of this encounter Visit Diagnoses Not on filedocumented in this encounter"
--- OUTSIDE RECORDS SUMMARY | ~2019-12-24 | XMS | Encounter Summary ---
Demographics + + + | Address | [address] | | | [place] [address] | + + + | Home Phone [...] Author | [facility] | | | and [place] [...] [place], | | | | | [place] [address] | | + + + + + | Mahogany Farnsworth | ECON | [address] | | | | | [place] [address] | | + + + + + Care Team Providers + +------+ + | Care Health Facilities Surveyor Name | Role | Phone | + [...] Description | +--------+--------+ + + + | 02/17/ | Refill | [facility] | Stef, | Medication Refill | | 2017 | | MEDICINE [address] | MD Quynh | | | | | [place], | [address] [facility] [place] | | | | | [place] [address] | [place] [address] | | | | | [phone] | [phone] | | | | | | | [...] this encounter Miscellaneous Notes Telephone Encounter - Davey Adair - 02/18/2018 12:08 PM PDTRx [facility]ed to [facility]. elephone Encount er - Melani Sandoval RN - 02/18/2018 10:52 AM PDTPlease fax prescription to pharmacyElectr onically signed by Melani Sandoval RN at 02/18/2018 10:54 AM PDTdocumented in this encounte r Plan of Treatment +--------+---------+ + + + | Date | Type | Specialty | Care Team | Description | +--------+---------+ + + + | 01/09/ | Office | Internal Medicine | Stef, | | | 2019 | Visit | | MD Quynh | | | | | | [address] [place] [address] [place] | | | | | | [place] [address] | | | | | | [phone] | | | | | | | [...]
--- OUTSIDE RECORDS SUMMARY | ~2019-12-24 | XMS | Encounter Summary ---
Demographics + + + | Address | [address] | | | [place] [address] | + + + | Home Phone | | + + + | Preferred Language | Unknown | + + + | Marital Status | | + + + | Caodaism Affiliation | 1013 | + + + | Race | Unknown | + + + | Ethnic Group | Unknown | + + + Author + + + | Author | [facility] | | | and [place] | + + + | Organization | [facility] | | [...] [place], | | | | | [place] [address] | | + + + + + | Mahogany Farnsworth | ECON | [address] | | | | | [place] [address] | | + + + + + Care Team Providers + +------+ + | Care Stunt Double Name | Role | Phone | + [...] Description | +--------+--------+ + + + | 01/26/ | Refill | [facility] | Stef, | Medication Refill | | 2019 | | MEDICINE [address] | MD Quynh | | | | | [place], | [address] [facility] | | | | | [place] [address] | [place] [address] | | | | | [phone] | [phone] | | | | | | | [...] Quynh | | | | | | [address] [place] [address] | | | | | | [place] [address] | | | | | | [phone] | | | | | | | [...]
--- OUTSIDE RECORDS SUMMARY | ~2019-12-24 | XMS | Encounter Summary ---
Demographics + + + | Address | [address] | | | [place] [address] | + + + | Home Phone [...] Author | [facility] | | | and [...] [place], | | | | | [place] [address] | | + + + + + | Mahogany Farnsworth | ECON | [address] | | | | | [place] [address] | | + + + + + Care Team Providers + +------+ + | Care Biomedical Equipment Technician Name | Role | Phone | + [...] + + | Closed | Specialty | | Diagnoses | | Diaz, | | | Services | | | Melvin | Nakul Thomson, | | | Required | | Uncontrolled | i, | PhD [address] | | | | | type [address] | Quynh | [address] | | | | | diabetes | , [address] | [place], | | | | | mellitus | [address] | [place] [address] | | | | | with | [place], | Phone: | | | | | hyperglycemi | [place] | [phone] | | | | | a ([facility]) | [address] | Fax: | | | | | | Phone: | [phone] | | | | | | [phone] | | | | | | | Fax: | | | | | | | [phone] | | +--------+ + + + + + Reason for Visit + + + | Reason | Comments | + + + | Medication Refill | | + + + | Other | need meter for glucose reading and supplies | + + + Encounter Details +--------+ + + + + | Date | Type | Department | Care Team | Description | +--------+ + + + + | 10/10/ | Virtual | [facility] | Stef, | Uncontrolled type 2 | | 2020 | Office | MEDICINE [address] | MD Quynh | diabetes mellitus | | | Visit | [place], | [address] [facility] | with hyperglycemia | | | | [place] [address] | [place] [address] | ([facility]) (Primary Dx); | | | | [phone] | [phone] | Anxiety; Type 2 | | | | | | diabetes mellitus | | | | | | without | | | | | | complication, with | | | | | | long-term current | | | | | | use of insulin | | | | | | ([facility]); Mixed | | | | | | hyperlipidemia | +--------+ + + + + Social [...] documented as of this encounter Progress Notes Quynh Finch MD - 10/11/2019 9:30 AM PDTFormatting of this note might be d ifferent from the original. Subjective: Patient ID: Marzena Duong is a 49 y.o. female. CC: Multiple issues Participants: Patient Participant verbally confirmed the choice to initiate care by, and consents to receive care by Telephone, due to current coronavirus pandemic. HPI: 49-year-old female patient with history of type 2 diabetes, anxiety, who has not been prese nt for follow-up for diabetes for over a year, has requested a refill of alprazolam which laine uses once a day on a as needed basis for anxiety a few days ago. After several attempts w hermelinda managed to contact her and she agreed to a telephone visit given the coronavirus pandemi c which prevents her from coming here in person. She had an A1c of 13.6 a year ago and she had a blood sugar of 490 a couple of months ago. She does have polyuria and polydipsia. No vision changes. No chest pain. She has very li mited mobility due to loss of muscle mass in her right lower extremity a number of years ago due to necrotizing fasciitis. She states she recently moved and she needs new prescriptions for test strips and a glucome ter. She is willing to see a specialist for her diabetes if I refer her to 1. She also states she needs refill of alprazolam which she uses for anxiety with good control of symptoms. Denies alcohol or illicit drug use. No drowsiness confusion or falls. Assessment & Plan 1. Uncontrolled type 2 diabetes mellitus with hyperglycemia (HCC) - insulin glargine (BASAGLAR KWIKPEN) 100 units/mL injection (pen); Inject 60 Units under t he skin nightly for 90 days. Increase dose by 3 units every week until fasting blood sugars are between 80-150. Dispense: 36 mL; Refill: 3 - UNABLE TO FIND; True Metrix Testing Strips. Testing 3x/day. Dispense: 100 each; Refill: 5 - Endocrinology, External - AMB Referral; Future - Blood Glucose Monitoring Suppl (ONE TOUCH ULTRA MINI) w/Device KIT; For home glucose kizzy rosaline, testing 3x/day. DM II E11.9. Dispense: 1 each; Refill: 0 - glucose blood test strips (ONE TOUCH ULTRA TEST) strip; For home glucose monitoring, t esting 3x/day. DM II E11.9. Dispense: 100 each; Refill: 11 - Insulin Pen Needle (PEN NEEDLES) 32G X 6 MM MISC; For insulin pen. Dispense: 100 each; R efill: 5 - 2. Anxiety - ALPRAZolam (XANAX) 0.5 mg tablet; Take 1 tablet by mouth Daily as needed for Anxiety. DALTON E ONE TABLET BY MOUTH DAILY NEEDED FOR ANXIETY Dispense: 30 tablet; Refill: 2 2Clinical discussion length: 11-20 min ([id number]) Patient has not been seen in office within the past 7 days, and outcome of this call is not to recommend soonest available office visit. Follow up Instructions: - 1 month, via another tele-visit if the coronavirus pandemic persists, or in person if the pandemic resolves. Hdocumente brittany in this encounter Plan of Treatment +--------+---------+ + + + | Date | Type | Specialty | Care Team | Description | +--------+---------+ + + + | 01/09/ | Office | Internal Medicine | Stef, | | | 2019 | Visit | | MD Quynh | | | | | | [facility] [address] [facility] | | | | | | [place] [address] | | | | | | [phone] | | | | | | | | +--------+---------+ + + + + +------+--------+ + + | Name | Type | Priori | Associated Diagnoses | Order Schedule | | | | ty | | | + +------+--------+ + + | Comprehensive | Lab | Routin | Uncontrolled type | Expected: | | Metabolic Panel | | e | 2 diabetes mellitus | 10/11/2019, Expires: | | | | | with hyperglycemia | 10/10/2020 | | | | | (HCC) | | + +------+--------+ + + | Lipid Panel | Lab | Routin | Uncontrolled type | Expected: | | | | e | 2 diabetes mellitus | 10/11/2019, Expires: | | | | | with hyperglycemia | 10/10/2020 | | | | | (HCC) Mixed | | | | | | hyperlipidemia | | + +------+--------+ + + | Hemoglobin A1C | Lab | Routin | Uncontrolled type | Expected: | | | | e | 2 diabetes mellitus | 10/11/2019, Expires: | | | | | with hyperglycemia | 10/10/2020 | | | | | (HCC) | | + +------+--------+ + + | Microalbumin, Urine, | Lab | Routin | Uncontrolled type | Expected: | | Random | | e | 2 diabetes mellitus | 10/11/2019, Expires: | | | | | with hyperglycemia | 10/10/2020 | | | | | (HCC) | | + +------+--------+ + + | CK Total | Lab | Routin | Mixed | Expected: | | | | e | hyperlipidemia | 10/11/2019, Expires: | | | | | | 10/10/2020 | + +------+--------+ + + + + +--------+ + + | Name | Type | Priori | Associated Diagnoses | Order Schedule | | | | ty | | | + + +--------+ + + | Endocrinology, | Outpatient | Routin | Uncontrolled type | Expected: | | External - AMB | Referral | e | 2 diabetes mellitus | 10/11/2019, Expires: | | Referral | | | with hyperglycemia | 10/10/2020 | | | | | (HCC) | | + + +--------+ + + documented as of this encounter Visit Diagnoses + + | Diagnosis | + + | Uncontrolled type 2 diabetes mellitus with hyperglycemia ([facility]) - Primary | + + | Anxiety Anxiety state, unspecified | + + | Type 2 diabetes mellitus without complication, with long-term current use of insulin | | (HCC) | + + | Mixed hyperlipidemia | + + documented in this encounter Additional Health Concerns + + + + + | Infection | Onset Date | Last Indicated | Resolved Time | + + + + + | 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
--- OUTSIDE RECORDS SUMMARY | ~2019-12-24 | XMS | Encounter Summary ---
Demographics + + + | Address | [address] | | | [place] [address] | + + + | Home Phone [...] + | Author | [facility] | | [...] [place], | | | | | [place] [address] | | + + + + + | Mahogany Farnsworth | ECON | [address] | | | | | [place] [address] | | + + + + + Care Team Providers + +------+ + | Care Sheather Name | Role | Phone | + [...] + + | Closed | Specialty | Obstetrics | Diagnoses | | Flex, | | | Services | and | Menopausal | Melvin | Lesli Kebede, | | | Required | Gynecology | symptom | i, | DO [address] | | | | | | Quynh | [address] | | | | | | , [address] | [place], | | | | | | [address] | [place] [address] | | | | | | [place], | Phone: | | | | | | [place] | [phone] | | | | | | [address] | Fax: | | | | | | Phone: | [phone] | | | | | | [phone] | | | | | | | Fax: | | | | | | | [phone] | | +--------+ + + + + + Reason for Visit +--------+--------+ + | Reason | Onset | Comments | | | Date | | +--------+--------+ + | Other | 03/23/ | | | | 2016 | | +--------+--------+ + Encounter Details +--------+ + + + + | Date | Type | Department | Care Team | Description | +--------+ + + + + | 03/23/ | Telephone | [facility] | Stef, | Other | | 2017 | | MEDICINE [address] | MD Quynh | | | | | [place], | [address] [facility] | | | | | [place] [address] | [place] [address] | | | | | [phone] | [phone] | | | | | | | [...] Telephone Encounter - Vera Solis LPN - 03/24/2017 2:49 PM PDTPatient notified and will call and schedule own appointment with Dr. Nicholsot elephone Encounter - Quynh Finch MD - 02/28 4:56 PM PDTHer FSH is actually elevated (this result came later than the others), in dicating that she is starting to go through menopause. I will make a referral for her to se laine burnham sales and marketing manager. elephone Encounter - Vera Solis LPN - 03/23/2017 4:46 PM PDTSpoke to patient no tified of normal hormone levels and all other labs ok, still having severe hot flashes and w ould like to know what to do next. 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 elephone Encounter - Davey Adair - 03/23/2017 3:00 PM PDTC ontact/Caller: Marzena Contact Number: [phone] or [phone] Provider/Nurse: Ryan Reason for Call: Pt calling in stating she is returning phone call to nurse. Last Appointment: 03/12/17 Next Appointment: 04/09/17 documented in this encoun ter Plan of Treatment +--------+---------+ + + + | Date | Type | Specialty | Care Team | Description | +--------+---------+ + + + | 01/09/ | Office | Internal Medicine | Stef, | | | 2019 | Visit | | MD Quynh | | | | | | [address] [place] | | | | | | [place] [address] | | | | | | [phone] | | | | | | | | +--------+---------+ + + + + + +--------+ + + | Name | Type | Priori | Associated Diagnoses | Order Schedule | | | | ty | | | + + +--------+ + + | [facility] | Outpatient | Routin | Menopausal symptom | Expected: | | Clinic [facility] & | Referral | e | | 03/23/2017, Expires: | | [facility] - | | | | 03/23/2018 | | AMB Referral | | | | | + + +--------+ + + documented as of this encounter Visit Diagnoses + + | Diagnosis | + + | Menopausal symptom - Primary Symptomatic menopausal or female climacteric states | + + documented in this encounter Additional Health Concerns + + + + + | Infection | Onset Date | Last Indicated | Resolved Time | + + + + + | 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
--- OUTSIDE RECORDS SUMMARY | ~2019-12-24 | XMS | Encounter Summary ---
Demographics + + + | Address | [address] | | | [place] [address] | + + + | Home Phone [...] | Author | [facility] [...] [place], | | | | | [place] [address] | | + + + + + | Mahogany Farnsworth | ECON | [address] | | | | | [place] [address] | | + + + + + Care Team Providers + +------+ + | Care Pallet Rectifier Name | Role | Phone | + [...] Description | +--------+--------+ + + + | 08/11/ | Refill | [facility] | Stef, | Medication Refill | | 2019 | | MEDICINE [address] | MD Quynh | | | | | [place], | [address] [facility] [place] | | | | | [place] [address] | [place] [address] | | | | | [phone] | [phone] | | | | | | | [...] Quynh | | | | | | [address] [place] [address] | | | | | | [place] [address] | | | | | | [phone] | | | | | | | [...]
--- OUTSIDE RECORDS SUMMARY | ~2019-12-24 | XMS | Encounter Summary ---
Demographics + + + | Address | [address] | | | [place] [address] | + + + | Home Phone [...] [facility] | | | and [place] [...] [place], | | | | | [place] [address] | | + + + + + | Mahogany Navarro [place] | ECON | [address] | | | | | [place] [address] | | + + + + + Care Team Providers + +------+ + | Care Chain Carrier Name | Role | Phone | + +------+ + PCP | Unavailable | + +------+ + Encounter Details +--------+ + + + + | Date | Type | Department | Care Team | Description | +--------+ + + + + | 12/08/ | Hospital | [facility] | Larry [place]oval, | | | 2007 | Encounter | [facility] CTR LAB[facility] | MD [address] | | | | | [address] [place] | [place], [place] | | | | | [place], [place] | [address] | | | | | [address] | | | | | | [phone] | | | +--------+ + + + [...] | | | | | [place] [address] | | | | | | [phone] | | | | | | | | +--------+---------+ + + + documented as of this encounter Visit Diagnoses Not on filedocumented in this encounter"
--- OUTSIDE RECORDS SUMMARY | ~2019-12-24 | XMS | Encounter Summary ---
Demographics + + + | Address | [address] | | | [place] [address] | + + + | Home Phone | | + + + | Preferred Language | Unknown | + + + | Marital Status | | + + + | Scientology Affiliation | 1013 | + + + | Race | Unknown | + + + | Ethnic Group | Unknown | + + + Author + + + | Author | [facility] | | | and [place] | + + + | Organization | [facility] | | [...] [place], | | | | | [place] [address] | | + + + + + | Mahogany Farnsworth | ECON | [address] | | | | | [place] [address] | | + + + + + Care Team Providers + +------+ + | Care Medical Office Receptionist Assistant Name | Role | Phone | + +------+ + | Quynh Finch | PCP | | | MD | | | + +------+ + Reason for Visit +---------+ + | Reason | Comments | +---------+ + | Dysuria | | +---------+ + Encounter Details +--------+ + + + + | Date | Type | Department | Care Team | Description | +--------+ + + + + | 08/01/ | Emergency | [facility] | Michael Grace | Urinary tract | | 2019 | | [facility] | MD Driss [address] | infection with | | | | CENTER [address] | [address] [place] | hematuria, site | | | | [place], [place] | [place] [address] | unspecified (Primary | | | | [id number] | [phone] | Dx); Hyperglycemia | | | | [phone] | | | +--------+ + + + [...] + + + | Blood Pressure | 132/78 | 08/01/2019 8:30 PM | | | | | PST | | + + + + + | Pulse | 85 | 08/01/2019 9:40 PM | | | | | PST | | + + + + + | Temperature | 36 C (96.8 F) | 08/01/2019 7:43 PM | | | | | PST | | + + + + + | Respiratory Rate | 14 | 08/01/2019 7:43 PM | | | | | PST | | + + + + + | Oxygen Saturation | 96% | 08/01/2019 9:40 PM | | | | | PST | | + + + + + | Inhaled Oxygen | - | - | | | Concentration | | | | + + + + + | Weight | 95.7 kg (211 lb) | 08/01/2019 7:43 PM | | | | | PST | | + + + + + | Height | 152.4 cm (5') | 08/01/2019 7:43 PM | | | | | PST | | + + + + + | Body Mass Index | 41.21 | 08/01/2019 7:43 PM | | | | | PST | | + + + + + documented in this encounter Discharge Instructions AttachmentsThe following attachments cannot be sent through Care Everywhere.Hyperglycemia ( High Blood Sugar) (Lao)Urinary Tract Infections in Women (Lao)Cephalexin tablets or capsules (Lao)documented in this encounter Medications at Time of [...] TABLET BY | 60 | 3 | 06/14/20 | | | diphenoxylate-atropi | MOUTH TWICE DAILY | tablet | | 19 | | | ne (LOMOTIL) | | | [...] TABLET BY | 30 | 3 | 03/28/20 | | | (SYNTHROID) 150 mcg | [...] | | | | | | | ([facility]) | | | | | | + [...] | | | | use of insulin ([facility]) | | | | | | + + + +---------+ + + | ALPRAZolam (XANAX) | TAKE ONE TABLET BY | 30 | 0 | 07/26/19 | | | 0.5 mg tablet | MOUTH DAILY | tablet | | 20 | 0 | | | NEEDED FOR ANXIETY | | | | | + + + +---------+ + + | amitriptyline | TAKE 1 TABLET BY | 30 | 3 | 03/14/20 | | | (ELAVIL) 25 mg | MOUTH AT BEDTIME. | tablet | | 19 | 0 | | tablet | | | | | | + + + +---------+ + + | cephalexin | Take 1 capsule by | 10 | 0 | 08/01/19 | | | (KEFLEX) 500 mg | mouth 2 times daily | capsule | | 20 | 0 | | capsule | for 5 days. | | | | | + [...] | 3 | 10/08/19 | | | (BASAGLAR KWIKPEN) | under [...] | | | | use of insulin ([facility]) | | | | | | + [...] TABLETS BY | 60 | 0 | 03/28/20 | | | (MIRAPEX) 1.5 MG | MOUTH DAILY AT | tablet | | 19 | 0 | | tablet | BEDTIME | | | | | + + + +---------+ + + | QUEtiapine | TAKE ONE TABLET BY | 30 | 0 | 09/30/20 | | | (SEROQUEL) 25 mg | MOUTH AT BEDTIME | tablet | | 19 | 0 | | tablet | | | | [...] as of this encounter ED Notes Michael Grace MD - 08/01/2019 9:32 PM PSTFormatting of this note might be differe nt from the original. [facility] Marzena Duong EMERGENCY DEPARTMENT ENCOUNTER NOTE [address] [place] [id number] PCP:Quynh Finch MD [phone] CHIEF COMPLAINT: Chief Complaint Patient presents with Dysuria ED Room: ED10 [facility] Marzena Duong is a 49 y.o. female who presents to the Emergency Department for hematuria. Minimal dysuria. No fevers, chills. No abdominal pain. No constitutional symptoms. 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 PAST MEDICAL & SURGICAL HISTORY Patient Active Problem List Diagnosis Date Noted Cigarette nicotine dependence without complication 10/07/2018 Oropharyngeal dysphagia 10/07/2018 Uncontrolled type 2 diabetes mellitus with hyperglycemia (HCC) 07/29/2018 Acquired hypothyroidism 07/15/2018 Chronic bilateral low back pain without sciatica 05/07/2017 Medicare annual wellness visit, subsequent 05/07/2017 Screening for breast cancer 05/07/2017 History of necrotizing fasciitis 07/17/2014 Urinary incontinence in female 07/17/2014 Chronic pain syndrome HYPERCHOLESTEROLEMIA GASTROESOPHAGEAL REFLUX DISEASE HYPERTENSION, BENIGN ESSENTIAL DEPRESSION, MAJOR, MODERATE SLEEP APNEA DIAB W/OTH MANIFESTS TYPE II/UNS TYPE UNCNTRL Tobacco use disorder OBSTRUCTIVE SLEEP APNEA 01/15/2012 RESTLESS LEG SYNDROME 01/15/2012 ORGANIC INSOMNIA UNSPECIFIED 01/15/2012 Note Last Updated: 03/31/2015 ICD-10 Record update SPRUCE-CELIAC 01/01/2012 CHANGE IN BOWEL HABITS 01/01/2012 BLEEDING-GI UNSPECIFIED 01/01/2012 Past Surgical History: Procedure Laterality Date CHOLECYSTECTOMY COLONOSCOPY Excision of Perianal Lesion 03/29/2014 Dr. 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 ALPRAZolam (XANAX) 0.5 mg tablet TAKE ONE TABLET BY MOUTH DAILY NEEDED FOR ANXIETY amitriptyline (ELAVIL) 25 mg tablet TAKE 1 TABLET BY MOUTH AT BEDTIME. ARIPiprazole (ABILIFY) 5 mg tablet TAKE ONE [...] TWO TABLETS BY MOUTH DAILY AT BEDTIME promethazine (PHENERGAN) 25 mg tablet Take 1 tablet by mouth every 4 to 6 hours as need ed QUEtiapine (SEROQUEL) 25 mg tablet TAKE ONE TABLET BY MOUTH AT BEDTIME UNABLE TO FIND Alcohol swabs UNABLE TO FIND True Metrix Testing Strips. Testing 3x/day. UNABLE TO FIND True Metrix Lancets. Testing 3x/day. ALLERGIES Allergies Allergen Reactions Hydrocodone Hives Hives and decreased respirations Morphine Other (See Comments) Light-headed, very emotional (cries constantly) Sulfa Antibiotics Rash and Other (See Comments) Severe respiratory distress, huge water blisters, rash Adhesive & Tape Other reaction(s): Rash Milk-Related Compounds Other reaction(s): Rash Codeine Rash Rash, slows breathing FAMILY AND SOCIAL HISTORY Family History Problem Relation Age of [...] Substance abuse Sister Miscarriages / stillbirths Daughter Social History Socioeconomic History Marital status: Spouse [...] activity: Not Currently Partners: Male control/protection: None REVIEW OF SYSTEMS As in history of present illness. A 10 system review was otherwise negative. PHYSICAL EXAM VITAL SIGNS: (first vital signs):Temp: 36 C (96.8 F) Pulse: 85 Resp: 14 SpO2: 96 % BP: 194/88 Body mass index is 41.21 kg/m.eneral: NAD Gen: NAD, Laying in bed, non-toxic appearing. Skin: Warm, dry, no jaundice. No rash. Head: Atraumatic, normocephalic. ENT: PERRL. EOMI. Nares are patent , oropharynx is clear. Mucus membranes are moist CV: RRR. Normal S1, S2. No M/R/G. Cap refill is < 2 seconds. Pulm: Easy WOB. Good aeration throughout lung field. CTABL. No W/R/R. Abdomen: Soft, NT, ND, no HSM, BS active : Def Neuro: Gross motor and sensory is intact. No deficits. Normal bulk and tone. MSK: MAEE. No deformities. Heme/Lymph: No active bleeding, bruising or lymphadenopathy LABS Results for orders placed or performed during the hospital encounter of 08/01/19 Urinalysis With Microscopic Result Value Ref Range Color, Urine Yellow Light Yellow, Yellow, Straw Clarity Hazy (A) Clear pH, Urine 7.0 5.0 - 8.0 Specific [place] 1.023 1.001 - 1.030 Protein, Urine Negative Negative Blood, Urine Large (A) Negative Glucose, Urine >=500 mg/dL (A) Negative Ketones, Urine Negative Negative Bilirubin, Urine Negative Negative Nitrite, Urine Negative Negative Leukocyte Esterase, Urine Moderate (A) Negative Urobilinogen, Urine Negative 0.2 mg/dL, 1.0 mg/dL, Negative WBC UA 25-50 (A) 0 - 2 /HPF RBC UA >100 (A) 0 - 2 /HPF SQUAMOUS EPITHELIAL UA 0-2 0 - 2 /LPF BACTERIA UA 1+ (A) Negative /HPF MUCUS UA Present (A) Negative /LPF Comprehensive Metabolic Panel Result Value Ref Range Na 132 (L) 136 - 145 mmol/L K 3.7 3.4 - 5.1 mmol/L Cl 98 98 - 107 mmol/L CO2 26 20 - 31 mmol/L Anion Gap 8 3 - 16 mmol/L Glucose 491 (H) 60 - 106 mg/dL BUN 11 9 - 23 mg/dL Creatinine 0.72 0.55 - 1.02 mg/dL eGFR if not >60 >=60 mL/min/1.73m2 Calcium 9.3 8.7 - 10.4 mg/dL Albumin 4.1 3.2 - 4.8 g/dL Bilirubin Total 0.3 0.3 - 1.2 mg/dL Total Protein 6.6 5.7 - 8.2 g/dL AST 14 0 - 34 U/L ALT 20 10 - 49 U/L Alkaline Phosphatase 92 46 - 116 U/L Globulin 2.5 2.1 - 3.8 g/dL Albumin/Globulin Ratio 1.6 0.8 - 1.9 BUN/Creatinine Ratio 15.3 , Urine, Qual Result Value Ref Range HCG SCREEN, URINE Negative Negative ED COURSE & MEDICAL DECISION MAKING Pertinent Labs & Imaging studies were reviewed along with EMS notes and [facility] record s if applicable. (See chart for details) Medications and Allergy list reviewed. Nurses note and old records were reviewed The patient was seen and examined, work-up significant for urinary tract infection and hype rglycemia. No evidence of DKA. Plan is for discharge home with oral antibiotics and PCP fo llow-up. Patient agrees this plan. Follow up information and return precautions were discussed in detail at the bedside prior to discharge and all questions were answered. The patient remained hemodynamically stable without evidence of shock or malperfusion jessie g their ED course, at time of discharge patient is sitting/resting comfortably in no apparen t distress. The patient was counseled about their results and workup including all incidenta l findings and the need for out patient follow up to which they verbalized their understandi ng and were provided. The patient was counseled about the importance of medical recommendati ons today and the dangers including harm, , permanent injury, injury, morbidity, and mo rtality of non adherence to the treatment plan. They verbalize their understanding of today' s plan and agree with it. They were counseled that emergency services are available to them 24/ and to return to the ED immediately if symptoms return, persist, change, worsen or new symptoms develop. The patient was given follow up. They were given further strict, thorough, actionable return precautions to which they verbalized their understanding. The patient's q uestions were answered and the patient agreed with the plan. The patient was discharged in g ood stable condition. Last Set of Vital Signs: Temp: 36 C (96.8 F) Pulse: 85 Resp: 14 SpO2: 96 % BP: 132/78 FINAL IMPRESSION ICD-10-CM ICD-9-CM 1. Urinary tract infection with hematuria, site unspecified N39.0 599.0 R31.9 599.70 2. Hyperglycemia R73.9 790.29 Follow-up Information Quynh Finch MD. Specialty: Internal Medicine Why: As needed Contact information: [address] [facility] [address] [facility]. Specialty: Emergency Medicine Contact information: [address] [facility] [address] New Prescriptions CEPHALEXIN (KEFLEX) 500 MG CAPSULE Take 1 capsule by mouth 4 times daily for 7 days. Portions of this chart were created with [employer] voice recognition software. Inadvertent so und alike substitutions may be present and are unintentional Michael Grace MD 08/01/192132 ingering, Noe Navarro RN - 08/01/2019 7:46 PM PSTPt. Has blood in urined that started yesterday morning. N o other s/s to report. P M PSTdocumented in this encounter Plan of Treatment +--------+---------+ + + + | Date | Type | Specialty | Care Team | Description | +--------+---------+ + + + | 01/09/ | Office | Internal Medicine | Stef, | | | 2019 | Visit | | MD Quynh | | | | | | [address] [place] | | | | | | [place] [address] | | | | | | [phone] | | | | | | | | +--------+---------+ + + + + +------+--------+ + + | Name | Type | Priori | Associated Diagnoses | Date/Time | | | | ty | | | + +------+--------+ + + | ED INFORMATION | OSMAR | Routin | | 08/01/2019 7:36 PM | | EXCHANGE | | e | | PST | + +------+--------+ + + documented as of this encounter Procedures + +--------+ + + + | Procedure Name | Priori | Date/Time | Associated Diagnosis | Comments | | | ty | | | | + +--------+ + + + | COMPREHENSIVE | STAT | 08/01/2019 | | Results for this | | METABOLIC PANEL | | 8:51 PM | | procedure are in the | | | | PST | | results section. | + +--------+ + + + | HCG, URINE, QUAL | Add-On | 08/01/2019 | | Results for this | | | | 8:15 PM | | procedure are in the | | | | PST | | results section. | + +--------+ + + + | URINALYSIS WITH | STAT | 08/01/2019 | | Results for this | | MICROSCOPIC | | 8:15 PM | | procedure are in the | | | | PST | | results section. | + +--------+ + + + | ED INFORMATION | Routin | 08/01/2019 | | | | EXCHANGE | e | 7:36 PM | | | | | | PST | | | + +--------+ + + + +---+--------+ | | | | | Proced | | | ure | | | Note - | | | Zain, | | | Lab In | | | | | | Hlseve | | | n - | | | | | | 2019 | | | 7:37 | | | PM PST | | | | | | Format | | | ting | | | of | | | this | | | note | | | might | | | be | | | differ | | | ent | | | from | | | the | | | origin | | | al.COL | | | LECTIV | | | E?NOTI | | | FICATI | | | ON?/ | | | | | | 0 | | | 19:36? | | | GRASS, | | | | | | HEATHE | | | R | | | S?MRN: | | | | | | [id number] | | | [id number] | | | riteri | | | a Met | | | | | | PDMPSe | | | curity | | | and | | | Safety | | | No | | | recent | | | | | | Securi | | | ty | | | Events | | | | | | curren | | | tly on | | | | | | fileED | | | Care | | | Guidel | | | inesTh | | | ere | | | are | | | curren | | | tly no | | | ED | | | Care | | | Guidel | | | sonia | | | for | | | this | | | patien | | | t. | | | Please | | | check | | | your | | | facili | | | ty's | | | medica | | | l | | | record | | | s | | | system | | | .Presc | | | riptio | | | n Drug | | | | | | Report | | | (12 | | | Mo.)Rx | | | | | | Detail | | | sFill | | | Date | | | Drug | | | Descri | | | ption | | | Qty. | | | Prescr | | | iber | | | CS MED | | | | | | 2019-1 | | | 2-17 | | | DIPHEN | | | OXYLAT | | | E-ATRO | | | P | | | 2.5-0. | | | 025 60 | | | | | | CLAUDI | | | U-GILY | | | | | | IONESC | | | U-TAJT | | | I 5 0 | | | 2019-1 | | | 1-26 | | | ALPRAZ | | | OLAM | | | 0.5 MG | | | | | | TABLET | | | 30 | | | CLAUDI | | | U-GILY | | | | | | IONESC | | | U-TAJT | | | I 4 0 | | | 2019-1 | | | 0-10 | | | ALPRAZ | | | OLAM | | | 0.5 MG | | | | | | TABLET | | | 30 | | | CLAUDI | | | U-GILY | | | | | | IONESC | | | U-TAJT | | | I 4 0 | | | Rx | | | Summar | | | yMetri | | | c | | | Count | | | CS | | | II-V | | | Rx 3 | | | CS-II | | | Rx 0 | | | Quanti | | | ty | | | Dispen | | | sed | | | 120 | | | Unique | | | | | | Prescr | | | ibers | | | 1 | | | Unique | | | | | | Pharma | | | cies 1 | | | | | | Benzos | | | 2 | | | Opioid | | | s 0 | | | Long | | | Acting | | | | | | Opioid | | | s 0 | | | E.D. | | | Visit | | | Count | | | (12 | | | mo.)Fa | | | cility | | | | | | Visits | | | Low | | | Acuity | | | | | | Provid | | | ence | | | St. | | | [facility] | | | Medica | | | l | | | Center | | | 4 0 | | | Total | | | 4 0 | | | Note: | | | Visits | | | | | | indica | | | te | | | total | | | known | | | visits | | | . | | | Medica | | | id Low | | | | | | Acuity | | | Dx | | | are | | | the | | | number | | | of | | | primar | | | y | | | diagno | | | ses on | | | the | | | Medica | | | id's | | | Low | | | Acuity | | | dx | | | list. | | | | | | Recent | | | | | | Emerge | | | ncy | | | Depart | | | ment | | | Visit | | | Summar | | | yDate | | | Facili | | | ty | | | City | | | State | | | Type | | | Diagno | | | ses or | | | Chief | | | | | | Compla | | | int | | | Feb 3, | | | 2020 | | | Provid | | | ence | | | [facility] | [facility] | | [place] | | | [place] | | | Emerge | | | ncy | | | blood | | | in | | | urine | | | Carmelo | | | 25, | | | 2020 | | | Provid | | | ence | | | [facility] | | [facility] | | | [place] | | | [place] | | | Emerge | | | ncy | | | Poss | | | blood | | | clot | | | on leg | | | | | | Leg | | | Pain | | | Pain | | | in | | | right | | | thigh | | | Nov | | | 1, | | | 2019 | | | Provid | | | ence | | | [facility] | | [facility] | | [place] | | | [place] | | | Emerge | | | ncy | | | | | | Possib | | | le | | | finger | | | break | | | | | | Foot | | | Injury | | | | | | Contus | | | ion of | | | right | | | foot, | | | | | | initia | | | l | | | encoun | | | ter | | | Nov 1, | | | 2019 | | | [facility] | | | [place] | | | Urgent | | | Care | | | [place] | | | [place] | | | Urgent | | | Care | | | | | | Proc/t | | | rtmt | | | not | | | crd | | | out | | | d/t pt | | | lv | | | bef | | | seen | | | by | | | hlth | | | care | | | prov | | | Aug 8, | | | 2019 | | | Provid | | | ence | | | [facility] | | [facility] | | [place] | | | [place] | | | Emerge | | | ncy | | | Blood | | | in | | | urine, | | | back | | | pain | | | | | | Hematu | | | salomón | | | Flank | | | Pain | | | | | | Urinar | | | y Pain | | | | | | Hematu | | | salomón, | | | unspec | | | ified | | | | | | Urinar | | | y | | | tract | | | infect | | | ion, | | | site | | | not | | | specif | | | ied | | | | | | Unspec | | | ified | | | abdomi | | | nal | | | pain | | | Recent | | | | | | Inpati | | | ent | | | Visit | | | Summar | | | yNo | | | record | | | ed | | | inpati | | | ent | | | visits | | | . Care | | | | | | TeamPr | | | ovider | | | | | | Specia | | | lty | | | Phone | | | Fax | | | Servic | | | e | | | Dates | | | IONESC | | | U-TAJT | | | I, | | | CLAUDI | | | U-GILY | | | , | | | M.D. | | | Transportation Director | | | al | | | Medici | | | ne | | | [phone] | | | [phone] | | | [phone] | | | Curren | | | t | | | Tyron, | | | Emily | | | | | | Primar | | | y Care | | | [phone] | | | | | | [phone] | | | 25 | | | Oct 1, | | | 2016 | | | - | | | Curren | | | t | | | Claudi | | | uGily | | | Ionesc | | | uTajti | | | | | | Primar | | | y Care | | | | | | [phone]) | | | [phone] | | | 43 | | | Curren | | | t | | | Collec | | | tive | | | Portal | | | This | | | patien | | | t has | | | regist | | | ered | | | at the | | | | | | Provid | | | ence | | | St[facility] | | | [facility] | | | Medica | | | l | | | Center | | | | | | Emerge | | | ncy | | | Depart | | | ment | | | For | | | more | | | inform | | | ation | | | visit: | | | | | | https: | | | //prov | | | .colle | | | ctivem | | | edical | | | .com/n | | | otify/ | | | [id number] | | | [phone] | | | [phone] | | | [email or web address] | | | [id number] | | | [id number] | | | | | | PLEASE | | | NOTE: | | | 1. | | | Any | | | care | | | recomm | | | endati | | | ons | | | and | | | other | | | clinic | | | al | | | inform | | | ation | | | are | | | provid | | | ed as | | | guidel | | | sonia | | | or for | | | | | | histor | | | ical | | | purpos | | | es | | | only, | | | and | | | provid | | | ers | | | should | | | | | | exerci | | | se | | | their | | | own | | | clinic | | | al | | | judgme | | | nt | | | when | | | provid | | | ing | | | care. | | | 2. | | | You | | | may | | | only | | | use | | | this | | | inform | | | ation | | | for | | | purpos | | | es of | | | treatm | | | ent, | | | paymen | | | t or | | | health | | | care | | | operat | | | ions | | | activi | | | ties, | | | and | | | subjec | | | t to | | | the | | | limita | | | tions | | | of | | | applic | | | able | | | Collec | | | tive | | | Polici | | | es. | | | 3. | | | You | | | should | | | | | | consul | | | t | | | direct | | | ly | | | with | | | the | | | organi | | | zation | | | that | | | provid | | | ed a | | | care | | | guidel | | | ine or | | | other | | | | | | clinic | | | al | | | histor | | | y with | | | any | | | questi | | | ons | | | about | | | additi | | | onal | | | inform | | | ation | | | or | | | accura | | | cy or | | | comple | | | teness | | | of | | | inform | | | ation | | | provid | | | ed.? | | | 2019 | | | Collec | | | tive | | | Medica | | | l | | | Techno | | | logies | | | , Inc[employer] | | | - | | | [email or web address] | | | llecti | | | vemedi | | | [email or web address] | | | m | +---+--------+ documented in this encounter Results Comprehensive Metabolic Panel (08/01/2019 8:51 PM PST) + + + + + + | Component | Value | Ref Range | Performed | Pathologist | | | | | At | Signature | + + + + + + | Na | 132 (L) | 136 - 145 | [facility] | | | | | mmol/L | [facility] | | | | | | [facility] | | | | | [facility] - | | | | | | LABORATORY | | + + + + + + | K | 3.7 | 3.4 - 5.1 | [facility] | | | | | mmol/L | [facility] | | | | | | [facility] | | | | | | [facility] - | | | | | | LABORATORY | | + + + + + + | Cl | 98 | 98 - 107 mmol/L | [facility] | | | | | | [facility] | [facility] | [facility] | | | | | | [facility] - | | | | | | LABORATORY | | + + + + + + | CO2 | 26 | 20 - 31 mmol/L | [facility] | | | | | | [facility] | | | | | | [facility] | | | | | | [facility] - | | | | | | LABORATORY | | + + + + + + | Anion Gap | 8 | 3 - 16 mmol/L | [facility] | | | | | | [facility] | | | | [facility] | [facility] | | | | | [facility] - | | | | | | LABORATORY | | + + + + + + | Glucose | 491 (H) | 60 - 106 mg/dL | [facility] | | | | | | [facility] | | | [facility] | [facility] | | | | | | [facility] - | | | | | | LABORATORY | | + + + + + + | BUN | 11 | 9 - 23 mg/dL | [facility] | | | | | | [facility] | | | | | | [facility] | | | | | | [facility] - | | | | | | LABORATORY | | + + + + + + | Creatinine | 0.72 | 0.55 - 1.02 | [facility] | | | | | mg/dL | [facility] | [facility] | | | | | | [facility] - | | | | | | LABORATORY | | + + + + + + | eGFR if not | >60Comment: GLOMERULAR | >=60 | [facility] | | | | FILTRATION | mL/min/1.73m2 | [facility] | | | QATARI | RATE,ESTIMATED | | MEDICAL | | | | mL/min/1.56t9Gfav than | | CENTER - | | [...] + + + + | Calcium | 9.3 | 8.7 - 10.4 | [facility] | | | | | mg/dL | [facility] | | | | | | [facility] | | | | | | [facility] - | | | | | | LABORATORY | | + + + + + + | Albumin | 4.1 | 3.2 - 4.8 g/dL | [facility] | | | | | | [facility] | | | | | | [facility] | | | | | | [facility] - | | | | | | LABORATORY | | + + + + + + | Bilirubin | 0.3 | 0.3 - 1.2 mg/dL | [facility] | | | Total | | | [facility] | | | [facility] | [facility] | | | | | | [facility] - | | | | | | LABORATORY | | + + + + + + | Total | 6.6 | 5.7 - 8.2 g/dL | [facility] | | | Protein | | | [facility] | | | | | | [facility] | | | | | | [facility] - | | | | | | LABORATORY | | + + + + + + | AST | 14 | 0 - 34 U/L | [facility] | | | | | | [facility] | | | | | | [facility] | | | | | | [facility] - | | | | | | LABORATORY | | + + + + + + | ALT | 20 | 10 - 49 U/L | [facility] | | | | | | [facility] | | | | | | [facility] | | | | | | [facility] - | | | | | | LABORATORY | | + + + + + + | Alkaline | 92 | 46 - 116 U/L | [facility] | | | Phosphatase | | | [facility] | | | | | | [facility] | | | | | | CENTER - | | | | | | LABORATORY | | + + + + + + | Globulin | 2.5 | 2.1 - 3.8 g/dL | [facility] | | | | | | [facility] | | | | | | [facility] | | | | | | [facility] - | | | | | | LABORATORY | | + + + + + + | Albumin/Mayra | 1.6 | 0.8 - 1.9 | [facility] | | | bulin Ratio | | | [facility] | | | | | | [facility]ICAL | | | | | | CENTER - | | | | | | LABORATORY | | + + + + + + | BUN/Creatin | 15.3 | | [facility] | | | ine Ratio | | | [facility] | | | | | | MEDICAL [...] [address] | [place] | [phone] | | [facility] | | [address] | | | - LABORATORY | | | | + + + + + , Urine, Qual (08/01/2019 8:15 PM PST) + + + + + + | Component | Value | Ref Range | Performed | Pathologist | | | | | At | Signature | + + + + + + | HCG | Negative | Negative | [facility] | | | Qualitative | | | [facility] | | | , Urine | | | MEDICAL | | [...] [address] | [place] | [phone] | | [facility] | | [id number] | | | - LABORATORY | | | | + + + + + Urinalysis With Microscopic (08/01/2019 8:15 PM PST) + + + + + + | Component | Value | Ref Range | Performed | Pathologist | | | | | At | Signature | + + + + + + | Color, | Yellow | Light Yellow, | [facility] | | | Urine | | Yellow, Straw | [facility] | | | | | | [facility] | | | | | | [facility] - | | | | | | LABORATORY | | + + + + + + | Clarity | Hazy (A) | Clear | [facility] | | | | | | [facility] | | | | | | [facility] | | | | | | [facility] - | | | | | | LABORATORY | | + + + + + + | pH, Urine | 7.0 | 5.0 - 8.0 | [facility] | | | | | | [facility] | | | | | | [facility] | | | | | | [facility] - | | | | | | LABORATORY | | + + + + + + | Specific | 1.023 | 1.001 - 1.030 | [facility] | | | [place], | | | [facility] | | | Urine | | | MEDICAL | | | | | | CENTER - | | | | | | LABORATORY | | + + + + + + | Protein, | Negative | Negative | [facility] | | | Urine | | | [facility] | | | | | | [facility]ICAL | | | | | | CENTER - | | | | | | LABORATORY | | + + + + + + | Blood, | Large (A) | Negative | [facility] | | | Urine | | | [facility] | | | | | | [facility]ICAL | | | | | | CENTER - | | | | | | LABORATORY | | + + + + + + | Glucose, | >=500 mg/dL (A) | Negative | [facility] | | | Urine | | | [facility] | | | | | | [facility] | | | | | | CENTER - | | | | | | LABORATORY | | + + + + + + | Ketones, | Negative | Negative | [facility] | | | Urine | | | [facility] | | | | | | [facility] | | | | | | CENTER - | | | | | | LABORATORY | | + + + + + + | Bilirubin, | Negative | Negative | [facility] | | | Urine | | | [facility] | | | | | | [facility]ICAL | | | | | | CENTER - | | | | | | LABORATORY | | + + + + + + | Nitrite, | Negative | Negative | [facility] | | | Urine | | | [facility] | | | | | | [facility]ICAL | | | | | | CENTER - | | | | | | LABORATORY | | + + + + + + | Leukocyte | Moderate (A) | Negative | [facility] | | | Esterase, | | | [facility] | | | Urine | | | MEDICAL | | | | | | CENTER - | | | | | | LABORATORY | | + + + + + + | Urobilinoge | Negative | 0.2 mg/dL, 1.0 | [facility] | | | n, Urine | | mg/dL, Negative | [facility] | | | | | | MEDICAL | | | | | | CENTER - | | | | | | LABORATORY | | + + + + + + | White Blood | 25-50 (A) | 0 - 2 /HPF | [facility] | | | Cells, | | | [facility] | | | Urine | | | MEDICAL | | | | | | CENTER - | | | | | | LABORATORY | | + + + + + + | Red Blood | >100 (A) | 0 - 2 /HPF | [facility] | | | Cells, | | | [facility] | | | Urine | | | MEDICAL | | | | | | CENTER - | | | | | | LABORATORY | | + + + + + + | Squamous | 0-2 | 0 - 2 /LPF | [facility] | | | Epithelial | | | [facility] | | | Cells, | | | MEDICAL | | | Urine | | | CENTER - | | | | | | LABORATORY | | + + + + + + | Bacteria, | 1+ (A) | Negative /HPF | [facility] | | | Urine | | | [facility] | | | | | | MEDICAL | | | | | | CENTER - | | | | | | LABORATORY | | + + + + + + | Mucus, | Present (A) | Negative /LPF | [facility] | | | Urine | | | [facility] | | | | | | MEDICAL [...] + + | [facility]. | [address] | [place] | [phone] | | [facility] | | [id number] | | | - LABORATORY | | | | + + + + + documented in this encounter Visit Diagnoses + + | Diagnosis | + + | Urinary tract infection with hematuria, site unspecified - Primary | + + | Hyperglycemia Other abnormal glucose | + + documented in this encounter Administered Medications + + + +------+------+------+ | Medication Order | MAR | Action | Dose | Rate | Site | | | Action | Date | | | | + + + +------+------+------+ | cephalexin (KEFLEX) capsule (ED | Dispense | 08/01/19 | | | | | prepack) Oral, SEE ADMIN | to Home | 20 9:43 | | | | | INSTRUCTIONS, Starting 08/01/19 | | PM PST | | | | | at 2140, Take 500 mg by mouth | | | | | | | about every 6 hours (4 times | | | | | | | daily) for 7 days total., | | | | | | | Indications: uti | | | | | | + + + +------+------+------+ +---+---+ | | | +---+---+ documented in [...]
--- OUTSIDE RECORDS SUMMARY | ~2019-12-24 | XMS | Encounter Summary ---
Demographics + + + | Address | [address] | | | [place] [address] | + + + | Home Phone | | + + + | Preferred Language | Unknown | + + + | Marital Status | | + + + | Anglican Affiliation | 1013 | + + + | Race | Unknown | + + + | Ethnic Group | Unknown | + + + Author + + + | Author | [facility] | | | and [place] | + + + | Organization | [facility] | | [...] [place], | | | | | [place] [address] | | + + + + + | Mahogany Farnsworth | ECON | [address] | | | | | [place] [address] | | + + + + + Care Team Providers + +------+ + | Care House Designer Name | Role | Phone | + +------+ + | Quynh Finch | PCP | | | MD | | | + +------+ + Reason for Visit + + + | Reason | Comments | + + + | Medicare Wellness | | + + + Encounter Details +--------+---------+ + + + | Date | Type | Department | Care Team | Description | +--------+---------+ + + + | 05/07/ | Office | [facility] | Stef, | Medicare annual | | 2017 | Visit | MEDICINE [address] | MD Quynh | wellness visit, | | | | [address] [place], | [address] [facility] | subsequent (Primary | | | | [place] [address] | [place] [address] | Dx); Chronic pain | | | | [phone] | [phone] | syndrome; Chronic | | | | | | bilateral low back | | | | | | pain without | | | | | | sciatica; Tobacco | | | | | | use disorder; | | | | | | Screening for breast | | | | | | cancer; Need for | | | | | | prophylactic | | | | | | vaccination and | | | | | | inoculation against | | | | | | influenza; Type 2 | | | | | | diabetes mellitus | | | | | | without | | | | | | complication, | | | | | | without long-term | | | | | | current use of | | | | | | insulin (HCC); Mixed | | | | | | hyperlipidemia; | | | | | | Vitamin D deficiency | +--------+---------+ + + + Social History [...] + + + | Blood Pressure | 130/80 | 05/07/2017 11:33 AM | | | | | PST | | + + + + + | Pulse | 83 | 05/07/2017 11:33 AM | | | | | PST | | + + + + + | Temperature | 36.4 C (97.5 F) | 05/07/2017 11:33 AM | | | | | PST | | + + + + + | Respiratory Rate | 16 | 05/07/2017 11:33 AM | | | | | PST | | + + + + + | Oxygen Saturation | 96% | 05/07/2017 11:33 AM | | | | | PST | | + + + + + | Inhaled Oxygen | - | - | | | Concentration | | | | + + + + + | Weight | 93 kg (205 lb 0.4 | 05/07/2017 11:33 AM | | | | oz) | PST | | + + + + + | Height | - | - | | + + + + + | Body Mass Index | 35.19 | 03/12/2017 8:59 AM | | | | | PDT | | + + + + + documented in this encounter Patient Instructions Patient Instructions Quynh Finch MD - 05/07/2017 12:02 PM PST Prevention Guidelines,Women Ages 40 to 49 Screening tests and vaccines are an important part of managing your health. Health counseli ng is essential, too. Below are guidelines for these, for women ages 40 to 49. Talk with you r healthcare provider to make sure you re up-to-date on what you need. Screening Who needs it How often Type 2 diabetes or prediabetes All adults beginning at age 45 and adults without symptoms a t any age who are overweight or obese and have 1 or more additional risk factors for diabete s At least every 3 years Alcohol misuse All women in this age group At routine exams Blood pressure All women in this age group Every 2 years if your blood pressure is less bossman n 120/80 mm Hg; yearly if your systolic blood pressure is 120 to 139 mm Hg, or your diastoli c blood pressure reading is 80 to 89 mm Hg Breast cancer All women in this age group Yearly mammogram and clinical breast exam2 Each woman should make her own decision. If a woman decides to have mammograms before age 5 0, they should be done every 2 years.3 Cervical cancer All women in this age group, except women who have had a complete hysterect tj Pap test every 3 yearsor Pap test plushuman papilloma virus (HPV)test every 5 year s Chlamydia Women at increased risk for infection At routine exams if you're at risk or have symptoms Depression All women in this age group At routine exams Gonorrhea Sexually active women at increased risk for infection At routine exams Hepatitis C Anyone at increased risk; 1 time for those born between 1945 and 1964 At routin e exams High cholesterol or triglycerides All women ages 45 and older who are at risk for coronary artery disease; younger women, talk with your healthcare provider At least every 5 years HIV All women At routine exams Obesity All women in this age group At routine exams Syphilis Women at increased risk for infection talk with your healthcare provider At ro utine exams Tuberculosis Women at increased risk for infection talk with your healthcare provider A sk your healthcare provider Vision All women in this age group Complete exam at age 40 and eye exams every 2 to 4 years . If you have a chronic disease, ask your healthcare provider how often you should have your eyes examined.4 Vaccine Who needs it How often Chickenpox (varicella) All women in this age group who have no record of this infection or vaccine 2 doses; the second dose should be given at least 4 weeks after the first dose Hepatitis A Women at increased risk for infection talk with your healthcare provider 2 doses given 6 months apart Hepatitis B Women at increased risk for infection talk with your healthcare provider 3 doses over 6 months; second dose should be given 1 month after the first dose; the third dos e should be given at least 2 months after the second dose and at least 4 months after the fi rst dose Haemophilus influenzaeType B (HIB) Women at increased risk 1 to 3 doses Influenza (flu) All women in this age group Once a year Measles, mumps, rubella (MMR) All women in this age group who have no record of these infec tions or vaccines 1 or 2 doses Meningococcal Women at increased risk for infection talk with your healthcare provider 1 or more doses Pneumococcal conjugate vaccine (PCV13)and pneumococcal polysaccharidevaccine(PPSV23) Women at increased risk for infection talk with your healthcare provider 1 or 2 doses Tetanus/diphtheria/pertussis (Td/Tdap) booster All women in this age group A one-time dose of Tdap instead of a Td booster after age 18, then Td every 10 years Counseling Who needs it How often BRCA gene mutation testing for breast and ovarian cancer susceptibility Women with increase d risk for having gene mutation When your risk is known Breast cancer and chemoprevention Women at high risk for breast cancer When your risk is kn own Diet and exercise Women who are overweight or obese When diagnosed, and then at routine exa ms Domestic violence Women at the age in which they are able to have children At routine exams Sexually transmitted infection prevention Women at increased risk for infection talk wi th your healthcare provider At routine exams Use of tobacco and the health effects it can cause All women in this age group Every exam 1American Diabetes Association 2American Cancer Society 3U.S. Preventive Services Task Force 4[facility] Academy of Ophthalmology Date Last Reviewed: 02/22/201519998839-8080 [employer]. [address] [place] [address]. All righ ts reserved. This information is not intended as a substitute for professional medical care. Always follow your healthcare professional's instructions. documented in this encounter Progress Notes Quynh Finch MD - 05/07/2017 11:00 AM PSTFormatting of this note might be d ifferent from the original. Her medical records. Medicare Annual Wellness Visit Marzena Duong is a 46 y.o. female who presents for a Medicare Wellness visit today: She is feeling fine overall. No chest pain palpitations or shortness of breath. She is taking the medications as prescribed and she needs a refill. Drug screen at last vi sit was compatible with what she is taking. She had a colonoscopy a few years ago which was normal. She is due to have a screening sly mogram. She had recent labs showing evidence of menopausal state with an elevated FSH about 20. 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 Continues to smoke and is not ready to quit. She states other members of the family are sm oking. Her level of physical activity is limited due to her sequela from necrotizing fasciitis. S he is using a wheelchair. Her daughter is her caregiver and she states her hours have been reduced recently due to decreased funds available in [facility]. Denies alcohol or illicit drug use. Has a living will. He is interested in a flu shot today. HEALTH RISK ASSESSMENT: The patient or their surrogate filled out the HRA and the responses were incorporated into the notes below. GENERAL HEALTH 1. How would you describe your general health? : Good 2. How would you rate your health compared to others your age?: Same HEARING AND VISION 1. Do you feel that a hearing or vision difficulty limits or hampers your personal life?: ( !) Yes 2. Do you wear hearing aids?: No 3. Do you wear glasses?: Yes FUNCTIONAL AND ACTIVITIES OF DAILY LIVING 1. Do you need help with dressing, eating, bathing or going to the bathroom?: (!) Yes 2. Do you need help with preparing meals, transportation, shopping, managing your finances, or taking your medicine?: (!) Yes 3. Do you drive?: No 4. Have you ever been told that you should stop driving?: No HOME SAFETY SCREENING: Does your home have throw rugs, poor lighting, or a slippery bathtub or shower?: No Fall Risk Screening ([facility]) 1. Have you fallen in the past year?: (!) Yes 1a. How many times?: 2 1b. Were you injured?: (!) Yes 2. Do you feel unsteady when standing or walking?: No 3. Do you worry about falling?: (!) Yes 4. Do you use (or were you told to use) a cane or walker to get around safely?: No 5. Do you have to steady yourself by holding onto furniture when moving about your home?: ( !) Yes 6. Do you need to push with your hands to stand up from a chair?: (!) Yes 7. Do you have trouble stepping up onto a curb?: (!) Yes 8. Do you often have to pickard to the toilet?: (!) Yes 9. Have you lost some of the feeling in your feet?: (!) Yes 10. Do you take any medicine that makes you feel light-headed or tired?: No STEADI Fall risk questionnaire score: 8 DIET AND EXERCISE HISTORY 1. How is your appetite ? : Good 2. Do you eat fewer than two times a day? : No 3. Do you eat at least 2 serving of fruits and vegetables per day?: Yes 4. How many times per week do you exercise? : (!) 0-1 INCONTINENCE SCREENING Do you have trouble holding your bowels or bladder?: (!) Yes ADVANCED CARE PLANNING 1. Do you have an Advanced Directive?: No 2. Have you completed a POLST form?: (!) No 3. If you have a designated health care member services representative, give their name and contact kathleen nj: Mahogany Farnsworth PHQ-2 DEPRESSION SCREENING: Over the last 2 weeks, have you been bothered by any of the fol lowing? 1. Little interest/pleasure in doing things? : Not at all Feeling down, depressed/hopeless?: Not at all PHQ2 Total Score: 0 PHQ2 Screening: Negative Patient Active Problem List Diagnosis Chronic pain syndrome HYPERCHOLESTEROLEMIA GASTROESOPHAGEAL REFLUX DISEASE HYPERTENSION, BENIGN ESSENTIAL DEPRESSION, MAJOR, MODERATE SLEEP APNEA DIAB W/OTH MANIFESTS TYPE II/UNS TYPE UNCNTRL Tobacco use disorder OBSTRUCTIVE SLEEP APNEA RESTLESS LEG SYNDROME ORGANIC INSOMNIA UNSPECIFIED SPRUCE-CELIAC CHANGE IN BOWEL HABITS BLEEDING-GI UNSPECIFIED History of necrotizing fasciitis Urinary incontinence in female Chronic bilateral low back pain without sciatica Medicare annual wellness visit, subsequent Screening for breast cancer Past Medical History: Past Medical History: Diagnosis Date Anxiety Arthritis Asthma Cancer (HCC) Depression Diabetic peripheral neuropathy (HCC) Drop foot gait Encounter for blood transfusion Epidermal inclusion cyst GERD (gastroesophageal reflux disease) Hemangioma Hyperlipidemia Hypertension Moderate vulvar dysplasia Onychauxis Paralysis of lower limb (HCC) Thyroid disease Vulvitis Xanthelasma of eyelid Past Family History: Family History Problem Relation Age of Onset [...] abuse Sister Miscarriages / stillbirths Daughter Social History: Patient Status: [4]. Patient lives alone Currently working? No Substance Use: Ana Tobacco Use: History Smoking Status Current Every Day Smoker Packs/day: 1.50 Years: 34.00 Types: Cigarettes Smokeless Tobacco Never Used . Marzena's alcohol use: History Alcohol Use Yes . The Past Medical, Surgical, and Family History has been reviewed and updated at this visit. yes Today's Visit: Current Medications Current Outpatient Prescriptions Medication Sig Dispense Refill [...] No current facility-administered medications for this visit. Allergies Allergies Allergen Reactions Hydrocodone Hives Hives and decreased respirations Morphine Other (See Comments) Light-headed, very emotional (cries constantly) Sulfa Antibiotics Rash and Other (See Comments) Severe respiratory distress, huge water blisters, rash Adhesive & Tape Other reaction(s): Rash Milk-Related Compounds Other reaction(s): Rash Codeine Rash Rash, slows breathing Current list of Providers and DME Suppliers Patient Care Team: Quynh Finch MD as PCP - General (Internal Medicine) Current Medicare Suppliers: [facility] [address] [facility] [address] [place] [id number] [address] Immunizations Immunization History Administered Date(s) Administered INFLUENZA PF QUAD(PED/ADOL/ADULT),PSKT or VIAL 05/07/2017 PNEUMOCOCCAL POLYSACCHARIDE 23-VALENT (PPSV23) 06/29/2008 Preventative Care and Screening (Attestation) The following health maintenance items are reviewed in Epic and correct as of today: Health Maintenance Topic Date Due Diabetic Foot Exam 1988 Hemoglobin A1c Q3 Months 1988 Diabetic Eye Exam (Bi-Annually) 1988 Vaccine: Dtap/Tdap/Td (1 - Tdap) 1989 CERVICAL CANCER SCREENING (PAP EVERY 3 YEARS 21-64 ) 1991 Microalbumin Screening 12/19/2014 Vaccine: Influenza (1) 02/27/2017 Vaccine: Pneumococcal 19-64 (PPSV23 only) Medium Risk Completed REVIEW OF SYSTEMS: Constitutional: positive for fatigue Ears, nose, mouth, throat, and face: positive for hearing loss Respiratory: negative Genitourinary:positive for nocturia and urinary incontinence Musculoskeletal:positive for back pain and myalgias Neurological: positive for coordination problems and weakness Review of Systems All other systems reviewed and are negative. PHYSICAL EXAM: Vitals: BP 130/80 | Pulse 83 | Temp 36.4 C (97.5 F) (Temporal) | Resp 16 | Wt 93 k g (205 lb 0.4 oz) | SpO2 96% | BMI 35.19 kg/m BMI: Estimated body mass index is 35.19 kg/m as calculated from the following: Height as of 03/12/17: 1.626 m (5' 4"). Weight as of this encounter: 93 kg (205 lb 0.4 oz). Vision Screening and Audiometry Results: No exam data present BP 130/80 | Pulse 83 | Temp 36.4 C (97.5 F) (Temporal) | Resp 16 | Wt 93 kg (205 lb 0.4 oz) | SpO2 96% | BMI 35.19 kg/m General Appearance: Alert, cooperative, no distress, appears stated age Head: Normocephalic, without obvious abnormality, atraumatic Eyes: PERRL, conjunctiva/corneas clear, EOM's intact, fundi benign, both eyes Ears: Normal TM's and external ear canals, both ears Nose: Nares normal, septum midline, mucosa normal, no drainage or sinus tenderness Throat: Lips, mucosa, and tongue normal; teeth and gums normal Neck: Supple, symmetrical, trachea midline, no adenopathy; thyroid: no enlargement/tenderness/nodules; no carotid bruit or JVD Back: Symmetric, no curvature, ROM normal, no CVA tenderness Lungs: Clear to auscultation bilaterally, respirations unlabored Chest Wall: No tenderness or deformity Heart: Regular rate and rhythm, S1 and S2 normal, no murmur, rub or gallop Breast Exam: No tenderness, masses, or nipple abnormality Abdomen: Soft, non-tender, bowel sounds active all four quadrants, no masses, no organomegaly Genitalia: Normal female without lesion, discharge or tenderness Rectal: Normal tone, no masses or tenderness; guaiac negative stool Extremities: Extremities normal, atraumatic, no cyanosis or edema Pulses: 2+ and symmetric all extremities Skin: Skin color, texture, turgor normal, no rashes or lesions Lymph nodes: Cervical, supraclavicular, and axillary nodes normal Neurologic: CNII-XII intact, normal strength, sensation and reflexes throughout ASSESSMENT AND PLANS: CHRONIC CONDITION REVIEW: (Required for all Medicare Advantage AWV's) 1. Medicare annual wellness visit, subsequent Comprehensive Metabolic Panel CBC with Differential Lipid Panel Microalbumin, Urine, Random Vitamin D, Deficiency Screen (25-Hydroxy) CK Total 2. Chronic pain syndrome oxyCODONE (OXYCONTIN) 80 mg ER abuse-deterrent tablet oxyCODONE-acetaminophen (PERCOCET) 10-325 mg per tablet 3. Chronic bilateral low back pain without sciatica oxyCODONE (OXYCONTIN) 80 mg ER abuse-d eterrent tablet oxyCODONE-acetaminophen (PERCOCET) 10-325 mg per tablet 4. Tobacco use disorder 5. Screening for breast cancer SLY Tomosynthesis Screening Bilateral 6. Need for prophylactic vaccination and inoculation against influenza Influenza *PF 3 yr or >, Quadrivalent PSKT or Vial 7. Type 2 diabetes mellitus without complication, without long-term current use of insulin (HCC) Comprehensive Metabolic Panel CBC with Differential Lipid Panel Microalbumin, Urine, Random 8. Mixed hyperlipidemia Lipid Panel CK Total 9. Vitamin D deficiency Vitamin D, Deficiency Screen (25-Hydroxy) RECOMMENDATIONS: The following recommendations were made as a result of this visit, and the HRA Is a Care Management Referral indicated for this patient? no Diet: Recommend that half of plate is filled fresh fruit, raw or steamed vegetable per meal . Exercise: Advised to start, increase, or maintain level of exercise in order to reach goal of 30 minutes moderate activity at least 4 days per week. Immunizations: Seasonal influenza vaccine Screening Labs: None due this visit Screening Exams: Screening mammogram and Pap smear HEALTH RISK APPRAISAL (Attestation) Health Risk Assessment Form was reviewed with the patient and recommendations made to Manpreet Gutierrezwn Ad based on her risk factors. PERSONALIZED PREVENTATIVE PLAN: (Attestation) A Personalized Care Plan for Ms. Duong has been established and reviewed with patient and made available to the patient. Shelia soto in this encounter Plan of Treatment +--------+---------+ + + + | Date | Type | Specialty | Care Team | Description | +--------+---------+ + + + | 01/09/ | Office | Internal Medicine | Stef, | | | 2019 | Visit | | MD Quynh | | | | | | [address] | | | | | | [place] [address] | | | | | | [phone] | | | | | | | | +--------+---------+ + + + + +------+--------+ + + | Name | Type | Priori | Associated Diagnoses | Order Schedule | | | | ty | | | + +------+--------+ + + | Comprehensive | Lab | Routin | Medicare annual | Expected: | | Metabolic Panel | | e | wellness visit, | 05/08/2017, Expires: | | | | | subsequent Type 2 | 05/21/2017 | | | | | diabetes mellitus | | | | | | without | | | | | | complication, | | | | | | without long-term | | | | | | current use of | | | | | | insulin (HCC) | | + +------+--------+ + + | CBC with | Lab | Routin | Medicare annual | Expected: | | Differential | | e | wellness visit, | 05/08/2017, Expires: | | | | | subsequent Type 2 | 05/21/2017 | | | | | diabetes mellitus | | | | | | without | | | | | | complication, | | | | | | without long-term | | | | | | current use of | | | | | | insulin (HCC) | | + +------+--------+ + + | Lipid Panel | Lab | Routin | Medicare annual | Expected: | | | | e | wellness visit, | 05/08/2017, Expires: | | | | | subsequent Type 2 | 05/21/2017 | | | | | diabetes mellitus | | | | | | without | | | | | | complication, | | | | | | without long-term | | | | | | current use of | | | | | | insulin (HCC) Mixed | | | | | | hyperlipidemia | | + +------+--------+ + + | Microalbumin, Urine, | Lab | Routin | Medicare annual | Expected: | | Random | | e | wellness visit, | 05/08/2017, Expires: | | | | | subsequent Type 2 | 05/21/2017 | | | | | diabetes mellitus | | | | | | without | | | | | | complication, | | | | | | without long-term | | | | | | current use of | | | | | | insulin (HCC) | | + +------+--------+ + + | Vitamin D, | Lab | Routin | Medicare annual | Expected: | | Deficiency Screen | | e | wellness visit, | 05/08/2017, Expires: | | (25-Hydroxy) | | | subsequent Vitamin | 05/21/2017 | | | | | D deficiency | | + +------+--------+ + + | CK Total | Lab | Routin | Medicare annual | Expected: | | | | e | wellness visit, | 05/08/2017, Expires: | | | | | subsequent Mixed | 05/21/2017 | | | | | hyperlipidemia | | + +------+--------+ + + documented as of this encounter Results SLY Tomosynthesis Screening Bilateral (08/25/2017 2:55 PM PST) + + | Specimen | + + | | + + + + + | Narrative | Performed At | + + + | EXAM: [facility] TOMOSYN SCREENING BILATERAL dated 08/25/2017 2:27 PM | [facility] | | HISTORY: Routine Screening. TECHNIQUE: Bilateral digital CC | | | and MLO. Zia synthesis was performed. CAD utilized. | | | COMPARISON: 05/13/2016 FINDINGS: Scattered areas of | | | fibroglandular density are present bilaterally. Zia synthesis | | | and standard mammographic images demonstrate no suspicious masses, | | | area of architectural distortion or suspicious groups of | | | microcalcifications. Images were reviewed with CAD. | | | IMPRESSION - No mammographic evidence of malignancy. BI-RAD | | | CATEGORY 1: NEGATIVE RECOMMENDATION: Annual screening. | | | Dictated and Signed by: Jorge Cunningham MD Electronically signed: | | | 08/27/2017 1:53 PM | | + + + + + | Procedure Note | + + | Zain, Rad Results In - 08/27/2017 1:56 PM PST EXAM: SLY TOMOSYN SCREENING BILATERAL | | dated 08/25/2017 2:27 PMHISTORY: Routine Screening. TECHNIQUE: Bilateral digital CC | | and MLO. Zia synthesis was performed. CADutilized.COMPARISON: 05/13/2016FINDINGS: | | Scattered areas of fibroglandular density are present bilaterally. Zia synthesis and | | standard mammographic images demonstrate no suspiciousmasses, area of architectural | | distortion or suspicious groups ofmicrocalcifications. Images were reviewed with | | CAD.IMPRESSION - No mammographic evidence of malignancy.BI-RAD CATEGORY 1: | | NEGATIVERECOMMENDATION: Annual screening.Dictated and Signed by: Jorge Cunningham MD | | Electronically signed: 08/27/2017 1:53 PM | |FINDINGS: | |Scattered areas of fibroglandular density are present bilaterally. | | | |Zia synthesis and standard mammographic images demonstrate no suspicious | |masses, area of architectural distortion or suspicious groups of | |microcalcifications. | | | |Images were reviewed with CAD. | | | |IMPRESSION - No mammographic evidence of malignancy. | | | |BI-RAD CATEGORY 1: NEGATIVE | | | |RECOMMENDATION: Annual screening. | | | |Dictated and Signed by: Jorge Cunningham MD | | Electronically signed: 08/27/2017 1:53 PM | + + + +---------+ + + | Performing | Address | City/State/Zipcode | Phone Number | | Organization | | | | + +---------+ + + | [facility] | | | | + +---------+ + + documented in this encounter Visit Diagnoses + + | Diagnosis | + + | Medicare annual wellness visit, subsequent - Primary Routine general medical | | examination at a health care facility | + + | Chronic pain syndrome | + + | Chronic bilateral low back pain without sciatica | + + | Tobacco use disorder | + + | Screening for breast cancer Breast screening, unspecified | + + | Need for prophylactic vaccination and inoculation against influenza | + + | Type 2 diabetes mellitus without complication, without long-term current use of | | insulin (HCC) | + + | Mixed hyperlipidemia | + + | Vitamin D deficiency Unspecified vitamin D deficiency | + + documented in this encounter Additional Health Concerns + + + + + | Infection | Onset Date | Last Indicated | Resolved Time | + + + + + | 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
--- OUTSIDE RECORDS SUMMARY | ~2019-12-24 | XMS | Encounter Summary ---
Demographics + + + | Address | [address] | | | [place] [address] | + + + | Home Phone | | + + + | Preferred Language | Unknown | + + + | Marital Status | | + + + | Zoroastrian Affiliation | 1013 | + + + | Race | Unknown | + + + | Ethnic Group | Unknown | + + + Author + + + | Author | [facility] | | | and [...] [place], | | | | | [place] [address] | | + + + + + | Mahogany Navarro Red[place] | ECON | [address] | | | | | [place] [address] | | + + + + + Care Team Providers + +------+ + | Care Safety Supervisor Name | Role | Phone | + +------+ + PCP | Unavailable | + +------+ + Encounter Details +--------+ + + + + | Date | Type | Department | Care Team | Description | +--------+ + + + + | 09/02/ | Hospital | [facility] | | | | 2005 | Encounter | MED CTR [facility] INTRA OP | | | | | | [address] | | | | | | [place] | | | | | | [address] | | | | | | [phone] | | | +--------+ + + + [...] Quynh | | | | | | [facility] [address] | | | | | | [place] [address] | | | | | | [phone] | | | | | | | | +--------+---------+ + + + documented as of this encounter Visit Diagnoses Not on filedocumented in this encounter"
--- OUTSIDE RECORDS SUMMARY | ~2019-12-24 | XMS | Encounter Summary ---
Demographics + + + | Address | [address] | | | [place] [address] | + + + | Home Phone | | + + + | Preferred Language | Unknown | + + + | Marital Status | | + + + | Voodoo Affiliation | 1013 | + + + | Race | Unknown | + + + | Ethnic Group | Unknown | + + + Author + + + | Author | [facility] | | | and [place] | + + + | Organization | [facility] | [...] [place], | | | | | [place] [address] | | + + + + + | Mahogany Farnsworth | ECON | [address] | | | | | [place] [address] | | + + + + + Care Team Providers + +------+ + | Care Security Flex Utility Officer Name | Role | Phone | [...] Description | +--------+--------+ + + + | 05/31/ | Refill | [facility] | Stfe, | Medication Refill | | 2017 | | MEDICINE [address] | MD Quynh | | | | | [place], | [address] [facility] | | | | | [place] [address] | [place] [address] | | | | | [phone] | [phone] | | | | | | | [...] Quynh | | | | | | [address] [place] [address] | | | | | | [place] [address] | | | | | | [phone] | | | | | | | [...]
--- OUTSIDE RECORDS SUMMARY | ~2019-12-24 | XMS | Encounter Summary ---
Demographics + + + | Address | [address] | | | [place] [address] | + + + | Home Phone | | + + + | Preferred Language | Unknown | + + + | Marital Status | | + + + | Sabianism Affiliation | 1013 | + + + | Race | Unknown | + + + | Ethnic Group | Unknown | + + + Author + + + | Author | [facility] | | | and [place] | + + + | Organization | [facility] | | [...] [place], | | | | | [place] [address] | | + + + + + | Mahogany Navarro Veguita | ECON | [address] | | | | | [place] [address] | | + + + + + Care Team Providers + +------+ + | Care Alterations Tailor Name | Role | Phone | + +------+ + | Quynh Finch | PCP | | | MD | | | + +------+ + Reason for Visit + +--------+ + | Reason | Onset | Comments | | | Date | | + +--------+ + | Medication Refill | 08/26/ | | | | 2018 | | + +--------+ + Encounter Details +--------+--------+ + + + | Date | Type | Department | Care Team | Description | +--------+--------+ + + + | 08/26/ | Refill | [facility] | Stef, | Medication Refill | | 2018 | | MEDICINE [address] | MD Quynh | | | | | [place], | [address] [facility] | | | | | [place] [address] | [place] [address] | | | | | [phone] | [phone] | | | | | | | [...] Telephone Encounter - Vera Solis LPN - 08/27/2018 8:55 AM PSTPatient notified of co mments/recommendations. Patient understands and accepts elephone Encounter - Quynh Finch MD - 07/31 4:57 PM PST50 units of Novolog tid is way too much short-acting insulin. What she should do is increase her long-acting insulin, Basaglar, from current dose, by 5 u nits every day, until her fasting sugars drop to 80-140, and stay on that dose long-term. With Novolog, she may inject up to 10 units 15 min before main meals. I sent a refill to re flect that. P STTelephone Encounter - Nikole Felder CMA - 08/26/2018 10:45 AM PSTCalled to schedule the p atSmart[employer] sound and she told me she will call and schedule her luisa time , she did mention to me that she is needing a refill on her nova log and her pharmacy told her they wont refi ll until September , she is totally out , She mentions that she has increased her dosage to 50 units 3 times a day. Can you call her refills ?? documented in this encounter Plan of Treatment +--------+---------+ + + + | Date | Type | Specialty | Care Team | Description | +--------+---------+ + + + | 01/09/ | Office | Internal Medicine | Stef, | | | 2019 | Visit | | MD Quynh | | | | | | [address] [facility] [address] | | | | | | [place] [address] | | | | | | [phone] | | | | | | | | +--------+---------+ + + + documented as of this encounter Visit Diagnoses + + | Diagnosis | + + | Uncontrolled type 2 diabetes mellitus with hyperglycemia (HCC) | + + documented in this encounter Additional Health Concerns + + + + + | Infection | Onset Date | Last Indicated | Resolved Time | + + + + + | 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
--- OUTSIDE RECORDS SUMMARY | ~2019-12-24 | XMS | Encounter Summary ---
Demographics + + + | Address | [address] | | | [place] [address] | + + + | Home Phone | | + + + | Preferred Language | Unknown | + + + | Marital Status | | + + + | Yarsani Affiliation | 1013 | + + + | Race | Unknown | + + + | Ethnic Group | Unknown | + + + Author + + + | Author | [facility] | | | and [place] | + + + | Organization | [facility] | | [...] [place], | | | | | [place] [address] | | + + + + + | Mahogany Navarro Jolivue | ECON | [address] | | | | | [place] [address] | | + + + + + Care Team Providers + +------+ + | Care Dicer Operator Name | Role | Phone | + +------+ + | Jason Pink | PCP | | | MD | | | + +------+ + Reason for Visit +--------+--------+ + | Reason | Onset | Comments | | | Date | | +--------+--------+ + | Other | 03/23/ | Referral | | | 2013 | | +--------+--------+ + Encounter Details +--------+ + + + + | Date | Type | Department | Care Team | Description | +--------+ + + + + | 03/23/ | Telephone | [facility] | Damian Escudero, | Other (Referral) | | 2013 | | [address] | MD [address] | | | | | [place] | [place] | | | | | [address] | [address] | | | | | [phone] | | | +--------+ + + + [...] this encounter Miscellaneous Notes Telephone Encounter - Dayan Pandey - 03/23/2014 8:05 AM PDTLetter of introduction from Dr. Lopez [facility]. [phone]. A fax was sent r equesting insurance authorization, if required; updated demographics, dictation & office not es. Please schedule for first available. Electronically signed by Dayan Pandey at 8:12 AM PDTdocumented in this encounter Plan of Treatment +--------+---------+ + + + | Date | Type | Specialty | Care Team | Description | +--------+---------+ + + + | 01/09/ | Office | Internal Medicine | RyanAlberto, | | | 2019 | Visit | | MD Quynh | | | | | | [address] [place] | | | | | | [place] [address] | | | | | | [phone] | | | | | | | [...]
--- OUTSIDE RECORDS SUMMARY | ~2019-12-24 | XMS | Encounter Summary ---
Demographics + + + | Address | [address] | | | [place] [address] | + + + | Home Phone | | + + + | Preferred Language | Unknown | + + + | Marital Status | | + + + | Jehovah'S Witness Affiliation | 1013 | + + + | Race | Unknown | + + + | Ethnic Group | Unknown | + + + Author + + + | Author | [facility] | | | and [place] | + + + | Organization | [facility] | | [...] [place], | | | | | [place] [address] | | + + + + + | Mahogany Navarro [place] | ECON | [address] | | | | | [place] [address] | | + + + + + Care Team Providers + +------+ + | Care Validation Analyst Name | Role | Phone | + +------+ + | Quynh Finch | PCP | | | MD | | | + +------+ + Reason for Visit + +--------+ + | Reason | Onset | Comments | | | Date | | + +--------+ + | Medication Refill | 06/19/ | | | | 2016 | | + +--------+ + Encounter Details +--------+--------+ + + + | Date | Type | Department | Care Team | Description | +--------+--------+ + + + | 06/19/ | Refill | [facility] | Stef, | Medication Refill | | 2016 | | MEDICINE [address] | MD Quynh | | | | | [place], | [address] [facility] | | | | | [place] [address] | [place] [address] | | | | | [phone] | [phone] | | | | | | | [...] 01/09/ | Office | Internal Medicine | tSef, | | | 2019 | Visit | | MD Quynh | | | | | | [address] [facility] | | | | | | [place] [address] | | | | | | [phone] | | | | | | | [...]
--- OUTSIDE RECORDS SUMMARY | ~2019-12-24 | XMS | Encounter Summary ---
Demographics + + + | Address | [address] | | | [place] [address] | + + + | Home Phone | | + + + | Preferred Language | Unknown | + + + | Marital Status | | + + + | Pentecostalism Affiliation | 1013 | + + + | Race | Unknown | + + + | Ethnic Group | Unknown | + + + Author + + + | Author | [facility] | | | and [...] [place], | | | | | [place] [address] | | + + + + + | Mahogany Farnsworth | ECON | [address] | | | | | [place] [address] | | + + + + + Care Team Providers + +------+ + | Care Repairer General Name | Role | Phone | + +------+ + | Quynh Finch | PCP | | | MD | | | + +------+ + Encounter Details +--------+ + + + + | Date | Type | Department | Care Team | Description | +--------+ + + + + | 04/26/ | Patient | [facility] | Ryan-Lloyd, | | | 2017 | Outreach | MEDICINE [address] | MD Quynh | | | | | [place], | [address] [facility] | | | | | [place] [address] | [place] [address] | | | | | [phone] | | | | | | | [...] this encounter Miscellaneous Notes Telephone Encounter - BONY PAINTER - 04/26/2018 10:28 AM PDT 04/26/18 Marzena Gutierrezmarybel Duong has been identified as having one or more care gaps listed in the table below (red box): Last Office Visit: 09/15/2017 Next Office Visit: No appointment scheduled Health Topic Patient Goal Patient Most Recent Data Recommended Patient Action Step Blood Pressure Below 140/90 124/80 09/15/2017 Cholesterol Take a cholesterol lowering medication Taking Microalbumin Get tested Not in our Medical Record Tobacco Don't [...] Immunized Due for: - Influenza - Tdap Cervical Cancer Screening Get tested Last Updated: Not in our Medical Record To Primary Care Provider: Quynh Finch MD: Note if you agree with the services due: Office Visit for: - PAP Sign or remove pended order(s) as per your assessment - (see Lead Man Over All Dies In Pattern Shop): Orders Placed This Encounter Pending Hemoglobin A1C Ordered On: 04/26/2018 Microalbumin/Creatinine Ratio, Urine Ordered On: 04/26/2018 Approve/Deny Ready for Outreach Communication? Select Yes. [...] | | | | | [place] [address] | | | | | | [phone] | | | | | | | [...]
--- OUTSIDE RECORDS SUMMARY | ~2019-12-24 | XMS | Encounter Summary ---
Demographics + + + | Address | [address] | | | [place] [address] | + + + | Home Phone | | + + + | Preferred Language | Unknown | + + + | Marital Status | | + + + | Spiritism Affiliation | 1013 | + + + | Race | Unknown | + + + | Ethnic Group | Unknown | + + + Author + + + | Author | [facility] | | | and [place] | + + + | Organization | [facility] | | | and [place] | + + + | Address | Unknown | + + + | Phone | Unavailable | + + + Support + + + + + | Name | Relationship | Address | Phone | + + + + + | Iwona L Head | ECON | [place], | | | | | [place] [address] | | + + + + + | Mahogany Farnsworth | ECON | [address] | | | | | [place] [address] | | + + + + + Care Team Providers + +------+ + | Care Stock Control Supervisor Name | Role | Phone | [...] Description | +--------+--------+ + + + | 10/27/ | Refill | [facility] | Stef, | Medication Refill | | 2018 | | MEDICINE [address] | MD Quynh | | | | | [place], | [address] [facility] | | | | | [place] [address] | [place] [address] | | | | | [phone] | [phone] | | | | | | | [...] this encounter Miscellaneous Notes Telephone Encounter - Natalya Decker - 10/28/2018 1:14 PM PDTRx [facility]ed to [facility] ectronically signed by Natalya Decker at 10/28/2018 1:14 PM PDTTelephone Encounter - Melani Mcgill RN - 10/28/2018 12:40 PM PDTPlease fax prescription to pharmacyDoculogyical y signed by Melani Sandoval RN at 10/28/2018 12:40 PM PDTdocumented in this encounter Plan of Treatment +--------+---------+ + + + | Date | Type | Specialty | Care Team | Description | +--------+---------+ + + + | 01/09/ | Office | Internal Medicine | Stef, | | | 2019 | Visit | | MD Quynh | | | | | | [facility] [address] | | | | | | [place] [address] | | | | | | [phone] | | | | | | | [...]
--- OUTSIDE RECORDS SUMMARY | ~2019-12-24 | XMS | Encounter Summary ---
Demographics + + + | Address | [address] | | | [place] [address] | + + + | Home Phone | | + + + | Preferred Language | Unknown | + + + | Marital Status | | + + + | Pentecostal Affiliation | 1013 | + + + | Race | Unknown | + + + | Ethnic Group | Unknown | + + + Author + + + | Author | [facility] | [...] [place], | | | | | [place] [address] | | + + + + + | Mahogany Navarro Idamay | ECON | [address] | | | | | [place] [address] | | + + + + + Care Team Providers + +------+ + | Care Health Unit Supervisor Name | Role | Phone | + +------+ + | Quynh Finch | PCP | | | MD | | | + +------+ + Reason for Visit + + + | Reason | Comments | + + + | Foot Injury | | + + + Encounter Details +--------+ + + + + | Date | Type | Department | Care Team | Description | +--------+ + + + + | 04/29/ | Emergency | [facility] | Maryellen | Contusion of right | | 2019 | | [facility] CTR EM[facility] | David Romero MD [address] | foot, initial | | | | CENTER [address] | [facility] | encounter (Primary | | | | [place] | [place] [address] | Dx) | | | | [address] | [phone] | | | | | [phone] | | | +--------+ + + + [...] + + + | Blood Pressure | 188/94 | 04/29/2019 12:22 PM | | | | | PDT | | + + + + + | Pulse | 98 | 04/29/2019 12:22 PM | | | | | PDT | | + + + + + | Temperature | 36.5 C (97.7 F) | 04/29/2019 12:22 PM | | | | | PDT | | + + + + + | Respiratory Rate | 16 | 04/29/2019 12:22 PM | | | | | PDT | | + + + + + | Oxygen Saturation | 97% | 04/29/2019 12:22 PM | | | | | PDT | | + + + + + | Inhaled Oxygen | - | - | | | Concentration | | | | + + + + + | Weight | 99.8 kg (220 lb) | 04/29/2019 12:22 PM | | | | | PDT | | + + + + + | Height | 157.5 cm (5' 2") | 04/29/2019 12:22 PM | | | | | PDT | | + + + + + | Body Mass Index | 40.24 | 04/29/2019 12:22 PM | | | | | PDT | | + + + + + documented in this encounter Discharge Instructions Instructions David Bojorquez MD - 04/29/2019Ice the foot for swelling/pain Use the sandal for comfort AttachmentsThe following attachments cannot be sent through Care Everywhere.Foot Contusion (Greenlandic)documented in this encounter Medications at Time of [...] | | | | use of insulin ([facility]) | | | | | | [...] TABLET BY | 30 | 0 | 03/28/20 | | | (SEROQUEL) 25 mg | [...] documented as of this encounter ED Notes David Bojorquez MD - 04/29/2019 1:05 PM PDTFormatting of this note might be differe nt from the original. [facility] Marzena Duong Emergency Department Encounter Note [address] [place] [address] PCP:Quynh Finch MD [phone] Room: ED17 [facility] Marzena Duong is a 48 y.o. female who presents with a chief complaint of right foot i njury. The patient states that she was trying to take off her slipper and take off her swea tshirt at the same time when she lost her balance and fell and she has pain at the base of h er right fifth toe. She has a foot drop on that side and poor balance on that side secondar y to a history of necrotizing fasciitis. PAST MEDICAL & SURGICAL HISTORY The patient has a past medical history of Anxiety, Arthritis, Asthma, Cancer (HCC), Depress ion, Depressive disorder, Diabetes mellitus (HCC), Diabetic peripheral neuropathy (HCC), Nate p foot gait, Dysuria, Encounter for blood transfusion, Epidermal inclusion cyst, Fibromyalgi a, GERD (gastroesophageal reflux disease), Hemangioma, High blood pressure, Hyperlipidemia, Hypertension, Hypothyroid, Impaired mobility, Knee pain, Low back pain, Moderate vulvar dysp lasia, Necrotizing fasciitis (HCC), Neuropathy of right foot, Onychauxis, Opiate dependence, continuous (HCC), Pain in right lower leg, Paralysis of lower limb (HCC), Serum cholesterol elevated, Thyroid disease, Vaginal candidosis, Vulvitis, Weight loss, and Xanthelasma of miko trammell. The patient has a past surgical history that includes Excision of Perianal Lesion (); Cholecystectomy; Hysterectomy; fracture surgery; Tonsillectomy; and Colonoscopy. CURRENT MEDICATIONS RANGE AID Home Medications Medication Sig acetaminophen (TYLENOL) 325 mg tablet Take 325 mg by mouth every 4 hours as needed. ALPRAZolam (XANAX) 0.5 mg tablet Take 1 tablet by mouth Daily as needed for Anxiety. amitriptyline (ELAVIL) 25 mg tablet TAKE 1 [...] Rash, slows breathing FAMILY AND SOCIAL HISTORY The patient's family history includes Alcohol abuse in her father; Allergies in her mother; Arthritis in her mother; Asthma in her mother; Breast cancer in her mother; COPD in her mot her; Depression in her daughter and sister; Diabetes in her brother; Hearing loss in her fat her; Heart disease in her father; High blood pressure in her father; High cholesterol in her father; Lupus in her mother; Mental illness in her father and sister; Miscarriages / stillb irths in her daughter, mother, sister, and sister; Prostate cancer in her father; Stroke in her father; Substance abuse in her brother, daughter, sister, and sister. The patient report s that she has been smoking cigarettes. She has a 51.00 pack-year smoking history. She has never used smokeless tobacco. She reports that she drinks alcohol. She reports that she does not use drugs. REVIEW OF SYSTEMS As in history of present illness. PHYSICAL EXAM VITAL SIGNS: (first vital signs):Temp: 36.5 C (97.7 F) Pulse: 98 Resp: 16 SpO2: 97 % BP : (!) 188/94 Constitutional: mild distress Neurologic: Alert & oriented. Gait and speech are normal. Psychiatric: Normal mood, affect and judgement. Extremities: Tenderness from the base of the fifth toe to the proximal portion of the fifth metatarsal of the right foot. No swelling. No open wounds. Distal sensation and circulat ion are intact. Imaging Results (X-rays independently interpreted by ED physician) X-ray of the foot is negative for fracture ED COURSE & MEDICAL DECISION MAKING Pertinent Labs & Imaging studies reviewed. X-rays were interpreted by myself. Medications and Allergy list as well as nursing notes and prior records were reviewed. X-rays were obtained and they were negative. The patient appears to have a foot contusion. She was placed in an orthopedic sandal for comfort. I advised ice and elevation for pain and swelling. Follow up information and return precautions were discussed in detail at the bedside prior to discharge and all questions were answered. FINAL IMPRESSION ICD-10-CM ICD-9-CM 1. Contusion of right foot, initial encounter S90.31XA 924.20 Follow-up Information Quynh Finch MD. Specialty: Internal Medicine Why: As needed Contact information: [address] [place] [id number] New Prescriptions No medications on file Portions of this chart were created with [employer] voice recognition software. Inadvertent so und alike substitutions may be present and are unintentional David Bojorquez MD 04/29/19 1321 utticeNigel RN - 04/29/2019 12:23 PM PDTPatient reports right, fifth toe pain. Ground level, denies h itting head, right elbow pain but patient is not concerned. History of foot drop secondary n ecrotizing fascitis in right leg. documented in this encounter Plan of Treatment +--------+---------+ + + + | Date | Type | Specialty | Care Team | Description | +--------+---------+ + + + | 01/09/ | Office | Internal Medicine | Stef, | | | 2019 | Visit | | MD Quynh | | | | | | [address] [place] | | | | | | [place] [address] | | | | | | [phone] | | | | | | | | +--------+---------+ + + + documented as of this encounter Procedures + +--------+ + + + | Procedure Name | Priori | Date/Time | Associated Diagnosis | Comments | | | ty | | | | + +--------+ + + + | XR TOE RIGHT 2 + VW | STAT | 04/29/2019 | | Results for this | | | | 12:44 PM | | procedure are in the | | | | PDT | | results section. | + +--------+ + + + documented in this encounter Results XR Toe Right 2 + Vw (04/29/2019 12:44 PM PDT) + + | Specimen | + + | | + + + + + | Impressions | Performed At | + + + | No acute osseous findings. These findings were discussed with | [facility] | | Dr. Bojorquez. Dictated and Signed by: John Doyle MD | | | Electronically signed: 04/29/2019 1:02 PM | | + + + + + + | Narrative | Performed At | + + + | XR TOE RIGHT 2 + VW 04/29/2019 12:44 PM HISTORY: FOOT INJURY. | [facility] | | COMPARISON: 05/22/2017. FINDINGS: There are no acute osseous | | | abnormalities. Small spurs are present of the the calcaneus. Bone | | | mineralization is decreased. Soft tissue structures are unremarkable. | | | | | + + + + + | Procedure Note | + + | Sergio Pittman Results In - 04/29/2019 1:05 PM PDT XR TOE RIGHT 2 + VW 04/29/2019 12:44 PM | | | | HISTORY: FOOT INJURY. | | | | COMPARISON: 05/22/2017. | | | | FINDINGS: | | There are no acute osseous abnormalities. Small spurs are present of the the | | calcaneus. Bone mineralization is decreased. Soft tissue structures are | | unremarkable. | | | | IMPRESSION: | | No acute osseous findings. | | | | These findings were discussed with Dr. Bojorquez. | | | | Dictated and Signed by: John Doyle MD | | Electronically signed: 04/29/2019 1:02 PM | + + + +---------+ + + | Performing | Address | City/State[facility] | Phone Number | | Organization | | | | + +---------+ + + | [facility] | | | | + +---------+ + + documented in this encounter Visit Diagnoses + + | Diagnosis | + + | Contusion of right foot, initial encounter - Primary [...]
--- OUTSIDE RECORDS SUMMARY | ~2019-12-24 | XMS | Encounter Summary ---
Demographics + + + | Address | [address] | | | [place] [address] | + + + | Home Phone | | + + + | Preferred Language | Unknown | + + + | Marital Status | | + + + | Shinto Affiliation | 1013 | + + + | Race | Unknown | + + + | Ethnic Group | Unknown | + + + Author + + + | Author | [facility] | | | and [place] | + + + | Organization | [facility] | | [...] [place], | | | | | [place] [address] | | + + + + + | Mahogany Navarro [place] | ECON | [address] | | | | | [place] [address] | | + + + + + Care Team Providers + +------+ + | Care Welding Teacher Name | Role | Phone | + +------+ + PCP | Unavailable | + +------+ + Encounter Details +--------+ + + + + | Date | Type | Department | Care Team | Description | +--------+ + + + + | 12/24/ | Hospital | [facility] | SandovalLarry, | | | 2006 | Encounter | MED CTR XRAY [address] | | | | | [place] | [place], [place] | | | | | [place] [address] | [address] | | | | | [phone] | | | +--------+ + + + [...] | | | | | [place] [address] | | | | | | [phone] | | | | | | | | +--------+---------+ + + + documented as of this encounter Visit Diagnoses Not on filedocumented in this encounter"
--- OUTSIDE RECORDS SUMMARY | ~2019-12-24 | XMS | Encounter Summary ---
Demographics + + + | Address | [address] | | | [place] [address] | + + + | Home Phone [...] + + | Author | [facility] | | | and [place] | + + + | Organization | [facility] | | | and [place] | + + + | Address | Unknown | + + + | Phone | Unavailable | + + + Support + + + + + | Name | Relationship | Address | Phone | + + + + + | Iwona L Head | ECON | [place], | | | | | [place] [address] | | + + + + + | Mahogany Farnsworth | ECON | [address] | | | | | [place] [address] | | + + + + + Care Team Providers + +------+ + | Care President [place] Name | Role | Phone | + +------+ + | Quynh Finch | PCP | | | MD | | | + +------+ + Encounter Details +--------+ + + + + | Date | Type | Department | Care Team | Description | +--------+ + + + + | 08/25/ | Hospital | [facility] | Stef, | Screening for breast | | 2018 | Encounter | MED CTR MAMMOGRAPHY | MD Quynh | cancer | | | | [address] | [address] [facility] | | | | | [place] | [place] [address] | | | | | [address] | [phone] | | | | | [phone] | | | +--------+ + + + [...] | | Take 1 tablet by | 60 | 5 | 07/01/19 | | | diphenoxylate-atropi | mouth 2 times daily. | tablet | | 18 | 8 | | ne (LOMOTIL) | | | | | | | 2.5-0.025 mg per | | | | | | | tabletIndications: | | | | | | | Chronic diarrhea | | | | | | + [...] oxyCODONE | Take 1 tablet by | 60 | 0 | 07/28/19 | | | (OXYCONTIN) 80 mg ER | mouth every 12 | tablet | | 18 | 8 | | abuse-deterrent | hours. | | | | | | tabletIndications: [...] tablet by | 120 | 0 | 07/28/19 | | | oxyCODONE-acetaminop | mouth every 6 hours | tablet | | 18 | 8 | | hen (PERCOCET) | as needed. [...] Take 2 tablets by | 60 | 5 | 07/01/19 | | | (MIRAPEX) 1.5 MG | mouth nightly. | tablet | | 18 | 8 | | tabletIndications: | | | | | | | RLS (restless legs | | | | | | | syndrome) | | | | | | + + + +---------+ + + | pravastatin | Take 20 mg by mouth | | 0 | 01/01/20 | | | (PRAVACHOL) 20 mg | Daily. | | | 12 | 8 | | tablet | | | | | | + + + +---------+ + + | QUEtiapine | Take 1 tablet by | 30 | 3 | 07/20/19 | | | (SEROQUEL) 25 mg | mouth nightly. | tablet | | 18 | 8 | | tabletIndications: | | | | | | | Organic insomnia | | | | | | + [...] | | | | | [place] [address] | | | | | | [phone] | | | | | | | | +--------+---------+ + + + documented as of this encounter Procedures + +--------+ + + + | Procedure Name | Priori | Date/Time | Associated Diagnosis | Comments | | | ty | | | | + +--------+ + + + | KURTIS TOMOSYN | Routin | 08/25/2017 | Screening for | Results for this | | SCREENING BILATERAL | e | 2:55 PM | breast cancer | procedure are in the | | | | PST | | results section. | + +--------+ + + + documented in this encounter Results KURTIS Tomosynthesis Screening Bilateral (08/25/2017 2:55 PM PST) + + | Specimen | + + | | + + + + + | Narrative | Performed At | + + + | EXAM: KURTIS TOMOSYN SCREENING BILATERAL dated 08/25/2017 2:27 PM [...] In - 08/27/2017 1:56 PM PST EXAM: KURTIS TOMOSYN SCREENING BILATERAL | | dated 08/25/2017 [...] + | Diagnosis | + + | Screening for breast cancer Breast screening, unspecified | + + documented in this [...]
--- OUTSIDE RECORDS SUMMARY | ~2019-12-24 | XMS | Encounter Summary ---
Demographics + + + | Address | [address] | | | [place] [address] | + + + | Home Phone [...] + | Author | [facility] | | | [...] [place], | | | | | [place] [address] | | + + + + + | Mahogany Navarro [place] | ECON | [address] | | | | | [place] [address] | | + + + + + Care Team Providers + +------+ + | Care Ground Water Contractor Name | Role | Phone | + +------+ + | Quynh Finch | PCP | | | MD | | | + +------+ + Reason for Visit + + + | Reason | Comments | + + + | Leg Pain | | + + + Encounter Details +--------+ + + + + | Date | Type | Department | Care Team | Description | +--------+ + + + + | 07/23/ | Emergency | [facility] | Wali Vivar, | Pain of right | | 2020 | | MED CTR EMERGENCY | MD [address] | lateral upper thigh | | | | CENTER [address] | [place] | (Primary Dx) | | | | [place] | [address] | | | | | [address] | | | | | | [phone] | | | +--------+ + + + [...] + + + | Blood Pressure | 168/91 | 07/23/2019 9:55 PM | | | | | PST | | + + + + + | Pulse | 98 | 07/23/2019 9:55 PM | | | | | PST | | + + + + + | Temperature | 36.4 C (97.6 F) | 07/23/2019 9:39 PM | | | | | PST | | + + + + + | Respiratory Rate | 16 | 07/23/2019 9:39 PM | | | | | PST | | + + + + + | Oxygen Saturation | 96% | 07/23/2019 9:55 PM | | | | | PST | | + + + + + | Inhaled Oxygen | - | - | | | Concentration | | | | + + + + + | Weight | 95.7 kg (211 lb) | 07/23/2019 9:39 PM | | | | | PST | | + + + + + | Height | 157.5 cm (5' 2") | 07/23/2019 9:39 PM | | | | | PST | | + + + + + | Body Mass Index | 38.59 | 07/23/2019 9:39 PM | | | | | PST | | + + + + + documented in this encounter Discharge Instructions Instructions Wali Vivar MD - 07/23/2019Return if new concerning symptoms Follow-up primary care AttachmentsThe following attachments cannot be sent through Care Everywhere.PATY (Estonian)brittany ocumented in this encounter Medications at Time of [...] | | | | ([facility]LY [facility]) | | | | | | + [...] | | | | use of insulin ([facility]) | | | | | | + + + +---------+ + + | ALPRAZolam (XANAX) | TAKE 1 TABLET BY | 30 | 0 | 05/24/20 | | | 0.5 mg tablet | MOUTH DAILY | tablet | | 19 | 0 | | | NEEDED FOR ANXIETY. | | | | | + + [...] + + + +---------+ + + | indomethacin | Take 2 capsules by | 30 | 0 | 07/23/19 | | | (INDOCIN) 25 mg | mouth 3 times daily | capsule | | 20 | 0 | | capsule | (with meals) for 5 | | | | | | | days. | | | | | + [...] encounter ED Notes Wali Vivar MD - 07/23/2019 10:09 PM PSTFormatting of this note might be different fro m the original. eMERGENCY dEPARTMENT eNCOUnter CHIEF COMPLAINT Chief Complaint Patient presents with Leg Pain HPI Marzena Duong is a 49 y.o. female who presents complaining of pain in her right later al leg just above her knee that is sharp and burning. Pain started around 2 p.m. today. Joel es any injury. Patient uses a wheelchair. She has a history of diabetic peripheral neuropath y. She has foot drop in the right leg. She has had extensive surgeries on the right leg 7 ye ars ago for necrotizing fasciitis. She has not had any swelling in the leg. She has not had any fevers or discoloration of the leg. She does not have any pain over the medial leg. PAST MEDICAL HISTORY Past Medical History: Diagnosis [...] candidosis Vulvitis Weight loss Xanthelasma of eyelid SURGICAL HISTORY Past Surgical History: Procedure Laterality Date CHOLECYSTECTOMY COLONOSCOPY Excision of Perianal Lesion 03/29/2014 Dr. 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 ALPRAZolam (XANAX) 0.5 mg tablet TAKE 1 TABLET BY MOUTH DAILY NEEDED FOR ANXIETY. amitriptyline (ELAVIL) 25 mg tablet TAKE 1 [...] Needle (PEN NEEDLES) 32G X 6 MM MIS For insulin pen. Lactobacillus (ACIDOPHILUS PO) Take [...] Partners: Male control/protection: None REVIEW OF SYSTEMS A 12 system review of systems is otherwise negative except as noted in the HPI above. PHYSICAL EXAM VITAL SIGNS: (first vital signs):Temp: 36.4 C (97.6 F) Pulse: 93 Resp: 16 SpO2: 96 % BP : 149/83 Constitutional: Well developed, Well nourished, No acute distress, Non-toxic appearance. 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 Neck-supple, nontender, no meningismus, No stridor. Eyes: PERRL, EOMI, Conjunctiva normal, No discharge. Respiratory: Breath sounds equal bilaterally, no adventitious sounds, No chest wall tender ness. Cardiovascular: Normal rate, normal S1, S2, no murmurs, rubs, or gallops GI: Abdomen soft, non-tender, non-distended, normal bowel sounds, no CVA tenderness : Musculoskeletal: Intact distal pulses, patient has extensive surgical revision of the righ t leg with a large tissue defect and skin grafting on the right lower leg laterally and post eriorly as well as posterior surgical incision scars extending up the back of the right thig h, there is some tenderness to palpation in a point over the right lateral distal thigh with out any soft tissue swelling, erythema, induration, or warmth. Back- No tenderness. Skin: Warm, Dry, No erythema, No rash or lesions. Lymphatic: Neurologic: Alert & oriented x 3, Cranial nerves II-XII intact, foot drop and loss of sens ation in the right lower leg, chronic Psychiatric: Affect normal, Judgment normal, Mood normal. Labs Reviewed - No data to display RADIOLOGY CT Results: No results found. ED COURSE & MEDICAL DECISION MAKING Pertinent Labs & Imaging studies reviewed. (See chart for details) Patient presented with above symptoms and exam findings. Pain appears to be related to unde rlying chronic neuropathy in the right leg. She was given indomethacin in addition to multip le medications already prescribed. She should follow up with her primary care provider and r eturn if new concerning symptoms. Last Set of Vital Signs: Temp: 36.4 C (97.6 F) Pulse: 98 Resp: 16 SpO2: 96 % BP: (!) 16 FINAL IMPRESSION 1. Pain of right lateral upper thigh PLAN Follow-up Information Schedule an appointment as soon as possible for a visit with Quynh Finch MD. Specialty: Internal Medicine Contact information: [address] [place] [id number] Discharge Medication List as of 07/23/2019 10:16 PM START taking these medications Details indomethacin (INDOCIN) 25 mg capsule Take 2 capsules by mouth 3 times daily (with meals) fo r 5 days.Disp-30 capsule, R-0, Normal Wali Vivar MD 07/24/19 0251 utNigel kimble RN - 07/23/2019 9:40 PM PSTPatient reports pain in right thigh radiating to posterior knee sin ce 1400 today. No known injury. History of necrotizing fascitis in the leg. Denies chest edmundo n and shortness of breath documented in this encounter Plan of Treatment +--------+---------+ + + + | Date | Type | Specialty | Care Team | Description | +--------+---------+ + + + | 01/09/ | Office | Internal Medicine | Stef, | | | 2019 | Visit | | MD Quynh | | | | | | [facility] [address] | | | | | | [place] [address] | | | | | | [phone] | | | | | | | | +--------+---------+ + + + + +------+--------+ + + | Name | Type | Priori | Associated Diagnoses | Date/Time | | | | ty | | | + +------+--------+ + + | ED INFORMATION | OSMAR | Routin | | 07/23/2019 9:37 PM | | EXCHANGE | | e | | PST | + +------+--------+ + + documented as of this encounter Procedures + +--------+ + + + | Procedure Name | Priori | Date/Time | Associated Diagnosis | Comments | | | ty | | | | + +--------+ + + + | ED INFORMATION | Routin | 07/23/2019 | | | | EXCHANGE | e | 9:37 PM | | | | | | PST | | | + +--------+ + + + +---+--------+ | | | | | Proced | | | ure | | | Note - | | | Zain, | | | Lab In | | | | | | Hlseve | | | n - | | | | | | 2019 | | | 9:38 | | | PM PST | | [...] | | | 0 | | | 21:36? | | | GRASS, | | | | | | HEATHE | | | R | | | S?MRN: | | | | | | [id number] | | | [id number] | | | riteri | | | [...] | | | Center | | | 3 0 | | | Total | | | 3 0 | | | Note: | | [...] | | | int | | | Carmelo | | | [...] | | on leg | | | Nov | | | [...] | | | M.D. | | | Media Relations Manager | | | al | | | Medici | | | ne | | | Curren | | | [...] | | | otify/ | | | [id number] | | | [phone] | | | [phone] | | | [phone] | | | [id number] | | | [id number] | | | | | | PLEASE [...] | | | ed.? | | | 2020 | | | [employer]le[employer] | | | tive | | | Medica | | | l | | | Techno | | | logies | | | , Inc. | | | - | | | [email or web address] | | | llecti | | | vemedi | | | [email or web address] | | | m | +---+--------+ documented in this encounter Visit Diagnoses + + | Diagnosis | + + | Pain of right lateral upper thigh - Primary | + + documented in this encounter Administered Medications + +--------+ +-------+------+------+ | Medication Order | MAR | Action | Dose | Rate | Site | | | Action | Date | | | | + +--------+ +-------+------+------+ | indomethacin (INDOCIN) capsule | Given | 07/23/19 | 50 mg | | | | 50 mg 50 mg, Oral, ONCE, Sat | | 20 10:21 | | | | | 07/23/19 at 2220, For 1 dose, Give | | PM PST | | | | | with food., | | | | | | + +--------+ +-------+------+------+ +---+---+ | | | +---+---+ documented in [...]
--- OUTSIDE RECORDS SUMMARY | ~2019-12-24 | XMS | Encounter Summary ---
Demographics + + + | Address | [address] | | | [place] [address] | + + + | Home Phone | | + + + | Preferred Language | Unknown | + + + | Marital Status | | + + + | Samaritan Affiliation | 1013 | + + + | Race | Unknown | + + + | Ethnic Group | Unknown | + + + Author + + + | Author | [facility] | | | and [place] | + + + | Organization | [facility] | | [...] [place], | | | | | [place] [address] | | + + + + + | Mahogany Navarro [place] | ECON | [address] | | | | | [place] [address] | | + + + + + Care Team Providers + +------+ + | Care Irrigation Pump Installer Name | Role | Phone | + +------+ + PCP | Unavailable | + +------+ + Encounter Details +--------+ + + + + | Date | Type | Department | Care Team | Description | +--------+ + + + + | 09/11/ | Hospital | [facility] | Oscar Luna | | | 2006 | Encounter | MED CTR SLEEP | [place] [address] | | | | | [place] [address] | [facility] | | | | | [place], [place] | [place] [address] | | | | | [address] | [phone] | | | | | [phone] | | | +--------+ + + + [...] | | | | | [place] [address] | | | | | | [phone] | | | | | | | | +--------+---------+ + + + documented as of this encounter Visit Diagnoses Not on filedocumented in this encounter"
--- OUTSIDE RECORDS SUMMARY | ~2019-12-24 | XMS | Encounter Summary ---
Demographics + + + | Address | [address] | | | [place] [address] | + + + | Home Phone [...] + | Author | [facility] | | | and [place] [...] [place], | | | | | [place] [address] | | + + + + + | Mahogany Navarro [place] | ECON | [address] | | | | | [place] [address] | | + + + + + Care Team Providers + +------+ + | Care Hand Edge Bander Name | Role | Phone | + +------+ + PCP | Unavailable | + +------+ + Encounter Details +--------+ + + + + | Date | Type | Department | Care Team | Description | +--------+ + + + + | 12/02/ | Hospital | [facility] | Damian Escudero, | | | 2006 | Encounter | MED CTR LABORATORY | [address] | | | | | [address] [place] | [place], [place] | | | | | [place], [place] | [address] | | | | | [address] | | | | | | [phone] | | | +--------+ + + + [...] | | | | | [place] [address] | | | | | | [phone] | | | | | | | | +--------+---------+ + + + documented as of this encounter Visit Diagnoses Not on filedocumented in this encounter"
--- OUTSIDE RECORDS SUMMARY | ~2019-12-24 | XMS | Encounter Summary ---
Demographics + + + | Address | [address] | | | [place] [address] | + + + | Home Phone [...] + | Author | [facility] | | | and [...] [place], | | | | | [place] [address] | | + + + + + | Mahogany Navarro [place] | ECON | [address] | | | | | [place] [address] | | + + + + + Care Team Providers + +------+ + | Care Adjuster Name | Role | Phone | + +------+ + PCP | Unavailable | + +------+ + Encounter Details +--------+ + + + + | Date | Type | Department | Care Team | Description | +--------+ + + + + | 04/18/ | Hospital | [facility] | JaimeLarry, | | | 2007 | Encounter | MED CTR XRAY [address] | [address] | | | | | [place] | [place], [place] | | | | | [place] [address] | [address] | | | | | [phone] | | | +--------+ + + + [...] | | | | | [place] [address] | | | | | | [phone] | | | | | | | | +--------+---------+ + + + documented as of this encounter Visit Diagnoses Not on filedocumented in this encounter"
--- OUTSIDE RECORDS SUMMARY | ~2019-12-24 | XMS | Encounter Summary ---
Demographics + + + | Address | [address] | | | [place] [address] | + + + | Home Phone | | + + + | Preferred Language | Unknown | + + + | Marital Status | | + + + | Yazidism Affiliation | 1013 | + + + | Race | Unknown | + + + | Ethnic Group | Unknown | + + + Author + + + | Author | [facility] | | | and [place] | + + + | Organization | [facility] | | [...] [place], | | | | | [place] [address] | | + + + + + | Mahogany Farnsworth | ECON | [address] | | | | | [place] [address] | | + + + + + Care Team Providers + +------+ + | Care Change Management Coordinator Name | Role | Phone | + +------+ + | Quynh Finch | PCP | | | MD | | | + +------+ + Reason for Visit + + + | Reason | Comments | + + + | Initial Assessment | | + + + Evaluate & Treat (Routine) +--------+ + + [...] | | | | Procedures | , [address] | | | | | [facility] | [address] | [place] | | | | | | [place], | [place] | | | | | | [place] | [address] Phone: | | | | | | [address] | [phone] | | | | | | Phone: | Fax: | | | | | | [phone] | [phone] | | | | | | Fax: | | | | | | | [phone] | | +--------+ + + + + + Encounter Details +--------+---------+ + + + | Date | Type | Department | Care Team | Description | +--------+---------+ + + + | 10/21/ | Office | [facility] | Magda Fischer, | Oropharyngeal | | 2019 | [facility] | [facility] Speech Pathologist | dysphagia (Primary | | | | [address] | [address] | Dx) | | | | [place] | [place] | | | | | [address] | [address] | | | | | [phone] | | | +--------+---------+ + + + [...] documented as of this encounter Progress Notes Magda Fischer, Speech Pathologist - 10/21/2018 10:15 AM PDT Speech Therapy Plan of Care Date: 10/22/2018 Patient Name: Marzena Duong Date of : 1970 Encounter Diagnoses Code Name Primary? R13.12 Oropharyngeal dysphagia Yes Date of Onset: 04/29/2018 Start of Care Date: 10/21/2018 Requested # of Visits: 10 visits 1x/week for 10 weeks Certification From: 10/21/2018 Certification To: 01/19/2019 Clinical Impressions: Marzena Duong is a 48 y.o female who presents with mild oral pharyn geal dysphagia. Pt reports increased difficulty swallowing over the last 6 months. Pt with H x GERD, DMII, and nicotine dependence. [facility] recommends Level 3 dysphagia advanced diet- no hard, sticky or crunchy foods. Foods need to be moist and cut into bite-size pieces. Alterna te small bites with thinliquid wash, use effortful swallow, multiple swallows, reduced rat e of intake. [facility] provided education and handouts for HEP including diet modifications, infor mation to reduce dry mouth (Biotene), and compensatory strategies for safe swallow. The elinor ent understands all given recommendations and has scheduled a follow up appointment. Speech therapy is recommended for behavioral and postural modifications as well as lingual and phar yngeal exercises to strengthen muscles of swallow for safety. Goals: Outcome Specific Scored Goals Patient Reported Outcomes: PSFS Patient Specific Functional Scale Goal 1: Pt will demonstrate knowledge and use of diet mod ification, strengthening exercises and compensatory strategies for safe and efficient swallo w Additional [facility] Goals OP [facility] Goals: Goal 1, Goal 2, Goal 3 Goal 1: Pt will demonstrate 8/10 accuracy with appropriate compensatory strategies to incre ase safety and efficiency of swallow Goal 1 Status: NEW Goal 2: Pt will demonstrate knowledge and use of diet modifications to increase safety of s wallow Goal 2 Status: NEW Goal 3: Pt will demonstrate 8/10 accuracy with pharyngeal strengthening exercises to increa se safety and efficiency of swallow Goal 3 Status: NEW Treatment Plan/Interventions 66214 - Swallow [id number] - Motion Fluroroscopy/Swallow [id number] - Treatment o f Swallowing Dysfunction Electronically signed by: Magda Fischer Speech Pathologist, 10/22/2018 15:40 Patient Name: Marzena Duong/: 1970/ isi Fischer Speech Pathologist - 10/21/2018 10:15 AM PDTFormatting of this note might be differe nt from the original. [facility] [address] [place] [address] Speech Therapy Initial Assessment Date: 10/21/2018 Patient Information Patient Name: Marzena Duong Date of : 1970 Age: 48 y.o. History No problems updated. Social History Socioeconomic History Marital status: Spouse [...] activity: Not Currently Partners: Male control/protection: None Encounter Diagnoses Code Name Primary? R13.12 Oropharyngeal dysphagia Yes Date of Onset: 04/29/2018 Referring Provider: Quynh Finch MD No history on file. Past Medical History: Diagnosis Date Anxiety Arthritis [...] candidosis Vulvitis Weight loss Xanthelasma of eyelid Past Surgical History: Procedure Laterality Date CHOLECYSTECTOMY COLONOSCOPY Excision of Perianal Lesion 03/29/2014 Dr. Lopez FRACTURE SURGERY HYSTERECTOMY TONSILLECTOMY Family History Problem Relation Age of Onset [...] Substance abuse Sister Miscarriages / stillbirths Daughter Developmental History Allergies Allergen Reactions Hydrocodone Hives Hives and decreased respirations Morphine Other (See Comments) Light-headed, very emotional (cries constantly) Sulfa Antibiotics Rash and Other (See Comments) Severe respiratory distress, huge water blisters, rash Adhesive & Tape Other reaction(s): Rash Milk-Related Compounds Other reaction(s): Rash Codeine Rash Rash, slows breathing Prior Treatment: None within the last sixty days Learning Style Patient's Optimum Learning Style: observation Abuse Assessment Do you feel safe in your current relationship or home?: Yes Possible clinical concerns noted by clinician?: No Action taken by clinician: No concerns Pain Assessment: Pain Scale Used: NUMERIC Pain Rating During Assessment: 7 Location: R leg Pain/Comfort Presence Of Pain: complains of pain/discomfort Subjective: History of Presenting Problem: Marzena Duong is a 48 y.o. female who p resents to speech therapy for clinical swallow evaluation and treatment. Pt reports increase d difficulty swallowing over the last 6 months. She is currently on regular diet with thin l iquids. Pt with Hx GERD, DMII, and nicotine dependence. Functional Limitations: Reduced ADLs, mobility Precaution/special problems: GERD, DMII, and nicotine dependence Patient s Goals: Improve swallow for safety Objective: Oral Motor Evaluation:WNL. There is good bilateral palatal elevation, good lingual and la bial strength and range of motion, and good ability to maintain intraoral pressure. Cough is strong and unproductive. No issues initiating volitional swallow. Poor dentition - missing several teeth. Swallowing Evaluation: Pt declined PO trials. Very picky eater. Articulation: WNL. Voice:Hoarse, breathy vocal quality. Expressive Language:WFL Receptive Language:WFL Assessment Marzena Duong is a 48 y.o female who presents with mild oral pharyngeal dysphagia. Pt repor ts increased difficulty swallowing over the last 6 months. Pt with Hx GERD, DMII, and nicoti ne dependence. [facility] recommends Level 3 dysphagia advanced diet- no hard, sticky or crunchy foods. Foods need to be moist and cut into bite-size pieces. Alternate small bites with thin liquid wash, use effortful swallow, multiple swallows, reduced rate of intake. [facility] provide d education and handouts for HEP including diet modifications, information to reduce dry mendy th, and compensatory strategies for safe swallow. The patient understands all given recommen dations and has scheduled a follow up appointment. Speech therapy is recommended for behavio ral and postural modifications as well as lingual and pharyngeal exercises to strengthen mus cles of swallow for safety. Rehabilitation potential: Patient demonstrates good potential to achieve established goals to address the documented impairments by participating in skilled speech and language therap y services. Goals: Outcome Specific Scored Goals Patient Reported Outcomes: PSFS Patient Specific Functional Scale Goal 1: Pt will demonstrate knowledge and use of diet mod ification, strengthening exercises and compensatory strategies for safe and efficient swallo w Additional [facility] Goals OP [facility] Goals: Goal 1, Goal 2, Goal 3 Goal 1: Pt will demonstrate 8/10 accuracy with appropriate compensatory strategies to incre ase safety and efficiency of swallow Goal 1 Status: NEW Goal 2: Pt will demonstrate knowledge and use of diet modifications to increase safety of s wallow Goal 2 Status: NEW Goal 3: Pt will demonstrate 8/10 accuracy with pharyngeal strengthening exercises to increa se safety and efficiency of swallow Goal 3 Status: NEW Plan Date of Onset: 04/29/2018 Start of Care Date: 10/21/2018 Requested # of Visits: 10 visits 1x/week for 10 weeks Certification From: 10/21/2018 Certification To: 01/19/2019 Treatment Plan/Interventions 34201 - Swallow [id number] - Motion Fluroroscopy/Swallow [id number] - Treatment o f Swallowing Dysfunction Patient and/or family has indicated understanding of treatment needs and actively participa shivam in the creation of this plan for care. Patient/Caregiver Education Learner: Patient Readiness: Acceptance Method: Explanation, Handout Response: Verbalizes Understanding Today's Treatment Start Time: 1015 Stop time: 1115 Duration: 60 minutes Timed Treatment Codes: 0 minutes # of Speech Visits to Date: 1 Objective: Assess to determine most appropriate POC Next Visit: Target established goals for improved swallow Electronically signed by: Magda Fischer Speech Pathologist, 10/22/2018 15:12 Patient Name: Marzena Pate Ad/: 1970/ docum ented in this encounter Plan of Treatment +--------+---------+ + + + | Date | Type | Specialty | Care Team | Description | +--------+---------+ + + + | 01/09/ | Office | Internal Medicine | Stef, | | | 2019 | Visit | | MD Quynh | | | | | | [address] [facility] | | | | | | [place] [address] | | | | | | [phone] | | | | | | | | +--------+---------+ + + + documented as of this encounter Visit Diagnoses + + | Diagnosis | + + | Oropharyngeal dysphagia - Primary Dysphagia, oropharyngeal phase | + + documented [...]
--- OUTSIDE RECORDS SUMMARY | ~2019-12-24 | XMS | Encounter Summary ---
Demographics + + + | Address | [address] | | | [place] [address] | + + + | Home Phone | | + + + | Preferred Language | Unknown | + + + | Marital Status | | + + + | Orthodox Affiliation | 1013 | + + + | Race | Unknown | + + + | Ethnic Group | Unknown | + + + Author + + + | Author | [facility] | | | [...] [place], | | | | | [place] [address] | | + + + + + | Maohgany Navarro [place] | ECON | [address] | | | | | [place] [address] | | + + + + + Care Team Providers + +------+ + | Care Turret Punch Operator Name | Role | Phone | + +------+ + PCP | Unavailable | + +------+ + Encounter Details +--------+ + + + + | Date | Type | Department | Care Team | Description | +--------+ + + + + | 01/14/ | Hospital | [facility] | Nigel Lopez | | | 2009 | Encounter | MED CTR MP INTRA OP | DO [address] | | | | | [address] | [place] [facility] | | | | | [place], [place] | [place] [address] | | | | | [address] | [phone] | | | | | [phone] | | | +--------+ + + + [...] | | | | | [address] [facility] | | | | | | [place] [address] | | | | | | [phone] | | | | | | | | +--------+---------+ + + + documented as of this encounter Visit Diagnoses Not on filedocumented in this encounter"
--- OUTSIDE RECORDS SUMMARY | ~2019-12-24 | XMS | Encounter Summary ---
Demographics + + + | Address | [address] | | | [place] [address] | + + + | Home Phone [...] | Author | [facility] | | | and [place] [...] [place], | | | | | [place] [address] | | + + + + + | Mahogany Navarro [place] | ECON | [address] | | | | | [place] [address] | | + + + + + Care Team Providers + +------+ + | Care Brinell Tester Name | Role | Phone | + +------+ + | Quynh Finch | PCP | | | MD | | | + +------+ + Reason for Visit + +--------+ + | Reason | Onset | Comments | | | Date | | + +--------+ + | Medication Refill | 07/17/ | | | | 2017 | | + +--------+ + Encounter Details +--------+--------+ + + + | Date | Type | Department | Care Team | Description | +--------+--------+ + + + | 07/17/ | [facility] | [facility] | Stef, | Medication Refill | | 2017 | | MEDICINE [address] | MD Quynh | | | | | [place], | [address] [facility] | | | | | [place] [address] | [place] [address] | | | | | [phone] | [phone] | | | | | | | [...] this encounter Miscellaneous Notes Telephone Encounter - Smitha Foster, [employer] - 07/17/2017 6:41 PM PSTMedic ation Quetiapine 25mg Quantity 30 tabs Amount of medication remaining Unknown Last refill date 06/17/17 Pharmacy Ed Last appointment 07/01/17 Next appointment 07/28/17 do cumented in this encounter Plan of Treatment +--------+---------+ + + + | Date | Type | Specialty | Care Team | Description | +--------+---------+ + + + | 01/09/ | Office | Internal Medicine | Stef, | | | 2019 | Visit | | MD Quynh | | | | | | [address] | | | | | | [place] [address] | | | | | | [phone] | | | | | | | | +--------+---------+ + + + documented as of this encounter Visit Diagnoses + + | Diagnosis | + + | 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
--- OUTSIDE RECORDS SUMMARY | ~2019-12-24 | XMS | Encounter Summary ---
Demographics + + + | Address | [address] | | | [place] [address] | + + + | Home Phone [...] + | Author | [facility] | | | and [place] | + + + | Organization | [facility] | | | [...] [place], | | | | | [place] [address] | | + + + + + | Mahogany Farnsworth | ECON | [address] | | | | | [place] [address] | | + + + + + Care Team Providers + +------+ + | Care Immigration Specialist Name | Role | Phone | [...] Description | +--------+--------+ + + + | 05/21/ | Refill | [facility] | Stef, | Medication Refill | | 2017 | | MEDICINE [address] | MD Quynh | | | | | [place], | [address] [facility] | | | | | [place] [address] | [place] [address] | | | | | [phone] | [phone] | | | | | | | [...] Quynh | | | | | | [address] [place] [address] | | | | | | [place] [address] | | | | | | [phone] | | | | | | | [...]
--- OUTSIDE RECORDS SUMMARY | ~2019-12-24 | XMS | Encounter Summary ---
Demographics + + + | Address | [address] | | | [place] [address] | + + + | Home Phone [...] | Author | [facility] | | | and [place] | + + + | Organization | [facility] [...] [place], | | | | | [place] [address] | | + + + + + | Mahogany Navarro [place] | ECON | [address] | | | | | [place] [address] | | + + + + + Care Team Providers + +------+ + | Care Parking Meter Mechanic Name | Role | Phone | + +------+ + PCP | Unavailable | + +------+ + Encounter Details +--------+ + + + + | Date | Type | Department | Care Team | Description | +--------+ + + + + | 07/08/ | Hospital | [facility] | Larry Sandoval, | | | 2005 | Encounter | MED CTR LABORATORY | MD [address] | | | | | [address] [place] | [place], [place] | | | | | [place], [place] | [address] | | | | | [address] | | | | | | [phone] | | | +--------+ + + + [...] | | | | | [place] [address] | | | | | | [phone] | | | | | | | | +--------+---------+ + + + documented as of this encounter Visit Diagnoses Not on filedocumented in this encounter"
--- OUTSIDE RECORDS SUMMARY | ~2019-12-24 | XMS | Encounter Summary ---
Demographics + + + | Address | [address] | | | [place] [address] | + + + | Home Phone | | + + + | Preferred Language | Unknown | + + + | Marital Status | | + + + | Evangelical Affiliation | 1013 | + + + | Race | Unknown | + + + | Ethnic Group | Unknown | + + + Author + + + | Author | [facility] | | | and [place] | + + + | Organization | [facility] | | | and [place] | + + + | Address | Unknown | + + + | Phone | Unavailable | + + + Support + + + + + | Name | Relationship | Address | Phone | + + + + + | Iwona L Head | ECON | [place], | | | | | [place] [address] | | + + + + + | Mahogany Navarro [place] | ECON | [address] | | | | | [place] [address] | | + + + + + Care Team Providers + +------+ + | Care Switchbox Assembler Name | Role | Phone | + +------+ + | Quynh Finch | PCP | | | MD | | | + +------+ + Reason for Visit + +--------+ + | Reason | Onset | Comments | | | Date | | + +--------+ + | Medication Refill | 06/24/ | | | | 2016 | | + +--------+ + Encounter Details +--------+--------+ + + + | Date | Type | Department | Care Team | Description | +--------+--------+ + + + | 06/24/ | Refill | [facility] | Stef, | Medication Refill | | 2016 | | MEDICINE [address] | MD Quynh | | | | | [place], | [address] [facility] | | | | | [place] [address] | [place] [address] | | | | | [phone] | [phone] | | | | | | | [...] | | | | | | [address] [facility] | | | | | | [place] [address] | | | | | | [phone] | | | | | | | [...]
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
--- OUTSIDE RECORDS SUMMARY | ~2019-12-24 | XMS | Encounter Summary ---
Demographics + + + | Address | [address] | | | [place] [address] | + + + | Home Phone [...] + | Author | [facility] | | | and [place] [...] [place], | | | | | [place] [address] | | + + + + + | Mahogany Farnsworth | ECON | [address] | | | | | [place] [address] | | + + + + + Care Team Providers + +------+ + | Care Green Ware Caster Name | Role | Phone | + [...] + + | 06/24/ | Refill | [facility] | Stef, | Medication Refill | | 2017 | | MEDICINE [address] | MD Quynh | | | | | [place], | [address] [facility] | | | | | [place] [address] | [place] [address] | | | | | [phone] | [phone] | | | | | | | [...] Telephone Encounter - Melani Sandoval RN - 06/24/2018 4:46 PM PSTDue for TSHElectronical ly signed by Melani Sandoval RN at 06/24/2018 4:47 PM PSTdocumented in this encounter Plan of Treatment +--------+---------+ + + + | Date | Type | Specialty | Care Team | Description | +--------+---------+ + + + | 01/09/ | Office | Internal Medicine | Stef, | | | 2019 | Visit | | MD Quynh | | | | | | [address] [facility] | | | | | | [place] [address] | | | | | | [phone] | | | | | | | [...]
--- OUTSIDE RECORDS SUMMARY | ~2019-12-24 | XMS | Encounter Summary ---
Demographics + + + | Address | [address] | | | [place] [address] | + + + | Home Phone [...] + + | Author | [facility] | | | and [place] [...] [place], | | | | | [place] [address] | | + + + + + | Mahogany Navarro [place] | ECON | [address] | | | | | [place] [address] | | + + + + + Care Team Providers + +------+ + | Care Director Digital Sales Name | Role | Phone | + +------+ + | Quynh Finch | PCP | | | MD | | | + +------+ + Reason for Visit + + + | Reason | Comments | + + + | Pain Management | | + + + Encounter Details +--------+---------+ + + + | Date | Type | Department | Care Team | Description | +--------+---------+ + + + | 06/04/ | Office | [facility] | RyanShad, | Chronic bilateral | | 2017 | Visit | MEDICINE [address] | MD Quynh | low back pain | | | | [address] [place], | [address] | without sciatica | | | | [place] [address] | [place] [address] | (Primary Dx); | | | | [phone] | [phone] | Chronic pain | | | | | | syndrome; Tobacco | | | | | | use; Menopausal | | | | | | symptom | +--------+---------+ + + + Social History [...] + + + | Blood Pressure | 122/80 | 06/04/2017 1:55 PM | | | | | PST | | + + + + + | Pulse | 96 | 06/04/2017 1:55 PM | | | | | PST | | + + + + + | Temperature | 36.4 C (97.5 F) | 06/04/2017 1:55 PM | | | | | PST | | + + + + + | Respiratory Rate | 16 | 06/04/2017 1:55 PM | | | | | PST | | + + + + + | Oxygen Saturation | 95% | 06/04/2017 1:55 PM | | | | | PST [...] Instructions Patient Instructions Quynh Finch MD - 06/04/2017 2:25 PM PST Back Care Tips Caring for [...] so you are not leaning toward the st [employer] wheel. A small pillow or rolled towel [...] in the groin area Date Last Reviewed: 11/28/201519995636-1366 [employer] [address] [place] [address], [place] [address]. All righ ts reserved. This information is not intended as a substitute for professional medical care. Always follow your healthcare professional's instructions. documented in this encounter Progress Notes Quynh Finch MD - 06/04/2017 1:45 PM PSTFormatting of this note might be d ifferent from the original. CHIEF COMPLAINT Chief Complaint Patient presents with Pain Management HPI Marzena Duong is a 46 y.o. y/o female who presents today for several issues: She has history of chronic back pain and lower extremity pain with chronic pain syndrome, t aking opiates as below. She is refills. No requests for early refills. No drowsiness conf usion. She did have a fall when she slipped on the carpet at home and injured her left knee recently went to urgent care and received a temporary supply of some short-acting oxycodone 5 mg which has helped. She has finished up. She also has continued to smoke. Smokes about a pack and a half of cigarettes a day. She states is very difficult for her to quit smoking at this time but maybe in the future she is going to work on it. She also wants refill of estradiol 1 mg which she takes for menopausal symptoms. She is aw are that taking this medication in the context of smoking increases her risk of DVT and pulm onary embolism. No leg swelling that is new. No shortness of breath or chest pain. REVIEW OF SYSTEMS See HPI for further [...] tablet by mouth Daily. DULoxetine (CYMBALTA) [address] capsule Take [...] MG tablet Take 2 tablets by mouth Daily. 60 tablet 0 pravastatin (PRAVACHOL) 20 mg tablet Take 20 [...] slows breathing PHYSICAL EXAM VITAL SIGNS: BP 122/80 | Pulse 96 | Temp 36.4 C (97.5 F) (Temporal) | Resp 16 | SpO 2 95% Constitutional: Well developed, Well nourished, No acute distress, Pleasant female. HENT: Normocephalic, Atraumatic, Bilateral external ears normal, Oropharynx with no erythma , No oral exudates, Nose normal. Neck: Normal range of motion, No tenderness, Supple. Lymphatic: No lymphadenopathy noted. Cardiovascular: Regular rate & rhythm, No murmurs, No rubs, No gallops. No lower extremitie s edema. Thorax & Lungs: Normal breath sounds, No respiratory distress, No wheezing, No rubs. Skin: Warm, Dry, No erythema, No rash. Musculoskeletal: Decreased range of motion in lower back with no vertebral deformities. Neurologic: Alert & oriented x 3. Psychiatric: Affect normal, Judgment normal, Mood normal. ASSESSMENT & PLAN 1. Chronic bilateral low back pain without sciatica - oxyCODONE-acetaminophen (PERCOCET) 10-325 mg per tablet; Take 1 tablet by mouth every 6 h ours as needed. Dispense: 120 tablet; Refill: 0 - oxyCODONE (OXYCONTIN) 80 mg ER abuse-deterrent tablet; Take 1 tablet by mouth every 12 ho urs. Dispense: 60 tablet; Refill: 0 2. Chronic pain syndrome - oxyCODONE-acetaminophen (PERCOCET) 10-325 mg per tablet; Take 1 tablet by mouth every 6 h ours as needed. Dispense: 120 tablet; Refill: 0 - oxyCODONE (OXYCONTIN) 80 mg ER abuse-deterrent tablet; Take 1 tablet by mouth every 12 ho urs. Dispense: 60 tablet; Refill: 0 3. Tobacco use Counseled on quitting. She is in contemplation stage. 4. Menopausal symptom Refill estrogen as below. Again discussed with her the risk of blood clots and advised to try to taper her estrogen down to wean herself off if possible. - estradiol (ESTRACE) 1 mg tablet; Take 1 tablet by mouth Daily. Dispense: 30 tablet; Refi ll: 5 FOLLOW-UP Return in about 1 month (around 07/05/2017). Note: Parts of this documentwere created using [employer] speech recognition software. As a r esult, [...] | | | | | | [address] [facility] [address] | | | | | | [place] [address] | | | | | | [phone] | | | | | | | | +--------+---------+ + + + documented as of this encounter Visit Diagnoses + + | Diagnosis | + + | Chronic bilateral low back pain without sciatica - Primary | + + | Chronic pain syndrome | + + | Tobacco use Tobacco use disorder | + + | Menopausal symptom Symptomatic menopausal or female climacteric states | [...]
--- OUTSIDE RECORDS SUMMARY | ~2019-12-24 | XMS | Encounter Summary ---
Demographics + + + | Address | [address] | | | [place] [address] | + + + | Home Phone | | + + + | Preferred Language | Unknown | + + + | Marital Status | | + + + | Lutheran Affiliation | 1013 | + + + | Race | Unknown | + + + | Ethnic Group | Unknown | + + + Author + + + | Author | [facility] | | | and [place] | + + + | Organization | [facility] | | | [...] [place], | | | | | [place] [address] | | + + + + + | Mahogany Farnsworth | ECON | [address] | | | | | [place] [address] | | + + + + + Care Team Providers + +------+ + | Care Cms Expert Name | Role | Phone | + +------+ + | Quynh Finch | PCP | | | MD | | | + +------+ + Encounter Details +--------+ + + + + | Date | Type | Department | Care Team | Description | +--------+ + + + + | 09/23/ | Abstract | [facility] | Ryan-Lloyd, | | | 2018 | | MEDICINE [address] | MD Quynh | | | | | [place], | [address] | | | | | [place] [address] | [place] [address] | | | | | [phone] | [phone] | | | | | | | [...] | | | | | [place] [address] | | | | | | [phone] | | | | | | | | +--------+---------+ + + + documented as of this encounter Procedures + +--------+ + + + | Procedure Name | Priori | Date/Time | Associated Diagnosis | Comments | | | ty | | | | + +--------+ + + + | KURTIS EXTERNAL IMAGE | Routin | 09/08/2018 | | Results for this | | | e | | | procedure are in the | | | | | | results section. | + +--------+ + + + documented in this encounter Results KURTIS External Image (09/08/2018) + + + + + + | Component | Value | Ref Range | Performed | Pathologist | | | | | At | Signature | + + + + + + | EXT | 1-Negative | | | | | MAMMOGRAPHY | | | | | + + + + + + documented in [...]
--- OUTSIDE RECORDS SUMMARY | ~2019-12-24 | XMS | Encounter Summary ---
Demographics + + + | Address | [address] | | | [place] [address] | + + + | Home Phone | | + + + | Preferred Language | Unknown | + + + | Marital Status | | + + + | Mosque Affiliation | 1013 | + + + | Race | Unknown | + + + | Ethnic Group | Unknown | + + + Author + + + | Author | [facility] | | | and [place] | + + + | Organization | [facility] | | | and [place] | + + + | Address | Unknown | + + + | Phone | Unavailable | + + + Support + + + + + | Name | Relationship | Address | Phone | + + + + + | Iwona L Head | ECON | [place], | | | | | [place] [address] | | + + + + + | Mahogany Farnsworth | ECON | [address] | | | | | [place] [address] | | + + + + + Care Team Providers + +------+ + | Care Trade Mark Attorney Name | Role | Phone | + +------+ + | Quynh Finch | PCP | | | MD | | | + +------+ + Encounter Details +--------+ + + + + | Date | Type | Department | Care Team | Description | +--------+ + + + + | 04/23/ | Orders Only | [facility] [place] [facility] | Stef, | Acquired | | 2018 | | MEDICINE [address] | MD Quynh | hypothyroidism | | | | [place], | [address] | (Primary Dx) | | | | [place] [address] | [place] [address] | | | | | [phone] | [phone] | | | | | | | [...] | | | | | | [address] [facility] | | | | | | [place] [address] | | | | | | [phone] | | | | | | | | +--------+---------+ + + + documented as of this encounter Visit Diagnoses + + | Diagnosis | + + | Acquired hypothyroidism - Primary Unspecified hypothyroidism | + + documented in [...]
--- OUTSIDE RECORDS SUMMARY | ~2019-12-24 | XMS | Encounter Summary ---
Demographics + + + | Address | [address] | | | [place] [address] | + + + | Home Phone | | + + + | Preferred Language | Unknown | + + + | Marital Status | | + + + | Yazidi Affiliation | 1013 | + + + | Race | Unknown | + + + | Ethnic Group | Unknown | + + + Author + + + | Author | [facility] | | | and [place] | + + + | Organization | [facility] | | | [...] [place], | | | | | [place] [address] | | + + + + + | Mahogany Farnsworth | ECON | [address] | | | | | [place] [address] | | + + + + + Care Team Providers + +------+ + | Care Burglar Alarm Assembler Name | Role | Phone | [...] Description | +--------+--------+ + + + | 11/13/ | Refill | [facility] [place] [facility] | Stef, | Medication Refill | | 2019 | | MEDICINE [address] | MD Quynh | | | | | [place], | [address] [facility] | | | | | [place] [address] | [place] [address] | | | | | [phone] | [phone] | | | | | | | [...] Quynh | | | | | | [address] [place] [address] | | | | | | [place] [address] | | | | | | [phone] | | | | | | | [...]
--- OUTSIDE RECORDS SUMMARY | ~2019-12-24 | XMS | Encounter Summary ---
Demographics + + + | Address | [address] | | | [place] [address] | + + + | Home Phone [...] | Author | [facility] | | | and [...] [place], | | | | | [place] [address] | | + + + + + | Mahogany Navarro [place] | ECON | [address] | | | | | [place] [address] | | + + + + + Care Team Providers + +------+ + | Care Hooker Laster Name | Role | Phone | + [...] + | 03/01/ | Refill | [facility] | Stef, | Medication Refill | | 2018 | | MEDICINE [address] | MD Quynh | | | | | [place], | [address] [facility] | | | | | [place] [address] | [place] [address] | | | | | [phone] | [phone] | | | | | | | [...] | | | | | | [address] [facility] | | | | | | [place] [address] | | | | | | [phone] | | | | | | | [...]
--- OUTSIDE RECORDS SUMMARY | ~2019-12-24 | XMS | Encounter Summary ---
Demographics + + + | Address | [address] | | | [place] [address] | + + + | Home Phone | | + + + | Preferred Language | Unknown | + + + | Marital Status | | + + + | Congregational Affiliation | 1013 | + + + | Race | Unknown | + + + | Ethnic Group | Unknown | + + + Author + + + | Author | [facility] | | | and [place] | + + + | Organization | [facility] | | [...] [place], | | | | | [place] [address] | | + + + + + | Mahogany Farnsworth | ECON | [address] | | | | | [place] [address] | | + + + + + Care Team Providers + +------+ + | Care Raking Machine Operator Name | Role | Phone | + +------+ + | Quynh Finch | PCP | | | MD | | | + +------+ + Encounter Details +--------+ + + + + | Date | Type | Department | Care Team | Description | +--------+ + + + + | 03// | Orders Only | [facility] [place] [facility] | Shwehta Saini | | | 2014 | | [address] | [place] | | | | | [place] | | | | | | [address] | | | | | | [phone] | | | +--------+ + + + [...] 01/09/ | Office | Internal Medicine | Davidayeparrish, | | | 2019 | Visit | | MD Quynh | | | | | | [address] | | | | | | [place] [address] | | | | | | [phone] | | | | | | | [...]
--- OUTSIDE RECORDS SUMMARY | ~2019-12-24 | XMS | Encounter Summary ---
Demographics + + + | Address | [address] | | | [place] [address] | + + + | Home Phone [...] Author | [facility] | | [...] [place], | | | | | [place] [address] | | + + + + + | Mahogany Navarro [place] | ECON | [address] | | | | | [place] [address] | | + + + + + Care Team Providers + +------+ + | Care Gourmet Coffee Attendant Name | Role | Phone | + +------+ + | Quynh Finch | PCP | | | MD | | | + +------+ + Reason for Visit + +--------+ + | Reason | Onset | Comments | | | Date | | + +--------+ + | Medication Refill | | | + +--------+ + | Medication Refill | 11/24/ | | | | 2018 | | + +--------+ + Encounter Details +--------+--------+ + + + | Date | Type | Department | Care Team | Description | +--------+--------+ + + + | 10/30/ | Refill | [facility] | Stef, | Medication Refill; | | 2018 | | MEDICINE [address] | MD Quynh | Medication Refill | | | | [place], | [address] [facility] | | | | | [place] [address] | [place] [address] | | | | | [phone] | [phone] | | | | | | | [...] Telephone Encounter - Vera Solis LPN - 11/01/2018 10:01 AM PDTrx pended for MD approval Last appt: 10/07/18 No upcoming appt scheduled documented in this enc ounter Plan of Treatment +--------+---------+ + + + | Date | Type | Specialty | Care Team | Description | +--------+---------+ + + + | 01/09/ | Office | Internal Medicine | Stef, | | | 2019 | Visit | | MD Quynh | | | | | | [address] | | | | | | [place] [address] | | | | | | [phone] | | | | | | | [...]
--- OUTSIDE RECORDS SUMMARY | ~2019-12-24 | XMS | Encounter Summary ---
Demographics + + + | Address | [address] | | | [place] [address] | + + + | Home Phone | | + + + | Preferred Language | Unknown | + + + | Marital Status | | + + + | Presybeterian Affiliation | 1013 | + + + | Race | Unknown | + + + | Ethnic Group | Unknown | + + + Author + + + | Author | [facility] | | | and [place] | + + + | Organization | [facility] | | [...] [place], | | | | | [place] [address] | | + + + + + | Mahogany Farnsworth | ECON | [address] | | | | | [place] [address] | | + + + + + Care Team Providers + +------+ + | Care Bank Examiner Name | Role | Phone | + +------+ + | Quynh Finch | PCP | | | MD | | | + +------+ + Reason for Visit + + + | Reason | Comments | + + + | Left Without Being | | | Seen | | + + + Encounter Details +--------+---------+ + + + | Date | Type | Department | Care Team | Description | +--------+---------+ + + + | 04/29/ | Office | [facility] | George Rick | Patient left without | | 2019 | Visit | [address] | MD [place] [address] | being seen (Primary | | | | [place] | [address]VE [place] | Dx) | | | | [address] | [address] | | | | | [phone] | | | +--------+---------+ + + + [...] + documented as of this encounter Progress Sharonda Gresham China Decorator - 04/29/2019 11:45 AM PDTPatient left without being se en due to extended wait time. 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
--- OUTSIDE RECORDS SUMMARY | ~2019-12-24 | XMS | Encounter Summary ---
Demographics + + + | Address | [address] | | | [place] [address] | + + + | Home Phone | | + + + | Preferred Language | Unknown | + + + | Marital Status | | + + + | Latter-Day Affiliation | 1013 | + + + | Race | Unknown | + + + | Ethnic Group | Unknown | + + + Author + + + | Author | [facility] | | | and [place] | + + + | Organization | [facility] | | | [...] [place], | | | | | [place] [address] | | + + + + + | Mahogany Farnsworth | ECON | [address] | | | | | [place] [address] | | + + + + + Care Team Providers + +------+ + | Care Solution Lead Name | Role | Phone | + +------+ + | Quynh Finch | PCP | | | MD | | | + +------+ + Encounter Details +--------+ + + + + | Date | Type | Department | Care Team | Description | +--------+ + + + + | 12/13/ | Documentati | [facility] [place] [facility] | Damian Escudero, | | | 2014 | on | [address] | MD [address] | | | | | [place] | [place] | | | | | [address] | [address] | | | | | [phone] | | | +--------+ + + + [...] + documented as of this encounter Progress Brianda Downey - 12/13/2014 11:30 AM PDTFAXED CHART NOTES, DEMO AND INSURANCE CARDS TO [facility] AT [phone] PHONE [phone] signed by Brianda Griffin at 12/13/2014 11:30 AM PDTdocumented in this encounter Plan of Treatment +--------+---------+ + + + | Date | Type | Specialty | Care Team | Description | +--------+---------+ + + + | 01/09/ | Office | Internal Medicine | Stef, | | | 2019 | Visit | | MD Quynh | | | | | | [address] [place] [address] | | | | | | [place] [address] | | | | | | [phone] | | | | | | | [...]
--- OUTSIDE RECORDS SUMMARY | ~2019-12-24 | XMS | Encounter Summary ---
Demographics + + + | Address | [address] | | | [place] [address] | + + + | Home Phone | | + + + | Preferred Language | Unknown | + + + | Marital Status | | + + + | Restorationism Affiliation | 1013 | + + + | Race | Unknown | + + + | Ethnic Group | Unknown | + + + Author + + + | Author | [facility] | | | and [place] | + + + | Organization | [facility] | | [...] [place], | | | | | [place] [address] | | + + + + + | Mahogany Navarro [place] | ECON | [address] | | | | | [place] [address] | | + + + + + Care Team Providers + +------+ + | Care Stopper Grinder Name | Role | Phone | + +------+ + PCP | Unavailable | + +------+ + Encounter Details +--------+ + + + + | Date | Type | Department | Care Team | Description | +--------+ + + + + | 11/24/ | Hospital | [facility] | George Williamson, | | | 2009 | Encounter | [facility] | MD [address] | | | | | [place] [address] | [facility] [place] | | | | | [place], [place] | [place] [address] | | | | | [address] | [phone] | | | | | [phone] | | | +--------+ + + + [...] | | | | | | [address] [facility] | | | | | | [place] [address] | | | | | | [phone] | | | | | | | | +--------+---------+ + + + documented as of this encounter Visit Diagnoses Not on filedocumented in this encounter"
--- OUTSIDE RECORDS SUMMARY | ~2019-12-24 | XMS | Encounter Summary ---
Demographics + + + | Address | [address] | | | [place] [address] | + + + | Home Phone | | + + + | Preferred Language | Unknown | + + + | Marital Status | | + + + | Cheondoism Affiliation | 1013 | + + + | Race | Unknown | + + + | Ethnic Group | Unknown | + + + Author + + + | Author | [facility] | | | and [...] [place], | | | | | [place] [address] | | + + + + + | Mahogany Farnsworth | ECON | [address] | | | | | [place] [address] | | + + + + + Care Team Providers + +------+ + | Care Dye Mixer Name | Role | Phone | + [...] Description | +--------+---------+ + + + | 07/01/ | Office | [facility] | Stef, | Chronic bilateral | | 2018 | Visit | MEDICINE [address] | MD Quynh | low back pain | | | | [place], | [address] [facility] | without sciatica | | | | [place] [address] | [place] [address] | (Primary Dx); | | | | [phone] | [phone] | Chronic pain | | | | | | syndrome; Chronic | | | | | | diarrhea; RLS | | | | | | (restless legs | | | | | | syndrome); Tobacco | | | | | | use | +--------+---------+ + + + Social History [...] + | Blood Pressure | 130/80 | 07/01/2017 1:01 PM | | | | | PST | | + + + + + | Pulse | 74 | 07/01/2017 1:01 PM | | | | | PST | | + + + + + | Temperature | 36.5 C (97.7 F) | 07/01/2017 1:01 PM | | | | | PST | | + + + + + | Respiratory Rate | 16 | 07/01/2017 1:01 PM | | | | | PST | | + + + + + | Oxygen Saturation | 97% | 07/01/2017 1:01 PM | | | | | PST | | + + + + + | Inhaled Oxygen | - | - | | | Concentration | | | | + + + + + | Weight | 93.8 kg (206 lb 12.7 | 07/01/2017 1:01 PM | | | | oz) | PST | | + + + + + | Height | - | - | | + + + + + | Body Mass Index | 37.82 | 05/22/2017 8:50 PM | | | | | PST | | + + + + + documented in this encounter Progress Notes Quynh Finch MD - 07/01/2017 1:00 PM PSTFormatting of this note might be d ifferent from the original. CHIEF COMPLAINT Chief Complaint Patient presents with Pain Management Medication Refill HPI Marzena Duong is a 46 y.o. y/o female who presents today for several issues: She has a history of chronic back pain and chronic pain in her lower extremities in part se condary to sequela from necrotizing fasciitis with mutilating surgeries. She is confined to a wheelchair. She takes pain medications as below with good control of symptoms. No alcoh ol. No illicit drugs. No requests for early refill. No drowsiness confusion or falls. Also has history of chronic diarrhea takes Lomotil, needs a refill. That's working fine. Takes pramipexole for restless leg syndrome, needs a refill. States it's effective. Continues to smoke about a pack of cigarettes a day. The only time she quit was when she w as in a coma during her necrotizing fasciitis. No chest pain or palpitations. REVIEW OF SYSTEMS See HPI for further [...] slows breathing PHYSICAL EXAM VITAL SIGNS: BP 130/80 | Pulse 74 | Temp 36.5 C (97.7 F) (Temporal) | Resp 16 | Wt 93.8 kg (206 lb 12.7 oz) | SpO2 97% | BMI 37.82 kg/m Constitutional: Well developed, Well nourished, No [...] Musculoskeletal: In wheelchair, decreased range of motion on flexion in her knees and in he r lower back, no joint swelling or redness. Neurologic: Alert & oriented x 3, Normal [...] as needed. Dispense: 120 tablet; Refill: 0 3. Chronic diarrhea - diphenoxylate-atropine (LOMOTIL) 2.5-0.025 mg per tablet; Take 1 tablet by mouth 2 times daily. Dispense: 60 tablet; Refill: 5 4. RLS (restless legs syndrome) - pramipexole (MIRAPEX) 1.5 MG tablet; Take 2 tablets by mouth nightly. Dispense: 60 table t; Refill: 5 5. Tobacco use Counseled on quitting smoking. She is in contemplation stage. We'll continue to work on t his. FOLLOW-UP Return in about 1 month (around 08/01/2017). Note: Parts of this documentwere created using [employer] speech recognition software. As a r esult, [...] | | | | | [facility] [address] | | | | | | [place] [address] | | | | | | [phone] | | | | | | | | +--------+---------+ + + + documented as of this encounter Visit Diagnoses + + | Diagnosis | + + | Chronic bilateral low back pain without sciatica - Primary | + + | Chronic pain syndrome | + + | Chronic diarrhea Diarrhea | + + | RLS (restless legs syndrome) Restless legs syndrome (RLS) | + + | Tobacco use Tobacco use disorder | + + documented [...]
--- OUTSIDE RECORDS SUMMARY | ~2019-12-24 | XMS | Encounter Summary ---
Demographics + + + | Address | [address] | | | [place] [address] | + + + | Home Phone | | + + + | Preferred Language | Unknown | + + + | Marital Status | | + + + | Rastafarian Affiliation | 1013 | + + + | Race | Unknown | + + + | Ethnic Group | Unknown | + + + Author + + + | Author | [facility] [...] [place], | | | | | [place] [address] | | + + + + + | Mahogany Farnsworth | ECON | [address] | | | | | [place] [address] | | + + + + + Care Team Providers + +------+ + | Care Dice Table Person Name | Role | Phone | + [...] Description | +--------+--------+ + + + | 05/18/ | Refill | [facility] | Stef, | Medication Refill | | 2016 | | MEDICINE [address] | MD Quynh | | | | | [place], | [address] [facility] | | | | | [place] [address] | [place] [address] | | | | | [phone] | [phone] | | | | | | | [...] Telephone Encounter - Melani Sandoval RN - 05/19/2017 4:09 PM PSTPatient states she take 2 Mirapex tablets at HS is needing a refill as she is going out of town Electronically sign ed by Melani Sandoval RN at 05/19/2017 4:10 PM PSTTelephone Encounter - Melani Sandoval RN - 05/18/2017 1:51 PM PSTPharmacy request states to take 2 tablets at HS Estradiol as not on her medication list. Is this OK to refill? documented in this encounter Plan of Treatment +--------+---------+ + + + | Date | Type | Specialty | Care Team | Description | +--------+---------+ + + + | 01/09/ | Office | Internal Medicine | Stef, | | | 2019 | Visit | | MD Quynh | | | | | | [address] | | | | | | [place] [address] | | | | | | [phone] | | | | | | | [...]
--- OUTSIDE RECORDS SUMMARY | ~2019-12-24 | XMS | Encounter Summary ---
Demographics + + + | Address | [address] | | | [place] [address] | + + + | Home Phone | | + + + | Preferred Language | Unknown | + + + | Marital Status | | + + + | Temple Affiliation | 1013 | + + + | Race | Unknown | + + + | Ethnic Group | Unknown | + + + Author + + + | Author | [facility] | | | and [place] [...] [place], | | | | | [place] [address] | | + + + + + | Mahogany Navarro Dorris | ECON | [address] | | | | | [place] [address] | | + + + + + Care Team Providers + +------+ + | Care Ski Instructor Name | Role | Phone | + +------+ + PCP | Unavailable | + +------+ + Encounter Details +--------+ + + + + | Date | Type | Department | Care Team | Description | +--------+ + + + + | 05/05/ | Hospital | [facility] | | | | 2005 | Encounter | [facility] EM[facility] | | | | | | CENTER [address] | | | | | | [place] | | | | | | [address] | | | | | | [phone] | | | +--------+ + + + [...] | | | | | | [facility] [address] | | | | | | [place] [address] | | | | | | [phone] | | | | | | | | +--------+---------+ + + + documented as of this encounter Visit Diagnoses Not on filedocumented in this encounter"
--- OUTSIDE RECORDS SUMMARY | ~2019-12-24 | XMS | Encounter Summary ---
Demographics + + + | Address | [address] | | | [place] [address] | + + + | Home Phone | | + + + | Preferred Language | Unknown | + + + | Marital Status | | + + + | Judaism Affiliation | 1013 | + + + | Race | Unknown | + + + | Ethnic Group | Unknown | + + + Author + + + | Author | [facility] | | | and [place] | + + + | Organization | [facility] | | | and [place] | + + + | Address | Unknown | + + + | Phone | Unavailable | + + + Support + + + + + | Name | Relationship | Address | Phone | + + + + + | Iwona L Head | ECON | [place], | | | | | [place] [address] | | + + + + + | Mahogany Navarro [place] | ECON | [address] | | | | | [place] [address] | | + + + + + Care Team Providers + +------+ + | Care Information And Referral Director Name | Role | Phone | + +------+ + PCP | Unavailable | + +------+ + Encounter Details +--------+ + + + + | Date | Type | Department | Care Team | Description | +--------+ + + + + | 07/30/ | Hospital | [facility] | | | | 2006 | Encounter | MED CTR EMERGENCY | | | | | | CENTER [address] | | | | | | [place] | | | | | | [address] | | | | | | [phone] | | | +--------+ + + + [...] Quynh | | | | | | [facility] [address] | | | | | | [place] [address] | | | | | | [phone] | | | | | | | | +--------+---------+ + + + documented as of this encounter Visit Diagnoses Not on filedocumented in this encounter"
--- OUTSIDE RECORDS SUMMARY | ~2019-12-24 | XMS | Encounter Summary ---
Demographics + + + | Address | [address] | | | [place] [address] | + + + | Home Phone | | + + + | Preferred Language | Unknown | + + + | Marital Status | | + + + | Holiness Affiliation | 1013 | + + + | Race | Unknown | + + + | Ethnic Group | Unknown | + + + Author + + + | Author | [facility] [...] [place], | | | | | [place] [address] | | + + + + + | Mahogany Farnsworth | ECON | [address] | | | | | [place] [address] | | + + + + + Care Team Providers + +------+ + | Care Certified Medical Records Coder Name | Role | Phone | + [...] Description | +--------+--------+ + + + | 04/22/ | [facility] | [facility] | Stef, | Medication Refill | | 2017 | | MEDICINE [address] | MD Quynh | | | | | [place], | [address] [facility] | | | | | [place] [address] | [place] [address] | | | | | [phone] | [phone] | | | | | | | [...] this encounter Miscellaneous Notes Telephone Encounter - Lolita [place] RN - 04/23/2018 2:53 PM PDTCalled patient to let h er know that PCP has ordered a TSH lab to be done But she does not have a VM box that has been set up. Needs to be called again.Electronicall y signed by Lolita [place] RN at 04/23/2018 2:57 PM PDTTelephone Encounter - Quynh Charles i, MD - 04/23/2018 9:06 AM PDTTSH ordered, may go to lab to do it. Electronic ally signed by Quynh Finch MD at 04/23/2018 9:06 AM PDTTelephone Encounter - Melani Sandoval RN - 04/22/2018 8:44 AM PDTPatient is due for TSH. Would you like her t o have other blood work as well? Her other orders have 8 :45 AM PDTdocumented in this encounter Plan of [...] | | | | | | [place] [address] | | | | | | [phone] | | | | | | | [...]
--- OUTSIDE RECORDS SUMMARY | ~2019-12-24 | XMS | Encounter Summary ---
Demographics + + + | Address | [address] | | | [place] [address] | + + + | Home Phone | | + + + | Preferred Language | Unknown | + + + | Marital Status | | + + + | Jain Affiliation | 1013 | + + + | Race | Unknown | + + + | Ethnic Group | Unknown | + + + Author + + + | Author | [facility] | | | and [place] | + + + | Organization | [facility] | | | [...] [place], | | | | | [place] [address] | | + + + + + | Mahogany Navarro [place] | ECON | [address] | | | | | [place] [address] | | + + + + + Care Team Providers + +------+ + | Care Saddle Stitching Machine Operator Name | Role | Phone | + +------+ + PCP | Unavailable | + +------+ + Encounter Details +--------+ + + + + | Date | Type | Department | Care Team | Description | +--------+ + + + + | 04/04/ | Hospital | [facility] | Wojciech Lozano | | | 2011 - | Encounter | [facility] CTR EMERG[facility]Y | MD Pepe [address] | | | | | [place] [address] | [address] | | | 04/05/ | | [place], [place] | [place] [address] | | | 2011 | | [address] | [phone] | | | | | [phone] | | | +--------+ + + + [...] documented as of this encounter ED Notes Wojciech Lozano MD - 04/05/2012 2:02 [place] [address] Patient Name: MITRA CLINE Provider: Unit #: [id number] Location: : 1970 DATE: 04/04/2012 TIME OF EXAM: 0008. REASON FOR PRESENTATION: High blood sugar. HISTORY OF PRESENT ILLNESS: The patient is a 41-year-old female with high blood sugar. Glu cose on arrival was 482. She has had some diarrhea the last few days, but no other infectious type symptoms. Notes that the diarrhea has actually improved to date. Not lightheaded or dizzy. No headache or neck stiffness. No chest pain, palpitations, or s hortness of breath. No runny nose, sore throat, cough, or difficulty breathing. No abdomen pain. No vomiting. No dysuria, hematuria, or flank pain. No skin rashes or lesions, easy bl eeding or bruising, excessive thirst, urination, focal weakness, numbness, or other symptom s or complaints. PAST MEDICAL HISTORY: Diabetes, asthma, hypertension, hyperlipidemia, hypothyroidism, and sleep apnea. FAMILY HISTORY: Noncontributory. SOCIAL HISTORY: Smokes cigarettes. Denies alcohol or street drug use. MEDICATIONS 1. Acyclovir. 2. Abilify. 3. Cogentin. 4. Diclofenac. 5. Cymbalta. 6. Vitamin D. 7. Neurontin. 8. Insulin. 9. Atarax. 10. Levoxyl. 11. Robaxin. 12. Prilosec. 13. Mirapex. 14. Pravachol. 15. Phenergan. 16. Maxalt. 17. Trazodone. ALLERGIES 1. SULFA. 2. HYDROCODONE. 3. MORPHINE. REVIEW OF SYSTEMS: As noted in HPI, otherwise negative. PHYSICAL EXAMINATION VITAL SIGNS: Blood pressure 168/101, heart rate 96, respiratory rate 16, temperature 97.7, oxygen saturation 98% on room air. GENERAL: The patient is nontoxic appearing, in no acute distress. HEENT: Normocephalic. Oropharynx moist, patent. No erythema, exudate, or swelling. NECK: Supple without meningismus. HEART: Regular rhythm, no murmurs, gallops, or rubs. LUNGS: Clear, symmetric. Good air movement. ABDOMEN: Nontender. No rebound, guarding, palpable mass. SKIN: Intact without rashes or lesions. NEUROLOGIC: The patient is alert, oriented, appropriate, ambulatory in the emergency depar tment without difficulty with normal gait. TEST REVIEW: Glucose 465, sodium 131, CO2 23. Serum ketones negative. EMERGENCY DEPARTMENT COURSE: The patient received a liter of normal saline, 10 units of re gular insulin, and droperidol for nausea. Repeat glucose 334. The patient is requesting discharge at this time. The patient reported a migraine headaches. She gets these typically. This is similar in soheila moreno to prior migraines, not the most severe headache of her life, and was gradual in onset , and believes this is associated with her high blood glucose as this has occurred before. Droperidol relieved her migraine symptoms. DIAGNOSES 1. HYPERGLYCEMIA. 2. MIGRAINE HEADACHE. PLAN: The patient to check blood glucose frequently, return if persistently elevated, keep well- hydrated, and followup with her primary care doctor. She was offered further hydration and insulin treatment. She declined this, as she wanted to go home to sleep. She was given standard migraine headache instructions and discharged in improved condition . DICTATED BY: Wojciech Lozano MD Emergency Medicine JOB #: [id number] EXT JOB #:[id number] <<Signature on File>> Wojciech Lozano MD04/05/12 220 < documented in this encounter Plan of Treatment +--------+---------+ + + + | Date | Type | Specialty | Care Team | Description | +--------+---------+ + + + | 01/09/ | Office | Internal Medicine | Stef, | | | 2019 | Visit | | MD Quynh | | | | | | [address] [place] [address] [place] | | | | | | [place] [address] | | | | | | [phone] | | | | | | | | +--------+---------+ + + + documented as of this encounter Procedures + +--------+ + + + | Procedure Name | Priori | Date/Time | Associated Diagnosis | Comments | | | ty | | | | + +--------+ + + + | KETONES,SERUM | Routin | 04/05/2012 | | Results for this | | | e | 12:33 AM | | procedure are in the | | | | PDT | | results section. | + +--------+ + + + | BASIC METABOLIC | Routin | 04/05/2012 | | Results for this | | PANEL | e | 12:33 AM | | procedure are in the | | | | PDT | | results section. | + +--------+ + + + documented in this encounter Results Basic Metabolic Panel (04/05/2012 12:33 AM PDT) + + + + + + | Component | Value | Ref Range | Performed | Pathologist | | | | | At | Signature | + + + + + + | Glucose | 465 (H) | 70 - 109 mg/dL | [facility] | | | | | | [facility] | | [facility] | [facility] | | | | | | C[facility] - | | | | | | LABORATORY | | + + + + + + | Calcium | 8.9 | 8.3 - 10.5 | [facility] | | | | | mg/dL | [facility] | | | | | | MEDICAL | | | | | | CENTER - | | | | | | LABORATORY | | + + + + + + | BUN | 9 | 7 - 18 mg/dL | [facility] | | | | | | [facility] | | | | | | MEDICAL | | | | | | CENTER - | | | | | | LABORATORY | | + + + + + + | Creatinine | 0.58 (L) | 0.60 - 1.30 | [facility] | | | | | mg/dL | [facility] | | | | | | MEDICAL | | | | | | CENTER - | | | | | | LABORATORY | | + + + + + + | Estimated | >60Comment: For | >60 mL/min/A | [facility] | | | GFR | -Americans, | | [facility] | | | | please multiply the | | MEDICAL | | | | result by 1.210 | | CENTER - | | | | This is an estimated | | LABORATORY | | | | GFR and is based on a | | | | | | standard adult | | | | | | body mass (A=1.73m2) and | | | | | | serum creatinine | | | | + + + + + + | BUN/Creatin | 15.5 | 12 - 20 | [facility] | | | ine Ratio | | | [facility] | | | | | [facility] | | | | | | CENTER - | | | | | | LABORATORY | | + + + + + + | Na | 131 (L) | 136 - 149 mEq/L | [facility] | | | | | | [facility] | | | | | | [facility]ICAL | | | | | | CENTER - | | | | | | LABORATORY | | + + + + + + | K | 3.6 | 3.5 - 5.1 mEq/l | [facility] | | | | | | [facility] | | | | | | MEDICAL | | | | | | CENTER - | | | | | | LABORATORY | | + + + + + + | Cl | 98 | 98 - 109 mEq/l | [facility] | | | | | | [facility] | | | | | | MEDICAL | | | | | | CENTER - | | | | | | LABORATORY | | + + + + + + | CO2 | 23 (L) | 24 - 31 mEq/L | [facility] | | | | | | [facility] | | | | | | MEDICAL | | | | | | CENTER - | | | | | | LABORATORY | | + + + + + + | Anion Gap | 13.6 | 6.0 - 17.0 | [facility] | | | | | | [facility] [...] + + | [facility] | [address] | [place] | [phone] | | [facility] | | [address] | | | - LABORATORY | | | | + + + + + | [facility] | [address] | [place] | | | [facility] | | [address], [facility] | | | - LABORATORY | | | | + + + + + Ketones, Serum (04/05/2012 12:33 AM PDT) + + + + + + | Component | Value | Ref Range | Performed | Pathologist | | | | | At | Signature | + + + + + + | ACETONE,SER | NEGATIVE | | [facility] | | | [facility] | | | [facility] | | [...] ST. | [address] | [place] | [phone] | | [facility] | | [facility] | | | - LABORATORY | | | | + + + + + | [facility] | [address] | [place] | | | [facility] | | [address] [place] [address] | | | - LABORATORY | | | | + + + + + documented in this encounter Visit Diagnoses Not on filedocumented in this encounter"
--- OUTSIDE RECORDS SUMMARY | ~2019-12-24 | XMS | Encounter Summary ---
Demographics + + + | Address | [address] | | | [place] [address] | + + + | Home Phone | | + + + | Preferred Language | Unknown | + + + | Marital Status | | + + + | Sabianist Affiliation | 1013 | + + + | Race | Unknown | + + + | Ethnic Group | Unknown | + + + Author + + + | Author | [facility] | | | and [place] | + + + | Organization | [facility] | | | [...] [place], | | | | | [place] [address] | | + + + + + | Mahogany Navarro [place] | ECON | [address] | | | | | [place] [address] | | + + + + + Care Team Providers + +------+ + | Care Manager Behavior Name | Role | Phone | + +------+ + PCP | Unavailable | + +------+ + Encounter Details +--------+ + + + + | Date | Type | Department | Care Team | Description | +--------+ + + + + | 03/29/ | Hospital | [facility] | | | | 2006 | Encounter | MED CTR EMERGENCY | | | | | | CENTER [address] | | | | | | [place] | | | | | | [address] | | | | | | [phone] | | | +--------+ + + + [...] Quynh | | | | | | [facility] [address] | | | | | | [place] [address] | | | | | | [phone] | | | | | | | | +--------+---------+ + + + documented as of this encounter Visit Diagnoses Not on filedocumented in this encounter"
--- OUTSIDE RECORDS SUMMARY | ~2019-12-24 | XMS | Encounter Summary ---
Demographics + + + | Address | [address] | | | [place] [address] | + + + | Home Phone [...] + | Author | [facility] | | | and [...] [place], | | | | | [place] [address] | | + + + + + | Mahogany Navarro [place] | ECON | [address] | | | | | [place] [address] | | + + + + + Care Team Providers + +------+ + | Care Preschool Program Director Name | Role | Phone | + +------+ + PCP | Unavailable | + +------+ + Encounter Details +--------+ + + + + | Date | Type | Department | Care Team | Description | +--------+ + + + + | 06/02/ | Hospital | [facility] | Bruno Herrera MD | | | 2005 | Encounter | MED CTR SLEEP | [address] | | | | | CENTER [address] | [address] [place] | | | | | [place], [place] | [place] [address] | | | | | [address] | [phone] | | | | | [phone] | | | +--------+ + + + [...] | | | | | [place] [address] | | | | | | [phone] | | | | | | | | +--------+---------+ + + + documented as of this encounter Visit Diagnoses Not on filedocumented in this encounter"
--- OUTSIDE RECORDS SUMMARY | ~2019-12-24 | XMS | Encounter Summary ---
Demographics + + + | Address | [address] | | | [place] [address] | + + + | Home Phone [...] | Author | [facility] | | | and [...] [place], | | | | | [place] [address] | | + + + + + | Mahogany Farnsworth | ECON | [address] | | | | | [place] [address] | | + + + + + Care Team Providers + +------+ + | Care Network And Threat Support Specialist Name | Role | Phone [...] Description | +--------+--------+ + + + | 02/24/ | Refill | [facility] | Stfe, | Medication Refill | | 2017 | | MEDICINE [address] | MD Quynh | | | | | [place], | [address] [facility] | | | | | [place] [address] | [place] [address] | | | | | [phone] | [phone] | | | | | | | [...] Telephone Encounter - Vera Solis LPN - 02/24/2018 5:34 PM PDTLast appt: 09/15/17 No upcoming appt scheduled documented in this [...] | | | | | [place] [address] | | | | | | [phone] | | | | | | | [...]
--- OUTSIDE RECORDS SUMMARY | ~2019-12-24 | XMS | Encounter Summary ---
Demographics + + + | Address | [address] | | | [place] [address] | + + + | Home Phone | | + + + | Preferred Language | Unknown | + + + | Marital Status | | + + + | Roman Catholic Affiliation | 1013 | + + + | Race | Unknown | + + + | Ethnic Group | Unknown | + + + Author + + + | Author | [facility] | | | and [place] | + + + | Organization | [facility] | | [...] [place], | | | | | [place] [address] | | + + + + + | Mahogany Farnsworth | ECON | [address] | | | | | [place] [address] | | + + + + + Care Team Providers + +------+ + | Care Mechanical Repair Worker Name | Role | Phone | [...] + | 08/26/ | Refill | [facility] | Stef, | Medication Refill | | 2019 | | MEDICINE [address] | MD Quynh | | | | | [place], | [address] [facility] | | | | | [place] [address] | [place] [address] | | | | | [phone] | [phone] | | | | | | | [...] Telephone Encounter - Melani Sandoval RN - 08/26/2019 3:12 PM PSTMedication Alprazolam 0.5 mg Quantity #30 Last refill date 07/26/19 Pharmacy [facility] Last appointment 01/07/20 Next appointment no future appointments scheduled documented [...] | | | | | [place] [address] | | | | | | [phone] | | | | | | | [...]
--- OUTSIDE RECORDS SUMMARY | ~2019-12-24 | XMS | Encounter Summary ---
Demographics + + + | Address | [address] | | | [place] [address] | + + + | Home Phone | | + + + | Preferred Language | Unknown | + + + | Marital Status | | + + + | Latter-Day Affiliation | 1013 | + + + | Race | Unknown | + + + | Ethnic Group | Unknown | + + + Author + + + | Author | [facility] | | | and [place] | + + + | Organization | [facility] | | [...] [place], | | | | | [place] [address] | | + + + + + | Mahogany Navarro [place] | ECON | [address] | | | | | [place] [address] | | + + + + + Care Team Providers + +------+ + | Care Multigraph Operator Name | Role | Phone | + +------+ + PCP | Unavailable | + +------+ + Encounter Details +--------+ + + + + | Date | Type | Department | Care Team | Description | +--------+ + + + + | 12/25/ | Hospital | [facility] | Carolee Mclaughlin | | | 2009 | Encounter | MED CTR EMERGENCY | MD Sima [address] | | | | | [place] [address] | [facility], | | | | | [place] | [place] [address] | | | | | [address] | [phone] | | | | | [phone] | | | +--------+ + + + [...] | | | | | [place] [address] | | | | | | [phone] | | | | | | | | +--------+---------+ + + + documented as of this encounter Visit Diagnoses Not on filedocumented in this encounter"
--- OUTSIDE RECORDS SUMMARY | ~2019-12-24 | XMS | Encounter Summary ---
Demographics + + + | Address | [address] | | | [place] [address] | + + + | Home Phone [...] + | Author | [facility] | [...] [place], | | | | | [place] [address] | | + + + + + | Mahogany Farnsworth | ECON | [address] | | | | | [place] [address] | | + + + + + Care Team Providers + +------+ + | Care Bed Worker Name | Role | Phone | [...] Description | +--------+--------+ + + + | 10/24/ | Refill | [facility] | Stef, | Medication Refill | | 2019 | | MEDICINE [address] | MD Quynh | | | | | [place], | [address] [facility] | | | | | [place] [address] | [place] [address] | | | | | [phone] | | | | | | | [...] | 2019 | Visit | | MD Quyhn | | | | | | [address] [place] [address] | | | | | | [place] [address] | | | | | | [phone] | | | | | | | [...]
--- OUTSIDE RECORDS SUMMARY | ~2019-12-24 | XMS | Encounter Summary ---
Demographics + + + | Address | [address] | | | [place] [address] | + + + | Home Phone [...] [facility] | | | and [place] [...] [place], | | | | | [place] [address] | | + + + + + | Mahogany Farnsworth | ECON | [address] | | | | | [place] [address] | | + + + + + Care Team Providers + +------+ + | Care Peanut Roaster Name | Role | Phone | + [...] Description | +--------+--------+ + + + | 10/11/ | Refill | [facility] | Stef, | Medication Refill | | 2019 | | MEDICINE [address] | MD Quynh | | | | | [place], | [address] [facility] | | | | | [place] [address] | [place] [address] | | | | | [phone] | [phone] | | | | | | | [...] Quynh | | | | | | [address] [place] [address] | | | | | | [place] [address] | | | | | | [phone] | | | | | | | [...]
--- OUTSIDE RECORDS SUMMARY | ~2019-12-24 | XMS | Encounter Summary ---
Demographics + + + | Address | [address] | | | [place] [address] | + + + | Home Phone [...] + | Author | [facility] | | | and [place] [...] [place], | | | | | [place] [address] | | + + + + + | Mahogany Farnsworth | ECON | [address] | | | | | [place] [address] | | + + + + + Care Team Providers + +------+ + | Care Parts Data Writer Name | Role | Phone | + +------+ + | Quynh Finch | PCP | | | MD | | | + +------+ + Reason for Referral Evaluate & Treat (Routine) + + + + + + + | Status | Reason | Specialty | Diagnoses / | Referred By | Referred To | | | | | Procedures | Contact | Contact | + + + + + + + | Authorized | Specialty | Diabetes | Diagnoses | | [facility] | | | Services | Educator / | | [facility] | Diabetes | | | Required | Diabetes | Uncontrolled | i, | Education | | | | Services | type 2 | Quynh | [address] | | | | | diabetes | , MD [address] | [place], | | | | | mellitus | [address] | [place] | | | | | with | [place], | [address] | | | | | hyperglycemi | [place] | Phone: | | | | | a ([facility]) | [address] | [phone] | | | | | | Phone: | Fax: | | | | | | [phone] | [phone] | | | | | | Fax: | | | | | | | [phone] | | + + + + + + + Reason for Visit + +--------+ + | Reason | Onset | Comments | | | Date | | + +--------+ + | Diabetes Education | 11/07/ | | | | 2019 | | + +--------+ + Encounter Details +--------+ + + + + | Date | Type | Department | Care Team | Description | +--------+ + + + + | 11/07/ | Telephone | [facility] | Cielo Denny, | Diabetes Education | | 2019 | | MED CTR DIABETES | RN | | | | | EDUCATION [address] | | | | | | [place], | | | | | | [place] [address] | | | | | | [phone] | | | +--------+ + + + [...] this encounter Miscellaneous Notes Telephone Encounter - Cielo Denny RN - 11/08/2019 1:[address] [place], We would like to follow up with this patient that had a virtual visit with you last month ( A1C 13.6) regarding diabetes education and possibly diabetes classes. An referral is pended here for your signature if you agree. Thank you for your consideration! Susan doculeighann in t his encounter Plan of Treatment +--------+---------+ + + + | Date | Type | Specialty | Care Team | Description | +--------+---------+ + + + | 01/09/ | Office | Internal Medicine | Stef, | | 2019 | Visit | | MD Quynh | | | | | | [facility] [address] | | | | | | [place] [address] | | | | | | [phone] | | | | | | | | +--------+---------+ + + + + + +--------+ + + | Name | Type | Priori | Associated Diagnoses | Order Schedule | | | | ty | | | + + +--------+ + + | DM Referral | Outpatient | Routin | Uncontrolled type | Ordered: 11/08/2019 | | | Referral | e | 2 diabetes mellitus | | | | | | with hyperglycemia | | | | | | (HCC) [...]
--- OUTSIDE RECORDS SUMMARY | ~2019-12-24 | XMS | Encounter Summary ---
Demographics + + + | Address | [address] | | | [place] [address] | + + + | Home Phone [...] | Author | [facility] | [...] [place], | | | | | [place] [address] | | + + + + + | Mahogany Navarro [place] | ECON | [address] | | | | | [place] [address] | | + + + + + Care Team Providers + +------+ + | Care Immigration Paralegal Name | Role | Phone | + +------+ + | Quynh Finch | PCP | | | MD | | | + +------+ + Reason for Visit + +--------+ + | Reason | Onset | Comments | | | Date | | + +--------+ + | Medication Refill | 09/15/ | | | | 2019 | | + +--------+ + Encounter Details +--------+--------+ + + + | Date | Type | Department | Care Team | Description | +--------+--------+ + + + | 09/15/ | Refill | [facility] | Stef, | Medication Refill | | 2019 | | MEDICINE [address] | MD Quynh | | | | | [place], | [address] [facility] | | | | | [place] [address] | [place] [address] | | | | | [phone] | | | | | | | [...] | | | | | | [address] [facility] | | | | | | [place] [address] | | | | | | [phone] | | | | | | | [...]
--- OUTSIDE RECORDS SUMMARY | ~2019-12-24 | XMS | Encounter Summary ---
Demographics + + + | Address | [address] | | | [place] [address] | + + + | Home Phone | | + + + | Preferred Language | Unknown | + + + | Marital Status | | + + + | Temple Affiliation | 1013 | + + + | Race | Unknown | + + + | Ethnic Group | Unknown | + + + Author + + + | Author | [facility] | | | and [place] | + + + | Organization | [facility] | | | [...] [place], | | | | | [place] [address] | | + + + + + | Mahogany Navarro [place] | ECON | [address] | | | | | [place] [address] | | + + + + + Care Team Providers + +------+ + | Care Concrete Grinder Operator Name | Role | Phone | + +------+ + PCP | Unavailable | + +------+ + Encounter Details +--------+ + + + + | Date | Type | Department | Care Team | Description | +--------+ + + + + | 01/29/ | Hospital | [facility] | Larry [place]oval, | | | 2006 | Encounter | MED CTR LABORATORY | MD [address] | | | | | [address] [place] | [place], [place] | | | | | [place], [place] | [address] | | | | | [address] | | | | | | [phone] | | | +--------+ + + + [...] | | | | | [place] [address] | | | | | | [phone] | | | | | | | | +--------+---------+ + + + documented as of this encounter Visit Diagnoses Not on filedocumented in this encounter"
--- OUTSIDE RECORDS SUMMARY | ~2019-12-24 | XMS | Encounter Summary ---
Demographics + + + | Address | [address] | | | [place] [address] | + + + | Home Phone [...] | Author | [facility] [...] [place], | | | | | [place] [address] | | + + + + + | Mahogany Navarro [place] | ECON | [address] | | | | | [place] [address] | | + + + + + Care Team Providers + +------+ + | Care Lithographic Platemaker Name | Role | Phone | + +------+ + PCP | Unavailable | + +------+ + Encounter Details +--------+ + + + + | Date | Type | Department | Care Team | Description | +--------+ + + + + | 11/06/ | Hospital | [facility] | Wojciech Lozano | | | 2010 | Encounter | MED CTR EMERGENCY | MD Pepe [address] | | | | | [place] [address] | [address] [place] [facility] | | | | | [place], [place] | [place] [address] | | | | | [address] | [phone] | | | | | [phone] | | | +--------+ + + + [...] encounter ED Notes Wojciech Lozano MD - 11/06/2010 12:53 AM PDTDATE: 11/06/2010 TIME OF EXAM: 0115 CHIEF COMPLAINT: Elevated blood sugar and migraine. HISTORY OF PRESENT ILLNESS: Marzena is a 40-year-old female with a history of diabetes, pr esents to the emergency department with elevated blood sugar and migraine headache. Said bl ood glucose has runn ing between 450 and 550 at home. She tried insulin without the ability to bring it down. She does hav e a migraine headache in addition to this, says that she ty pically does get migraine headaches when h er glucose is elevated. Headache is moderate in severity, typical of usual migraines, throbbing, diff use headache. It has been present all day. It has gradually worsened. This is the same as her previou s migraines and occurs wit h elevated blood sugar. There is nothing concerning about this particular h eadache. She bellamy s not had any recent head injuries or head trauma. She has not been running a fever. H as n o sinus or nasal congestion. No sore throat. No neck stiffness. She denies any type of infec tious symptoms. She has had no chest pain, shortness of breath. abdomen pain, nausea, vomit ing, diarrhea, constipation, dysuria, hematuria, flank pain, skin rashes, lesions, easy ble eding or bruising. She bellamy s been more thirsty than usual. No excessive urination. No skin r ashes or lesions, extremity swelling , tenderness, edema, or other symptoms or complaints. PAST MEDICAL HISTORY: Significant for diabetes, migraine headaches, rectal cancer, vaginal cancer. FAMILY HISTORY: Noncontributory. SOCIAL HISTORY: Smokes cigarettes. Denies alcohol or street drug use. MEDICATIONS 1. Effexor. 2. Phenergan. 3. Mirapex. 4. Robaxin. 5. Zestril. 6. Pravachol. 7. Vitamin D. 8. Levoxyl. 9. Folvite. 10. Prilosec. 11. Maxalt. 12. Atarax. 13. Diflucan. 14. Benadryl. 15. Lantus insulin. 16. NovoLog insulin. ALLERGIES 1. HYDROCODONE. 2. MORPHINE. 3. SULFA. REVIEW OF SYSTEMS: As noted in HPI, otherwise negative. PHYSICAL EXAMINATION VITAL SIGNS: Blood pressure 153/90, heart rate , respiratory rate 20, temperature 97.7, oxyg en saturation 96% on room air. GENERAL: The patient is nontoxic appearing, in no acute distress. HEENT: Normocephalic. No evidence of trauma. Pupils equal, round, react to light. Extraocu lar motion s are intact. Oropharynx is moist and patent. NECK: Supple without meningismus or lymphadenopathy. HEART: Regular with no murmurs. LUNGS: Clear, symmetrical, good air movement. ABDOMEN: Soft, nontender to palpation. No rebound, guarding, mass. No CVA tenderness. SKIN: Intact without rashes or lesions. EXTREMITIES: Not swollen, tender, or edematous. NEUROLOGIC: The patient is alert and oriented x3. Strength is 5/5 and symmetrical througho ut all ext remities. Sensation is intact throughout. Cranial nerve and cerebellar function are normal. Capillary blood glucose on arrival here 349. LABS: Chemistry panel significant for BUN 6, creatinine 0.44, glucose 387, remainder of el ectrolytes and kidney function tests within normal limits. Serum acetone is negative. White count is normal at 9.4, hemoglobin 14.0, platelets 167. Urinalysis with 2+ glucose and tra ce protein, otherwise negative . EMERGENCY DEPARTMENT COURSE: The patient received Toradol, Phenergan, and Benadryl for hea dache. She did get improvement in her headache. She also was hydrated with 2 L normal salin e, received 3 doses of 10 units of regular insulin with improvement in her glucose. She has no evidence of infection on e xam, history, or evaluation. She does report that she typica lly has only moderate control of her gluc ose. It is not unusual for her to have episodes o f elevated glucose. Headache is typical in nature of usual migraine headaches. There is not yohana on history or physical to suggest serious intracranial pa thology, infectious etiology of headache, tumor bleed, aneurysm, or other concerns. Therefore, no fur ther workup regar ding headache is indicated at this time. The patient will be discharged in improved conditi on. She is given standard headache instructions. She is to check her glucose frequently, fol barby w up with her doctor if she continues to have difficulty with glucose control. She is to return here with persistently elevated blood glucose. She understood all instructions. She was discharged in impr federico condition. DIAGNOSES 1. HYPERGLYCEMIA. 2. MIGRAINE HEADACHE. PLAN: Noted above. DICTATED BY: Wojciech Lozano MD Emergency Medicine JOB #: [id number] EXT JOB #:[id number] <Electronicall y Signed by Wojciech Lozano MD> 11/06/10 8311 documented in this encounter Plan of Treatment +--------+---------+ + + + | Date | Type | Specialty | Care Team | Description | +--------+---------+ + + + | 01/09/ | Office | Internal Medicine | Stef, | | | 2019 | Visit | | MD Quynh | | | | | | [address] | | | | | | [place] [address] | | | | | | [phone] | | | | | | | | +--------+---------+ + + + documented as of this encounter Procedures + +--------+ + + + | Procedure Name | Priori | Date/Time | Associated Diagnosis | Comments | | | ty | | | | + +--------+ + + + | KETONES,SERUM | Routin | 11/06/2010 | | Results for this | | | e | 2:04 AM | | procedure are in the | | | | PDT | | results section. | + +--------+ + + + | CBC WITH | Routin | 11/06/2010 | | Results for this | | DIFFERENTIAL | e | 2:04 AM | | procedure are in the | | | | PDT | | results section. | + +--------+ + + + | BASIC METABOLIC | Routin | 11/06/2010 | | Results for this | | PANEL | e | 2:04 AM | | procedure are in the | | | | PDT | | results section. | + +--------+ + + + documented in this encounter Results CBC with Differential (11/06/2010 2:04 AM PDT) + +-------+ + + + | Component | Value | Ref Range | Performed | Pathologist | | | | | At | Signature | + +-------+ + + + | WBC | 9.4 | 4.0 - 11.0 K/uL | [facility] | | | | | [facility] | | | | | | [facility] | | | | | | [facility] - | | | | | | LABORATORY | | + +-------+ + + + | RBC | 4.61 | 3.70 - 5.20 | [facility] | | | | | M/uL | [facility] | | | | | [facility] | | | | | | [facility] - | | | | | | LABORATORY | | + +-------+ + + + | Hemoglobin | 14.0 | 11.5 - 16.0 | [facility] | | | | | gm/dL | [facility] | | | | | | [facility] | | | | | | [facility] - | | | | | | LABORATORY | | + +-------+ + + + | Hematocrit | 41.1 | 34.0 - 47.0 % | [facility] | | | | | | [facility] | | | | | | [facility] | | | | | | [facility] - | | | | | | LABORATORY | | + +-------+ + + + | MCV | 89.2 | 83.0 - 101.0 fL | [facility] | | | | | | [facility] | | | | | | [facility] | | | | | | [facility] - | | | | | | LABORATORY | | + +-------+ + + + | MCH | 30.4 | 28.0 - 35.0 pg | [facility] | | | | | | [facility] | | | | | | [facility]ICAL | | | | | | C[facility] - | | | | | | LABORATORY | | + +-------+ + + + | MCHC | 34.1 | 32.0 - 36.0 | [facility] | | | | | g/dL | [facility] | | | | | | [facility] | | | | | | C[facility] - | | | | | | LABORATORY | | + +-------+ + + + | RDW-CV | 12.9 | <15.0 % | [facility] | | | | | | [facility] | | | | | | [facility] | | | | | | [facility] - | | | | | | LABORATORY | | + +-------+ + + + | Platelet | 167 | 140 - 440 K/uL | [facility] | | | Count | | | [facility] | | | | | | [facility] | | | | | | CENTER - | | | | | | LABORATORY | | + +-------+ + + + | % | 60.6 | 45 - 75 % | [facility] | | | Neutrophils | | | [facility] | | | | | | MEDICAL | | | | | | CENTER - | | | | | | LABORATORY | | + +-------+ + + + | % | 30.9 | 20 - 45 % | [facility] | | | Lymphocytes | | | [facility] | | | | | | MEDICAL | | | | | | CENTER - | | | | | | LABORATORY | | + +-------+ + + + | % Monocytes | 6.0 | 4 - 12 % | [facility] | | | | | | [facility] | | | | | | [facility] | | | | | | CENTER - | | | | | | LABORATORY | | + +-------+ + + + | % | 1.7 | 0 - 5 % | [facility] | | | Eosinophils | | | [facility] | | | | | | MEDICAL | | | | | | CENTER - | | | | | | LABORATORY | | + +-------+ + + + | % Basophils | 0.8 | 0 - 1 % | [facility] | | | | | | [facility] | | | | | | [facility]ICAL | | | | | | CENTER - | | | | | | LABORATORY | | + +-------+ + + + | Absolute | 5.7 | 1.5 - 6.6 K/uL | [facility] | | | Neutrophils | | | [facility] | | | | | | MEDICAL | | | | | | CENTER - | | | | | | LABORATORY | | + +-------+ + + + | Absolute | 2.9 | 0.6 - 3.2 K/uL | [facility] | | | Lymphocytes | | | [facility] | | | | | | MEDICAL | | | | | | CENTER - | | | | | | LABORATORY | | + +-------+ + + + | Absolute | 0.6 | 0.0 - 1.0 K/uL | [facility] | | | Monocytes | | | [facility] | | | | | | MEDICAL | | | | | | CENTER - | | | | | | LABORATORY | | + +-------+ + + + | Absolute | 0.2 | 0.0 - 0.4 K/uL | [facility] | | | Eosinophils | | | [facility] | | | | | | MEDICAL | | | | | | CENTER - | | | | | | LABORATORY | | + +-------+ + + + | Absolute | 0.1 | 0.0 - 0.1 K/uL | [facility] | | | Basophils | | | [facility] | | | | | | MEDICAL | | | | | | CENTER - | | | | | | LABORATORY | | + +-------+ + + + + + | Specimen | + + | | + + + + + + + | Performing | Address | City/State/Zipcode | Phone Number | | Organization | | | | + + + + + | [facility] | [address] | [place] | [phone] | | [facility] | | [address] | | | - LABORATORY | | | | + + + + + | [facility] | [address] | [place], [place] | | | [facility] | | [id number] | | | - LABORATORY | | | | + + + + + Basic Metabolic Panel (11/06/2010 2:04 AM PDT) + + + + + + | Component | Value | Ref Range | Performed | Pathologist | | | | | At | Signature | + + + + + + | Glucose | 387 (H) | 70 - 109 mg/dL | [facility] | | | | | [facility] | | | | | | [facility] | | | | | | CENTER - | | | | | | LABORATORY | | + + + + + + | Calcium | 9.3 | 8.3 - 10.5 | [facility] | | | | | mg/dL | [facility] | | | | | | MEDICAL | | | | | | CENTER - | | | | | | LABORATORY | | + + + + + + | BUN | 6 (L) | 7 - 18 mg/dL | [facility] | | | | | | [facility] | | | | | | MEDICAL | | | | | | CENTER - | | | | | | LABORATORY | | + + + + + + | Creatinine | 0.44 (L) | 0.60 - 1.30 | [facility] | | | | | mg/dL | [facility] | | | | | | MEDICAL | | | | | | CENTER - | | | | | | LABORATORY | | + + + + + + | Estimated | >60Comment: For | >60 mL/min/A | [facility] | | | GFR | -Americans, | | [facility] | | | | please multiply the | | MEDICAL | | | | result by 1.210 | | CENTER - | | | | This is an estimated | | LABORATORY | | | | GFR and is based on | | | | | | a standard body | | | | | | mass and serum | | | | | | creatinine | | | | + + + + + + | BUN/Creatin | 13.6 | 12 - 20 | [facility] | | | ine Ratio | | | [facility] | | | | | | MEDICAL | | | | | | CENTER - | | | | | | LABORATORY | | + + + + + + | Na | 139 | 136 - 149 mEq/L | [facility] | | | | | | [facility] | | | | | | MEDICAL | | | | | | CENTER - | | | | | | LABORATORY | | + + + + + + | K | 3.8 | 3.5 - 5.1 mEq/l | [facility] | | | | | | [facility] | | | | | | MEDICAL | | | | | | CENTER - | | | | | | LABORATORY | | + + + + + + | Cl | 102 | 98 - 109 mEq/l | [facility] | | | | | | [facility] | | | | | | MEDICAL | | | | | | CENTER - | | | | | | LABORATORY | | + + + + + + | CO2 | 26 | 24 - 31 mEq/L | [facility] | | | | | | [facility] | | | | | | MEDICAL | | | | | | CENTER - | | | | | | LABORATORY | | + + + + + + | Anion Gap | 14.8 | 6.0 - 17.0 | [facility] | | | | | [...] + | [facility] | [address] | [place], [place] | [phone] | | [facility] | | [address] | | | - LABORATORY | | | | + + + + + | [facility] | [address] | [place], [place] | | | [facility] | | [address], [facility] | | | - LABORATORY | | | | + + + + + Ketones, Serum (11/06/2010 2:04 AM PDT) + + + + + [...] [address] | [place] | [phone] | | [facility] | | [address] | | | - LABORATORY | | | | + + + + + | [facility] | [address] | [place] | | | [facility] | | [id number] | | | - LABORATORY | | | | + + + + + documented in this encounter Visit Diagnoses Not on filedocumented in this encounter"
--- OUTSIDE RECORDS SUMMARY | ~2019-12-24 | XMS | Encounter Summary ---
Demographics + + + | Address | [address] | | | [place] [address] | + + + | Home Phone | | + + + | Preferred Language | Unknown | + + + | Marital Status | | + + + | Zoroastrianism Affiliation | 1013 | + + + | Race | Unknown | + + + | Ethnic Group | Unknown | + + + Author + + + | Author | [facility] | | | and [place] | + + + | Organization | [facility] | | [...] [place], | | | | | [place] [address] | | + + + + + | Mahogany Farnsworth | ECON | [address] | | | | | [place] [address] | | + + + + + Care Team Providers + +------+ + | Care Electricity Trader Name | Role | Phone | + [...] Description | +--------+--------+ + + + | 03/26/ | Refill | [facility] | Stef, | Medication Refill | | 2017 | | MEDICINE [address] | MD Quynh | | | | | [place], | [address] [facility] | | | | | [place] [address] | [place] [address] | | | | | [phone] | [phone] | | | | | | | [...] Quynh | | | | | | [address] [place] [address] | | | | | | [place] [address] | | | | | | [phone] | | | | | | | [...]
--- OUTSIDE RECORDS SUMMARY | ~2019-12-24 | XMS | Encounter Summary ---
Demographics + + + | Address | [address] | | | [place] [address] | + + + | Home Phone [...] [facility] | | | and [...] [place], | | | | | [place] [address] | | + + + + + | Mahogany Farnsworth | ECON | [address] | | | | | [place] [address] | | + + + + + Care Team Providers + +------+ + | Care Food And Beverage Manager Name | Role | Phone | + +------+ + | Jason Pink | PCP | | | MD | | | + +------+ + Encounter Details +--------+ + + + + | Date | Type | Department | Care Team | Description | +--------+ + + + + | 01/06/ | Hospital | [facility] | Jason Pink | | | 2012 | Encounter | [facility] | MD Jeronimo | | | | | [address] | [address] [place] [address] | | | | | [place] [address] | [place] [address] [place], | | | | | [phone] | [place] [address] | | | | | | [phone] | | | | | | | [...] | | | | | [place] [address] | | | | | | [phone] | | | | | | | | +--------+---------+ + + + documented as of this encounter Visit Diagnoses Not on filedocumented in this encounter"
--- OUTSIDE RECORDS SUMMARY | ~2019-12-24 | XMS | Encounter Summary ---
Demographics + + + | Address | [address] | | | [place] [address] | + + + | Home Phone [...] Author | [facility] | | | and [...] [place], | | | | | [place] [address] | | + + + + + | Mahogany Navarro [place] | ECON | [address] | | | | | [place] [address] | | + + + + + Care Team Providers + +------+ + | Care Anodiser Name | Role | Phone | + +------+ + | Quynh Finch | PCP | | | MD | | | + +------+ + Reason for Visit + +--------+ + | Reason | Onset | Comments | | | Date | | + +--------+ + | Appointment | 12/21/ | | | | 2014 | | + +--------+ + Encounter Details +--------+ + + + + | Date | Type | Department | Care Team | Description | +--------+ + + + + | 12/21/ | Telephone | [facility] | Damian Escudero, | Appointment | | 2014 | | [address] | MD [address] | | | | | [place] | [place] | | | | | [address] | [id number] | | | | | [phone] | | | +--------+ + + + [...] this encounter Miscellaneous Notes Telephone Encounter - Elias Brianda Estrada - 12/22/2014 2:35 PM PDTRECORDS FAXED TO DR KARU lectronically signed by Brianda Griffin at 12/22/2014 2:36 PM PDTTelephone Encounter - Yumi Tang RN - 12/21/2014 4:[address] if he knew of neuromuscular s pecialist since Dr Yee did not (we originally referred to Dr Craig but was referred furt her to Dr Yee's group as he's not taking new patients). He said Dr Handy specializes in lakshmi romuscular disorders. If not him, then [facility] or similar tertiary center with their neurology department with someone who has a fellowship in neuromuscular disorders. Called Dr Handy's office and they are taking patient's with Medicare and Medicaid. Referral received, complete d to be faxed tomorrow. Patient notified and told to call the Clinic, Dr Handy's office if she hasn't heard from them within about a week about an appointment. Electronically la d by Yumi Ch RN at 12/21/2014 5:17 PM PDTTelephone Encounter - Yumi Ch RN - 12/21/2014 12:00 PM PDTCalled June back and again asked if Dr Yee knew of the nam e of a neuromuscular specialist at a tertiary center that we might refer Marzena on to. Waqas salgado said she does not, that she leaves that up to the referring physician to figure out. Sharmaine ctronically signed by Yumi Ch RN at 12/21/2014 12:02 PM PDTTelephone Encounter - Yumi Ch RN - 12/21/2014 11:07 AM PDTJanuary calls from [facility] and said Dr Yee reviewed records and said they do not provide the service she needs. She'd recommend referral to a neuromuscular specialist (none specifically named) or a tertiary ce nter. documented i n this encounter Plan of Treatment +--------+---------+ + [...] | | | | | [place] [address] | | | | | | [phone] | | | | | | | [...]
--- OUTSIDE RECORDS SUMMARY | ~2019-12-24 | XMS | Encounter Summary ---
Demographics + + + | Address | [address] | | | [place] [address] | + + + | Home Phone [...] + | Author | [facility] | | [...] [place], | | | | | [place] [address] | | + + + + + | Mahogany Farnsworth | ECON | [address] | | | | | [place] [address] | | + + + + + Care Team Providers + +------+ + | Care Street Sprinkler Name | Role | Phone | + [...] + + + + | 07/14/ | Telephone | [facility] | Stef, | Medication Refill | | 2018 | | MEDICINE [address] | MD Quynh | | | | | [place], | [address] [place] | | | | | [place] [address] | [place] [address] | | | | | [phone] | [phone] | | | | | | | [...] of this encounter Miscellaneous Notes Telephone Encounter Vera Estrada LPN - 2018 9:02 AM PSTPatient needs follow up a ppt before any additional refills 9 :02 AM PSTdocumented in this encounter Plan of Treatment +--------+---------+ + + + | Date | Type | Specialty | Care Team | Description | +--------+---------+ + + + | 01/09/ | Office | Internal Medicine | Stef, | | | 2019 | Visit | | MD Quynh | | | | | | [address] | | | | | | [place] [address] | | | | | | [phone] | | | | | | | [...]
--- OUTSIDE RECORDS SUMMARY | ~2019-12-24 | XMS | Encounter Summary ---
Demographics + + + | Address | [address] | | | [place] [address] | + + + | Home Phone [...] Author | [facility] | | | and [...] [place], | | | | | [place] [address] | | + + + + + | Mahogany Farnsworth | ECON | [address] | | | | | [place] [address] | | + + + + + Care Team Providers + +------+ + | Care Apartment Maintenance Supervisor Name | Role | Phone | [...] Description | +--------+--------+ + + + | 01/30/ | Refill | [facility] | Stef, | Medication Refill | | 2019 | | MEDICINE [address] | MD Quynh | | | | | [place], | [address] [facility] | | | | | [place] [address] | [place] [address] | | | | | [phone] | | | | | | | [...] Quynh | | | | | | [address] [place] [address] | | | | | | [place] [address] | | | | | | [phone] | | | | | | | [...]
--- OUTSIDE RECORDS SUMMARY | ~2019-12-24 | XMS | Encounter Summary ---
Demographics + + + | Address | [address] | | | [place] [address] | + + + | Home Phone [...] + | Author | [facility] | | | and [place] [...] [place], | | | | | [place] [address] | | + + + + + | Mahogany Navarro [place] | ECON | [address] | | | | | [place] [address] | | + + + + + Care Team Providers + +------+ + | Care Electronic Prepress Operator Name | Role | Phone | + +------+ + PCP | Unavailable | + +------+ + Encounter Details +--------+ + + + + | Date | Type | Department | Care Team | Description | +--------+ + + + + | 12/19/ | Hospital | [facility] | | | | 2005 - | Encounter | [facility] | | | | | | CENTER [address] | | | | 12/20/ | | [place] | | | | 2005 | | [address] | | | | | | [phone] | | | +--------+ + + + [...] | | | | | [place] [address] | | | | | | [phone] | | | | | | | | +--------+---------+ + + + documented as of this encounter Visit Diagnoses Not on filedocumented in this encounter"
--- OUTSIDE RECORDS SUMMARY | ~2019-12-24 | XMS | Encounter Summary ---
Demographics + + + | Address | [address] | | | [place] [address] | + + + | Home Phone | | + + + | Preferred Language | Unknown | + + + | Marital Status | | + + + | Hinduism Affiliation | 1013 | + + + | Race | Unknown | + + + | Ethnic Group | Unknown | + + + Author + + + | Author | [facility] | | | and [place] | + + + | Organization | [facility] | | [...] [place], | | | | | [place] [address] | | + + + + + | Mahogany Farnsworth | ECON | [address] | | | | | [place] [address] | | + + + + + Care Team Providers + +------+ + | Care Snow Plow Tractor Operator Name | Role | Phone | [...] Description | +--------+--------+ + + + | 01/01/ | Refill | [facility] | Stef, | Medication Refill | | 2019 | | MEDICINE [address] | MD Quynh | | | | | [place], | [address] [place] | | | | | [place] [address] | [place] [address] | | | | | [phone] | [phone] | | | | | | | [...] | | | | | | [address] [place] [address] | | | | | | [place] [address] | | | | | | [phone] | | | | | | | [...]
--- OUTSIDE RECORDS SUMMARY | ~2019-12-24 | XMS | Encounter Summary ---
Demographics + + + | Address | [address] | | | [place] [address] | + + + | Home Phone | | + + + | Preferred Language | Unknown | + + + | Marital Status | | + + + | Nondenominational Affiliation | 1013 | + + + | Race | Unknown | + + + | Ethnic Group | Unknown | + + + Author + + + | Author | [facility] | | | and [...] [place], | | | | | [place] [address] | | + + + + + | Mahogany Navarro [place] | ECON | [address] | | | | | [place] [address] | | + + + + + Care Team Providers + +------+ + | Care Heat Treater Helper Name | Role | Phone | + +------+ + PCP | Unavailable | + +------+ + Encounter Details +--------+ + + + + | Date | Type | Department | Care Team | Description | +--------+ + + + + | 01/03/ | Hospital | [facility] | | | | 2007 | Encounter | [facility] | | | | | | CENTER [address] | | | | | | [place] | | | | | | [address] | | | | | | [phone] | | | +--------+ + + + [...] Quynh | | | | | | [facility] [address] | | | | | | [place] [address] | | | | | | [phone] | | | | | | | | +--------+---------+ + + + documented as of this encounter Visit Diagnoses Not on filedocumented in this encounter"
--- OUTSIDE RECORDS SUMMARY | ~2019-12-24 | XMS | Encounter Summary ---
Demographics + + + | Address | [address] | | | [place] [address] | + + + | Home Phone | | + + + | Preferred Language | Unknown | + + + | Marital Status | | + + + | Sabianism Affiliation | 1013 | + + + | Race | Unknown | + + + | Ethnic Group | Unknown | + + + Author + + + | Author | [facility] | | | and [place] | + + + | Organization | [facility] | | [...] [place], | | | | | [place] [address] | | + + + + + | Mahogany Farnsworth | ECON | [address] | | | | | [place] [address] | | + + + + + Care Team Providers + +------+ + | Care Instructor Ballroom Dancing Name | Role | Phone | + +------+ + | Quynh Finch | PCP | | | MD | | | + +------+ + Reason for Visit + + + | Reason | Comments | + + + | Enuresis | | + + + Evaluate & Treat (Routine) +--------+--------+ + + + + | Status | Reason | Specialty | Diagnoses / | Referred By | Referred To | | | | | Procedures | Contact | Contact | +--------+--------+ + + + + | Closed | | Urology | Diagnoses | Joesph, | Kena, | | | | | Unspecified | Jason | Damian Romero MD | | | | | urinary | [place]on[place], | [facility] [address] | | | | | incontinence | [address] | [place] | | | | | Procedures | [address] | [place] | | | | | [place] OFFICE | [place] | [address] Phone: | | | | | OUTPATIENT | [place] | [phone] | | | | | VISIT 25 | [address] | Fax: | | | | | MINUTES | Phone: | [phone] | | | | | | [phone] | | | | | | | Fax: | | | | | | | [phone] | | +--------+--------+ + + + + Encounter Details +--------+---------+ + + + | Date | Type | Department | Care Team | Description | +--------+---------+ + + + | 07/17/ | Office | [facility] | Damian Escudero, | Urinary incontinence | | 2015 | Visit | [address] | MD [address] | in female (Primary | | | | [place] | [place] | Dx); History of | | | | [address] | [address] | necrotizing | | | | [phone] | | fascIItis; | | | | | | Incontinence without | | | | | | sensory awareness; | | | | | | Other nonspecific | | | | | | finding on | | | | | | examination of urine | +--------+---------+ + + + Social History + +-------+ [...] + + + | Blood Pressure | 126/82 | 07/17/2014 2:28 PM | | | | | PST | | + + + + + | Pulse | 84 | 07/17/2014 2:28 PM | | | | | PST | | + + + + + | Temperature | 36.2 C (97.1 F) | 07/17/2014 2:28 PM | | | | | PST | | + + + + + | Respiratory Rate | 16 | 07/17/2014 2:28 PM | | | | | PST | | + + + + + | Oxygen Saturation | - | - | | + + + + + | Inhaled Oxygen | - | - | | | Concentration | | | | + + + + + | Weight | 107.7 kg (237 lb 8 | 07/17/2014 2:28 PM | | | | oz) | PST | | + + + + + | Height | 160 cm (5' 3") | 07/17/2014 2:28 PM | | | | | PST | | + + + + + | Body Mass Index | 42.07 | 07/17/2014 2:28 PM | | | | | PST | | + + + + + documented in this encounter Progress Notes Damian Escudero MD - 07/17/2014 2:45 PM PSTFormatting of this note might be different fro m the original. Marzena is a 44 y.o. female patient of MaxxLeonarda DavisLloyd being seen today for urin damian incontinence. Marzena is referred today by Dr. Lopez for evaluation of urinary incontinence. I had previously seen Marzena on 12/02/2005 with recurrent UTI symptoms. Recommendations wer e made for CT imaging and cystoscopy, but I do not have further records to confirm whether o r not she underwent these studies. Marzena has a complex past medical history. She [...] underwent excision of graft mat erial and peritoneal biopsy by Dr. Lopez on 01/14/2010. This biopsy demonstrated the p resence of vulvar dysplasia, and so she underwent colposcopy and wide local excision of vulv ar dysplasia on 05/30/2010. Marzena reports that her sling procedure worked very well for her, and she did not have sig nificant urinary incontinence problems until the past approximately 2 years. In 2012, she reports that she developed right lower extremity necrotizing fasciitis. She w as first transferred to [facility], and then to [facility]. She reports that she had "26 surger ies" for her necrotizing fasciitis and associated complications. She reports she was cathet erized for about 7 months. Since that time, she has noticed urinary incontinence. She also states that she has "nerve injuries" which have caused numbness in the vagina. She states that she has no sensation of bladder filling. She states that she will have uri nary leakage at random times. She denies any urge incontinence. She is not certain if Vals chowdhury maneuvers produce incontinence or not, but believes that they probably do. She denies continuous leakage. She has diurnal and nocturnal enuresis. She denies any pne umaturia or fecaluria. She reports that she has had recurrent urinary tract infections. When she has her infectio n symptoms she reports a burning sensation at the end of voiding. She denies any increase i n urinary frequency. She denies any hematuria. At baseline, she has nocturia x3-4 and urinary frequency every 2 hours. She denies dysuria or hematuria. She reports that she goes through 7 pads per day. She states that she is tr alex to perform Kegel exercises daily. She states that her right leg is numb in most locations. She has right foot drop. She tri es to walk with a walker, but tells me she is still too weak. She states while attempting t o walk, she recently fell. She is instructed to followup with her PCP regarding this. She denies any vaginitis symptoms. She denies any vaginal drainage or discharge or bleedin g. She denies any changes in her bowel habits. She denies any fecal incontinence. She report s a bowel movement on a daily basis. She denies any hematochezia or melena. She has frequent headaches, numbness and tingling in the right leg and vagina, heat intoler ance, fatigue, nausea, indigestion, rapid heart rate, high blood pressure, joint pain, back pain, depression without suicidal ideation, otherwise, 10 point review of systems today is n egative. Over 45 minute encounter with Marzena today, over 50% of this time spent counseling payal ng her urinary incontinence and possible causes of incontinence, and my suspicion for possib le neurogenic bladder. Past Medical History She has a past medical history of Diabetic peripheral neuropathy (HCC); Paralysis of lower limb (HCC); Moderate vulvar dysplasia; Vulvitis; Onychauxis; Xanthelasma of eyelid; Hemangio ma; Drop foot gait; Epidermal inclusion cyst; and Anxiety. Past Surgical History She has past surgical history that includes Excision of Perianal Lesion (03/29/2014). Family History: Her family history includes Cancer in her father. (prostate cancer) Social History: She reports that she has been smoking. She has never used smokeless tobacco. Allergies Allergen Reactions Adhesive & Tape Other reaction(s): Rash Codeine Other reaction(s): Rash Hydrocodone Milk-Related Compounds Other reaction(s): Rash Morphine Sulfa Antibiotics Other reaction(s): Rash Medications: Outpatient Encounter Prescriptions as of 07/17/2014 Medication Sig Dispense Refill acetaminophen (TYLENOL) 325 mg tablet Take 325 mg by mouth every 4 hours as needed. acyclovir (ZOVIRAX) 400 MG tablet Take 400 mg by mouth 3 times daily. ALPRAZolam (XANAX) 0.5 mg tablet Take 0.5 mg by mouth. amoxicillin-clavulanate (AUGMENTIN) 875-125 mg per tablet one tablet by mouth two times daily benztropine (COGENTIN) 1 mg tablet Take 1 mg by mouth Daily. Nilwqni-Dtdrphnij-Zcizajr D (CALCIUM 500 PO) Take by mouth. diclofenac (CATAFLAM) 50 MG tablet Take as directed diphenhydrAMINE (BENADRYL ALLERGY) 25 MG capsule Take 25 mg by mouth every 6 hours as n eeded. DiphenhydrAMINE HCl (DIPHENHIST PO) TABS; Take as directed diphenoxylate-atropine (LOMOTIL) 2.5-0.025 mg per tablet Take 1 tablet by mouth Daily. DULoxetine (CYMBALTA) 60 MG capsule Take 60 mg by mouth Daily. gabapentin (NEURONTIN) 300 mg capsule two daily hydrOXYzine (ATARAX) 50 MG tablet Take 50 mg by mouth. insulin NPH (HUMULIN N) 100 units/mL injection 30 units below the skin twice daily insulin regular (HUMULIN R) 100 units/mL injection 30 units inject below the skin befor e meals Lactobacillus (ACIDOPHILUS PO) Take by mouth. levothyroxine (SYNTHROID) 125 mcg tablet Take 125 mcg by mouth Daily. methocarbamol (ROBAXIN) 500 mg tablet Take 500 mg by mouth 3 times daily as needed. metoprolol (LOPRESSOR) 100 MG tablet Take 100 mg by mouth Daily. omeprazole (PRILOSEC) 20 mg capsule Take 20 mg by mouth Daily. ondansetron (ZOFRAN) 4 mg tablet Take 4 mg by mouth every 4 hours as needed. polyethylene glycol-electrolytes (NULYTEIppies WITH FLAVOR PACKS) 420 G solution to be take n day prior to procedure, drink 8 ounces every 10-20 minutes until gone pramipexole (MIRAPEX) 1 MG tablet Take 1 mg by mouth nightly. pravastatin (PRAVACHOL) 20 mg tablet Take 20 mg by mouth Daily. pregabalin (LYRICA) 150 MG capsule Take 150 mg by mouth. promethazine (PHENERGAN) 25 mg tablet Take 1 tablet by mouth every 4 to 6 hours as need ed rizatriptan (MAXALT) 10 mg tablet Take 1 tablet by mouth, repeat in 2 hours if needed. Maximum of 3 tablets in 24 hours. traZODone (DESYREL) 100 mg tablet 1.5 tablet by mouth at bedtime VITAMIN D, CHOLECALCIFEROL, PO Take by mouth. REVIEW OF SYSTEMS: [] All Negative Constitutional Symptoms: []Fever []Chills [x]Headache []Change in appetite, weight, energy []Other: Neurological: []Tremors []Dizzy Spells [x]Numbness/Tingling []Seizures []Other: Endocrine: []Excessive thirst [x]Too hot/cold [x]Tired/Sluggish Gastrointestinal: []Abdominal pain [x]Nausea/vomiting [x]Indigestion/heartburn []Change in stool size or shap e or color []Pain with swallowing []Other: Cardiovascular: []Chest Pain [x]Rapid heart rate [x]High blood pressure []Other: Integumentary: []Skin rash []Boils []Persistent itch []Other: Musculoskeletal: []Neck Pain [x]Joint swelling/pain [x]Back pain []Bone pain []Other: Respiratory: []Wheezing []Frequent cough []Shortness of breath []Other: Hematologic/Lymphatic: []Swollen glands []Blood clotting problems []Prior blood transfusions []Other: Psychologic: Are you generally satisfied with your life? yes Do you feel severely depressed? yes Have you considered suicide? no Other: Habits: Do you smoke? yes [x] Yes [] No Patient advised to follow up with PCP regarding positive review of syste ms. PHYSICAL EXAM Vitals: BP 126/82 | Pulse 84 | Temp 36.2 C (97.1 F) (Oral) | Resp 16 | Ht 1.6 m (5' 3") | Wt 107.729 kg (237 lb 8 oz) | BMI 42.08 kg/m2 | ? No General: Awake, alert, in no acute distress. Speech is fluent. Appears to be older than s tated age. Overweight. Neck: Supple; no lymphadenopathy. Lungs: Normal respiratory effort, no wheezing, no stridor, no tachypnea. Chest: No rib or bony tenderness. Back: No CVA tenderness. Abdomen: Soft, nontender, no hepatosplenomegaly. No masses. No guarding; benign. Bladder nondistended. Extremities: Non-edematous. Hips and long bones nontender to fist percussion. Neuro: Awake, alert, oriented x3. Abnormal and gait. She is unable to ambulate without a ssistance. She is an essentially wheelchair-bound, although she can perform transfers. Rig ht leg is weak. Diminished sensation to light touch of the perineum and labia on the right side. Psychiatric: Mood and affect are normal. Normal judgment. Skin: Warm and dry, no erythematous rash. Groin: No mass. No lymphadenopathy. Genitalia: No vaginal drainage or discharge or bleeding. No labial lesions. Large scar on the right perineum. Pelvic Exam: No palpable pelvic mass. Posterior support appears fair. Anterior support demonstrates mild laxity, but only a slight cystocele. No witnessed stress urinary incontin ence. Estrogen affect appears fair. Uterus is surgically absent. No palpable pelvic tor s. No palpable adnexal masses. No palpable periurethral mass or tenderness, although there is scarring anteriorly at about the mid urethra. No mesh visible or palpable. Rectal: Probably normal rectal sphincter tone, although this might be slightly lax, normal stool color DIAGNOSTIC DATA: Bladder residual today is 44 cc. Urinalysis today is pending. Urine dipstick shows 3+ leukocytes, trace blood, positive nit rites, trace glucose, 1+ protein. IMPRESSION: 1. Urinary incontinence. Cannot rule out neurogenic bladder. 2. History of necrotizing fasciitis, 2012. 3. Mid urethral Mon ARC sling 05/05/2005. 4. Revision of sling erosion 01/14/2010. 5. Diabetic neuropathy. 6. Nicotine addiction. 7. History of chronic pelvic pain. 8. Depression. PLAN: I had a lengthy discussion with Marzena today regarding her urinary incontinence. I told h er that I was suspicious that she may have a neurogenic bladder. I am unclear about the rol e of her nerve injury associated with her necrotizing fasciitis and its relationship to her urinary symptoms, but I am suspicious that there may be a causative relationship. Marzena will return to the office for urodynamic studies. She'll have a uroflow study and a filling cystometrogram with Valsalva leak point pressures and pressure flow study. I desc ribed urodynamic studies to her in detail. She agrees to undergo this testing. Further recommendations will depend upon the outcome of this testing. Her urine is submitted to the lab today for further testing. Marzena is instructed to resume her usual and customary care with her primary care provider . I asked Marzena to notify me if there were any difficulties voiding, or UTI symptoms, or fl ank pain, or for any questions or concerns whatsoever. This document was generated in part using voice recognition software. Although I have atte mpted to edit the content, I have not thoroughly proofread this note, and pharmaceutical sales specialist erro rs may occur. CC: Dr Lopez CC: Dr Davis Abeba Camp CMA - 07/17/2014 2:42 PM PSTUA dipstick was positive for trace intact blood, nitr ates and 3+ leukocytes. Urine sent to [facility] for microscopic and culture if indicated.Sharmaine ctronically signed by Abeba Brandt CMA at 07/17/2014 7:25 PM PSTdocumented in this encou nter Procedure Notes ONBASE SCAN DINA - 07/17/2014 12:00 AM PSTAssociated Order(s): IMAGING REPORT - EXTERNAL SC AN documented in this encount er Miscellaneous Notes Miscellaneous - ONBASE SCAN MAINORLA - 07/17/2014 12:00 AM PST documented in this encounter Plan of Treatment +--------+---------+ + + + | Date | Type | Specialty | Care Team | Description | +--------+---------+ + + + | 01/09/ | Office | Internal Medicine | Stef, | | | 2019 | Visit | | MD Quynh | | | | | | [address] | | | | | | [place] [address] | | | | | | [phone] | | | | | | | | +--------+---------+ + + + documented as of this encounter Procedures + +--------+ + + + | Procedure Name | Priori | Date/Time | Associated Diagnosis | Comments | | | ty | | | | + +--------+ + + + | URINALYSIS, REFLEX | Routin | 07/17/2014 | Other nonspecific | Results for this | | MICROSCOPIC AND/OR | e | 2:51 PM | finding on | procedure are in the | | CULTURE | | PST | examination of urine | results section. | + +--------+ + + + | CULTURE, URINE | Routin | 07/17/2014 | Other nonspecific | Results for this | | | e | 2:51 PM | finding on | procedure are in the | | | | PST | examination of urine | results section. | + +--------+ + + + | POCT URINALYSIS, | Routin | 07/17/2014 | Other nonspecific | Results for this | | AUTO WITH CONF | e | 2:41 PM | finding on | procedure are in the | | | | PST | examination of urine | results section. | + +--------+ + + + | IMAGING REPORT - | | 07/17/2014 | | | | EXTERNAL SCAN | | 12:00 AM | | | | | | PST | | | + +--------+ + + + documented in this encounter Results Culture, Urine (07/17/2014 2:51 PM PST) + + + + + + | Component | Value | Ref Range | Performed | Pathologist | | | | | At | Signature | + + + + + + | Culture | >100,000 CFU/ml | | [facility] | | | | Escherichia coli | | [facility] | | | | | | [facility] | | | | | | CENTER - | | | | | | LABORATORY | | + + + + + + + + | Specimen | + + | Urine | + + + + +--------+ + | Organism | Antibiotic | Method | Susceptibility | + + +--------+ + | Escherichia coli | Ampicillin | | >=32: Resistant | + + +--------+ + | Escherichia coli | Ampicillin + | | >=32: Resistant | | | Sulbactam | | | + + +--------+ + | Escherichia coli | Cefazolin | | <=4: Sensitive | + + +--------+ + | Escherichia coli | Cefoxitin | | <=4: Sensitive | + + +--------+ + | Escherichia coli | Ceftazidime | | <=1: Sensitive | + + +--------+ + | Escherichia coli | Ceftriaxone | | <=1: Sensitive | + + +--------+ + | Escherichia coli | Ciprofloxacin | | <=0.25: Sensitive | + + +--------+ + | Escherichia coli | Ertapenem | | <=0.5: Sensitive | + + +--------+ + | Escherichia coli | Gentamicin | | <=1: Sensitive | + + +--------+ + | Escherichia coli | Meropenem | | <=0.25: Sensitive | + + +--------+ + | Escherichia coli | Nitrofurantoin | | <=16: Sensitive | + + +--------+ + | Escherichia coli | Piperacillin + | | <=4: Sensitive | | | Tazobactam | | | + + +--------+ + | Escherichia coli | Tobramycin | | <=1: Sensitive | + + +--------+ + | Escherichia coli | Trimethoprim + | | <=20: Sensitive | | | Sulfamethoxazole | | | + + +--------+ + + + + + + | Performing | Address | City/State/Zipcode | Phone Number | | Organization | | | | + + + + + | [facility] | [address] | [place] | [phone] | | [facility] | | [address] | | | - LABORATORY | | | | + + + + + | [facility] | [address] | [place], [place] | | | [facility] | | [address], [facility] | | | - LABORATORY | | | | + + + + + Urinalysis, Reflex Microscopic and/or Culture (07/17/2014 2:51 PM PST) + + + + + + | Component | Value | Ref Range | Performed | Pathologist | | | | | At | Signature | + + + + + + | Color, | Carolina (A) | Light Yellow, | [facility] | | | Urine | | Yellow | [facility] | | | | [...] + + + | pH, Urine | 5.5 | 5.0 - 8.0 | [facility] | | | | | | [facility] | | | | | | MEDICAL | | | | | | CENTER - | | | | | | LABORATORY | | + + + + + + | Specific | >=1.030 | 1.001 - 1.030 | [facility] | | | [place], | | | [facility] | | | Urine | | | MEDICAL | | | | | | CENTER - | | | | | | LABORATORY | | + + + + + + | Protein, | 30 mg/dL (A) | Negative | [facility] | | | Urine | | | [facility] | | | | | | MEDICAL | | | | | | CENTER - | | | | | | LABORATORY | | + + + + + + | Blood, | Trace (A) | Negative | [facility] | | | Urine | | | [facility] | | | | | | MEDICAL | | | | | | CENTER - | | | | | | LABORATORY | | + + + + + + | Glucose, | Trace (A) | Negative | [facility] | | [...] + + + + | Nitrite, | Positive (A) | Negative | [facility] | | [...] + + + + | Urobilinoge | 0.2 E.U./dL | 0.2 E.U./dL, | [facility] | | | n, Urine | | 1.0 E.U./dL | [facility] | | | | [...] + + + | Red Blood | 5-10 (A) | 0 - 2 /HPF | [...] + + + + | Bacteria, | 3+ (A) | Negative /HPF | [facility] | | | Urine | | | [facility] | | | | | | MEDICAL | | | | | | CENTER - | | | | | | LABORATORY | | + + + + + + + + | Specimen | + + | Urine | + + + + + | Narrative | Performed At | + + + | Urine culture set up | [facility] | | | [facility] | | | [place] | | | - LABORATORY | + + + + + + + + | Performing | Address | City/State/Zipcode | Phone Number | | Organization | | | | + + + + + | [facility] | [address] | [place] | [phone] | | [facility] | | [address] | | | - LABORATORY | | | | + + + + + | [facility] | [address] | [place] | | | [facility] | | [address], [facility] | | | - LABORATORY | | | | + + + + + POCT Urinalysis Dipstick Automated (07/17/2014 2:41 PM PST) + + + + + + | Component | Value | Ref Range | Performed | Pathologist | | | | | At | Signature | + + + + + + | Color, UA, | Carolina (A) | Yellow, Light | | | | POC | | Yellow | | | + + + + + + | Clarity, | Cloudy | | | | | UA, POC | | | | | + + + + + + | Glucose, | Trace (A) | Negative | | | | UA, POC | | | | | + + + + + + | Bilirubin, | Negative | Negative | | | | UA, POC | | | | | + + + + + + | Ketones, | Negative | Negative, 100 | | | | UA, POC | | mg/dL | | | + + + + + + | Specific | 1.030 | 1.001 - 1.030 | | | | [place], | | | | | | UA, POC | | | | | + + + + + + | Blood, UA, | Trace Intact (A) | Negative | | | | POC | | | | | + + + + + + | pH, UA, POC | 5.5 | 5.0, 6.0, 7.0, | | | | | | 8.0, 5.5, 6.5, | | | | | | 7.5 | | | + + + + + + | Protein, | 1+ (A) | Negative | | | | UA, POC | | | | | + + + + + + | Urobilinoge | 0.2 mg/dL | 0.2, Negative, | | | | n, UA, POC | | Normal, < 0.2 | | | | | | mg/dL, 1 mg/dL, | | | | | | < 0.2 E.U./dl, | | | | | | 1.0 E.U./dL, | | | | | | 0.2 mg/dL | | | + + + + + + | Nitrite, | Positive | | | | | UA, POC | | | | | + + + + + + | Leukocyte | 3+ (A) | Negative | | | | Esterase, | | | | | | UA, POC | | | | | + + + + + + | Reducing | | | | | | Substances, | | | | | | Urine | | | | | + + + + + + | Bilirubin | | Negative | | | | Confirmatio | | | | | | n by | | | | | | Ictotest, | | | | | | Urine | | | | | + + + + + + | Remark | | | | | + + + + + + + + | Specimen | + + | Urine specimen | | (specimen) | + + documented in this encounter Visit Diagnoses + + | Diagnosis | + + | Urinary incontinence in female - Primary | + + | History of necrotizing fasciitis Personal history of diseases of skin and | | subcutaneous tissue | + + | Incontinence without sensory awareness | + + | Other nonspecific finding on examination of urine | + + documented in this encounter Additional Health Concerns + + + + + | Infection | Onset Date | Last Indicated | Resolved Time | + + + + + | 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
--- OUTSIDE RECORDS SUMMARY | ~2019-12-24 | XMS | Encounter Summary ---
Demographics + + + | Address | [address] | | | [place] [address] | + + + | Home Phone [...] | Author | [facility] | | [...] [place], | | | | | [place] [address] | | + + + + + | Mahogany Farnsworth | ECON | [address] | | | | | [place] [address] | | + + + + + Care Team Providers + +------+ + | Care Portfolio Manager Name | Role | Phone | + +------+ + | Quynh Finch | PCP | | | MD | | | + +------+ + Encounter Details +--------+ + + + + | Date | Type | Department | Care Team | Description | +--------+ + + + + | 08/18/ | Imaging | [facility] | Provider, | | | 2018 | Exam | [facility] | MD [address] | | | | | IMAGING [address] | [address] | | | | | [address] [place] | [place] [address] | | | | | [place] [address] | | | | | | [phone] | | | +--------+ + + + [...] | | | | | | [place] [address] | | | | | | [phone] | | | | | | | | +--------+---------+ + + + documented as of this encounter Procedures + +--------+ + + + | Procedure Name | Priori | Date/Time | Associated Diagnosis | Comments | | | ty | | | | + +--------+ + + + | KURTIS DIGITAL | Routin | 05/13/2016 | | Results for this | | DIAGNOSTIC BILATERAL | e | 12:50 PM | | procedure are in the | | | | PST | | results section. | + +--------+ + + + documented in this encounter Results [facility] Digital Diagnostic Bilateral (05/13/2016 12:50 PM PST) + + | Specimen | + + | | + + + + + | Narrative | Performed At | + + + | External films for comparison only - no result from | [facility] | + + + [...]
--- OUTSIDE RECORDS SUMMARY | ~2019-12-24 | XMS | Encounter Summary ---
Demographics + + + | Address | [address] | | | [place] [address] | + + + | Home Phone [...] | Author | [facility] | | | and [place] [...] [place], | | | | | [place] [address] | | + + + + + | Mahogany Farnsworth | ECON | [address] | | | | | [place] [address] | | + + + + + Care Team Providers + +------+ + | Care Field Artillery Officer Name | Role | Phone | + +------+ + | Quynh Finch | PCP | | | MD | | | + +------+ + Encounter Details +--------+ + + + + | Date | Type | Department | Care Team | Description | +--------+ + + + + | 07/22/ | Orders Only | [facility] | Stef, | | | 2018 | | MEDICINE [address] | MD Quynh | | | | | [place], | [address] [facility] | | | | | [place] [address] | [place] [address] | | | | | [phone] | [phone] | | | | | | | [...] | | | | | [place] [address] | | | | | | [phone] | | | | | | | [...]
--- OUTSIDE RECORDS SUMMARY | ~2019-12-24 | XMS | Encounter Summary ---
Demographics + + + | Address | [address] | | | [place] [address] | + + + | Home Phone [...] | Author | [facility] | | [...] [place], | | | | | [place] [address] | | + + + + + | Mahogany Farnsworth | ECON | [address] | | | | | [place] [address] | | + + + + + Care Team Providers + +------+ + | Care Psych Social Worker Name | Role | Phone | [...] Description | +--------+--------+ + + + | 06/17/ | Refill | [facility] | Stef, | Medication Refill | | 2017 | | MEDICINE [address] | MD Quynh | | | | | [place], | [address] [facility] | | | | | [place] [address] | [place] [address] | | | | | [phone] | [phone] | | | | | | | [...] Quynh | | | | | | [address] [place] [address] | | | | | | [place] [address] | | | | | | [phone] | | | | | | | [...]
--- OUTSIDE RECORDS SUMMARY | ~2019-12-24 | XMS | Encounter Summary ---
Demographics + + + | Address | [address] | | | [place] [address] | + + + | Home Phone | | + + + | Preferred Language | Unknown | + + + | Marital Status | | + + + | Hindu Affiliation | 1013 | + + + | Race | Unknown | + + + | Ethnic Group | Unknown | + + + Author + + + | Author | [facility] | [...] [place], | | | | | [place] [address] | | + + + + + | Mahogany Navarro Porter | ECON | [address] | | | | | [place] [address] | | + + + + + Care Team Providers + +------+ + | Care Security Nurse Name | Role | Phone | + +------+ + PCP | Unavailable | + +------+ + Encounter Details +--------+ + + + + | Date | Type | Department | Care Team | Description | +--------+ + + + + | 01/12/ | Hospital | [facility] | | | | 2011 | Encounter | [facility] | | | | | | [address] | | | | | | [place] | | | | | | [address] | | | | | | [phone] | | | +--------+ + + + [...] documented as of this encounter Miscellaneous Notes Op Note - Yifan Perry MD - 01/13/2012 8:27 AM PDTPatient Name: Marzena Duong Gender: Too Procedure Date: 01/13/2012 10:00 AM Date of : 1970 Age: 41 Admit Type: Outpatient Room: [facility] Room 2 Note Status: Finalized Attending MD: Yifan Perry MD Procedure: Colonoscopy Indications: Screening for colorectal malignant neoplasm Providers: Yifan Perry MD, Yara Corral RN, Zamzam Owens, Sheep Or Calf Grader Referring M D: Jason Pink MD Medicines: Midazolam 7.5 mg IV, Diphenhydramine 50 mg IV, Meperidine 100 mg IV Complications: No immediate complications. Estimated blood loss: None. Procedure: - Prior to the procedure, a History and Physical was performed, and patient medications and allergies were reviewed. The risks and benefits of the procedure and the sedation options and risks were discussed with the patient. All questions were answered and informed consent was obtained. Patient identification and proposed procedure were verified by the physician and the nurse in the procedure room. Mental Status Examination: alert and oriented. Airway Examination: Mallampati Class II (the uvula but not tonsillar pillars visualized). Respiratory Examination: clear to auscultation. CV Examination: normal. Prophylactic Antibiotics: The patient does not require prophylactic antibiotics. Prior Anticoagulants: The patient has taken no previous anticoagulant or antiplatelet agents. ASA Grade Assessment: II - A patient with mild systemic disease. After reviewing the risks and benefits, the patient was deemed in satisfactory condition to undergo the procedure. The anesthesia plan was to use moderate sedation / analgesia (conscious sedation). Immediately prior to administration of medications, the patient was re-assessed for adequacy to receive sedatives. The physical status of the patient was re-assessed after the procedure. After I obtained informed consent, the scope was passed under direct vision. Throughout the procedure, the patient's blood pressure, pulse, and oxygen saturations were monitored continuously. The endoscope was introduced through the anus and advanced to the cecum, identified by the appendiceal orifice, IC valve and transillumination. The colonoscopy was performed without difficulty. The patient tolerated the procedure well. The quality of the bowel preparation was good. Findings: The perianal and digital rectal examinations were normal. The entire examined colon appeared normal on direct and retroflexion views. Impression: - The entire examined colon is normal on direct and retroflexion views. Recommendatio n: - Discharge patient to home (ambulatory). - The patient will be observed post-procedure, until all discharge criteria are met. - Repeat colonoscopy in 5 years for surveillance. - Return to primary care physician as previously scheduled. Yifan Perry MD Signed Date: 01/13/2012 10:40 AM Number of Addenda: 0 Note initiated on 01/13/2012 10:00 AM Scope Withdrawal Time: 05 minutes 24 seconds Total Procedure Duration Time: 11 minutes 37 seconds <Electronically Signed by Yifan Perry MD> 01/13/12 1040 Op Note - Yifan Perry MD - 01/13/2012 8:27 AM PDTPatient Name: Marzena Duong Gender: Too Procedure Date: 01/13/2012 10:00 AM Date of : 1970 Age: 41 Admit Type: Outpatient Room: Endo Room 2 Note Status: Finalized Attending MD: Yifan Perry MD Procedure: Upper GI endoscopy Indications: Follow-up of celiac disease, Diarrhea Providers: Yifan Perry MD, Yara Corral RN, Zamzam Owens, Sheep Or Calf Grader Referring M D: Jason Pink MD Medicines: Midazolam 5 mg IV, Meperidine 100 mg IV, Diphenhydramine 50 mg IV Complications: No immediate complications. Estimated blood loss: None. Procedure: - Prior to the procedure, a History and Physical was performed, and patient medications and allergies were reviewed. The risks and benefits of the procedure and the sedation options and risks were discussed with the patient. All questions were answered and informed consent was obtained. Patient identification and proposed procedure were verified by the physician and the nurse in the procedure room. Mental Status Examination: alert and oriented. Airway Examination: Mallampati Class II (the uvula but not tonsillar pillars visualized). Respiratory Examination: clear to auscultation. CV Examination: normal. Prophylactic Antibiotics: The patient does not require prophylactic antibiotics. Prior Anticoagulants: The patient has taken no previous anticoagulant or antiplatelet agents. ASA Grade Assessment: II - A patient with mild systemic disease. After reviewing the risks and benefits, the patient was deemed in satisfactory condition to undergo the procedure. The anesthesia plan was to use moderate sedation / analgesia (conscious sedation). Immediately prior to administration of medications, the patient was re-assessed for adequacy to receive sedatives. The physical status of the patient was re-assessed after the procedure. After obtaining informed consent, the endoscope was passed under direct vision. Throughout the procedure, the patient's blood pressure, pulse, and oxygen saturations were monitored continuously. The endoscope was introduced through the mouth, and advanced to the second part of duodenum. The upper GI endoscopy was accomplished without difficulty. The patient tolerated the procedure well. Findings: The examined esophagus was normal. Localized mildly erythematous mucosa with no bleeding was found in the gastric antrum. Biopsies were taken with a cold forceps for histology. No gross lesions were noted in the entire examined duodenum. Biopsies were taken with a cold forceps for evaluation of celiac disease. Impression: - Normal esophagus. - Gastric mucosal abnormality in the antrum characterized by erythema. This was biopsied. - No gross lesions in duodenum. Recommendation: - Await pathology results. - Discharge patient to home (ambulatory). - The patient will be observed post-procedure, until all discharge criteria are met. - Perform a colonoscopy today. - Gluten free diet. - Return to referring physician as previously scheduled. Yifan Perry MD Signed Date: 01/13/2012 10:22 AM Number of Addenda: 0 Note initiated on 01/13/2012 10:01 AM Scope Withdrawal Time: N/A Total Procedure Duration Time: 02 minutes 41 seconds <Electronically Signed by Yifan Perry MD> 01/13/12 1023 documented in this encounter Plan of Treatment +--------+---------+ + + + | Date | Type | Specialty | Care Team | Description | +--------+---------+ + + + | 01/09/ | Office | Internal Medicine | Stef, | | | 2019 | Visit | | MD Quynh | | | | | | [address] [place] | | | | | | [place] [address] | | | | | | [phone] | | | | | | | | +--------+---------+ + + + documented as of this encounter Visit Diagnoses Not on filedocumented in this encounter"
--- OUTSIDE RECORDS SUMMARY | ~2019-12-24 | XMS | Encounter Summary ---
Demographics + + + | Address | [address] | | | [place] [address] | + + + | Home Phone | | + + + | Preferred Language | Unknown | + + + | Marital Status | | + + + | Mu-Ism Affiliation | 1013 | + + + | Race | Unknown | + + + | Ethnic Group | Unknown | + + + Author + + + | Author | [facility] | | | and [place] | + + + | Organization | [facility] | | | and [place] | + + + | Address | Unknown | + + + | Phone | Unavailable | + + + Support + + + + + | Name | Relationship | Address | Phone | + + + + + | Iwona L Head | ECON | [place], | | | | | [place] [address] | | + + + + + | Mahogany Farnsworth | ECON | [address] | | | | | [place] [address] | | + + + + + Care Team Providers + +------+ + | Care Yardage Caller Name | Role | Phone | + [...] Description | +--------+--------+ + + + | 05/22/ | Refill | [facility] | Stef, | Medication Refill | | 2019 | | MEDICINE [address] | MD Quynh | | | | | [place], | [address] [place] [place] | | | | | [place] [address] | [place] [address] | | | | | [phone] | [phone] | | | | | | | [...] Telephone Encounter - Melani Sandoval RN - 05/23/2019 3:25 PM PSTMedication Alprazolam 0.5 mg Quantity #30 +3 Last refill date 01/06/19 Pharmacy [facility] Last appointment 01/06/19 Next appointment no future [...] | | | | | [place] [address] | | | | | | [phone] | | | | | | | [...]
--- OUTSIDE RECORDS SUMMARY | ~2019-12-24 | XMS | Encounter Summary ---
Demographics + + + | Address | [address] | | | [place] [address] | + + + | Home Phone [...] + | Author | [facility] | | | and [place] [...] [place], | | | | | [place] [address] | | + + + + + | Mahogany Navarro [place] | ECON | [address] | | | | | [place] [address] | | + + + + + Care Team Providers + +------+ + | Care Dry Ice Machine Operator Name | Role | Phone | + +------+ + | Quynh Finch | PCP | | | MD | | | + +------+ + Reason for Visit + +--------+ + | Reason | Onset | Comments | | | Date | | + +--------+ + | Medication Refill | 09/25/ | | | | 2017 | | + +--------+ + Encounter Details +--------+--------+ + + + | Date | Type | Department | Care Team | Description | +--------+--------+ + + + | 09/25/ | Refill | [facility] | Stef, | Medication Refill | | 2017 | | MEDICINE [address] | MD Quynh | | | | | [place], | [address] [facility] | | | | | [place] [address] | [place] [address] | | | | | [phone] | [phone] | | | | | | | [...] Telephone Encounter - Vera Solis LPN - 09/25/2017 2:10 PM PDTLast appt: 09/15/17 No upcoming appt [...] | | | | | [place] [address] | | | | | | [phone] | | | | | | | [...]
--- OUTSIDE RECORDS SUMMARY | ~2019-12-24 | XMS | Clinical Summary ---
Demographics + + + | Address | [address] | | | [place] [address] | + + + | Home Phone | | + + + | Preferred Language | Unknown | + + + | Marital Status | | + + + | Denominational Affiliation | 1013 | + + + | Race | Unknown | + + + | Ethnic Group | Unknown | + + + Author + + + | Author | [facility] | | | and [...] [place], | | | | | [place] [address] | | + + + + + | Mahogany Farnsworth | ECON | [address] | | | | | [place], [place] [address] | | + + + + + Care Team Providers + +------+ + | Care Oracle Brm Developer Name | Role | Phone | + +------+ + | Quynh Finch | PCP | | | MD | | | + +------+ + Allergies + + + + + + | Active Allergy | Reactions | Severity | Noted | Comments | | | | | Date | | + + + + + + | Adhesive & Tape | | | 07/17/19 | Other reaction(s): | | | | | 15 | Rash | + + + + + + | Codeine | Rash | Low | 07/17/19 | Rash, slows | | | | | 15 | breathing | + + + + + + | Hydrocodone | Hives | High | | Hives and | | | | | | decreased | | | | | | respirations | + + + + + + | Milk-Related | | | 07/17/19 | Other reaction(s): | | Compounds | | | 15 | Rash | + + + + + + | Morphine | Other (See Comments) | High | | Light-headed, very | | | | | | emotional (cries | | | | | | constantly) | + + + + + + | Sulfa Antibiotics | Rash, Other (See | High | | Severe respiratory | | | Comments) | | | distress, huge | | | | | | water blisters, rash | + + + + + + Medications + + + +---------+------+------+-------+ | Medication | Sig | Dispensed | Refills | Star | End | Statu | | | | | | t | Date | s | | | | | | Date | | | + + + +---------+------+------+-------+ | promethazine | Take 1 tablet by | | 0 | 09/1 | | Activ | | (PHENERGAN) 25 mg | mouth every 4 to 6 | | | 4/20 | | e | | tablet | hours as needed | | | 12 | | | + + + +---------+------+------+-------+ | acetaminophen | Take 325 mg by mouth | | 0 | | | Activ | | (TYLENOL) 325 mg | every 4 hours as | | | | | e | | tablet | needed. | | | | | | + + + +---------+------+------+-------+ | ondansetron | Take 1 tablet by | | 0 | | | Activ | | (ZOFRAN) 4 mg TABS | mouth Daily as | | | | | e | | tablet (ED prepack) | needed. | | | | | | + + + +---------+------+------+-------+ | UNABLE TO | True Metrix Lancets. | 100 | 5 | 06/30 | | Activ | | FINDIndications: | Testing 3x/day. | each | | 09/15 | | e | | Type 2 diabetes | | | | 19 | | | | mellitus without | | | | | | | | complication, with | | | | | | | | long-term current | | | | | | | | use of insulin ([facility]) | | | | | | | + + + +---------+------+------+-------+ +---+ + | | Additional | | | InformationPatient | | | not taking. Reported | | | on 10/11/2019 8:48 | | | AM | +---+ + + + +---------+---+------+---+-------+ | UNABLE TO | Alcohol swabs | 1 Box | 5 | 09/27 | | Activ | | FINDIndications: | | | | 07/18 | | e | | Uncontrolled type 2 | | | | 19 | | | | diabetes mellitus | | | | | | | | with hyperglycemia | | | | | | | | ([facility]) | | | | | | | + + +---------+---+------+---+-------+ +---+ + | | Additional | | | InformationPatient | | | not taking. Reported | | | on 10/11/2019 8:48 | | | AM | +---+ + + + + +----+------+------+-------+ | atorvaSTATin | Take 1 tablet by | 90 | 1 | 12/27 | | Activ | | (LIPITOR) 40 mg | mouth nightly. | tablet | | 02/15 | | e | | tabletIndications: | | | | 19 | | | | Hypercholesterolemia | | | | | | | + + + +----+------+------+-------+ | DULoxetine | TAKE ONE CAPSULE BY | 30 | 4 | 12/28 | | Activ | | (CYMBALTA) [address] | MOUTH ONE TIME DAILY | capsule | | 11/15 | | e | | capsule | | | | 19 | | | + + + +----+------+------+-------+ | ARIPiprazole | TAKE ONE TABLET BY | 30 | 5 | 12/29 | | Activ | | (ABILIFY) 5 mg | MOUTH AT BEDTIME | tablet | | 1/20 | | e | | tablet | | | | 19 | | | + + + +----+------+------+-------+ | levothyroxine | TAKE ONE TABLET BY | 30 | 3 | 09/ | | Activ | | (SYNTHROID) 150 mcg | MOUTH AT BEDTIME | tablet | | 0/20 | | e | | tablet | | | | 19 | | | + + + +----+------+------+-------+ | | TAKE ONE TABLET BY | 60 | 3 | 12/1 | | Activ | | diphenoxylate-atropi | MOUTH TWICE DAILY | tablet | | 01/15 | | e | | ne (LOMOTIL) | | | | 19 | | | | 2.5-0.025 mg per | | | | | | | | tablet | | | | | | | + + + +----+------+------+-------+ | gabapentin | TAKE ONE CAPSULE BY | 360 | 1 | 03/2 | | Activ | | (NEURONTIN) 300 mg | MOUTH FOUR TIMES | capsule | | 0/20 | | e | | capsule | DAILY | | | 20 | | | + + + +----+------+------+-------+ | insulin glargine | Inject 60 Units | 36 mL | 3 | 04/ | 07/ | Activ | | (BASAGLAR KWIKPEN) | under the skin | | | 4/20 | 3/20 | e | | 100 units/mL | nightly for 90 days. | | | 20 | 20 | | | injection | Increase dose by 3 | | | | | | | (pen)Indications: | units every week | | | | | | | Uncontrolled type 2 | until fasting blood | | | | | | | diabetes mellitus | sugars are between | | | | | | | with hyperglycemia | 80-150. | | | | | | | (HCC) | | | | | | | + + + +----+------+------+-------+ | ALPRAZolam (XANAX) | Take 1 tablet by | 30 | 2 | 04/ | | Activ | | 0.5 mg | mouth Daily as | tablet | | 4/20 | | e | | tabletIndications: | needed for Anxiety. | | | 20 | | | | Anxiety | TAKE ONE TABLET BY | | | | | | | | MOUTH DAILY | | | | | | | | NEEDED FOR ANXIETY | | | | | | + + + +----+------+------+-------+ | UNABLE TO | True Metrix Testing | 100 | 5 | 04/1 | | Activ | | FINDIndications: | Strips. Testing | each | | 4/20 | | e | | Uncontrolled type 2 | 3x/day. | | | 20 | | | | diabetes mellitus | | | | | | | | with hyperglycemia | | | | | | | | (HCC) | | | | | | | + + + +----+------+------+-------+ | Insulin Pen Needle | For insulin pen. | 100 | 5 | 09/27 | | Activ | | (PEN NEEDLES) 32G X | | each | | 10/16 | | e | | 6 MM | | | | 20 | | | | MISCIndications: | | | | | | | | Type 2 diabetes | | | | | | | | mellitus without | | | | | | | | complication, with | | | | | | | | long-term current | | | | | | | | use of insulin ([facility]) | | | | | | | + + + +----+------+------+-------+ | Blood Glucose | For home glucose | 1 each | 0 | 09/27 | | Activ | | Monitoring Suppl | monitoring, testing | | | 20 | | e | | (ONE TOUCH ULTRA | 3x/day. DM II E11.9. | | | 20 | | | | MINI) w/Device | | | | | | | | KITIndications: | | | | | | | | Uncontrolled type 2 | | | | | | | | diabetes mellitus | | | | | | | | with hyperglycemia | | | | | | | | (HCC) | | | | | | | + + + +----+------+------+-------+ | glucose blood | For home glucose | 100 | 11 | 04/1 | | Activ | | test strips (ONE | monitoring, testing | each | | 420 | | e | | TOUCH ULTRA TEST) | 3x/day. DM II E11.9. | | | 20 | | | | stripIndications: | | | | | | | | Uncontrolled type 2 | | | | | | | | diabetes mellitus | | | | | | | | with hyperglycemia | | | | | | | | (HCC) | | | | | | | + + + +----+------+------+-------+ | QUEtiapine | TAKE ONE TABLET BY | 30 | 2 | 04/2 | | Activ | | (SEROQUEL) 25 mg | MOUTH AT BEDTIME | tablet | | 8/20 | | e | | tablet | | | | 20 | | | + + + +----+------+------+-------+ | pramipexole | TAKE TWO TABLETS BY | 60 | 5 | 05/1 | | Activ | | (MIRAPEX) 1.5 MG | MOUTH DAILY AT | tablet | | 8/20 | | e | | tablet | BEDTIME | | | 20 | | | + + + +----+------+------+-------+ | amitriptyline | TAKE ONE TABLET BY | 30 | 5 | 06/ | | Activ | | (ELAVIL) 25 mg | MOUTH AT BEDTIME | tablet | | 0/20 | | e | | tablet | | | | 20 | | | + + + +----+------+------+-------+ | omeprazole | TAKE 1 CAPSULE BY | 90 | 2 | / | | Activ | | (PRILOSEC) 20 mg | MOUTH EVERY MORNING | capsule | | 0/20 | | e | | capsule | (BEFORE BREAKFAST). | | | 20 | | | + + + +----+------+------+-------+ | omeprazole | Take 1 capsule by | 90 | 3 | 05/2 | 06/1 | Disco | | (PRILOSEC) 20 mg | mouth every morning | capsule | | 9/20 | 0/20 | ntinu | | capsule | (before breakfast). | | | 19 | 20 | ed | + + + +----+------+------+-------+ | amitriptyline | TAKE 1 TABLET BY | 30 | 3 | 02/27 | 11/27 | Disco | | (ELAVIL) 25 mg | MOUTH AT BEDTIME. | tablet | | 12/16 | 0 | ntinu | | tablet | | | | | 20 | ed | + + + +----+------+------+-------+ Active Problems + + + | Problem | Noted Date | + + + | Cigarette nicotine dependence without complication | 10/07/2018 | + + + | Oropharyngeal dysphagia | 10/07/2018 | + + + | Uncontrolled type 2 diabetes mellitus with hyperglycemia | 07/29/2018 | + + + | Acquired hypothyroidism | 07/15/2018 | + + + | Chronic bilateral low back pain without sciatica | 05/07/2017 | + + + | Medicare annual wellness visit, subsequent | 05/07/2017 | + + + | Screening for breast cancer | 05/07/2017 | + + + | History of necrotizing fasciitis | 07/17/2014 | + + + | Urinary incontinence in female | 07/17/2014 | + + + | OBSTRUCTIVE SLEEP APNEA | 01/15/2012 | + + + | RESTLESS LEG SYNDROME | 01/15/2012 | + + + | ORGANIC INSOMNIA UNSPECIFIED | 01/15/2012 | + + + + + | Overview: ICD-10 Record update | + + + + + | SPRUCE-CELIAC | 01/01/2012 | + + + | CHANGE IN BOWEL HABITS | 01/01/2012 | + + + | BLEEDING-GI UNSPECIFIED | 01/01/2012 | + + + | Chronic pain syndrome | | + + + | HYPERCHOLESTEROLEMIA | | + + + | GASTROESOPHAGEAL REFLUX DISEASE | | + + + | HYPERTENSION, BENIGN ESSENTIAL | | + + + | DEPRESSION, MAJOR, MODERATE | | + + + | SLEEP APNEA | | + + + | DIAB W/OTH MANIFESTS TYPE II/UNS TYPE UNCNTRL | | + + + | Tobacco use disorder | | + + + Encounters +--------+ + + + + | Date | Type | Specialty | Care Team | Description | +--------+ + + + + | 12/05/ | Refill | Internal Medicine | Stef, | Medication Refill | | 2020 | | | MD Quynh | | +--------+ + + + + | 11/13/ | Refill | Internal Medicine | Stef, | Medication Refill | | 2019 | | | MD Quynh | | +--------+ + + + + | 11/07/ | Telephone | Diabetes Services | Cielo Denny, | Diabetes Education | | 2019 | | | RN | | +--------+ + + + + | 10/24/ | Refill | Internal Medicine | Stef, | Medication Refill | | 2019 | | | MD Quynh | | +--------+ + + + + | 10/10/ | Virtual | Internal Medicine | Stef, | Uncontrolled type 2 | | 2019 | Office | | MD Quynh | diabetes mellitus | | | Visit | | | with hyperglycemia | | | | | | ([facility]) (Primary Dx); | | | | | | Anxiety; Type 2 | | | | | | diabetes mellitus | | | | | | without | | | | | | complication, with | | | | | | long-term current | | | | | | use of insulin | | | | | | ([facility]); Mixed | | | | | | hyperlipidemia | +--------+ + + + + | 10/05/ | Refill | Internal Medicine | Stef, | Medication Refill | | 2019 | | | MD Quynh | | +--------+ + + + + from Last 3 Months Immunizations + + + + | Name | Administration Dates | Next Due | + + + + | DTP (PED) | 03/10/1989, 04/03/1988, 01/21/1988, | | | | 11/16/1987 | | + + + + | HIB, UNSPECIFIED | 03/10/1989 | | | FORMULATION | | | + + + + | Hep B (PED/ADOL) 3 | 08/21/1998 | | | DOSE | | | + + + + | INFLUENZA PF | 07/15/2018, 05/07/2017 | | | QUAD(PED/ADOL/ADULT) | | | | ,PSKT or VIAL | | | + + + + | INFLUENZA PF | 03/23/2014 | | | TRIVALENT(PED/ADOL/A | | | | HANS) PSKT | | | + + + + | INFLUENZA QUADR | 04/16/2016 | | | W/PRES | | | | (PED/ADOL/ADULT) | | | | MULTIDOSE | | | + + + + | INFLUENZA TRIV | 04/06/2013, 04/07/2011, 04/16/2010, | | | W/PRES(PED/ADOL/ADUL | 04/18/2008 | | | T),MULTIDOSE | | | + + + + | MMR, 2 DOSE | 01/08/1989 | | | (PED/ADULT) | | | + + + + | PNEUMOCOCCAL | 06/29/2008, 04/18/2008, 02/01/1998 | | | POLYSACCHARIDE | | | | 23-VALENT (PPSV23) | | | + + + + | POLIOVIRUS,OPV | 03/10/1989, 01/21/1988, 11/16/1987 | | | (LIVE) | | | + + + + | PPD Test | 08/21/1998 | | + + + + | TD PF (2 LF TETANUS) | 09/28/1989 | | | (ADOL/ADULT) | | | + + + + Family History + + + + + | Medical History | Relation | Name | Comments | + + + + + | Diabetes | Brother | Ildefonso | | | | | [place] | | + + + + + | Substance abuse | Brother | Ildefonso | | | | | [place] | | + + + + + | Depression | Daughter | Talisha | | | | | grass | | + + + + + | Substance abuse | Daughter | Talisha | | | | | grass | | + + + + + | Miscarriages / | Daughter | Kassi | | | stillbirths | | grass | | + + + + + | Alcohol abuse | Father | Elver | | | | | champ | | + + + + + | Hearing loss | Father | Elver | | | | | champ | | + + + + + | Heart disease | Father | Elver | | | | | champ | | + + + + + | High blood pressure | Father | Elver | | | | | champ | | + + + + + | High cholesterol | Father | Elver | | | | | champ | | + + + + + | Mental illness | Father | Elver | | | | | champ | | + + + + + | Prostate cancer | Father | Elver | | | | | champ | | + + + + + | Stroke | Father | Elver | | | | | champ | | + + + + + | Allergies | Mother | Mahogany | | | | | champ | | + + + + + | Arthritis | Mother | Mahogany | | | | | champ | | + + + + + | Asthma | Mother | Mahogany | | | | | champ | | + + + + + | Breast cancer | Mother | Mahogany | | | | | champ | | + + + + + | COPD | Mother | Mahogany | | | | | champ | | + + + + + | Lupus | Mother | Mahogany | | | | | champ | | + + + + + | Miscarriages / | Mother | Mahogany | | | stillbirths | | champ | | + + + + + | Depression | Sister | Iwona | | | | | head | | + + + + + | Mental illness | Sister | Iwona | | | | | head | | + + + + + | Miscarriages / | Sister | Iwona | | | stillbirths | | head | | + + + + + | Substance abuse | Sister | Iwona | | | | | head | | + + + + + | Miscarriages / | Sister | Jen | | | stillbirths | | [place] | | + + + + + | Substance abuse | Sister | Jen | | | | | [place] | | + + + + + + + +--------+ + | Relation | Name | Status | Comments | + + +--------+ + | Brother | Ildefonso | | | | | [place] | | | + + +--------+ + | Daughter | Talisha | | | | | grass | | | + + +--------+ + | Daughter | Kassi | | | | | grass | | | + + +--------+ + | Father | Elver champ | Alive | | + + +--------+ + | Mother | Mahogany | Alive | | | | champ | | | + + +--------+ + | Sister | Iwona | | | | | head | | | + + +--------+ + | Sister | Jen | | | | | [place] | | | + + +--------+ + Social History + + + +--------+------+ [...] on file | | + + + Last Filed Vital Signs + + + [...] | | + + + + + Plan of Treatment +--------+---------+ + + + | Date | Type | Specialty | Care Team | Description | +--------+---------+ + + + | 01/09/ | Office | Internal Medicine | Stef, | | | 2019 | Visit | | MD Quynh | | | | | | [address] [facility] | | | | | | [place] [address] | | | | | | [phone] | | | | | | | | +--------+---------+ + + + + + + + + | Health Maintenance | Due Date | Last | Comments | | | | Done | | + + + + + | Diabetic Eye Exam | | | | | | 9 | | | + + + + + | Diabetic Foot Exam | | | | | | 9 | | | + + + + + | Vaccine: | | 09/28/18 | | | Dtap/Tdap/Td (5 - | 0 | 90, | | | Tdap) | | 03/10/19 | | | | | 89, | | | | | 04/03/19 | | | | | 88, | | | | | Addition | | | | | al | | | | | history | | | | | exists | | + + + + + | Cervical Cancer | | | | | Screening (Pap) | 1 | | | + + + + + | Adult Annual | | 05/07/20 | | | Wellness Visit | 8 | 17 | | + + + + + | Hemoglobin A1c | | 07/21/19 | | | Screening | 9 | 19 | | + + + + + | Microalbumin | | 07/29/19 | | | Screening | 0 | 19 | | + + + + + | Breast Cancer | | 09/09/19 | | | Screening | 0 | 19, | | | | | 08/25/19 | | | | | 18, | | | | | 05/13/20 | | | | | 16 | | + + + + + | Vaccine: Influenza | | 07/15/19 | | | (Season Ended) | 0 | 19, | | | | | 05/07/20 | | | | | 17, | | | | | 04/16/20 | | | | | 16, | | | | | Addition | | | | | al | | | | | history | | | | | exists | | + + + + + | Vaccine: | Completed | 06/29/19 | | | Pneumococcal 19-64 | | 09, | | | | | 04/18/20 | | | | | 08, | | | | | 02/01/19 | | | | | 98 | | + + + + + Results Not on filefrom Last 3 Months Additional Health Concerns + + + + + | Infection | Onset Date | Last Indicated | Resolved Time | + + + + + | 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 | | | Enterococcus | | | | + + + + + Insurance + +--------+ +--------+ +---------+--------+ | Payer | Benefi | Subscriber | Effect | Phone | Address | Type | | | t Plan | ID | hans | | | | | | / | | Dates | | | | | | Group | | | | | | + +--------+ +--------+ +---------+--------+ | MEDICARE | MEDICA | [id number] | 02/28/20 | [phone] | | Medica | | | RE | | 11-Pre | 5 | | re | | | PART A | | sent | | | | | | AND B | | | | | | + +--------+ +--------+ +---------+--------+ | MEDICAID [place] | MEDICA | [id number] | | [phone] | | Medica | | | ID | | 019-Pr | 2 | | id | | | WASHIN | | esent | | | | | | GTON | | | | | | + +--------+ +--------+ +---------+--------+ + +--------+ +--------+ + + | Guarantor Name | Accoun | Relation to | Date | Phone | Billing Address | | | t Type | Patient | of | | | | | | | | | | + +--------+ +--------+ + + | Marzena Duong | Person | Self | [birth year] | [address] | | | al/Fam | | 1971 | [phone] | [place] | | | [place] | | | [address] ([place]) | [phone] | + +--------+ +--------+ + + Advance Directives + + + + + | Type | Date Recorded | Patient | Explanation | | | | Telecommunication Operator | | + + + + + | Power of | | | | | Special Procedures Nurse | | | | + + + + + | Advance | 02/03/2019 9:01 | | | | Directive | PM | | | + + + + +"
--- OUTSIDE RECORDS SUMMARY | ~2019-12-24 | XMS | Encounter Summary ---
Demographics + + + | Address | [address] | | | [place] [address] | + + + | Home Phone [...] Author | [facility] | | | and [...] [place], | | | | | [place] [address] | | + + + + + | Mahogany Farnsworth | ECON | [address] | | | | | [place] [address] | | + + + + + Care Team Providers + +------+ + | Care Environmental Services Attendant Name | Role | Phone | [...] Description | +--------+--------+ + + + | 06/29/ | Refill | [facility] | Stef, | Medication Refill | | 2019 | | MEDICINE [address] | MD Quynh | | | | | [place], | [address] [facility] | | | | | [place] [address] | [place] [address] | | | | | [phone] | [phone] | | | | | | | [...] Telephone Encounter - Vera Solis LPN - 06/30/2018 4:42 PM PSTrx pended Last appt: 09/15/17 No upcoming appt scheduled documented [...] | | | | | [place] [address] | | | | | | [phone] | | | | | | | [...]
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
--- OUTSIDE RECORDS SUMMARY | ~2019-12-24 | XMS | Encounter Summary ---
Demographics + + + | Address | [address] | | | [place] [address] | + + + | Home Phone [...] | Author | [facility] | | | and [place] [...] [place], | | | | | [place] [address] | | + + + + + | Mahogany Farnsworth | ECON | [address] | | | | | [place] [address] | | + + + + + Care Team Providers + +------+ + | Care Corporate Aircraft Mechanic Name | Role | Phone | [...] Description | +--------+--------+ + + + | 02/26/ | Refill | [facility] | Stef, | Medication Refill | | 2019 | | MEDICINE [address] | MD Quynh | | | | | [place], | [address] [facility] | | | | | [place] [address] | [place] [address] | | | | | [phone] | [phone] | | | | | | | [...] Quynh | | | | | | [address] [place] [address] | | | | | | [place] [address] | | | | | | [phone] | | | | | | | [...]
--- OUTSIDE RECORDS SUMMARY | ~2019-12-24 | XMS | Encounter Summary ---
Demographics + + + | Address | [address] | | | [place] [address] | + + + | Home Phone [...] | Author | [facility] | | [...] [place], | | | | | [place] [address] | | + + + + + | Mahogany Farnsworth | ECON | [address] | | | | | [place] [address] | | + + + + + Care Team Providers + +------+ + | Care C D Stripper Name | Role | Phone | + [...] Description | +--------+--------+ + + + | 12/31/ | Refill | [facility] | Stef, | Medication Refill | | 2017 | | MEDICINE [address] | MD Quynh | | | | | [place], | [address] [facility] | | | | | [place] [address] | [place] [address] | | | | | [phone] | [phone] | | | | | | | [...] Telephone Encounter - Melani Sandoval RN - 12/31/2017 3:10 PM PDTNo documented Lipid res ults documented in th is encounter Plan of Treatment +--------+---------+ + + + | Date | Type | Specialty | Care Team | Description | +--------+---------+ + + + | 01/09/ | Office | Internal Medicine | Stef, | | | 2019 | Visit | | MD Quynh | | | | | | [address] | | | | | | [place] [address] | | | | | | [phone] | | | | | | | [...]
--- OUTSIDE RECORDS SUMMARY | ~2019-12-24 | XMS | Encounter Summary ---
Demographics + + + | Address | [address] | | | [place] [address] | + + + | Home Phone [...] + | Author | [facility] | | | and [...] [place], | | | | | [place] [address] | | + + + + + | Mahogany Farnsworth | ECON | [address] | | | | | [place] [address] | | + + + + + Care Team Providers + +------+ + | Care Molding Room Supervisor Name | Role | Phone | [...] Description | +--------+--------+ + + + | 07/27/ | Refill | [facility] | Stef, | Medication Refill | | 2019 | | MEDICINE [address] | MD Quynh | | | | | [place], | [address] [facility] | | | | | [place] [address] | [place] [address] | | | | | [phone] | [phone] | | | | | | | [...] this encounter Miscellaneous Notes Telephone Encounter - Jessica Ibarra RN - 07/27/2018 9:09 AM PSTLast refilled on 07/01/18 Last office visit: 07/15/18 Next office visit: 07/29/18 documented in this encounter Plan of Treatment +--------+---------+ + + + | Date | Type | Specialty | Care Team | Description | +--------+---------+ + + + | 01/09/ | Office | Internal Medicine | Stef, | | | 2019 | Visit | | MD Quynh | | | | | | [address] | | | | | | [place] [address] | | | | | | [phone] | | | | | | | [...]
--- OUTSIDE RECORDS SUMMARY | ~2019-12-24 | XMS | Encounter Summary ---
Demographics + + + | Address | [address] | | | [place] [address] | + + + | Home Phone | | + + + | Preferred Language | Unknown | + + + | Marital Status | | + + + | Jainism Affiliation | 1013 | + + + | Race | Unknown | + + + | Ethnic Group | Unknown | + + + Author + + + | Author | [facility] | | | and [place] | + + + | Organization | [facility] | | | [...] [place], | | | | | [place] [address] | | + + + + + | Mahogany Navarro [place] | ECON | [address] | | | | | [place] [address] | | + + + + + Care Team Providers + +------+ + | Care Hardware Developer Name | Role | Phone | + +------+ + PCP | Unavailable | + +------+ + Encounter Details +--------+ + + + + | Date | Type | Department | Care Team | Description | +--------+ + + + + | 11/22/ | Hospital | [facility] | | | | 2005 | Encounter | MED CTR EMERGENCY | | | | | | CENTER [address] | | | | | | [place] | | | | | | [address] | | | | | | [phone] | | | +--------+ + + + [...] Quynh | | | | | | [facility] [address] | | | | | | [place] [address] | | | | | | [phone] | | | | | | | | +--------+---------+ + + + documented as of this encounter Visit Diagnoses Not on filedocumented in this encounter"
--- OUTSIDE RECORDS SUMMARY | ~2019-12-24 | XMS | Encounter Summary ---
Demographics + + + | Address | [address] | | | [place] [address] | + + + | Home Phone | | + + + | Preferred Language | Unknown | + + + | Marital Status | | + + + | Restorationist Affiliation | 1013 | + + + | Race | Unknown | + + + | Ethnic Group | Unknown | + + + Author + + + | Author | [facility] | | | and [place] [...] [place], | | | | | [place] [address] | | + + + + + | Mahogany Navarro [place] | ECON | [address] | | | | | [place] [address] | | + + + + + Care Team Providers + +------+ + | Care Full Stack Python Developer Name | Role | Phone | + +------+ + PCP | Unavailable | + +------+ + Encounter Details +--------+ + + + + | Date | Type | Department | Care Team | Description | +--------+ + + + + | 09/10/ | Hospital | [facility] | Larry [place]oval, | | | 2006 | Encounter | MED CTR LABORATORY | MD [address] | | | | | [address] [place] | [place], [place] | | | | | [place], [place] | [address] | | | | | [address] | | | | | | [phone] | | | +--------+ + + + [...] | | | | | [place] [address] | | | | | | [phone] | | | | | | | | +--------+---------+ + + + documented as of this encounter Visit Diagnoses Not on filedocumented in this encounter"
--- OUTSIDE RECORDS SUMMARY | ~2019-12-24 | XMS | Encounter Summary ---
Demographics + + + | Address | [address] | | | [place] [address] | + + + | Home Phone [...] Author | [facility] | | | and [...] [place], | | | | | [place] [address] | | + + + + + | Mahogany Farnsworth | ECON | [address] | | | | | [place] [address] | | + + + + + Care Team Providers + +------+ + | Care Truck Dock Material Mover Name | Role | Phone | + [...] Description | +--------+--------+ + + + | 10/12/ | Refill | [facility] | Stef, | Medication Refill | | 2019 | | MEDICINE [address] | MD Quynh | | | | | [place], | [address] [facility] | | | | | [place] [address] | [place] [address] | | | | | [phone] | [phone] | | | | | | | [...] Telephone Encounter - Vera Solis LPN - 10/12/2018 11:38 AM PDTLast appt: 10/07/18 No upcoming appt scheduled documented [...] | | | | | [place] [address] | | | | | | [phone] | | | | | | | [...]
--- OUTSIDE RECORDS SUMMARY | ~2019-12-24 | XMS | Encounter Summary ---
Demographics + + + | Address | [address] | | | [place] [address] | + + + | Home Phone [...] Author | [facility] | [...] [place], | | | | | [place] [address] | | + + + + + | Mahogany Navarro [place] | ECON | [address] | | | | | [place] [address] | | + + + + + Care Team Providers + +------+ + | Care Conveyor Tender Concrete Mixing Plant Name | Role | Phone | + [...] Description | +--------+--------+ + + + | 11/24/ | Refill | [facility] | Stef, | Medication Refill | | 2018 | | MEDICINE [address] | MD Quynh | | | | | [place], | [address] [facility] | | | | | [place] [address] | [place] [address] | | | | | [phone] | | | | | | | [...] | | | | | | [address] [facility] | | | | | | [place] [address] | | | | | | [phone] | | | | | | | [...]
--- OUTSIDE RECORDS SUMMARY | ~2019-12-24 | XMS | Encounter Summary ---
Demographics + + + | Address | [address] | | | [place] [address] | + + + | Home Phone [...] Author | [facility] | | | and [...] [place], | | | | | [place] [address] | | + + + + + | Mahogany Navarro [place] | ECON | [address] | | | | | [place] [address] | | + + + + + Care Team Providers + +------+ + | Care Clinical Assessment Manager Name | Role | Phone | + +------+ + PCP | Unavailable | + +------+ + Encounter Details +--------+ + + + + | Date | Type | Department | Care Team | Description | +--------+ + + + + | 07/25/ | Hospital | [facility] | Carolee Mclaughlin | | | 2008 | Encounter | MED CTR EMERGENCY | MD Sima [address] | | | | | [address] | [facility], | | | | | [place] | [place] [address] | | | | | [address] | [phone] | | | | | [phone] | | | +--------+ + + + [...] | | | | | [place] [address] | | | | | | [phone] | | | | | | | | +--------+---------+ + + + documented as of this encounter Visit Diagnoses Not on filedocumented in this encounter"
--- OUTSIDE RECORDS SUMMARY | ~2019-12-24 | XMS | Encounter Summary ---
Demographics + + + | Address | [address] | | | [place] [address] | + + + | Home Phone [...] | Author | [facility] | | [...] [place], | | | | | [place] [address] | | + + + + + | Mahogany Farnsworth | ECON | [address] | | | | | [place] [address] | | + + + + + Care Team Providers + +------+ + | Care Cremator Name | Role | Phone | + +------+ + | Jason Pink | PCP | | | MD | | | + +------+ + Encounter Details +--------+ + + + + | Date | Type | Department | Care Team | Description | +--------+ + + + + | 07/10/ | Abstract | [facility] | Damian Escudero, | | | 2014 | | [address] | MD [address] | | | | | [place] | [place] | | | | | [address] | [address] | | | | | [phone] | | | +--------+ + + + [...] | | | | | [place] [address] | | | | | | [phone] | | | | | | | [...]
--- OUTSIDE RECORDS SUMMARY | ~2019-12-24 | XMS | Encounter Summary ---
Demographics + + + | Address | [address] | | | [place] [address] | + + + | Home Phone [...] [place], | | | | | [place] [address] | | + + + + + | Mahogany Farnsworth | ECON | [address] | | | | | [place] [address] | | + + + + + Care Team Providers + +------+ + | Care Sand Technician Name | Role | Phone | [...] | Neurology | Diagnoses | Kena, | [facility] | | | Services | | Unspecified | Damian Romero MD | MEDICAL | | | Required | | urinary | [address] | [place] [address] | | | | | incontinence | [address] [place] | [place] | | | | | | [place], [place] | [place], [place] | | | | | | [address] | [address] | | | | | | Phone: | Phone: | | | | | | [phone] | [phone] | | | | | | Fax: | | | | | | | [phone] | | +--------+ + + + + + Encounter Details +--------+ + + + + | Date | Type | Department | Care Team | Description | +--------+ + + + + | 12/13/ | Orders Only | [facility] [place] [facility] | Damian Escudero, | Unspecified urinary | | 2015 | | [address] | MD [address] | incontinence | | | | [place] | [place] | (Primary Dx) | | | | [address] | [address] | | | | | [phone] | | | +--------+ + + + [...] 01/09/ | Office | Internal Medicine | RyanKayLinwoodparrish, | | | 2019 | Visit | | MD Quynh | | | | | | [address] | | | | | | [place] [address] | | | | | | [phone] | | | | | | | | +--------+---------+ + + + + + +--------+ + + | Name | Type | Priori | Associated Diagnoses | Order Schedule | | | | ty | | | + + +--------+ + + | Neurology, External | Outpatient | Routin | Urinary | Expected: | | - AMB Referral | Referral | e | incontinence | 12/13/2014, Expires: | | | | | | 12/14/2015 | + + +--------+ + + documented as of this encounter Visit Diagnoses + + | Diagnosis | + + | Unspecified urinary incontinence - Primary | + + documented in [...]
--- OUTSIDE RECORDS SUMMARY | ~2019-12-24 | XMS | Encounter Summary ---
Demographics + + + | Address | [address] | | | [place] [address] | + + + | Home Phone | | + + + | Preferred Language | Unknown | + + + | Marital Status | | + + + | Druze Affiliation | 1013 | + + + | Race | Unknown | + + + | Ethnic Group | Unknown | + + + Author + + + | Author | [facility] | | | and [place] | + + + | Organization | [facility] | | [...] [place], | | | | | [place] [address] | | + + + + + | Mahogany Navarro [place] | ECON | [address] | | | | | [place] [address] | | + + + + + Care Team Providers + +------+ + | Care Portfolio Analyst Name | Role | Phone | + +------+ + PCP | Unavailable | + +------+ + Encounter Details +--------+ + + + + | Date | Type | Department | Care Team | Description | +--------+ + + + + | 09/18/ | Hospital | [facility] | Maryellen, | | | 2006 | Encounter | MED CTR EMERGENCY | David Romero MD [address] | | | | [place] [address] | [facility] | | | | | [place], [place] | [place] [address] | | | | | [address] | [phone] | | | | | [phone] | | | +--------+ + + + [...] Quynh | | | | | | [facility] [address] | | | | | | [place] [address] | | | | | | [phone] | | | | | | | | +--------+---------+ + + + documented as of this encounter Visit Diagnoses Not on filedocumented in this encounter"
[~2019-12-24 12:27] MED LIST: ABILIFY2 MG; ABILIFY5 MG PO; AMITRIPTYLINE H25 MG PO; EFFEXOR XR37.5 MG; LEVOXYL125 MCG PO; LIPITOR40 MG PO; MIRAPEX1.5 MG PO; NEURONTIN100 MG PO; OMEPRAZOLE20 M2 PO; SEROQUEL25 MG PO
--- OUTSIDE RECORDS SUMMARY | 2019-12-24 12:30 | XMS ---
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 Racheal VISIT COUNT (12 MO.) [address] [place] [address] [address] [place] [address] TOTAL 6 NOTE: Visits indicate total known visits. ED/UCC VISIT TRACKING (12 MO.) 12/24/2019 12:27 FARIBA Dennison TYPE: Emergency COMPLAINT: - RECHECK/ INFECTION 12/23/2019 22:10 [place]IBA Naidu [place] TYPE: Emergency COMPLAINT: - FACIAL SWELLING 08/01/2019 19:36 [facility] Isauro HAYWARD TYPE: Emergency DIAGNOSES: - Dysuria - Urinary tract infection, site not specified - Hyperglycemia, unspecified - blood in urine - Hematuria, unspecified [facility] [place] [facility] DIAGNOSES: - Poss blood clot on leg - Leg Pain - Pain in right thigh 04/29/2019 12:19 [facility] [place] [facility] DIAGNOSES: - Possible finger break - Foot Injury - Contusion of right foot, initial encounter 04/29/2019 11:41 [facility] [place] TYPE: Urgent Care DIAGNOSES: - Procedure and treatment not carried out due to patient leavin 02/03/2019 20:08 [facility] DIAGNOSES: - Hematuria, unspecified - Urinary tract infection, site not specified - Hematuria - Flank Pain - Unspecified abdominal pain - Blood in urine,back pain - Urinary Pain INPATIENT VISIT TRACKING (12 MO.) No inpatient visits to display in this time frame [id number]
[2019-12-24] MEDS ORDERED: TRAMADOL HCL50 MG PO (13:04)
[2019-12-24] MEDS ORDERED: DOXYCYCLINE HY100 MG PO (14:50)
[2019-12-24] MEDS ORDERED: HUMULIN R100 UNIT/1 INJ (15:56)
== END 2019-12-24 16:10 | disposition home or self-care (01) ==
LOC: ED 12:27
DX: K13.79 Other lesions of oral mucosa (principal); I10 Essential (primary) hypertension; E11.9 Type 2 diabetes mellitus without complications; E03.9 Hypothyroidism, unspecified; F17.200 Nicotine dependence, unspecified, uncomplicated; Z88.2 Allergy status to sulfonamides; Z88.5 Allergy status to narcotic agent; Z79.899 Other long term (current) drug therapy
CPT/HCPCS: 85025; 96374; 96375; 99283-25; J1815; J1885; J3370; J7030